=== PATIENT | female | born 1940 | race Caucasian/White ===

== ENCOUNTER 2016-06-30 19:25 | Inpatient (IN) | payer OTHER ==
[~2016-06-30] VITALS: Ht 160 cm; Wt 45.6 kg
[~2016-06-30 19:25] MED LIST: ALBU1AER9 INH; AMLO5TAB2 PO; HYDR-5688 PO; HYDR12.56 PO; IBUP-103 PO; IPRASOL34 NEB; SYMIN160 INH; TYLOTC500 PO
[2016-06-30] MEDS ORDERED: SODIUM CHLORIDE 0.9% 500ML 500 ML IV STA (19:40)
[2016-06-30] MEDS ORDERED: METHYLPREDNISOLONE 125 MG VIAL IV STA (19:40)
[2016-06-30] MEDS ORDERED: ALBUT/IPRATROP 3MG/0.5MG NEB 3 ML VIAL INH ONE (19:45)
[2016-06-30 19:49] LABS: BASO % 0.1 %; BASO ABS # 0.01 K/uL (0-0.2); COMPLETE YES; HEMATOCRIT 48.5 % (37-47); IG% 0.1 %; LYMPH % 13.3 %; LYMPH ABS # 0.98 K/uL (1.2-3.4); MEAN CELL VOLUME 95.8 fL (80-100); MEAN CORPUSCULAR HEMOGLOBIN 31.8 pg (25-34); MEAN CORPUSCULAR HGB CONC 33.2 g/dl (32-36); NEUT % 76.5 %; PLATELET COUNT 114 K/uL (130-400); RED BLOOD COUNT 5.06 M/uL (4.2-5.4); WHITE BLOOD COUNT 7.39 K/uL (4.8-10.8)
--- NOTE | 2016-06-30 19:50 | EMERGENCY ROOM VISIT NOTE ---
History Report prepared by Yudy: Romina Dickinson Under the Supervision of: Dr. Wei Dover M.D. First contact with patient: 19:35 Chief Complaint: SHORTNESS OF BREATH Stated Complaint: SOB History of Present Illness The patient is a 76 year old female who presents to the Emergency Room with complaints of persistent shortness of breath that began prior to arrival. The patient denies being on supplemental nasal cannula oxygen at home. She states that she recently developed laryngitis and a cold. The patient's daughter notes that she took the patient to her PCP's office and was found to have an oxygen saturation in the 70s. She notes that the patient was then transported to the emergency department for further treatment and evaluation. The patient additionally associates a cough with her symptoms today. Source of History: patient Onset: prior to arrival Position: other (global) Quality: other (shortness of breath) Timing: other (persistent) Associated Symptoms: + cough Note: Associated Symptoms: oxygen saturation in the 70s. Review of Systems See HPI for pertinent positives & negatives. A total of 10 systems reviewed and were otherwise negative. Past Medical & Surgical Medical Problems: (1) Chronic obstructive lung disease (2) Eczema (3) History of - hypertension Surgical Problems: (1) H/O tubal ligation Family History Cancer Heart disease Hypertension Social History Smoking Status: Current Every Day Smoker Alcohol Use: occasionally Marital Status: Occupation Status: retired Current/Historical Medications Scheduled Ibuprofen Tab (Advil), 400 MG PO PRN Scheduled PRN Acetaminophen (Tylenol), 1,000 MG PO Q6 PRN Chlorpheniramine-Dm (Coricidin Hbp Cough & Col), 1 TAB PO Q4 PRN for PRN Ipratropium-Albuterol (Duoneb), 1 TREATMENT INH Q4H PRN for Shortness of Breath Allergies Coded Allergies: Bacitracin (Verified Allergy, Mild, UNSURE, 06/30/16) Neomycin (Verified Allergy, Mild, UNSURE, 06/30/16) Polymyxin B (Verified Allergy, Mild, UNSURE, 06/30/16) Copper (Verified Allergy, Unknown, METAL?, 06/30/16) Nickel (Verified Allergy, Unknown, METAL?, 06/30/16) Silver (Verified Allergy, Unknown, METAL?, 06/30/16) [place] (Verified Allergy, Unknown, ., 06/30/16) Physical Exam Vital Signs Date Time Temp Pulse Resp B/P Pulse Ox O2 Delivery O2 Flow Rate FiO2 06/30/16 21:17 116 22 116/92 92 Nasal Cannula 3.0 06/30/16 20:12 88 26 95 Nasal Cannula 6.0 06/30/16 20:11 87 06/30/16 19:45 98 Nasal Cannula 6.0 06/30/16 19:39 102 28 138/82 76 Room Air 06/30/16 19:39 76 Room Air Physical Exam GENERAL: Patient is a healthy-appearing well-nourished HEAD: Normocephalic atraumatic EYES: Ocular movements intact pupils equal and react to light OROPHARYNX mucous membranes are moist no exudates present no erythema or edema present NECK: Supple no nuchal rigidity CHEST: Good equal expansion LUNGS: Distant lung sounds, wheezing noted on the left. CARDIAC: Normal S1 and S2 ABDOMEN: Soft nontender no guarding BACK: No CVA tenderness EXTREMITIES: No pain upon palpation normal muscle strength in all groups no clubbing cyanosis or edema NEURO: Patient is following commands is answering questions appropriately. Alert and oriented x3 Cranial Nerves 2-12 grossly intact Medical Decision & Procedures ER Provider Diagnostic Interpretation: X-ray results as stated below per interpretation by me and the radiologist: SINGLE VIEW CHEST CLINICAL HISTORY: Hypoxia. FINDINGS: An AP, portable, upright chest radiograph is compared to study dated 11/17/2012 and correlated with chest CT dated 11/18/2012. The examination is degraded by portable technique and patient rotation. The heart is enlarged and there is atherosclerotic calcification of the thoracic aorta. The pulmonary vasculature is noncongested. Emphysema and chronic interstitial thickening are similar to previous. No airspace consolidation, large pleural effusion, or Pneumothorax is seen. The skeletal structures are osteopenic. The bony thorax is grossly intact. Degenerative change and scoliosis are noted in the thoracic spine. IMPRESSION: Cardiomegaly and emphysema with no acute cardiopulmonary abnormality. Electronically signed by: Mor Parnell M.D. 06/30/2016 8:11 PM Dictated Date/Time: 06/30/2016 8:09 PM Laboratory Results Test 06/30/16 19:15 06/30/16 19:50 Total Bilirubin 0.9 mg/dl (0.2-1) Aspartate Amino Transf (AST/SGOT) 18 U/L (15-37) Alanine Aminotransferase (ALT/SGPT) 15 U/L (12-78) Alkaline Phosphatase 71 U/L (45-117) Total Creatine Kinase 58 U/L (26-192) Creatine Kinase MB 2.3 ng/ml (0.5-3.6) Creatine Kinase MB Ratio 4.0 (0-3.0) Troponin I < 0.015 ng/ml (0-0.045) Total Protein 7.7 gm/dl (6.4-8.2) Albumin 4.0 gm/dl (3.4-5.0) Globulin 3.7 gm/dl (2.5-4.0) Albumin/Globulin Ratio 1.1 (0.9-2) Influenza Type A (RT-PCR) Neg for Influ A (NEG) Influenza Type A Antigen Neg for Influ A (NEG) Influenza Type B Antigen Neg for Influ B (NEG) Influenza Type B (RT-PCR) Neg for Influ B (NEG) Labs reviewed by ED physician. Medications Administered Medications (Trade) Dose Ordered Sig/Briana Route Start Time Stop Time Status Last Admin Dose Admin Methylprednisolone Sodium Succinate (Solu-Medrol IV) 60 mg NOW STAT IV 06/30/16 19:40 06/30/16 19:43 DC 06/30/16 19:57 60 MG Albuterol/ Ipratropium 12 ml 12 ml ONE ONCE INH 06/30/16 19:45 06/30/16 19:46 DC 06/30/16 19:53 12 ML Sodium Chloride (Nss 500ml) 500 ml @ 999 mls/hr Q31M STAT IV 06/30/16 19:40 06/30/16 20:10 DC 06/30/16 19:57 999 MLS/HR ECG Indication: SOB/dyspnea Rate (beats per minute): 91 Rhythm: normal sinus Findings: no acute ischemic change, no ectopy ED Course 1936: Past medical records reviewed. The patient was evaluated in room B11B. A complete history and physical examination was performed. 1939: Ordered Sodium Chloride 500 ml @ 999 mls/hr IV, Solu-Medrol IV 60 mg IV. 1944: Ordered Duoneb 12 ml INH. 2009: I reevaluated the patient and she is resting comfortably. I discussed the exam findings with her and I discussed the treatment plan. She verbalized complete understanding and agreement. She is going to be evaluated for further treatment. 2045: I discussed the patients case with MAKENZIE Vidal. He is going to evaluate the patient for further treatment. Medical Decision Differential diagnosis: Etiologies such as infections, reactive airway disease, pneumonia, pneumothorax , COPD, CHF, cardiac ischemia, pulmonary embolism, musculoskeletal, gastrointestinal, as well as others were entertained. This is a 76-year-old female who presents emergency department complaining of hypoxia. The patient normally does not see a family doctor and is hypoxic upon arrival to the emergency department. She was given an hour-long breathing treatment and she has diffuse wheezing. She was also given Solu-Medrol. Because the patient remains on oxygen I did discuss the case with the hospitalist service who agreed to admit the patient. Patient was in agreement with the treatment plan. Consults Time Called: 2009 Consulting Physician: MAKENZIE Vidal Returned Call: 2045 I discussed the patients case with MAKENZIE Vidal. He is going to evaluate the patient for further treatment. Impression Primary Impression: Hypoxia Additional Impression: COPD exacerbation Scribe Attestation The scribe's documentation has been prepared under my direction and personally reviewed by me in its entirety. I confirm that the note above accurately reflects all work, treatment, procedures, and medical decision making performed by me. Departure Information Dispostion Being Evaluated By Hospitalist Referrals Radha Gates N.P. (PCP) Problem Qualifiers
[2016-06-30 20:01] LABS: ALT/SGPT 15 U/L (12-78); AST/SGOT 18 U/L (15-37); BLOOD UREA NITROGEN 36 mg/dl (7-18); BUN/CREATININE RATIO 25.7 (10-20); CALCIUM 9.1 mg/dl (8.5-10.1); CARBON DIOXIDE 28 mmol/L (21-32); CHLORIDE 97 mmol/L (98-107); GLUCOSE 103 mg/dl (70-99); POTASSIUM 4.3 mmol/L (3.5-5.1); SODIUM 135 mmol/L (136-145)
[2016-06-30 20:06] LABS: ALB/GLOB RATIO 1.1 (0.9-2); ALKALINE PHOSPHATASE 71 U/L (45-117)
[2016-06-30 20:12] VITALS: PULSE 88; O2SAT 95
--- NOTE | 2016-06-30 20:12 | DIAGNOSTIC IMAGING REPORT ---
SINGLE VIEW CHEST CLINICAL HISTORY: Hypoxia. FINDINGS: An AP, portable, upright chest radiograph is compared to study dated 11/17/2012 and correlated with chest CT dated 11/18/2012. The examination is degraded by portable technique and patient rotation. The heart is enlarged and there is atherosclerotic calcification of the thoracic aorta. The pulmonary vasculature is noncongested. Emphysema and chronic interstitial thickening are similar to previous. No airspace consolidation, large pleural effusion, or Pneumothorax is seen. The skeletal structures are osteopenic. The bony thorax is grossly intact. Degenerative change and scoliosis are noted in the thoracic spine. IMPRESSION: Cardiomegaly and emphysema with no acute cardiopulmonary abnormality. Electronically signed by: Mor Parnell M.D. 06/30/2016 8:11 PM Dictated Date/Time: 06/30/2016 8:09 PM
[2016-06-30] MEDS ORDERED: CHLOTAB10 PO (20:29)
[2016-06-30] MEDS ORDERED: IPRASOL4 INH (20:29)
[2016-06-30] MEDS ORDERED: ACETAMINOPHEN 325 MG TAB PO PRN (21:45)
[2016-06-30] MEDS ORDERED: METHYLPREDNISOLONE IV 40 MG in SYRINGE 0 ML IV SCH (21:45)
[2016-06-30] MEDS ORDERED: ONDANSETRON INJ 2 MG/ML 2 ML VIAL IV PRN (21:45)
[2016-06-30] MEDS ORDERED: LEVALBUTEROL 1.25MG/0.5ML NEB INH PRN (22:00)
[2016-06-30] MEDS ORDERED: IPRATROPIUM BROMIDE NEB SOLN 0.02% 2.5 ML VIAL INH PRN (22:00)
--- NOTE | 2016-06-30 22:19 | History and Physical ---
History & Physical Date & Time of Service: June 30, 2016 at 21:49 Chief Complaint: SOB Primary Care Physician: No Doctor, Assigned History of Present Illness Source: patient, family The patient is a 76-year-old female with a known past medical history of COPD, who presents emergency department with family with progressively worsening shortness of breath over the past week. She's also had an intermittently productive cough with dyspnea on exertion and shortness of breath at rest. She previously was being seen by physicians and assistance at [facility], but has not been seen recently there. She denies fevers or chills, chest pain, nausea or vomiting. She had a decreased appetite over the past week her family. She has not had any recent travels or sick exposures. Past Medical/Surgical History Medical Problems: (1) Chronic obstructive lung disease Status: Chronic (2) Eczema Status: Chronic (3) History of - hypertension Status: Chronic Surgical Problems: (1) H/O tubal ligation Status: Resolved Family History Cancer Heart disease Hypertension Social History Smoking Status: Current Every Day Smoker Smokeless Tobacco Use: No Alcohol Use: none Drug Use: none Marital Status: Occupational Status: retired Immunizations History of Influenza Vaccine: Yes History of Tetanus Vaccine?: utd Tetanus Immunization Date: Nov 24, 2010 History of Pneumococcal: Yes History of Hepatitis B Vaccine: No Multi-Drug Resistant Organisms History of MDRO: No Allergies Coded Allergies: Bacitracin (Verified Allergy, Mild, UNSURE, 06/30/16) Neomycin (Verified Allergy, Mild, UNSURE, 06/30/16) Polymyxin B (Verified Allergy, Mild, UNSURE, 06/30/16) Copper (Verified Allergy, Unknown, METAL?, 06/30/16) Nickel (Verified Allergy, Unknown, METAL?, 06/30/16) Silver (Verified Allergy, Unknown, METAL?, 06/30/16) [place] (Verified Allergy, Unknown, ., 06/30/16) Home Medications Scheduled Ibuprofen Tab (Advil), 400 MG PO PRN Scheduled PRN Acetaminophen (Tylenol), 1,000 MG PO Q6 PRN Chlorpheniramine-Dm (Coricidin Hbp Cough & Col), 1 TAB PO Q4 PRN for PRN Ipratropium-Albuterol (Duoneb), 1 TREATMENT INH Q4H PRN for Shortness of Breath Review of Systems The patient denies chest pain, palpitations, vision change, hearing change, sore throat, fevers, chills, sweats, weight change, nausea, vomiting, abdominal pain, pelvic pain, blood in urine or stool, dysuria, urinary frequency or urgency, lightheadedness, dizziness, headache, memory loss, rash, abnormal bruising or bleeding, imbalance, focal weakness, numbness or tingling in arms or legs, arthralgias or myalgias, back or neck pain, night sweats, or allergy symptoms. The review of systems is otherwise negative other than for that already noted above, and at least 10 systems have been reviewed. Physical Exam Vital Signs Date Time Temp Pulse Resp B/P Pulse Ox O2 Delivery O2 Flow Rate FiO2 06/30/16 21:17 116 22 116/92 92 Nasal Cannula 3.0 06/30/16 20:12 88 26 95 Nasal Cannula 6.0 06/30/16 20:11 87 06/30/16 19:45 98 Nasal Cannula 6.0 06/30/16 19:39 102 28 138/82 76 Room Air 06/30/16 19:39 76 Room Air The patient is awake, appears cachectic, alert and oriented 3, normocephalic and atraumatic, sitting upright in bed and in mild acute distress secondary to shortness of breath. HEENT--PERRL, EOMI, mucous membranes and oropharynx dry. Neck--supple, no JVD or bruits, thyroid normal, trachea midline, no adenopathy. Heart--tachycardic, regular rhythm, no extra beats, no murmurs, rubs or gallops. Lungs--coarse breath sounds bilaterally, mild respiratory distress, no accessory muscle use. Abdomen--normal bowel sounds and soft, nontender and nondistended, no hernias or masses, no organomegaly. Extremities--no cyanosis, clubbing. There is bilaterally pretibially 1+ pitting Edema. There are good distal pulses b/l. Dermatologic-- Toenails are very long and curled. Feet with chronic eczema/ tinea pedis/onychomycosis infection. Neurologic--cranial nerves II through XII grossly intact, motor and sensory examination normal. Rheumatologic--normal range of motion, nontender, muscles and joints, for age Psychiatric--normal affect. Diagnostics Laboratory Results Results Past 24 Hours Test 06/30/16 19:15 06/30/16 19:50 Range/Units White Blood Count 7.39 4.8-10.8 K/uL Red Blood Count 5.06 4.2-5.4 M/uL Hemoglobin 16.1 12.0-16.0 g/dL Hematocrit 48.5 37-47 % Mean Corpuscular Volume 95.8 80-100 fL Mean Corpuscular Hemoglobin 31.8 25-34 pg Mean Corpuscular Hemoglobin Concent 33.2 32-36 g/dl Platelet Count 114 130-400 K/uL Mean Platelet Volume 10.0 7.4-10.4 fL Neutrophils (%) (Auto) 76.5 % Lymphocytes (%) (Auto) 13.3 % Monocytes (%) (Auto) 10.0 % Eosinophils (%) (Auto) 0.0 % Basophils (%) (Auto) 0.1 % Neutrophils # (Auto) 5.65 1.4-6.5 K/uL Lymphocytes # (Auto) 0.98 1.2-3.4 K/uL Monocytes # (Auto) 0.74 0.11-0.59 K/uL Eosinophils # (Auto) 0.00 0-0.5 K/uL Basophils # (Auto) 0.01 0-0.2 K/uL RDW Standard Deviation 45.0 36.4-46.3 fL RDW Coefficient of Variation 12.9 11.5-14.5 % Immature Granulocyte % (Auto) 0.1 % Immature Granulocyte # (Auto) 0.01 0.00-0.02 K/uL Sodium Level 135 136-145 mmol/L Potassium Level 4.3 3.5-5.1 mmol/L Chloride Level 97 98-107 mmol/L Carbon Dioxide Level 28 21-32 mmol/L Anion Gap 10.0 3-11 mmol/L Blood Urea Nitrogen 36 7-18 mg/dl Creatinine 1.40 0.60-1.20 mg/dl Est Creatinine Clear Calc Drug Dose 24.6 ml/min Estimated GFR () 42.2 Estimated GFR (Non- 36.4 BUN/Creatinine Ratio 25.7 10-20 Random Glucose 103 70-99 mg/dl Calcium Level 9.1 8.5-10.1 mg/dl Total Bilirubin 0.9 0.2-1 mg/dl Aspartate Amino Transf (AST/SGOT) 18 15-37 U/L Alanine Aminotransferase (ALT/SGPT) 15 12-78 U/L Alkaline Phosphatase 71 45-117 U/L Total Creatine Kinase 58 26-192 U/L Creatine Kinase MB 2.3 0.5-3.6 ng/ml Creatine Kinase MB Ratio 4.0 0-3.0 Troponin I < 0.015 0-0.045 ng/ml Total Protein 7.7 6.4-8.2 gm/dl Albumin 4.0 3.4-5.0 gm/dl Globulin 3.7 2.5-4.0 gm/dl Albumin/Globulin Ratio 1.1 0.9-2 Influenza Type A Antigen Neg for Influ A NEG Influenza Type B Antigen Neg for Influ B NEG Diagnostic Radiology Patient Name: CARLITO JULIAN Unit Number: [id number] Dictated: 06/30/162008 Transcribed: 06/30/162008 EV Printed Date/Time: [~ rep prt dt]/[~ rep prt tm] [~ rep ct labl] - [~ rep ct ivnm] [facility] Radiology Department [place] [id number] Dictated: 06/30/162008 Transcribed: 06/30/162008 EV Printed Date/Time: [~ rep prt dt]/[~ rep prt tm] [~ rep ct labl] - [~ rep ct ivnm] SINGLE VIEW CHEST CLINICAL HISTORY: Hypoxia. FINDINGS: An AP, portable, upright chest radiograph is compared to study dated 11/17/2012 and correlated with chest CT dated 11/18/2012. The examination is degraded by portable technique and patient rotation. The heart is enlarged and there is atherosclerotic calcification of the thoracic aorta. The pulmonary vasculature is noncongested. Emphysema and chronic interstitial thickening are similar to previous. No airspace consolidation, large pleural effusion, or Pneumothorax is seen. The skeletal structures are osteopenic. The bony thorax is grossly intact. Degenerative change and scoliosis are noted in the thoracic spine. IMPRESSION: Cardiomegaly and emphysema with no acute cardiopulmonary abnormality. Electronically signed by: Mor Parnell M.D. 06/30/2016 8:11 PM Dictated Date/Time: 06/30/2016 8:09 PM The status of this report is Signed. Draft = Not yet reviewed or approved by Radiologist. Signed = Reviewed and approved by Radiologist. <AttendingPhy></AttendingPhy> <FamilyPhy>No Doctor, Assigned</FamilyPhy> < PrimaryPhy>No Doctor, Assigned</PrimaryPhy> <UnitNumber>[id number]</UnitNumber> <VisitNumber>[id number]</VisitNumber> <PatientName>CARLITO JULIAN</ PatientName> <DateOfBirth>1940</DateOfBirth> <Location>[facility]</Location> < ServiceDate>06/30/16</ServiceDate> <MNE>ESINDI</MNE> <OrderingPhy>Wei Dover MD</OrderingPhy> <OrderingPhyMNE>f rep ord dr avitia</OrderingPhyMNE> < DictatingPhyMNE>f rep dict dr avitia</DictatingPhyMNE> <CCListMNE>f rep ct mne</ CCListMNE> <AdmittingPhyMNE>f pt admit dr avitia</AdmittingPhyMNE> <AttendingPhyMNE >f pt attend dr avitia</AttendingPhyMNE> <ConsultingPhyMNE>f pt consult dr avitia</ConsultingPhyMNE> <FamilyPhyMNE>f pt fam dr avitia</FamilyPhyMNE> <OtherPhyMNE>f pt other dr avitia</OtherPhyMNE> < PrimaryPhyMNE>f pt prim care dr avitia</PrimaryPhyMNE> <ReferringPhyMNE>f pt referring dr avitia</ReferringPhyMNE> EKG EKG shows normal sinus rhythm at 91 bpm, no acute ST-T changes, and no change compared to 01/18/2014. Impression Assessment and Plan Severe COPD exacerbation/acute respiratory failure with hypoxia--the patient will be admitted to the telemetry unit for close oxygen monitoring. Will place on ceftriaxone 1 g IV daily, levofloxacin 500 mg IV every 24 hours, guaifenesin extended release 600 mg by mouth twice a day, Solu-Medrol 40 mg IV every 8 hours , Xopenex/Atrovent high flow nebs every 6 hours while awake and every 2 hours when necessary. Acute renal insufficiency--creatinine is 1.4 on admission. Gently hydrate with IV fluids and repeat labs in the a.m. His Podiatry issues--patient's toenails are very long and curled with onychomycosis and tinea pedis. We'll consult her furs salesperson that she seen for Dr. Luo. We'll place her on Nizoral cream for tinea pedis issues and oral fluconazole. Level of Care Telemetry Advanced Directives Existing Advance Directive: No Existing Living Will: No Existing Power of Tree Planter: No Resuscitation Status FULL RESUSCITATION VTE Prophylaxis VTE Risk Assessment Done? Y/N: Yes Risk Level: Moderate Given or contraindicated: SCD's
[2016-06-30 22:30] VITALS: BP 142/93; PULSE 108; TEMP 36.3; O2SAT 100; Ht 160 cm; Wt 45.6 kg
[2016-06-30 22:34] LABS: INFLUENZA A PCR Neg for Influ A (NEG); INFLUENZA B PCR Neg for Influ B (NEG)
[2016-06-30] MEDS ORDERED: CEFTRIAXONE SOD INJ 1 GM in DEXTROSE 5% ADD-VANTAGE 50ML 50 ML IV SCH (23:00)
[2016-06-30] MEDS ORDERED: LEVOFLOXACIN CONSULT ACTIVE PRN (23:00)
[2016-06-30] MEDS ORDERED: LEVOFLOXACIN / D5W 500 MG in PREMIXED IN D5W 100 ML IV SCH (23:30)
[2016-06-30 23:59] VITALS: O2SAT 93
[2016-07-01] VITALS (11 sets, daily range): BP systolic 101–158; BP diastolic 63–88; PULSE 66–86; TEMP 36.2–36.6; O2SAT 90–100
[2016-07-01] MEDS: IPRATROPIUM BROMIDE NEB SOLN 0.02% 2.5 ML VIAL INH SCH ×4 (02:51→19:20)
[2016-07-01] MEDS: LEVALBUTEROL 1.25MG/0.5ML NEB INH SCH ×4 (02:51→19:20)
[2016-07-01] MEDS ORDERED: LEVALBUTEROL/IPRATROPIUM NEB INH SCH (03:00)
[2016-07-01] MEDS ORDERED: METHYLPREDNISOLONE IV 40 MG in SYRINGE 0 ML IV SCH (05:45)
[2016-07-01 05:50] LABS: HEMATOCRIT 43.8 % (37-47); MEAN CELL VOLUME 95.2 fL (80-100); MEAN CORPUSCULAR HEMOGLOBIN 31.3 pg (25-34); MEAN CORPUSCULAR HGB CONC 32.9 g/dl (32-36); WHITE BLOOD COUNT 4.53 K/uL (4.8-10.8)
[2016-07-01 06:24] LABS: BUN/CREATININE RATIO 27.5 (10-20); CALCIUM 8.2 mg/dl (8.5-10.1); CREATININE 1.2 mg/dl (0.60-1.20); MAGNESIUM 2.1 mg/dl (1.8-2.4); POTASSIUM 4.1 mmol/L (3.5-5.1)
[2016-07-01 06:41] LABS: COMPLETE YES; LYMPH % 8.2 %; LYMPH ABS # 0.37 K/uL (1.2-3.4); MEAN PLATELET VOLUME 9.9 fL (7.4-10.4); MONO % 2.9 %; NEUT % 88.9 %; PLATELET COUNT 95 K/uL (130-400); PLT ESTIMATE DECREASED
[2016-07-01] MEDS: KETOCONAZOLE 2% CR 15 GM TUBE EXT SCH ×2 (09:26→19:33)
[2016-07-01] MEDS: GUAIFENESIN 600 MG TABCR PO SCH ×2 (09:27→19:32)
[2016-07-01] MEDS: FLUCONAZOLE 100 MG TAB PO SCH (09:27)
--- NOTE | 2016-07-01 09:30 | Hospitalist Progress Note ---
Hospitalist Progress Note Date of Service July 01, 2016. Subjective Pt evaluation today including: conversation w/ patient, physical exam, chart review, lab review, review of studies, review of inpatient medication list Patient reports breathing has improved today. Still has a nonproductive cough. Had fever and chills yesterday. This has dissipated. Denies any chest pain or pressure. No dizziness or lightheadedness. Additional Comments: 6 system review negative. Please see pertinent positives in the history of present illness section. Objective Vital Signs Date Time Temp Pulse Resp B/P Pulse Ox O2 Delivery O2 Flow Rate FiO2 07/01/16 08:00 93 Nasal Cannula 3.0 07/01/16 07:32 36.6 71 16 147/78 97 3.0 07/01/16 07:01 66 16 96 Nasal Cannula 3.0 07/01/16 04:00 Nasal Cannula 3.0 07/01/16 04:00 36.5 84 20 148/87 93 Nasal Cannula 3.0 07/01/16 02:51 70 16 96 Nasal Cannula 3.0 06/30/16 23:59 93 Nasal Cannula 3.0 06/30/16 22:33 92 22 93 06/30/16 22:30 36.3 108 18 142/93 100 Nasal Cannula 3.0 06/30/16 21:17 116 22 116/92 92 Nasal Cannula 3.0 06/30/16 20:12 88 26 95 Nasal Cannula 6.0 06/30/16 20:11 87 06/30/16 19:45 98 Nasal Cannula 6.0 06/30/16 19:39 102 28 138/82 76 Room Air 06/30/16 19:39 76 Room Air Physical Exam General Appearance: no apparent distress Eyes: EOMI ENT: + pertinent finding (no exudate noted on the tongue or oral cavity) Neck: no JVD Respiratory/Chest: + pertinent finding (diffuse wheezing bilaterally. No crackles at the bases.) Cardiovascular: regular rate, rhythm Abdomen: normal bowel sounds, non tender, soft Extremities: + pertinent finding (significantly dry skin noted on the lower extremities bilaterally right greater than left. No significant edema, erythema or warmth appreciated bilaterally.) Neurologic/Psychiatric: no motor/sensory deficits, oriented x 3 Skin: warm/dry Laboratory Results 07/01/16 05:16 Red Blood Count 4.60, Mean Corpuscular Volume 95.2, Mean Corpuscular Hemoglobin 31.3, Mean Corpuscular Hemoglobin Concent 32.9, Mean Platelet Volume 9.9, Neutrophils (%) (Auto) 88.9, Lymphocytes (%) (Auto) 8.2, Monocytes (%) (Auto) 2.9, Eosinophils (%) (Auto) 0.0, Basophils (%) (Auto) 0.0, Neutrophils # (Auto) 4.03, Lymphocytes # (Auto) 0.37, Monocytes # (Auto) 0.13, Eosinophils # (Auto) 0.00, Basophils # (Auto) 0.00 07/01/16 05:16 Test 06/30/16 19:15 06/30/16 19:50 07/01/16 05:16 Total Bilirubin 0.9 mg/dl (0.2-1) Aspartate Amino Transf (AST/SGOT) 18 U/L (15-37) Alanine Aminotransferase (ALT/SGPT) 15 U/L (12-78) Alkaline Phosphatase 71 U/L (45-117) Total Creatine Kinase 58 U/L (26-192) Creatine Kinase MB 2.3 ng/ml (0.5-3.6) Creatine Kinase MB Ratio 4.0 (0-3.0) Troponin I < 0.015 ng/ml (0-0.045) Total Protein 7.7 gm/dl (6.4-8.2) Albumin 4.0 gm/dl (3.4-5.0) Globulin 3.7 gm/dl (2.5-4.0) Albumin/Globulin Ratio 1.1 (0.9-2) Influenza Type A (RT-PCR) Neg for Influ A (NEG) Influenza Type A Antigen Neg for Influ A (NEG) Influenza Type B Antigen Neg for Influ B (NEG) Influenza Type B (RT-PCR) Neg for Influ B (NEG) White Blood Count 4.53 K/uL (4.8-10.8) Red Blood Count 4.60 M/uL (4.2-5.4) Hemoglobin 14.4 g/dL (12.0-16.0) Hematocrit 43.8 % (37-47) Mean Corpuscular Volume 95.2 fL (80-100) Mean Corpuscular Hemoglobin 31.3 pg (25-34) Mean Corpuscular Hemoglobin Concent 32.9 g/dl (32-36) Platelet Count 95 K/uL (130-400) Mean Platelet Volume 9.9 fL (7.4-10.4) Neutrophils (%) (Auto) 88.9 % Lymphocytes (%) (Auto) 8.2 % Monocytes (%) (Auto) 2.9 % Eosinophils (%) (Auto) 0.0 % Basophils (%) (Auto) 0.0 % Neutrophils # (Auto) 4.03 K/uL (1.4-6.5) Lymphocytes # (Auto) 0.37 K/uL (1.2-3.4) Monocytes # (Auto) 0.13 K/uL (0.11-0.59) Eosinophils # (Auto) 0.00 K/uL (0-0.5) Basophils # (Auto) 0.00 K/uL (0-0.2) RDW Standard Deviation 44.8 fL (36.4-46.3) RDW Coefficient of Variation 12.9 % (11.5-14.5) Immature Granulocyte % (Auto) 0.0 % Immature Granulocyte # (Auto) 0.00 K/uL (0.00-0.02) Platelet Estimate DECREASED Anion Gap 8.0 mmol/L (3-11) Est Creatinine Clear Calc Drug Dose 28.7 ml/min Estimated GFR () 50.8 Estimated GFR (Non- 43.9 BUN/Creatinine Ratio 27.5 (10-20) Calcium Level 8.2 mg/dl (8.5-10.1) Magnesium Level 2.1 mg/dl (1.8-2.4) Last 24 Hours Test 06/30/16 19:15 06/30/16 19:50 07/01/16 05:16 White Blood Count 7.39 K/uL 4.53 K/uL Red Blood Count 5.06 M/uL 4.60 M/uL Hemoglobin 16.1 g/dL 14.4 g/dL Hematocrit 48.5 % 43.8 % Mean Corpuscular Volume 95.8 fL 95.2 fL Mean Corpuscular Hemoglobin 31.8 pg 31.3 pg Mean Corpuscular Hemoglobin Concent 33.2 g/dl 32.9 g/dl Platelet Count 114 K/uL 95 K/uL Mean Platelet Volume 10.0 fL 9.9 fL Neutrophils (%) (Auto) 76.5 % 88.9 % Lymphocytes (%) (Auto) 13.3 % 8.2 % Monocytes (%) (Auto) 10.0 % 2.9 % Eosinophils (%) (Auto) 0.0 % 0.0 % Basophils (%) (Auto) 0.1 % 0.0 % Neutrophils # (Auto) 5.65 K/uL 4.03 K/uL Lymphocytes # (Auto) 0.98 K/uL 0.37 K/uL Monocytes # (Auto) 0.74 K/uL 0.13 K/uL Eosinophils # (Auto) 0.00 K/uL 0.00 K/uL Basophils # (Auto) 0.01 K/uL 0.00 K/uL RDW Standard Deviation 45.0 fL 44.8 fL RDW Coefficient of Variation 12.9 % 12.9 % Immature Granulocyte % (Auto) 0.1 % 0.0 % Immature Granulocyte # (Auto) 0.01 K/uL 0.00 K/uL Sodium Level 135 mmol/L 138 mmol/L Potassium Level 4.3 mmol/L 4.1 mmol/L Chloride Level 97 mmol/L 101 mmol/L Carbon Dioxide Level 28 mmol/L 29 mmol/L Anion Gap 10.0 mmol/L 8.0 mmol/L Blood Urea Nitrogen 36 mg/dl 33 mg/dl Creatinine 1.40 mg/dl 1.20 mg/dl Est Creatinine Clear Calc Drug Dose 24.6 ml/min 28.7 ml/min Estimated GFR () 42.2 50.8 Estimated GFR (Non- 36.4 43.9 BUN/Creatinine Ratio 25.7 27.5 Random Glucose 103 mg/dl 212 mg/dl Calcium Level 9.1 mg/dl 8.2 mg/dl Total Bilirubin 0.9 mg/dl Aspartate Amino Transf (AST/SGOT) 18 U/L Alanine Aminotransferase (ALT/SGPT) 15 U/L Alkaline Phosphatase 71 U/L Total Creatine Kinase 58 U/L Creatine Kinase MB 2.3 ng/ml Creatine Kinase MB Ratio 4.0 Troponin I < 0.015 ng/ml Total Protein 7.7 gm/dl Albumin 4.0 gm/dl Globulin 3.7 gm/dl Albumin/Globulin Ratio 1.1 Influenza Type A (RT-PCR) Neg for Influ A Influenza Type A Antigen Neg for Influ A Influenza Type B Antigen Neg for Influ B Influenza Type B (RT-PCR) Neg for Influ B Platelet Estimate DECREASED Magnesium Level 2.1 mg/dl Assessment and Plan 76-year-old female presented to the emergency department with shortness of breath and a nonproductive cough, fever and chills. COPD exacerbation/acute respiratory failure with hypoxia -Continue Levaquin -Continue Xopenex/Atrovent every 6 hours scheduled -Continue steroids at current dose: Solu-Medrol 40 mg IV BID -Continuous pulse ox -Stable for transfer to medical floor Tinea pedis -Continue ketoconazole cream and fluconazole 100 mg daily -Podiatry consult pending DVT prophylaxis -Heparin 5000 u subQ BID -TEDS, SCDs CODE STATUS -LEVEL I FULL CODE DISPO -lives at home alone -PT/OT eval
[2016-07-01 10:27] LABS: PARTIAL THROMBOPLASTIN RATIO 1.1; PROTHROMBIN TIME (PATIENT) 10.6 SECONDS (9.0-12.0)
[2016-07-01] MEDS: HEPARIN SOD 5000 UNIT/0.5 ML CARP SQ SCH ×2 (11:25→19:41)
[2016-07-01] MEDS: METHYLPREDNISOLONE IV 40 MG in SYRINGE 0 ML IV SCH (17:37)
[2016-07-02] MEDS ORDERED: LEVOFLOXACIN 250MG / D5W IV SCH
[2016-07-02] MEDS: LEVALBUTEROL 1.25MG/0.5ML NEB INH SCH ×3 (01:54→14:20)
[2016-07-02] MEDS: IPRATROPIUM BROMIDE NEB SOLN 0.02% 2.5 ML VIAL INH SCH ×3 (01:54→14:20)
[2016-07-02 01:55] VITALS: PULSE 72; O2SAT 91
[2016-07-02] MEDS: METHYLPREDNISOLONE IV 40 MG in SYRINGE 0 ML IV SCH (05:30)
[2016-07-02 06:02] LABS: COMPLETE YES; HEMATOCRIT 44.2 % (37-47); IG% 0.3 %; LYMPH % 5.9 %; LYMPH ABS # 0.68 K/uL (1.2-3.4); MEAN CELL VOLUME 93.6 fL (80-100); MEAN CORPUSCULAR HEMOGLOBIN 30.7 pg (25-34); MEAN CORPUSCULAR HGB CONC 32.8 g/dl (32-36); MEAN PLATELET VOLUME 9.5 fL (7.4-10.4); MONO % 6.4 %; NEUT % 87.4 %; PLATELET COUNT 120 K/uL (130-400); RED BLOOD COUNT 4.72 M/uL (4.2-5.4); WHITE BLOOD COUNT 11.59 K/uL (4.8-10.8)
[2016-07-02 06:34] LABS: BUN/CREATININE RATIO 27.4 (10-20); CALCIUM 8.7 mg/dl (8.5-10.1); CREATININE 1.4 mg/dl (0.60-1.20); MAGNESIUM 2.1 mg/dl (1.8-2.4); POTASSIUM 4.4 mmol/L (3.5-5.1)
[2016-07-02 07:13] VITALS: PULSE 72; O2SAT 95
[2016-07-02 07:30] VITALS: BP 132/74; PULSE 64; TEMP 36.5; O2SAT 95
[2016-07-02] MEDS: FLUCONAZOLE 100 MG TAB PO SCH (07:40)
[2016-07-02] MEDS: GUAIFENESIN 600 MG TABCR PO SCH (07:40)
[2016-07-02] MEDS: KETOCONAZOLE 2% CR 15 GM TUBE EXT SCH (07:41)
[2016-07-02 08:01] LABS: URINE APPEARANCE CLEAR (CLEAR); URINE BILIRUBIN NEG (NEG); URINE COLOR YELLOW; URINE NITRITE NEG (NEG); URINE PH 5.5 (4.5-7.5); URINE SPECIFIC GRAVITY 1.013 (1.000-1.030); UROBILINOGEN NEG (NEG)
[2016-07-02 08:13] LABS: MANUAL MICROSCOPIC REQUIRED? NO; REVIEW REQ? NO
[2016-07-02] MEDS: HEPARIN SOD 5000 UNIT/0.5 ML CARP SQ SCH (09:01)
[2016-07-02] MEDS ORDERED: LEVO-366 PO (09:39)
[2016-07-02] MEDS ORDERED: SPRIN/30 INH (09:39)
[2016-07-02] MEDS ORDERED: NZRCR EXT (09:39)
[2016-07-02] MEDS ORDERED: PRED10TA PO (09:39)
[2016-07-02] MEDS ORDERED: DFL100 PO (09:39)
--- NOTE | 2016-07-02 09:47 | Discharge Instructions ---
Discharge Instructions Date of Service July 02, 2016. Admission Reason for Admission: Copd Exacerbation, Hypoxia Discharge Discharge Diagnosis / Problem: COPD exacerbation Discharge Goals Goal(s): Improve function, Therapeutic intervention Activity Recommendations Activity Limitations: resume your previous activity You have been treated in the hospital for a COPD exacerbation. It also appears that you have a fungal infection on your feet. It is very important to keep your feet dry (thoroughly dry after bathing) It is very important to stop smoking The following changes/additions have been made to your medication list: -Levaquin 500 mg daily. Finish the course -Prednisone 30 mg daily. Finish the course -Ketoconazole cream. Apply to feet as directed -Fluconazole 100 mg tab by mouth. Finish course Your kidney function is also slightly abnormal. Stay well hydrated. Drink at least 5 cups of water daily. It is recommended that you have a repeat BMP ( blood work) in 5 days PLEASE FOLLOW UP WITH YOUR PRIMARY CARE PROVIDER WITHIN 1 WEEK FOR A RECHECK Call your doctor or return to the emergency department if you have any of the following symptoms: -Fever of 101F or greater -Persistent vomiting - Persistent diarrhea -Lethargy -Chest pain -Severe Shortness of breath -severe dizziness -weakness on one side of your body . Current Hospital Diet Patient's current hospital diet: Regular Diet Discharge Diet Recommended Diet: AHA Diet (Heart Healthy) Pending Studies Studies pending at discharge: no Laboratory Results 07/02/16 05:54 Red Blood Count 4.72, Mean Corpuscular Volume 93.6, Mean Corpuscular Hemoglobin 30.7, Mean Corpuscular Hemoglobin Concent 32.8, Mean Platelet Volume 9.5, Neutrophils (%) (Auto) 87.4, Lymphocytes (%) (Auto) 5.9, Monocytes (%) (Auto) 6.4, Eosinophils (%) (Auto) 0.0, Basophils (%) (Auto) 0.0, Neutrophils # (Auto) 10.14, Lymphocytes # (Auto) 0.68, Monocytes # (Auto) 0.74, Eosinophils # (Auto) 0.00, Basophils # (Auto) 0.00 07/02/16 05:54 Test 07/01/16 10:03 07/02/16 00:00 07/02/16 05:54 Prothrombin Time 10.6 SECONDS (9.0-12.0) Prothromb Time International Ratio 1.0 (0.9-1.1) Activated Partial Thromboplast Time 29.4 SECONDS (21.0-31.0) Partial Thromboplastin Ratio 1.1 Urine Color YELLOW Urine Appearance CLEAR (CLEAR) Urine pH 5.5 (4.5-7.5) Urine Specific [place] 1.013 (1.000-1.030) Urine Protein NEG (NEG) Urine Glucose (UA) NEG (NEG) Urine Ketones NEG (NEG) Urine Occult Blood NEG (NEG) Urine Nitrite NEG (NEG) Urine Bilirubin NEG (NEG) Urine Urobilinogen NEG (NEG) Urine Leukocyte Esterase NEG (NEG) White Blood Count 11.59 K/uL (4.8-10.8) Red Blood Count 4.72 M/uL (4.2-5.4) Hemoglobin 14.5 g/dL (12.0-16.0) Hematocrit 44.2 % (37-47) Mean Corpuscular Volume 93.6 fL (80-100) Mean Corpuscular Hemoglobin 30.7 pg (25-34) Mean Corpuscular Hemoglobin Concent 32.8 g/dl (32-36) Platelet Count 120 K/uL (130-400) Mean Platelet Volume 9.5 fL (7.4-10.4) Neutrophils (%) (Auto) 87.4 % Lymphocytes (%) (Auto) 5.9 % Monocytes (%) (Auto) 6.4 % Eosinophils (%) (Auto) 0.0 % Basophils (%) (Auto) 0.0 % Neutrophils # (Auto) 10.14 K/uL (1.4-6.5) Lymphocytes # (Auto) 0.68 K/uL (1.2-3.4) Monocytes # (Auto) 0.74 K/uL (0.11-0.59) Eosinophils # (Auto) 0.00 K/uL (0-0.5) Basophils # (Auto) 0.00 K/uL (0-0.2) RDW Standard Deviation 43.4 fL (36.4-46.3) RDW Coefficient of Variation 12.5 % (11.5-14.5) Immature Granulocyte % (Auto) 0.3 % Immature Granulocyte # (Auto) 0.03 K/uL (0.00-0.02) Anion Gap 4.0 mmol/L (3-11) Est Creatinine Clear Calc Drug Dose 24.6 ml/min Estimated GFR () 42.2 Estimated GFR (Non- 36.4 BUN/Creatinine Ratio 27.4 (10-20) Calcium Level 8.7 mg/dl (8.5-10.1) Magnesium Level 2.1 mg/dl (1.8-2.4) Medical Emergencies . Who to Call and When: Medical Emergencies: If at any time you feel your situation is an emergency, please call 911 immediately. . Non-Emergent Contact Non-Emergency issues call your: Primary Care Provider . . "Provider Documentation" section prepared by Sobeida Giron. . VTE Core Measure Inpt VTE Proph given/why not?: SCD's
--- NOTE | 2016-07-02 09:59 | Discharge Summary ---
Discharge Summary Date of Service July 02, 2016. Discharge Summary Admission Date: June 30, 2016 at 21:44 Discharge Date: July 02, 2016 Discharge Disposition: Home Principal Diagnosis: COPD exacerbation Problems/Secondary Diagnoses: Tinea pedis Tobacco use Immunizations: Have You Had Influenza Vaccine: Yes History of Tetanus Vaccine?: utd Tetanus Immunization Date: Nov 24, 2010 History of Pneumococcal: Yes History of Hepatitis B Vaccine: No Medication Reconciliation New Medications: Levofloxacin (Levaquin) 500 Mg Tab 500 MG PO DAILY for 3 Days, #3 TAB Prednisone Tab (Prednisone) 10 Mg Tab 30 MG PO DAILY for 3 Days, #9 TAB Tiotropium Cerulean (Spiriva Handihaler) 30 Puff/540 Mcg Aerp 1 CAP INH DAILY for 30 Days, #30 CAP 3 Refills Fluconazole (Fluconazole) 100 Mg Tab 100 MG PO QAM for 5 Days, #5 TAB Ketoconazole (Ketoconazole) 45 Appln/15 Gm Cr 1 APPLN EXT BID for 30 Days, #1 TUBE apply to feet twice daily for 14 days Continued Medications: Acetaminophen (Tylenol) 500 Mg Tab 1000 MG PO Q6 PRN, TAB Ipratropium-Albuterol (Duoneb) 3 Ml Nebu 1 TREATMENT INH Q4H PRN for Shortness of Breath, INHA Discontinued Medications: Chlorpheniramine-Dm (Coricidin Hbp Cough & Col) 1 Tab Tab 1 TAB PO Q4 PRN for PRN Ibuprofen Tab (Advil) 200 Mg Tab 400 MG PO PRN, TAB Referrals At Discharge Follow up Referrals: Physician Referral - Within 1 Week with Marisela Ch PA-C Discharge Exam Patient reports that her breathing is much improved today. She still has a mild nonproductive cough. No fever or chills. Denies any chest pressure. Review of Systems: Constitutional: No chills, No fever Respiratory: + cough, No shortness of breath Cardiovascular: No chest pain Abdomen: No nausea Physical Exam: General Appearance: no apparent distress Eyes: EOMI ENT: + pertinent finding (no exudate in the oral cavity) Neck: no JVD Respiratory/Chest: + pertinent finding (mild diffuse wheezing. No crackles at the bases.) Cardiovascular: regular rate, rhythm Abdomen / GI: normal bowel sounds, non tender, soft Extremities: no calf tenderness, no pedal edema Neurologic/Psychiatric: no motor/sensory deficits, oriented x 3 Hospital Course 76-year-old female presented to the emergency department with shortness of breath and a nonproductive cough, fever and chills. COPD exacerbation/acute respiratory failure with hypoxia -Admitted to tele-->then sent to medical floor -Treated with Levaquin, duonebs, solumedrol which was quickly tapered -O2 stable on the day of DC -Given rx for prednisone, levaquin and spiriva (cost may be an issue) -smoking cessation encouraged Renal insufficiency-pt said that she has been told in the past that her kidney function is abnormal -encourage po fluids -repeat BMP in 5 days Tinea pedis -Fluconazole 100 mg for a total of 7 days -Ketoconazole cream BID x 2 weeks -f/u with PCP DVT prophylaxis -Heparin 5000 u subQ BID -TEDS, SCDs CODE STATUS -LEVEL I FULL CODE DISPO -lives at home alone Total Time Spent: Greater than 30 minutes This includes examination of the patient, discharge planning, medication reconciliation, and communication with other providers. Discharge Instructions Please refer to the electronic Patient Visit Report (Discharge Instructions) for additional information. Follow-Up PCP in 1 week Additional Copies To Marisela Ch PA-C
[2016-07-02] MEDS ORDERED: SYMIN160 INH (10:01)
[2016-10-02] MEDS ORDERED: CEPH500C2 PO (13:55)
[2016-11-25] MEDS ORDERED: ATOR10TA82 PO (14:27)
== END 2016-07-02 16:22 | disposition home or self-care (01) | DRG 190 ==
LOC: ENRESERVTM → ENRESERVDT → EDBD 19:25 → C.EDB 19:26 → C.2T 21:44 → C.4E 07-01 10:32
PROVIDERS: ADMIT Hospitalist; ATTEND Internal Medicine
DX: J44.1 Chronic obstructive pulmonary disease with (acute) exacerbation (principal); J96.01 Acute respiratory failure with hypoxia; N28.9 Disorder of kidney and ureter, unspecified; B35.1 Tinea unguium; B35.3 Tinea pedis; F17.210 Nicotine dependence, cigarettes, uncomplicated; Z51.81 Encounter for therapeutic drug level monitoring; Z82.49 Family history of ischemic heart disease and other diseases of the circulatory system

== ENCOUNTER 2016-09-07 19:54 | Emergency (ER) | payer OTHER ==
[~2016-09-07] VITALS: Ht 160 cm; Wt 52.9 kg
[~2016-09-07 19:54] MED LIST changes: -ALBU1AER9 INH; -AMLO5TAB2 PO; +DFL100 PO; -HYDR-5688 PO; -HYDR12.56 PO; -IBUP-103 PO; -IPRASOL34 NEB; +IPRASOL4 INH; +NZRCR EXT; +SPRIN/30 INH; -SYMIN160 INH
[2016-09-07 19:56] VITALS: TEMP 36.4; Ht 160 cm; Wt 52.9 kg
[2016-09-07] MEDS ORDERED: SPRIN/30 INH (20:23)
[2016-09-07] MEDS ORDERED: NZRCR TOP (20:23)
[2016-09-07] MEDS ORDERED: AMLO-114 PO (20:24)
--- NOTE | 2016-09-07 21:38 | DIAGNOSTIC IMAGING REPORT ---
RIGHT ELBOW MIN 3 VIEWS ROUTINE CLINICAL HISTORY: Right elbow pain status post trauma COMPARISON: None. DISCUSSION: The fat pads are not displaced. No fractures or dislocations are visualized. The bones are mildly osteopenic. There is a small triceps insertional calcification. There is no evidence for soft tissue swelling. IMPRESSION: No acute fractures or dislocations. Electronically signed by: Yusuf Adamson M.D. 09/07/2016 9:37 PM Dictated Date/Time: 09/07/2016 9:36 PM
--- NOTE | 2016-09-07 21:39 | DIAGNOSTIC IMAGING REPORT ---
RIGHT FOREARM 2 VIEWS ROUTINE CLINICAL HISTORY: Right forearm pain status post trauma COMPARISON: None. DISCUSSION: The bones are osteopenic. No acute fractures or dislocations are visualized. IMPRESSION: No acute fractures or dislocations identified. Electronically signed by: Yusuf Adamson M.D. 09/07/2016 9:38 PM Dictated Date/Time: 09/07/2016 9:37 PM
[2016-09-07] MEDS ORDERED: ACETAMINOPHEN 325 MG TAB PO STA (21:47)
--- NOTE | 2016-09-07 21:50 | EMERGENCY ROOM VISIT NOTE ---
ED Visit Note First contact with patient: 20:04 Patient was seen by our PA/HAND CLIPPER. I was involved in the patient's care and did evaluate the patient myself. I was involved in the care throughout the ER stay. The patient's right arm lacerations/skin tears have been closed/repaired. They have been dressed. She was felt stable for discharge. Films of the injured area do not show fracture.
[2016-09-07] MEDS ORDERED: TRAMADOL HCL 50 MG HOME PACK PO ONE (22:00)
[2016-09-07 22:06] VITALS: BP 140/84; PULSE 78; O2SAT 98
--- NOTE | 2016-09-08 00:29 | EMERGENCY ROOM VISIT NOTE ---
ED Visit Note First contact with patient: 20:04 Chief Complaint: I hurt my right arm. History of Present Illness: Ms. Fink is a 76-year-old white female who is brought into the ED via wheelchair accompanied by multiple family members complaining of right arm pain. Patient reports less than an hour ago she was holding onto a railing and walking down steps. The railing broke and she slipped and fell down 3 steps. She reports her injuries occurred when her right arm struck the broken railing multiple times. She additionally reports she did not strike her head during the fall, she had no lightheaded or dizziness before or after the fall, there was no loss of consciousness at the time of the fall and since the fall she reports she is not having any signs of head injury. Currently she is complaining of right elbow and forearm pain. She has difficulty describing her pain but reports that is severe. She rates her discomfort 9/10. Her pain is nonradiating. Her pain worsens with palpation of her lacerations. She has not identified any alleviating factors related to the pain. She has not had a medications for pain prior to arrival at the hospital. She denies any associated headache, dizziness, lightheadedness, abnormal neurological symptoms, neck pain, thoracic back pain, right shoulder pain, right arm weakness/numbness/tingling, left upper extremity weakness/numbness/ tingling, chest pain, shortness of breath, abdominal pain, nausea/vomiting. Review of Systems: As noted above in history of present illness. 8 body systems were reviewed and found to be negative as noted above. Past Medical History: (1) Chronic obstructive lung disease (2) Eczema (3) History of - hypertension Surgical Problems: (1) H/O tubal ligation Current Medications: Medications Dose Route/Sig Max Daily Dose Days Date Category Dose Instructions Norvasc (Amlodipine Besylate) 10 Mg Tab 10 Mg PO DAILY 09/07/16 Reported Spiriva Handihaler (Tiotropium [place]) 30 Puff/540 Mcg Aerp 1 Cap INH DAILY 30 09/07/16 Reported Ketoconazole 45 Appln/15 Gm Cr 1 Appln TOP BID 09/07/16 Reported APPLY TO FEET Duoneb (Ipratropium-Albuterol) 3 Ml Nebu 1 Treatment INH Q4H PRN 06/30/16 Reported Tylenol (Acetaminophen) 500 Mg Tab 1,000 Mg PO Q6 PRN 11/17/12 Reported Allergies to Medications: Bactrim, neomycin, polymyxin B. Social History: Patient is not currently employed; she feels safe in her home environment; she admits to tobacco use. Physical Examination: Vital Signs: Date Time Temp Pulse Resp B/P (MAP) Pulse Ox O2 Delivery O2 Flow Rate FiO2 09/07/16 22:06 78 18 140/84 98 09/07/16 19:56 36.4 70 20 153/84 92 Room Air GENERAL: 76-year-old female in mild to moderate distress due to pain, nontoxic- appearing, afebrile and hemodynamically stable. NEUROLOGICAL: Awake, alert and oriented to person, place and time. Answering questions appropriately and following commands. Good hand eye coordination. No focal motor or sensory deficits. Cranial nerves II through XII grossly intact. Good short-term and long-term recall. SKIN: Warm, dry and pink. Right Upper Extremity: Patient has multiple skin tears over this extremity measuring approximately 20 cm. There is minimal active bleeding. Left Upper Extremity: Patient has a superficial abrasion and contusion over the olecranon process with no active bleeding. HEENT: Atraumatic and normocephalic. Skull: No bony deformity or tenderness. No raccoon's eyes or kirk signs. No drainage from ears and air; no hemotympanum. Face: No bony tenderness, swelling or ecchymosis. PERRLA. EOMI. Sclera white and conjunctiva pink. No malocclusion. No intraoral trauma. Airway patent. Speech normal. Trachea midline. No jugular venous distention. BACK: No tenderness over the bony cervical, thoracic and lumbar spine. No tenderness throughout the paraspinous musculature. Full range of motion of the cervical spine. No CVA tenderness. THORAX: Lungs sounds are clear to auscultation and equal bilaterally with symmetrical chest wall. No crepitus, tenderness, subcutaneous air or deformities noted. ABDOMEN: Flat, soft and nontender. Positive bowel sounds in all quadrants. UPPER EXTREMITIES: No gross bony deformities. No tenderness in the shoulders, wrists and hands. Mild tenderness over the posterior olecranon process area of the right elbow and over the anterior forearm of the right forearm. I do not appreciate any bony deformity or crepitus in this area. Patient has full range of motion in pronation and supination of the right forearm and flexion and extension of the elbow without difficulty. Patient has no tenderness over the left shoulder or forearm. Distal pulses and sensations are intact bilaterally. Capillary refill is brisk. LOWER EXTREMITIES: No gross bony deformities. No shortening or malrotation. No tenderness in the hips, thighs, knees, ankles or feet. Distal neurovascular statuses are intact and equal bilaterally. ED Course: Patient is assessed as noted above. Patient's medication list was reviewed. All of the patient's wounds were cleansed with Betadine and irrigated with normal saline. Her wounds were approximated with multiple Steri-Strips and then bandaged with a dry sterile dressing. Patient was given 650 mg of acetaminophen by mouth for pain. Left Elbow X-Rays: Were read by myself and the radiologist showing no acute fractures or dislocations. Left Forearm X-Rays: Were read by myself and shows no acute fractures or dislocations. Patient's left arm was placed in a sling. Patient's case was reviewed with Dr. Fuentes; he apparently assessed the patient we agreed on diagnostic approach, treatment, disposition and plan. Patient's family members were educated about today's findings and instructed on her treatment plan; they verbalized understanding and agreement with this plan. Clinical Impression: Right elbow and forearm pain. Multiple right arm skin tears. Left elbow contusion. Disposition: Patient discharged home in stable condition accompanied by her daughter; prior to departure she was reassessed and subjectively reported she was feeling much better and rated her discomfort 4/10. Plan: Comfort measures, wound care, signs of infection were discussed with the patient. Patient was given a home pack of Ultram and encouraged to use 50 mg every 6 hours as needed for severe pain or 650 mg of acetaminophen for mild pain. Patient was encouraged to follow-up with family physician or return to the emergency department for uncontrolled pain, signs of infection or any new/ concerning symptoms.
[2016-10-02] MEDS ORDERED: CEPH500C2 PO (13:55)
== END 2016-09-07 22:07 | disposition home or self-care (01) ==
LOC: C.EDB 19:55 → C.EDD 22:07
DX: M79.631 Pain in right forearm (principal); T14.8 Other injury of unspecified body region; S50.02XA Contusion of left elbow, initial encounter; W10.9XXA Fall (on) (from) unspecified stairs and steps, initial encounter; J44.9 Chronic obstructive pulmonary disease, unspecified; L30.9 Dermatitis, unspecified; I10 Essential (primary) hypertension

== ENCOUNTER 2016-11-25 13:12 | Inpatient (IN) | payer OTHER ==
[~2016-11-25] VITALS: Ht 160 cm; Wt 53.0 kg
[~2016-11-25 13:12] MED LIST changes: +AMLO-114 PO; -DFL100 PO; -NZRCR EXT; -TYLOTC500 PO
--- NOTE | 2016-11-25 14:14 | EMERGENCY ROOM VISIT NOTE ---
History First contact with patient: 13:26 Chief Complaint: RECTAL BLEEDING Stated Complaint: RECTAL BLEEDING Nursing Triage Summary: pt presents to ed via bls from home. pt states having abd pain around 10am. pt states going to the bathroom and having bright red blood in the toilet. pt states when wiping had blood on toilet paper. no blood since. History of Present Illness The patient is a 76 year old female who presents to the Emergency Room with complaints of 1 episode of bright red blood per rectum -Pt says that this morning she had a diffused abdominal pain, followed by diarrhea. Blood was seen in the diarrhea. -Pt remarks that blood was mixed in with loose stools and had blood on toilet paper. -Pt currently denies abdominal pain and has not had another bowel movement. -Pt denies a PMH of GI bleed, IBD, hemorrhoids, or diverticulosis. -Pt denies N/V or fever. -Pt lives alone and was urged by her daughter to call an ambulance. -Pt otherwise is feeling well. Denies weakness, CP or SOB. -Pt takes one baby aspirin per day. -Pt denies receiving a colonoscopy in the past. Review of Systems see below Constitutional: No fever, No chills, No sweats, No weakness, No fatigue Respiratory: No cough, No sputum, No shortness of breath, No dyspnea on exertion Cardiovascular: No chest pain Abdomen: + diarrhea, + GI bleeding, No nausea, No vomiting Past Medical/Surgical History Medical Problems: (1) Chronic obstructive lung disease (2) Eczema (3) History of - hypertension Surgical Problems: (1) H/O tubal ligation Family History Cancer Heart disease Hypertension Social History Smoking Status: Former Smoker Alcohol Use: occasionally Drug Use: none Marital Status: Occupation Status: retired Current/Historical Medications Scheduled Amlodipine (Norvasc), 10 MG PO DAILY Aspirin (Aspirin Ec), 81 MG PO DAILY Atorvastatin (Lipitor), 10 MG PO DAILY Tiotropium [place] (Spiriva Handihaler), 1 CAP INH DAILY Scheduled PRN Ipratropium-Albuterol (Duoneb), 1 TREATMENT INH Q4H PRN for Shortness of Breath Physical Exam Vital Signs Date Time Temp Pulse Resp B/P (MAP) Pulse Ox O2 Delivery O2 Flow Rate FiO2 11/25/16 15:36 78 27 118/65 91 Room Air 11/25/16 15:08 74 20 129/75 94 Room Air 11/25/16 14:38 79 18 112/70 93 Room Air 11/25/16 14:18 96 Room Air 11/25/16 13:31 36.5 88 18 139/98 94 Room Air 11/25/16 13:22 90 Physical Exam see below General Appearance: WD/WN, no apparent distress Head: normocephalic, atraumatic Respiratory/Chest: chest non-tender, lungs clear, normal breath sounds, no respiratory distress, no accessory muscle use Cardiovascular: regular rate, rhythm, no edema, no gallop, no JVD Abdomen / GI: normal bowel sounds, non tender, soft, no organomegaly, no pulsatile mass, + fecal occult blood, + pertinent finding (Bright red blood seen in rectal. No palpable hemorrhoids/no fissures seen. ) Medical Decision & Procedures Laboratory Results 11/25/16 14:09 Red Blood Count 4.66, Mean Corpuscular Volume 94.2, Mean Corpuscular Hemoglobin 32.0, Mean Corpuscular Hemoglobin Concent 33.9, Mean Platelet Volume 9.7, Neutrophils (%) (Auto) 69.0, Lymphocytes (%) (Auto) 18.3, Monocytes (%) (Auto) 9.7, Eosinophils (%) (Auto) 2.1, Basophils (%) (Auto) 0.7, Neutrophils # (Auto) 4.00, Lymphocytes # (Auto) 1.06, Monocytes # (Auto) 0.56, Eosinophils # (Auto) 0.12, Basophils # (Auto) 0.04 11/25/16 14:09 Test 11/25/16 14:09 11/25/16 15:05 White Blood Count 5.79 K/uL (4.8-10.8) Red Blood Count 4.66 M/uL (4.2-5.4) Hemoglobin 14.9 g/dL (12.0-16.0) Hematocrit 43.9 % (37-47) Mean Corpuscular Volume 94.2 fL (80-100) Mean Corpuscular Hemoglobin 32.0 pg (25-34) Mean Corpuscular Hemoglobin Concent 33.9 g/dl (32-36) Platelet Count 148 K/uL (130-400) Mean Platelet Volume 9.7 fL (7.4-10.4) Neutrophils (%) (Auto) 69.0 % Lymphocytes (%) (Auto) 18.3 % Monocytes (%) (Auto) 9.7 % Eosinophils (%) (Auto) 2.1 % Basophils (%) (Auto) 0.7 % Neutrophils # (Auto) 4.00 K/uL (1.4-6.5) Lymphocytes # (Auto) 1.06 K/uL (1.2-3.4) Monocytes # (Auto) 0.56 K/uL (0.11-0.59) Eosinophils # (Auto) 0.12 K/uL (0-0.5) Basophils # (Auto) 0.04 K/uL (0-0.2) RDW Standard Deviation 45.6 fL (36.4-46.3) RDW Coefficient of Variation 13.3 % (11.5-14.5) Immature Granulocyte % (Auto) 0.2 % Immature Granulocyte # (Auto) 0.01 K/uL (0.00-0.02) Anion Gap 3.0 mmol/L (3-11) Est Creatinine Clear Calc Drug Dose 36.0 ml/min Estimated GFR () 56.5 Estimated GFR (Non- 48.7 BUN/Creatinine Ratio 21.1 (10-20) Calcium Level 9.1 mg/dl (8.5-10.1) Total Bilirubin 0.5 mg/dl (0.2-1) Direct Bilirubin 0.1 mg/dl (0-0.2) Aspartate Amino Transf (AST/SGOT) 14 U/L (15-37) Alanine Aminotransferase (ALT/SGPT) 14 U/L (12-78) Alkaline Phosphatase 73 U/L (45-117) Total Protein 7.5 gm/dl (6.4-8.2) Albumin 4.0 gm/dl (3.4-5.0) Prothrombin Time 10.4 SECONDS (9.0-12.0) Prothromb Time International Ratio 1.0 (0.9-1.1) Activated Partial Thromboplast Time 26.4 SECONDS (21.0-31.0) Partial Thromboplastin Ratio 1.0 Medications Administered Medications (Trade) Dose Ordered Sig/Briana Route Start Time Stop Time Status Last Admin Dose Admin Sodium Chloride 500 ml @ 125 mls/hr Q4H STAT IV 11/25/16 14:57 11/25/16 17:46 DC 11/25/16 15:11 125 MLS/HR ED Course 1:45 History and physical performed 2:00 ordered labs 2:30 Reviewed labs 3:00 reaccessed patient 3:30 discussed patient status with admitting hospitalist team Medical Decision Evaluating the following differential; diverticulosis, diverticulitis, internal hemorrhoids, IBD, gastroenteritis. 76 yo female presents after 1 episode of BRBPR. Pt was found on rectal exam to have rectal bleeding. Pt was found to be afebrile, hemodynamically stable and with normal labs. Consult with the hospitalist team was initiated. Impression Primary Impression: Rectal bleed Departure Information Dispostion Admitted as an inpatient Referrals Marisela Ch PA-C (PCP) Patient Instructions [facility]
[2016-11-25] MEDS ORDERED: ASPI81TA28 PO (14:23)
[2016-11-25] MEDS ORDERED: ATOR10TA88 PO (14:27)
[2016-11-25 14:30] LABS: BASO % 0.7 %; BASO ABS # 0.04 K/uL (0-0.2); COMPLETE YES; EOS % 2.1 %; HEMATOCRIT 43.9 % (37-47); IG% 0.2 %; LYMPH % 18.3 %; LYMPH ABS # 1.06 K/uL (1.2-3.4); MEAN CELL VOLUME 94.2 fL (80-100); MEAN CORPUSCULAR HGB CONC 33.9 g/dl (32-36); MEAN PLATELET VOLUME 9.7 fL (7.4-10.4); MONO % 9.7 %; PLATELET COUNT 148 K/uL (130-400); RED BLOOD COUNT 4.66 M/uL (4.2-5.4); WHITE BLOOD COUNT 5.79 K/uL (4.8-10.8)
[2016-11-25 14:46] LABS: BUN/CREATININE RATIO 21.1 (10-20); CALCIUM 9.1 mg/dl (8.5-10.1); CREATININE 1.1 mg/dl (0.60-1.20)
[2016-11-25] MEDS ORDERED: SODIUM CHLORIDE 0.9% 500ML 500 ML IV STA (14:57)
[2016-11-25 15:22] LABS: PROTHROMBIN TIME (PATIENT) 10.4 SECONDS (9.0-12.0)
--- NOTE | 2016-11-25 15:22 | EMERGENCY ROOM VISIT NOTE ---
History Report prepared by Yudy: Edinson Godwin Under the Supervision of: Dr. Mikal Presley M.D. First contact with patient: 13:26 Chief Complaint: RECTAL BLEEDING Stated Complaint: RECTAL BLEEDING Nursing Triage Summary: pt presents to ed via bls from home. pt states having abd pain around 10am. pt states going to the bathroom and having bright red blood in the toilet. pt states when wiping had blood on toilet paper. no blood since. History of Present Illness The patient is a 76 year old female who presents to the Emergency Room with complaints of intermittent episodes of rectal bleeding beginning a few hours ago. She states that she had bright red blood in her stool this morning. She states that she had a few episodes along with defecation, and noticed blood while wiping after urinating. The patient is not on any blood thinners. She also complains of some abdominal pain. She denies lightheadedness, SOB, chest pain, nausea, vomiting, chills, cough, or fevers. The patient notes that she had a routine check up with her PCP five days ago. Source of History: patient Onset: A few hours ago Position: other (rectum) Quality: other (bleeding) Timing: intermittent (episodes) Associated Symptoms: + abdominal pain, No fevers, No chills, No cough, No chest pain, No SOB, No nausea, No vomiting Note: The patient denies lightheadedness. Review of Systems See HPI for pertinent positives and negatives. A total of ten systems were reviewed and were otherwise negative. Past Medical & Surgical Medical Problems: (1) Chronic obstructive lung disease (2) Eczema (3) History of - hypertension Surgical Problems: (1) H/O tubal ligation Family History Cancer Heart disease Hypertension Social History Smoking Status: Former Smoker Alcohol Use: occasionally Drug Use: none Marital Status: Occupation Status: retired Current/Historical Medications Scheduled Amlodipine (Norvasc), 10 MG PO DAILY Aspirin (Aspirin Ec), 81 MG PO DAILY Atorvastatin (Lipitor), 10 MG PO DAILY Tiotropium [place] (Spiriva Handihaler), 1 CAP INH DAILY Scheduled PRN Ipratropium-Albuterol (Duoneb), 1 TREATMENT INH Q4H PRN for Shortness of Breath Allergies Coded Allergies: Bacitracin (Verified Allergy, Mild, UNSURE, 11/25/16) Neomycin (Verified Allergy, Mild, UNSURE, 11/25/16) Polymyxin B (Verified Allergy, Mild, UNSURE, 11/25/16) Copper (Verified Allergy, Unknown, METAL?, 11/25/16) Nickel (Verified Allergy, Unknown, METAL?, 11/25/16) Silver (Verified Allergy, Unknown, METAL?, 11/25/16) [place] (Verified Allergy, Unknown, ., 11/25/16) Physical Exam Vital Signs Date Time Temp Pulse Resp B/P (MAP) Pulse Ox O2 Delivery O2 Flow Rate FiO2 11/25/16 15:36 78 27 118/65 91 Room Air 11/25/16 15:08 74 20 129/75 94 Room Air 11/25/16 14:38 79 18 112/70 93 Room Air 11/25/16 14:18 96 Room Air 11/25/16 13:31 36.5 88 18 139/98 94 Room Air 11/25/16 13:22 90 Physical Exam GENERAL: Awake, alert, well-appearing, in no distress HENT: Normocephalic, atraumatic. Oropharynx unremarkable. Dry mucous membranes. EYES: Normal conjunctiva. Sclera non-icteric. NECK: Supple. No nuchal rigidity. FROM. No JVD. RESPIRATORY: Clear to auscultation. CARDIAC: Regular rate, normal rhythm. Extremities warm and well perfused. Pulses equal. ABDOMEN: Soft, non-distended. No tenderness to palpation. No rebound or guarding. No masses. RECTAL: Per resident note. MUSCULOSKELETAL: Chest examination reveals no tenderness. The back is symmetrical on inspection without obvious abnormality. There is no CVA tenderness to palpation. No joint edema. LOWER EXTREMITIES: Calves are equal size bilaterally and non-tender. No edema. No discoloration. NEURO: Normal sensorium. No sensory or motor deficits noted. SKIN: No rash or jaundice noted. Medical Decision & Procedures Laboratory Results 11/25/16 14:09 Red Blood Count 4.66, Mean Corpuscular Volume 94.2, Mean Corpuscular Hemoglobin 32.0, Mean Corpuscular Hemoglobin Concent 33.9, Mean Platelet Volume 9.7, Neutrophils (%) (Auto) 69.0, Lymphocytes (%) (Auto) 18.3, Monocytes (%) (Auto) 9.7, Eosinophils (%) (Auto) 2.1, Basophils (%) (Auto) 0.7, Neutrophils # (Auto) 4.00, Lymphocytes # (Auto) 1.06, Monocytes # (Auto) 0.56, Eosinophils # (Auto) 0.12, Basophils # (Auto) 0.04 11/25/16 14:09 Test 11/25/16 14:09 11/25/16 15:05 White Blood Count 5.79 K/uL (4.8-10.8) Red Blood Count 4.66 M/uL (4.2-5.4) Hemoglobin 14.9 g/dL (12.0-16.0) Hematocrit 43.9 % (37-47) Mean Corpuscular Volume 94.2 fL (80-100) Mean Corpuscular Hemoglobin 32.0 pg (25-34) Mean Corpuscular Hemoglobin Concent 33.9 g/dl (32-36) Platelet Count 148 K/uL (130-400) Mean Platelet Volume 9.7 fL (7.4-10.4) Neutrophils (%) (Auto) 69.0 % Lymphocytes (%) (Auto) 18.3 % Monocytes (%) (Auto) 9.7 % Eosinophils (%) (Auto) 2.1 % Basophils (%) (Auto) 0.7 % Neutrophils # (Auto) 4.00 K/uL (1.4-6.5) Lymphocytes # (Auto) 1.06 K/uL (1.2-3.4) Monocytes # (Auto) 0.56 K/uL (0.11-0.59) Eosinophils # (Auto) 0.12 K/uL (0-0.5) Basophils # (Auto) 0.04 K/uL (0-0.2) RDW Standard Deviation 45.6 fL (36.4-46.3) RDW Coefficient of Variation 13.3 % (11.5-14.5) Immature Granulocyte % (Auto) 0.2 % Immature Granulocyte # (Auto) 0.01 K/uL (0.00-0.02) Anion Gap 3.0 mmol/L (3-11) Est Creatinine Clear Calc Drug Dose 36.0 ml/min Estimated GFR () 56.5 Estimated GFR (Non- 48.7 BUN/Creatinine Ratio 21.1 (10-20) Calcium Level 9.1 mg/dl (8.5-10.1) Total Bilirubin 0.5 mg/dl (0.2-1) Direct Bilirubin 0.1 mg/dl (0-0.2) Aspartate Amino Transf (AST/SGOT) 14 U/L (15-37) Alanine Aminotransferase (ALT/SGPT) 14 U/L (12-78) Alkaline Phosphatase 73 U/L (45-117) Total Protein 7.5 gm/dl (6.4-8.2) Albumin 4.0 gm/dl (3.4-5.0) Prothrombin Time 10.4 SECONDS (9.0-12.0) Prothromb Time International Ratio 1.0 (0.9-1.1) Activated Partial Thromboplast Time 26.4 SECONDS (21.0-31.0) Partial Thromboplastin Ratio 1.0 Laboratory results reviewed by me Medications Administered Medications (Trade) Dose Ordered Sig/Briana Route Start Time Stop Time Status Last Admin Dose Admin Sodium Chloride 500 ml @ 125 mls/hr Q4H STAT IV 11/25/16 14:57 11/25/16 17:46 DC 11/25/16 15:11 125 MLS/HR ECG Indication: other (GI bleed) Rate (beats per minute): 72 Rhythm: normal sinus Findings: no acute ischemic change, other (Normal axis) ED Course 1334: The patient was evaluated in room C5. A complete history and physical exam was performed. 1457: Ordered Sodium Chloride 500 ml @ 125 mls/hr IV. 1515: Upon reexamination, the patient was resting comfortably. I discussed the test results and treatment plan with her. The patient will be evaluated for further management. Medical Decision I reviewed the patient's past medical history, medications, and the nursing notes as described above. The patient's presentation and history were concerning for diverticular bleed, diverticulitis, internal hemorrhoid, colitis, obstruction, and gastroenteritis. The patient is a 76-year-old woman who presents emergency Department with red blood per rectum this morning. History of present illness. Arrival the patient is a relatively well-appearing, no acute distress, afebrile with stable vital signs. Abdomen is soft nontender. Per resident rectal exam patient has red blood per rectum without any gross active bleeding. H&H unremarkable. BUN elevated. Given the patient's age and findings of red blood on exam will need admission. Given symptoms of lower GI bleed no indication for Protonix at this time. Resident discussed with MAKENZIE Berry hosptialist, who will admit the patient for further management. I discussed the case with the resident physician, examined the patient, and agree with the findings and plan as documented in the residents note unless otherwise clarified here by me. Medication Reconcilliation Current Medication List: was personally reviewed by me Blood Pressure Screening Patient's blood pressure: Elevated blood pressure Blood pressure disposition: Elevated BP felt to be situational Consults Time Called: 151 Consulting Physician: Dr. Dhara SHETH Returned Call: [phone] Discussed the patient's case. The patient will be evaluated for further treatment and disposition. Impression Primary Impression: Rectal bleed Scribe Attestation The scribe's documentation has been prepared under my direction and personally reviewed by me in its entirety. I confirm that the note above accurately reflects all work, treatment, procedures, and medical decision making performed by me. Departure Information Dispostion Being Evaluated By Hospitalist Referrals Marisela Ch PA-C (PCP) Patient Instructions [facility]
[2016-11-25] MEDS ORDERED: ALBUT/IPRATROP 3MG/0.5MG NEB 3 ML VIAL INH PRN (15:45)
[2016-11-25] MEDS ORDERED: ONDANSETRON INJ 2 MG/ML 2 ML VIAL IV PRN (15:45)
[2016-11-25] MEDS ORDERED: ACETAMINOPHEN 325 MG TAB PO PRN (15:45)
[2016-11-25] MEDS ORDERED: MAGNESIUM HYDROXIDE SUSP 30 ML UDC PO PRN (15:45)
[2016-11-25] MEDS ORDERED: ALUMINUM/MAGNESIUM/SIMETH (MAALOX MAX) 30 ML UDC PO PRN (15:45)
[2016-11-25] MEDS ORDERED: POLYETHYLENE (MIRALAX) 17 GM PACK PO PRN (15:45)
[2016-11-25] MEDS ORDERED: OPTIRAY 320 IV PRN (16:00)
--- NOTE | 2016-11-25 16:02 | History and Physical ---
History & Physical Date & Time of Service: Nov 25, 2016 at 15:49 Chief Complaint: Rectal Bleeding Primary Care Physician: Marisela Ch PA-C History of Present Illness Source: patient, clinic records, hospital records Patient is a pleasant 76 y/o female, with PMHx of HTN, HLD, tobacco abuse, and COPD, who presented to the ED because of rectal bleeding x1 day. Patient states she noticed this AM BRBPR while having a bowel movement. Denies melena. Associated generalized abdominal pain and loose stools. She then had another episode of BRBPR, so she proceed to the ED. She denies anything like this in the past. She denies ever having a colonoscopy. Currently, patient states she is feeling well with no complaints. Noted lower extremity edema- per patient, has an appointment w/ Dr. Malloy at the end of November. Patient denies any fever, chills, sweats, lightheadedness, dizziness, vision changes, CP, palpitations, SOB, wheezing, cough, abdominal pain, nausea, vomiting, diarrhea, urinary symptoms, melena, numbness/tingling, weakness, muscle/joint pain, anxiety/depression, or new skin discoloration/changes. Past Medical/Surgical History Medical Problems: COPD HTN HLD tobacco abuse Surgical Problems: tubal ligation L thyroidectomy Family History Cancer Heart disease Hypertension Social History Smoking Status: Current Every Day Smoker Smokeless Tobacco Use: No Alcohol Use: none Drug Use: none Marital Status: Occupational Status: retired Immunizations History of Influenza Vaccine: Yes History of Tetanus Vaccine?: utd Tetanus Immunization Date: Nov 24, 2010 History of Pneumococcal: Yes History of Hepatitis B Vaccine: No Multi-Drug Resistant Organisms History of MDRO: No Allergies Coded Allergies: Bacitracin (Verified Allergy, Mild, UNSURE, 11/25/16) Neomycin (Verified Allergy, Mild, UNSURE, 11/25/16) Polymyxin B (Verified Allergy, Mild, UNSURE, 11/25/16) Copper (Verified Allergy, Unknown, METAL?, 11/25/16) Nickel (Verified Allergy, Unknown, METAL?, 11/25/16) Silver (Verified Allergy, Unknown, METAL?, 11/25/16) [place] (Verified Allergy, Unknown, ., 11/25/16) Home Medications Scheduled Amlodipine (Norvasc), 10 MG PO DAILY Aspirin (Aspirin Ec), 81 MG PO DAILY Atorvastatin (Lipitor), 10 MG PO DAILY Tiotropium [place] (Spiriva Handihaler), 1 CAP INH DAILY Scheduled PRN Ipratropium-Albuterol (Duoneb), 1 TREATMENT INH Q4H PRN for Shortness of Breath Physical Exam Vital Signs Date Time Temp Pulse Resp B/P (MAP) Pulse Ox O2 Delivery O2 Flow Rate FiO2 11/25/16 15:36 78 27 118/65 91 Room Air 11/25/16 15:08 74 20 129/75 94 Room Air 11/25/16 14:38 79 18 112/70 93 Room Air 11/25/16 14:18 96 Room Air 11/25/16 13:31 36.5 88 18 139/98 94 Room Air 11/25/16 13:22 90 General Appearance: no apparent distress, + thin Head: normocephalic, atraumatic Eyes: PERRL ENT: hearing grossly normal Neck: supple Respiratory/Chest: no respiratory distress, no accessory muscle use, + decreased breath sounds, + crackles (bilateral lung bases ) Cardiovascular: regular rate, rhythm Abdomen/GI: normal bowel sounds, non tender, soft, + pertinent finding ( deferred- per ED report +BRBPR, no hemrrhoids noted ) Back: normal inspection Extremities/Musculoskelatal: no calf tenderness, + swelling (+1-2 pitting edema of bilateral lower extremities/feet ) Neurologic/Psych: alert, normal mood/affect, oriented x 3 Skin: normal color, warm/dry, no rash Diagnostics Laboratory Results Results Past 24 Hours Test 11/25/16 14:09 11/25/16 15:05 Range/Units White Blood Count 5.79 4.8-10.8 K/uL Red Blood Count 4.66 4.2-5.4 M/uL Hemoglobin 14.9 12.0-16.0 g/dL Hematocrit 43.9 37-47 % Mean Corpuscular Volume 94.2 80-100 fL Mean Corpuscular Hemoglobin 32.0 25-34 pg Mean Corpuscular Hemoglobin Concent 33.9 32-36 g/dl Platelet Count 148 130-400 K/uL Mean Platelet Volume 9.7 7.4-10.4 fL Neutrophils (%) (Auto) 69.0 % Lymphocytes (%) (Auto) 18.3 % Monocytes (%) (Auto) 9.7 % Eosinophils (%) (Auto) 2.1 % Basophils (%) (Auto) 0.7 % Neutrophils # (Auto) 4.00 1.4-6.5 K/uL Lymphocytes # (Auto) 1.06 1.2-3.4 K/uL Monocytes # (Auto) 0.56 0.11-0.59 K/uL Eosinophils # (Auto) 0.12 0-0.5 K/uL Basophils # (Auto) 0.04 0-0.2 K/uL RDW Standard Deviation 45.6 36.4-46.3 fL RDW Coefficient of Variation 13.3 11.5-14.5 % Immature Granulocyte % (Auto) 0.2 % Immature Granulocyte # (Auto) 0.01 0.00-0.02 K/uL Sodium Level 139 136-145 mmol/L Potassium Level 4.0 3.5-5.1 mmol/L Chloride Level 106 98-107 mmol/L Carbon Dioxide Level 30 21-32 mmol/L Anion Gap 3.0 3-11 mmol/L Blood Urea Nitrogen 23 7-18 mg/dl Creatinine 1.10 0.60-1.20 mg/dl Est Creatinine Clear Calc Drug Dose 36.0 ml/min Estimated GFR () 56.5 Estimated GFR (Non- 48.7 BUN/Creatinine Ratio 21.1 10-20 Random Glucose 95 70-99 mg/dl Calcium Level 9.1 8.5-10.1 mg/dl Total Bilirubin 0.5 0.2-1 mg/dl Direct Bilirubin 0.1 0-0.2 mg/dl Aspartate Amino Transf (AST/SGOT) 14 15-37 U/L Alanine Aminotransferase (ALT/SGPT) 14 12-78 U/L Alkaline Phosphatase 73 45-117 U/L Total Protein 7.5 6.4-8.2 gm/dl Albumin 4.0 3.4-5.0 gm/dl Prothrombin Time 10.4 9.0-12.0 SECONDS Prothromb Time International Ratio 1.0 0.9-1.1 Activated Partial Thromboplast Time 26.4 21.0-31.0 SECONDS Partial Thromboplastin Ratio 1.0 EKG CARLITO JULIAN ID:[id number] 25-NOV-2016 14:25:41 [facility] Normal sinus rhythm Normal ECG When compared with ECG of 01-JUL-2016 06:27, No significant change was found 25mm/s 10mm/mV 150Hz 8.0 SP2 12SL 241 LISA: 10 Referred by: Referred Self Unconfirmed Vent. rate 72 BPM WI interval 172 ms QRS duration 84 ms QT/QTc 414/453 ms P-R-T axes 82 6 61 1940 (76 yr) Female 52in Room:B11B Loc:15 Envelope Sealing Machine Operator:MARLYS Curtis ind: Impression Assessment and Plan Patient is a pleasant 76 y/o female, with PMHx of HTN, HLD, tobacco abuse, and COPD, who presented to the ED because of rectal bleeding x1 day. BPBPR: - Admit to med/surg observation - Follow H&H - IVF @ 80 ml/hr - Check stool cultures and c.diff study - Check CT abdominal scan - Hold daily ASA 81 mg HTN: Continue Norvasc 10 mg daily HLD: Continue Lipitor 10 mg daily COPD w/out exacerbation, tobacco abuse: - Continue Spiriva - DuoNeb QID PRN SOB/wheezing - Smoking cessation counselling GI Prophylaxis: Protonix daily DVT Prophylaxis: TEDs/SCDs; chemical means contraindicated due to rectal bleeding Code Status: LEVEL I, FULL Dispo: From home, lives alone- PT/OT and social media assistant consulted Attending Addendum: I have physically seen and examined this patient, have supervised the physician oceanographer assistant activities, and agree with the H&P as noted above with the following exceptions as noted. HEENT--PERRL, EOMI, mucous membranes and oropharynx dry. Neck--supple, no JVD or bruits, thyroid normal, trachea midline, no adenopathy. Heart--normal S1 and S2, no extra beats, no murmurs, rubs or gallops. Lungs--crackles at the bases bilaterally, no respiratory distress, no accessory muscle use. Abdomen--normal bowel sounds and soft, nontender and nondistended, no hernias or masses, no organomegaly. Extremities--no cyanosis, clubbing. There is 2+ pretibial bilateral pitting edema. There are good distal pulses b/l. Dermatologic--normal skin turgor, normal color, warm and dry, no abnormal lymph nodes, no rash. Neurologic--cranial nerves II through XII grossly intact, motor and sensory examination normal. Rheumatologic--normal range of motion, nontender, muscles and joints. Psychiatric--normal affect. Assessment and Plan: 1. Hematochezia-- H&H every 6 hours. NSS at 80 ML's per hour Follow stool culture and C. difficile studies CT abdomen and pelvis Hold aspirin. Hypertension-- Continue amlodipine 10 mg by mouth daily with hold parameters Hyperlipidemia-- Continue Lipitor 10 mg daily. COPD/tobacco abuse-- Continue Spiriva Duonebs every 4 hours while awake and every 2 hours when necessary. Level of Care Med/Surg Advanced Directives Existing Advance Directive: No Existing Living Will: No Existing Power of Sdc Teacher: No Resuscitation Status FULL RESUSCITATION VTE Prophylaxis VTE Risk Assessment Done? Y/N: Yes Risk Level: Moderate Given or contraindicated: T.E.D. Stockings, SCD's, Contraindicated Social Service Consult None Apply
[2016-11-25 16:15] VITALS: O2SAT 92; Ht 160 cm; Wt 53.0 kg
[2016-11-25] MEDS ORDERED: IV FLUIDS COMPLETED PRN (16:15)
[2016-11-25 17:45] VITALS: BP 137/77; PULSE 77; TEMP 36.8; O2SAT 95
[2016-11-25] MEDS ORDERED: SODIUM CHLORIDE 0.9% 1000ML 1,000 ML IV ONE (17:48)
--- NOTE | 2016-11-25 18:36 | DIAGNOSTIC IMAGING REPORT ---
CT ABD/PELVIS IV AND ORAL CONT CLINICAL HISTORY: rectal bleeding COMPARISON STUDY: None. TECHNIQUE: Following the IV administration of 116 mL of Optiray-320, CT scan of the abdomen and pelvis was performed from the lung bases to the proximal femurs. Images are reviewed in the axial, sagittal, and coronal planes. IV contrast was administered without complication. A dose lowering technique was utilized adhering to the principles of ALARA. CT DOSE: 368.04 mGy.cm FINDINGS: Lower chest: There are minor basilar atelectatic changes. Liver: The contrast-enhanced liver is normal in size, contour, and attenuation. There is no intrahepatic biliary ductal dilatation. The hepatic veins and portal veins are patent. Gallbladder: Unremarkable. Spleen: Normal in size and attenuation. Pancreas: Unremarkable. Adrenal glands: There is minor adrenal gland thickening. Kidneys: There is symmetric renal cortical enhancement. The kidneys are normal in size without hydronephrosis. Bowel: There are no transition zones indicate bowel obstruction. There is colonic diverticulosis with mild wall thickening likely secondary to muscular hypertrophy. The appendix appears normal. Peritoneum: There is no intraperitoneal free air or abdominal ascites. Vasculature: There is aneurysmal dilatation of the aorta which measures 34 mm at the thoracoabdominal junction. There is an infrarenal abdominal aortic aneurysm measuring 32 mm. 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 This is most pronounced within the lower thoracic aorta. Adenopathy: None. Pelvic viscera: There are multiple calcified uterine fibroids. Skeletal structures: No destructive osseous lesions are seen. IMPRESSION: 1. No evidence of bowel obstruction. No evidence of free air 2. Extensive sigmoid diverticulosis. No evidence of acute diverticulitis 3. Normal appendix 4. Mild aneurysmal dilatation of the aorta with multifocal areas of mural thrombus Electronically signed by: Yusuf Adamson M.D. 11/25/2016 6:35 PM Dictated Date/Time: 11/25/2016 6:28 PM
[2016-11-25 21:03] LABS: HEMATOCRIT 37.4 % (37-47)
[2016-11-26] VITALS: O2SAT 95
[2016-11-26 00:12] VITALS: BP 120/74; PULSE 72; TEMP 36.7; O2SAT 92
[2016-11-26 02:46] LABS: HEMATOCRIT 36.9 % (37-47)
[2016-11-26 07:33] VITALS: BP 127/81; PULSE 67; TEMP 36.6; O2SAT 91
[2016-11-26 07:43] LABS: HEMATOCRIT 38.7 % (37-47)
[2016-11-26 08:21] LABS: BUN/CREATININE RATIO 21.3 (10-20); CALCIUM 8.7 mg/dl (8.5-10.1); CREATININE 0.92 mg/dl (0.60-1.20); POTASSIUM 4.1 mmol/L (3.5-5.1)
[2016-11-26] MEDS: ATORVASTATIN 10 MG TAB PO SCH (08:28)
[2016-11-26] MEDS: PANTOprazole SOD 40 MG TAB PO SCH (08:28)
[2016-11-26] MEDS: AMLODIPINE BESYLATE 5 MG TAB PO SCH (08:28)
[2016-11-26] MEDS: TIOTROPIUM BROMIDE 5 PUFF/90 MCG INH INH SCH (08:29)
--- NOTE | 2016-11-26 14:42 | Progress Note ---
Subjective Date of Service: Nov 26, 2016. Subjective Patient reports still have bright red blood in stool today. Patient at this time , reports only mild abdominal pain. Patient denies any dizziness, fatgue, nausea, vomiting. Patient denies ever having history of colonoscopy. called GI for possible colonoscopy. Family is concerned about having patient scheduled for outpatient procedure given that she lives 40 minutes from a hospital. Problem List Medical Problems: (1) COPD exacerbation Status: Acute (2) Hypoxia Status: Acute (3) Rectal bleed Status: Acute (4) Right elbow pain Status: Acute Review of Systems Constitutional: No fever, No chills ENT: No hearing loss, No unusual epistaxis Respiratory: No cough, No sputum Cardiac: No chest pain, No orthopnea Abdomen: No pain, No nausea Neurologic: No memory loss, No paralysis Psychiatric: No depression symptoms, No anhedonism Skin: No rash, No itch All Other Systems: Reviewed and Negative Medications Current Inpatient Medications Medications (Trade) Dose Ordered Sig/Briana Route Start Time Stop Time Status Last Admin Dose Admin Acetaminophen (Tylenol Tab) 650 mg Q4H PRN PO 11/25/16 15:45 12/25/16 15:44 Al Hydrox/Mg Hydrox/Simethicone (Maalox Max Susp) 15 ml Q4H PRN PO 11/25/16 15:45 12/25/16 15:44 Magnesium Hydroxide (Milk Of Magnesia Susp) 30 ml Q6H PRN PO 11/25/16 15:45 12/25/16 15:44 Polyethylene (Miralax Powder Packet) 17 gm DAILY PRN PO 11/25/16 15:45 12/25/16 15:44 Ondansetron HCl (Zofran Inj) 4 mg Q6H PRN IV 11/25/16 15:45 12/25/16 15:44 Amlodipine Besylate (Norvasc Tab) 10 mg DAILY PO 11/26/16 08:00 12/26/16 08:59 11/26/16 08:28 10 MG Atorvastatin Calcium (Lipitor Tab) 10 mg DAILY PO 11/26/16 08:00 12/26/16 08:59 11/26/16 08:28 10 MG Tiotropium [place] (Spiriva Handihaler Inhaler) 1 puff DAILY INH 11/26/16 08:00 12/26/16 08:59 11/26/16 08:29 1 PUFF Albuterol/ Ipratropium (Duoneb) 3 ml Q4R PRN INH 11/25/16 15:45 12/25/16 15:44 Ioversol (Optiray 320) 111 ml UD PRN IV 11/25/16 16:00 11/29/16 15:59 Pantoprazole Sodium (Protonix Tab) 40 mg QAM PO 11/26/16 08:00 12/26/16 08:59 11/26/16 08:28 40 MG Miscellaneous (Iv Fluids Completed) 1 ea PRN PRN N/A 11/25/16 16:15 11/25/17 16:14 11/26/16 07:11 1 EA Objective Vital Signs Date Time Temp Pulse Resp B/P (MAP) Pulse Ox O2 Delivery O2 Flow Rate FiO2 11/26/16 08:40 Room Air 11/26/16 07:33 36.6 67 18 127/81 (96) 91 Room Air 11/26/16 00:12 36.7 72 20 120/74 (89) 92 Room Air 11/26/16 00:00 95 Room Air 11/25/16 17:45 36.8 77 16 137/77 (97) 95 Room Air 11/25/16 17:30 81 19 108/78 95 11/25/16 17:00 81 19 108/78 95 Room Air 11/25/16 16:30 81 21 141/71 96 Room Air 11/25/16 16:15 92 Room Air 11/25/16 16:00 84 25 127/96 92 Room Air 11/25/16 15:36 78 27 118/65 91 Room Air 11/25/16 15:08 74 20 129/75 94 Room Air Physical Exam General Appearance: WD/WN, no apparent distress Neck: supple, no adenopathy Respiratory/Chest: chest non-tender, lungs clear, normal breath sounds Cardiovascular: regular rate, rhythm, no edema, no gallop Abdomen: normal bowel sounds, non tender, soft Extremities: normal range of motion, non-tender, normal inspection Skin: normal color Laboratory Results Last 24 Hours Test 11/25/16 15:05 11/25/16 20:09 11/26/16 02:11 11/26/16 07:26 Prothrombin Time 10.4 SECONDS Prothromb Time International Ratio 1.0 Activated Partial Thromboplast Time 26.4 SECONDS Partial Thromboplastin Ratio 1.0 Hemoglobin 12.6 g/dL 11.9 g/dL 12.8 g/dL Hematocrit 37.4 % 36.9 % 38.7 % Sodium Level 141 mmol/L Potassium Level 4.1 mmol/L Chloride Level 109 mmol/L Carbon Dioxide Level 28 mmol/L Anion Gap 4.0 mmol/L Blood Urea Nitrogen 20 mg/dl Creatinine 0.92 mg/dl Est Creatinine Clear Calc Drug Dose 43.0 ml/min Estimated GFR () 70.1 Estimated GFR (Non- 60.5 BUN/Creatinine Ratio 21.3 Random Glucose 85 mg/dl Calcium Level 8.7 mg/dl Assessment and Plan Patient is a pleasant 76 y/o female, with PMHx of HTN, HLD, tobacco abuse, and COPD, who presented to the ED because of rectal bleeding x1 day and has never had a colonoscopy/ BRBPR: - Still having bloody stools CT scan showed diverticulosis which may be cause of GI bleed from AVM malformation. - Trend H&H - IVF @ 80 ml/hr - will consult GI for possible colonoscopy for AM. Awaiting recommendations. - Hold daily ASA 81 mg HTN: Continue Norvasc 10 mg daily HLD: Continue Lipitor 10 mg daily COPD w/out exacerbation, tobacco abuse: - Continue Spiriva - DuoNeb QID PRN SOB/wheezing - Smoking cessation counselling GI Prophylaxis: Protonix daily DVT Prophylaxis: TEDs/SCDs; chemical means contraindicated due to rectal bleeding Code Status: LEVEL I, FULL Dispo: From home, lives alone- PT/OT and social science manager consulted Continued [facility] stay due to: other (pending workup, still waiting for h and h to be stabilized.) Discharge planning: home
--- NOTE | 2016-11-26 15:09 | Gastrointestinal Consultation ---
Gastrointestinal Consultation Date of Consultation: Nov 26, 2016 Attending Physician: Drew Consulting Physician: Sina Reason for Consultation: GIB History of Present Illness Patient is a 76 year old female w/ history of HTN, hyperlipemia and COPD who presented to the ED on 11/25 for evaluation of abdominal pain and rectal bleeding. Pt was seen and evaluated, chart reviewed. Daughter is at bedside. Pt was in her typical state of health until yesterday. She developed generalized abdominal cramping and urge to have a BM. When she went to the bathroom and notes there was semi-formed brown stool mixed with BRB and clots. Her abdominal pain subsided after the BM. She has had 4 more BMs since initial episode. Most recently was about an hour ago. This BM was semi-formed, brown with scant BRB. There has not been any melena. No nausea, vomiting. Does not have any UGI symptoms. No fever, chills, weight loss, CP, SOB. She is one of 13 siblings. Most of her family lives in [facility]. Her daughter lives locally with her. She was recently referred to cardiology for aortic calcifications from a CT in 2012. Family history of GI malignancy: esophageal CA in brother, liver CA in brother, liver CA in brother Family history of IBD: none H&H 11/25: 14.9/43.9 H&H 11/26: 12.8/38.7 EGD: none Colonoscopy: none CT ABD/Pelvis: No evidence of bowel obstruction. No evidence of free air Extensive sigmoid diverticulosis. No evidence of acute diverticulitis Normal appendix Mild aneurysmal dilatation of the aorta with multifocal areas of mural thrombus Stool c.diff: negative Stool culture: pending Past Medical/Surgical History Medical Problems: (1) COPD exacerbation Status: Acute (2) Hypoxia Status: Acute (3) Rectal bleed Status: Acute (4) Right elbow pain Status: Acute Past Medical History: HTN, COPD, hyperlipidemia Past Surgical History: hx tubal ligation Family History Cancer Heart disease Hypertension Social History Smoking Status: Current Every Day Smoker Alcohol Use: occasionally Drug Use: none Marital Status: Occupation Status: retired Allergies Coded Allergies: Bacitracin (Verified Allergy, Mild, UNSURE, 11/25/16) Neomycin (Verified Allergy, Mild, UNSURE, 11/25/16) Polymyxin B (Verified Allergy, Mild, UNSURE, 11/25/16) Copper (Verified Allergy, Unknown, METAL?, 11/25/16) Nickel (Verified Allergy, Unknown, METAL?, 11/25/16) Silver (Verified Allergy, Unknown, METAL?, 11/25/16) [place] (Verified Allergy, Unknown, ., 11/25/16) Current Medications Home Meds and Scripts Medications Dose Route/Sig Max Daily Dose Days Date Category Lipitor (Atorvastatin Calcium) 10 Mg Tab 10 Mg PO DAILY 11/25/16 Reported Aspirin Ec (Aspirin) 81 Mg Tab 81 Mg PO DAILY 11/25/16 Reported Norvasc (Amlodipine Besylate) 10 Mg Tab 10 Mg PO DAILY 09/07/16 Reported Spiriva Handihaler (Tiotropium [place]) 30 Puff/540 Mcg Aerp 1 Cap INH DAILY 30 09/07/16 Reported Duoneb (Ipratropium-Albuterol) 3 Ml Nebu 1 Treatment INH Q4H PRN 06/30/16 Reported Review of Systems Constitutional: No fever, No chills Respiratory: No cough, No shortness of breath Cardiac: No chest pain, No edema Abdomen: + GI bleeding, No pain, No nausea, No vomiting, No diarrhea, No constipation Physical Exam Date Time Temp Pulse Resp B/P (MAP) Pulse Ox O2 Delivery O2 Flow Rate FiO2 11/26/16 08:40 Room Air 11/26/16 07:33 36.6 67 18 127/81 (96) 91 Room Air 11/26/16 00:12 36.7 72 20 120/74 (89) 92 Room Air 11/26/16 00:00 95 Room Air 11/25/16 17:45 36.8 77 16 137/77 (97) 95 Room Air 11/25/16 17:30 81 19 108/78 95 11/25/16 17:00 81 19 108/78 95 Room Air 11/25/16 16:30 81 21 141/71 96 Room Air 11/25/16 16:15 92 Room Air 11/25/16 16:00 84 25 127/96 92 Room Air 11/25/16 15:36 78 27 118/65 91 Room Air 11/25/16 15:08 74 20 129/75 94 Room Air General Appearance: no apparent distress (OOB in chair with daughter) ENT: hearing grossly normal Neck: supple Respiratory/Chest: + decreased breath sounds, + crackles (at bases) Cardiovascular: regular rate, rhythm, no murmur Abdomen: normal bowel sounds, non tender, soft, no organomegaly, no pulsatile mass, + pertinent finding (rectal exam without any external hemorrhoids, internal exam without mass, normal rectal tone, no blood on exam) Extremities: normal range of motion, non-tender, + pedal edema (right lower extremity edema, unchanged x 3 years) Neurologic/Psych: alert, normal mood/affect, oriented x 3 Skin: normal color Laboratory Results Last 24 Hours Test 11/25/16 15:05 11/25/16 20:09 11/26/16 02:11 11/26/16 07:26 Prothrombin Time 10.4 SECONDS Prothromb Time International Ratio 1.0 Activated Partial Thromboplast Time 26.4 SECONDS Partial Thromboplastin Ratio 1.0 Hemoglobin 12.6 g/dL 11.9 g/dL 12.8 g/dL Hematocrit 37.4 % 36.9 % 38.7 % Sodium Level 141 mmol/L Potassium Level 4.1 mmol/L Chloride Level 109 mmol/L Carbon Dioxide Level 28 mmol/L Anion Gap 4.0 mmol/L Blood Urea Nitrogen 20 mg/dl Creatinine 0.92 mg/dl Est Creatinine Clear Calc Drug Dose 43.0 ml/min Estimated GFR () 70.1 Estimated GFR (Non- 60.5 BUN/Creatinine Ratio 21.3 Random Glucose 85 mg/dl Calcium Level 8.7 mg/dl Impression Patient is a 76 year old female with resolved abdominal cramping and rectal bleeding x 1 day. VSS, H&H stable. Most recent BM was about an hour ago, was more formed with less blood. Given the onset of pt symptoms, ischemic colitis is likely cause. Unfortunately she had a regular breakfast and lunch today, and cannot be prepped for a colonoscopy for tomorrow. Ischemic vs diverticular vs malignancy vs infectious vs other Plan - Follow up stool culture - Trend H&H - Transfuse as needed - Monitor stools - Avoid NSAIDs, anticoagulation - Mesenteric duplex - If bleeding returns or becomes more brisk, can consider a bleeding scan - Colonoscopy inpatient vs outpatient - Clear liquids on 11/27/16 - Will re-evaluate tomorrow AM - May plan for inpatient colonoscopy 11/28/16 GI will follow, please call with questions or concerns I performed a history and physical examination of the patient. I have discussed the patient's case, impression and plan with BRYNN Rubi. Her note reflects my findings and plan. Most c/w diverticular bleed though ischemia in diff diag as well. Supportive care. Will consider colonoscopy Thursday depending on course. Discussed with patient and family at bedside. Ernesto Andino MD
[2016-11-26 16:11] VITALS: BP 131/74; PULSE 66; TEMP 36.5; O2SAT 95
[2016-11-27] VITALS: O2SAT 95
[2016-11-27 00:48] VITALS: BP 116/64; PULSE 70; TEMP 36.7; O2SAT 93
--- NOTE | 2016-11-27 06:55 | DIAGNOSTIC IMAGING REPORT ---
DUPLEX MESENTERIC ULTRASOUND CLINICAL HISTORY: Possible ischemic colitis. Bright red blood per rectum. COMPARISON STUDY: No previous studies for comparison. FINDINGS: The peak systolic velocity in the celiac artery was 215 cm/s. The peak systolic velocity within the superior mesenteric artery was 136 cm/s. Peak systolic velocity within the inferior mesenteric artery was 64 cm/s. There is no ultrasonographic evidence of mesenteric arterial stenosis. Atheromatous changes are present within the aorta. IMPRESSION: 1. No ultrasonographic evidence of mesenteric arterial stenosis 2. Mild aneurysmal dilatation of the abdominal aorta. Moderate atheromatous changes throughout the abdominal aorta. Electronically signed by: Yusuf Adamson M.D. 11/27/2016 6:54 AM Dictated Date/Time: 11/27/2016 6:51 AM
[2016-11-27 07:52] VITALS: BP 103/62; PULSE 69; TEMP 36.6; O2SAT 90
[2016-11-27 07:58] VITALS: O2SAT 95
[2016-11-27] MEDS ORDERED: SODIUM CHLORIDE 0.9% 1000ML 1,000 ML IV ONE (08:45)
[2016-11-27 08:52] LABS: BUN/CREATININE RATIO 22.9 (10-20); CALCIUM 8.6 mg/dl (8.5-10.1)
--- NOTE | 2016-11-27 09:13 | Gastroenterology Progress Note ---
Progress Note Date of Service: Nov 27, 2016 Subjective Pt evaluation today including: conversation w/ patient, physical exam, chart review, lab review, review of studies, review of inpatient medication list Ms. Fink is a 76 year old female admitted on11/25 for rectal bleeding. She tells me that with the initial bloody BM she had diffuse cramping relieved by defecation but has not had any further pain. She has had a total of 3 bloody BMs , the most recent in the middle of last night. Hb on arrival 14, this morning 12.8. She has not received a blood transfusion. She remains hemodynamically stable and is sitting up on the side of the bed, awake, alert, oriented and pleasantly conversant. CT with diverticulosis, doppler US w/o evidence of mesenteric ischemia. Review of Systems Constitutional: No fever Respiratory: No cough Cardiac: No chest pain Abdomen: + pain (not since prior to admission), + diarrhea, + GI bleeding, No nausea, No vomiting Neuro: No memory loss Psych: No depression symptoms Heme: No abnormal bleeding/bruising Endo: No fatigue Skin: No rash Medications Current Inpatient Medications Medications (Trade) Dose Ordered Sig/Briana Route Start Time Stop Time Status Last Admin Dose Admin Acetaminophen (Tylenol Tab) 650 mg Q4H PRN PO 11/25/16 15:45 12/25/16 15:44 Al Hydrox/Mg Hydrox/Simethicone (Maalox Max Susp) 15 ml Q4H PRN PO 11/25/16 15:45 12/25/16 15:44 Magnesium Hydroxide (Milk Of Magnesia Susp) 30 ml Q6H PRN PO 11/25/16 15:45 12/25/16 15:44 Polyethylene (Miralax Powder Packet) 17 gm DAILY PRN PO 11/25/16 15:45 12/25/16 15:44 Ondansetron HCl (Zofran Inj) 4 mg Q6H PRN IV 11/25/16 15:45 12/25/16 15:44 Amlodipine Besylate (Norvasc Tab) 10 mg DAILY PO 11/26/16 08:00 12/26/16 08:59 11/26/16 08:28 10 MG Atorvastatin Calcium (Lipitor Tab) 10 mg DAILY PO 11/26/16 08:00 12/26/16 08:59 11/26/16 08:28 10 MG Tiotropium [place] (Spiriva Handihaler Inhaler) 1 puff DAILY INH 11/26/16 08:00 12/26/16 08:59 11/26/16 08:29 1 PUFF Albuterol/ Ipratropium (Duoneb) 3 ml Q4R PRN INH 11/25/16 15:45 12/25/16 15:44 Ioversol (Optiray 320) 111 ml UD PRN IV 11/25/16 16:00 11/29/16 15:59 Pantoprazole Sodium (Protonix Tab) 40 mg QAM PO 11/26/16 08:00 12/26/16 08:59 11/26/16 08:28 40 MG Miscellaneous (Iv Fluids Completed) 1 ea PRN PRN N/A 11/25/16 16:15 11/25/17 16:14 11/26/16 07:11 1 EA Sodium Chloride 1,000 ml @ 999 mls/hr Q1H1M ONCE IV 11/27/16 08:45 11/27/16 09:45 Objective Vital Signs Date Time Temp Pulse Resp B/P (MAP) Pulse Ox O2 Delivery O2 Flow Rate FiO2 11/27/16 07:58 95 Room Air 11/27/16 07:52 36.6 69 16 103/62 (76) 90 11/27/16 00:48 36.7 70 20 116/64 (81) 93 Room Air 11/27/16 00:00 95 Room Air 11/26/16 16:11 36.5 66 131/74 (93) 95 Room Air 11/26/16 16:00 Room Air Physical Exam General Appearance: no apparent distress Neck: no JVD Respiratory/Chest: lungs clear Cardiovascular: no edema, no JVD, no murmur Abdomen: non tender, soft Extremities: non-tender, no pedal edema Neurologic/Psych: alert, normal mood/affect, oriented x 3 Skin: normal color, no jaundice, warm/dry, no rash Laboratory Results Last 24 Hours Test 11/27/16 08:04 Sodium Level 141 mmol/L Potassium Level 4.0 mmol/L Chloride Level 107 mmol/L Carbon Dioxide Level 30 mmol/L Anion Gap 4.0 mmol/L Blood Urea Nitrogen 23 mg/dl Creatinine 1.00 mg/dl Est Creatinine Clear Calc Drug Dose 39.6 ml/min Estimated GFR () 63.4 Estimated GFR (Non- 54.7 BUN/Creatinine Ratio 22.9 Random Glucose 90 mg/dl Calcium Level 8.6 mg/dl Assessment and Plan Ms. Fink is a 76 yr old with (nearly) painless rectal bleeding, and diverticulosis on CT. This most likely represents a diverticular bleed. Plan: Because she had further bleeding overnight, she hasn't had a prior colonoscopy, and pt has difficulty with transportation, will plan for colonoscopy tomorrow. I performed a history and physical examination of the patient. I have discussed the patient's case, impression and plan with BRYNN Bello. Her note reflects my findings and plan. Agree with colonoscopy tomorrow. Ernesto Andino MD
[2016-11-27] MEDS: AMLODIPINE BESYLATE 5 MG TAB PO SCH (09:49)
[2016-11-27] MEDS: ATORVASTATIN 10 MG TAB PO SCH (09:49)
[2016-11-27] MEDS: PANTOprazole SOD 40 MG TAB PO SCH (09:49)
[2016-11-27] MEDS: TIOTROPIUM BROMIDE 5 PUFF/90 MCG INH INH SCH (09:49)
[2016-11-27] MEDS ORDERED: BISACODYL 5 MG TABEC PO SCH (12:00)
[2016-11-27] MEDS: POLYETHYLENE (MIRALAX) 17 GM PACK PO SCH ×2 (13:47→18:11)
[2016-11-27 16:20] VITALS: BP 104/69; PULSE 67; TEMP 36.6; O2SAT 95
--- NOTE | 2016-11-27 22:38 | Progress Note ---
Subjective Date of Service: Nov 27, 2016. Subjective 76 yo female is here for an episode of bright red blood per rectum. She continues to have blood in her stools. Patient denies any nausea, vomiting, diarrhea, abd. pain. Problem List Medical Problems: (1) COPD exacerbation Status: Acute (2) Hypoxia Status: Acute (3) Rectal bleed Status: Acute (4) Right elbow pain Status: Acute Review of Systems Constitutional: No fever, No chills ENT: No hearing loss, No unusual epistaxis Respiratory: No cough, No sputum Cardiac: No chest pain, No orthopnea Abdomen: No pain Musculoskeletal: No joint pain Female : No dysuria, No urinary frequency Neurologic: No memory loss, No paralysis Psychiatric: No depression symptoms Heme: No abnormal bleeding/bruising Endo: No fatigue All Other Systems: Reviewed and Negative Medications Current Inpatient Medications Medications (Trade) Dose Ordered Sig/Briana Route Start Time Stop Time Status Last Admin Dose Admin Acetaminophen (Tylenol Tab) 650 mg Q4H PRN PO 11/25/16 15:45 12/25/16 15:44 Al Hydrox/Mg Hydrox/Simethicone (Maalox Max Susp) 15 ml Q4H PRN PO 11/25/16 15:45 12/25/16 15:44 Magnesium Hydroxide (Milk Of Magnesia Susp) 30 ml Q6H PRN PO 11/25/16 15:45 12/25/16 15:44 Polyethylene (Miralax Powder Packet) 17 gm DAILY PRN PO 11/25/16 15:45 12/25/16 15:44 Ondansetron HCl (Zofran Inj) 4 mg Q6H PRN IV 11/25/16 15:45 12/25/16 15:44 Amlodipine Besylate (Norvasc Tab) 10 mg DAILY PO 11/26/16 08:00 12/26/16 08:59 11/29/16 07:24 10 MG Atorvastatin Calcium (Lipitor Tab) 10 mg DAILY PO 11/26/16 08:00 12/26/16 08:59 11/29/16 07:24 10 MG Tiotropium [place] (Spiriva Handihaler Inhaler) 1 puff DAILY INH 11/26/16 08:00 12/26/16 08:59 11/29/16 07:26 1 PUFF Albuterol/ Ipratropium (Duoneb) 3 ml Q4R PRN INH 11/25/16 15:45 12/25/16 15:44 Ioversol (Optiray 320) 111 ml UD PRN IV 11/25/16 16:00 11/29/16 15:59 Pantoprazole Sodium (Protonix Tab) 40 mg QAM PO 11/26/16 08:00 12/26/16 08:59 11/29/16 07:24 40 MG Miscellaneous (Iv Fluids Completed) 1 ea PRN PRN N/A 11/25/16 16:15 11/25/17 16:14 11/26/16 07:11 1 EA Objective Vital Signs Date Time Temp Pulse Resp B/P (MAP) Pulse Ox O2 Delivery O2 Flow Rate FiO2 11/27/16 16:20 36.6 67 20 104/69 (81) 95 Room Air 11/27/16 16:00 Room Air 11/27/16 07:58 95 Room Air 11/27/16 07:52 36.6 69 16 103/62 (76) 90 11/27/16 00:48 36.7 70 20 116/64 (81) 93 Room Air 11/27/16 00:00 95 Room Air Physical Exam Comments: General Appearance: WD/WN, no apparent distress Neck: supple, no adenopathy Respiratory/Chest: chest non-tender, lungs clear, normal breath sounds Cardiovascular: regular rate, rhythm, no edema, no gallop Abdomen: normal bowel sounds, non tender, soft Extremities: normal range of motion, non-tender, normal inspection Skin: normal color Laboratory Results Last 24 Hours Test 11/27/16 08:04 Sodium Level 141 mmol/L Potassium Level 4.0 mmol/L Chloride Level 107 mmol/L Carbon Dioxide Level 30 mmol/L Anion Gap 4.0 mmol/L Blood Urea Nitrogen 23 mg/dl Creatinine 1.00 mg/dl Est Creatinine Clear Calc Drug Dose 39.6 ml/min Estimated GFR () 63.4 Estimated GFR (Non- 54.7 BUN/Creatinine Ratio 22.9 Random Glucose 90 mg/dl Calcium Level 8.6 mg/dl Assessment and Plan Patient is a pleasant 76 y/o female, with PMHx of HTN, HLD, tobacco abuse, and COPD, who presented to the ED because of rectal bleeding x1 day and has never had a colonoscopy/ BRBPR: - Still having bloody stools CT scan showed diverticulosis which may be cause of GI bleed from AVM malformation. - Trend H&H - IVF @ 80 ml/hr - Awaiting colonoscopy in AM - Hold daily ASA 81 mg HTN: Continue Norvasc 10 mg daily HLD: Continue Lipitor 10 mg daily COPD w/out exacerbation, tobacco abuse: - Continue Spiriva - DuoNeb QID PRN SOB/wheezing - Smoking cessation counselling GI Prophylaxis: Protonix daily DVT Prophylaxis: TEDs/SCDs; chemical means contraindicated due to rectal bleeding Code Status: LEVEL I, FULL Dispo: From home, lives alone- PT/OT and manager social responsibility consulted Continued [facility] stay due to: other (pending workup, still waiting for h and h to be stabilized.) Discharge planning: home
[2016-11-27 23:23] VITALS: BP 124/76; PULSE 63; TEMP 36.6; O2SAT 94
[2016-11-28 07:00] LABS: BUN/CREATININE RATIO 14.4 (10-20); CALCIUM 8.2 mg/dl (8.5-10.1); CREATININE 0.83 mg/dl (0.60-1.20); POTASSIUM 4.3 mmol/L (3.5-5.1)
[2016-11-28 07:17] VITALS: BP 114/67; PULSE 64; TEMP 36.3; O2SAT 91
[2016-11-28] MEDS: PANTOprazole SOD 40 MG TAB PO SCH (08:00)
[2016-11-28] MEDS: ATORVASTATIN 10 MG TAB PO SCH (08:00)
[2016-11-28] MEDS: TIOTROPIUM BROMIDE 5 PUFF/90 MCG INH INH SCH (08:15)
[2016-11-28] MEDS: AMLODIPINE BESYLATE 5 MG TAB PO SCH (08:15)
[2016-11-28] MEDS ORDERED: PROPOFOL IV EMULSION 10 MG/ML 20 ML VIAL IV ONE ×2 (09:15→10:08)
[2016-11-28] MEDS ORDERED: LIDOCAINE HCL 2% 2 ML VIAL (20MG/ML) ONE (09:15)
--- NOTE | 2016-11-28 10:24 | GI REPORT ---
Procedure Date: 11/28/2016 9:47 AM Procedure: Colonoscopy Indications: Hematochezia, Rectal bleeding Medicines: See the Anesthesia note for documentation of the administered medications Complications: No immediate complications. Estimated Blood Loss: Estimated blood loss was minimal. Procedure: Pre-Anesthesia Assessment: - Prior to the procedure, a History and Physical was performed, and patient medications, allergies and sensitivities were reviewed. The patient's tolerance of previous anesthesia was reviewed. - The risks and benefits of the procedure and the sedation options and risks were discussed with the patient. All questions were answered and informed consent was obtained. - Patient identification and proposed procedure were verified prior to the procedure by the physician and the nurse. The procedure was verified in the pre-procedure area. - Pre-procedure physical examination revealed no contraindications to sedation. - After reviewing the risks and benefits, the patient was deemed in satisfactory condition to undergo the procedure. After I obtained informed consent, the scope was passed under direct vision. Throughout the procedure, the patient's blood pressure, pulse, and oxygen saturations were monitored continuously. The scope was introduced through the anus and advanced to the cecum, identified by appendiceal orifice and ileocecal valve. The colonoscopy was performed without difficulty. The patient tolerated the procedure well. The quality of the bowel preparation was fair. Findings: The perianal and digital rectal examinations were normal. A 6 mm polyp was found in the ascending colon. The polyp was sessile. The polyp was removed with a hot snare. Resection and retrieval were complete. Verification of patient identification for the specimen was done by the physician and nurse using the patient's name and medical record number. Estimated blood loss was minimal. A 8 mm polyp was found in the transverse colon. The polyp was semi-sessile. The polyp was removed with a hot snare. Resection and retrieval were complete. Verification of patient identification for the specimen was done by the physician and nurse using the patient's name and medical record number. Estimated blood loss was minimal. A 10 mm polyp was found at 60 cm proximal to the anus. The polyp was pedunculated. The polyp was removed with a hot snare. Resection and retrieval were complete. Verification of patient identification for the specimen was done by the physician and nurse using the patient's name and medical record number. Estimated blood loss: none. Multiple small and large-mouthed diverticula were found in the sigmoid colon and in the descending colon. Internal hemorrhoids were found during retroflexion. The hemorrhoids were moderate. Impression: - One 6 mm polyp in the ascending colon, removed with a hot snare. Resected and retrieved. - One 8 mm polyp in the transverse colon, removed with a hot snare. Resected and retrieved. - One 10 mm polyp at 60 cm proximal to the anus, removed with a hot snare. Resected and retrieved. - Diverticulosis in the sigmoid colon and in the descending colon. - Internal hemorrhoids. Recommendation: - Await pathology results. - Return patient to [facility] for ongoing care. Ernesto Andino M.D. Ernesto Andino MD 11/28/2016 10:23:46 AM This report has been signed electronically. Note Initiated On: 11/28/2016 9:47 AM I attest to the content of the Intraoperative Record and orders documented therein, exceptions below
--- NOTE | 2016-11-28 10:40 | Anesthesiology Progress Note ---
Anesthesia Post Op Note Date & Time Nov 28, 2016 at 10:40 Vital Signs Pain Intensity: 0 Vital Signs Past 12 Hours Date Time Temp Pulse Resp B/P (MAP) Pulse Ox O2 Delivery O2 Flow Rate FiO2 11/28/16 10:38 76 18 113/58 (76) 94 Room Air 11/28/16 10:23 84 18 94/50 (65) 95 Room Air 11/28/16 09:33 36.7 66 18 137/67 (90) 94 Room Air 11/28/16 07:45 Room Air 11/28/16 07:17 36.3 64 18 114/67 (83) 91 Room Air 11/28/16 04:15 Room Air 11/28/16 00:00 Room Air 11/27/16 23:23 36.6 63 18 124/76 (92) 94 Room Air Notes Mental Status: alert / awake / arousable, participated in evaluation Pt Amnestic to Procedure: Yes Nausea / Vomiting: adequately controlled Pain: adequately controlled Airway Patency, RR, SpO2: stable & adequate BP & HR: stable & adequate Hydration State: stable & adequate Anesthetic Complications: no major complications apparent
[2016-11-28 10:56] VITALS: BP 124/70; PULSE 71; TEMP 36.4; O2SAT 94
[2016-11-28 11:31] VITALS: BP 112/68; PULSE 67; TEMP 36.4; O2SAT 93
[2016-11-28 16:10] VITALS: BP 107/69; PULSE 63; TEMP 36.6; O2SAT 96
[2016-11-29 00:42] VITALS: BP 114/72; PULSE 62; TEMP 36.6; O2SAT 94
[2016-11-29 07:21] LABS: HEMATOCRIT 34.5 % (37-47); MEAN CORPUSCULAR HEMOGLOBIN 31.9 pg (25-34); MEAN CORPUSCULAR HGB CONC 33.9 g/dl (32-36); MEAN PLATELET VOLUME 9.4 fL (7.4-10.4); PLATELET COUNT 127 K/uL (130-400); RED BLOOD COUNT 3.67 M/uL (4.2-5.4)
[2016-11-29] MEDS: ATORVASTATIN 10 MG TAB PO SCH (07:24)
[2016-11-29] MEDS: AMLODIPINE BESYLATE 5 MG TAB PO SCH (07:24)
[2016-11-29] MEDS: PANTOprazole SOD 40 MG TAB PO SCH (07:24)
[2016-11-29] MEDS: TIOTROPIUM BROMIDE 5 PUFF/90 MCG INH INH SCH (07:26)
[2016-11-29 08:00] VITALS: BP 119/70; PULSE 60; TEMP 36.4; O2SAT 95
--- NOTE | 2016-11-29 08:16 | Progress Note ---
Subjective Date of Service: Nov 28, 2016. seen at 18:15 Subjective Patient reports feeling well. Patient denies any chest pain, nausea, vomiting, diarrhea. Patient had colonoscopy today. Problem List Medical Problems: (1) COPD exacerbation Status: Acute (2) Hypoxia Status: Acute (3) Rectal bleed Status: Acute (4) Right elbow pain Status: Acute Review of Systems Constitutional: No fever, No chills ENT: No hearing loss, No unusual epistaxis Respiratory: No cough, No sputum Cardiac: No chest pain, No orthopnea Abdomen: No pain, No nausea Neurologic: No memory loss, No paralysis Psychiatric: No depression symptoms Endo: No fatigue Skin: No rash, No itch All Other Systems: Reviewed and Negative Medications Current Inpatient Medications Medications (Trade) Dose Ordered Sig/Briana Route Start Time Stop Time Status Last Admin Dose Admin Acetaminophen (Tylenol Tab) 650 mg Q4H PRN PO 11/25/16 15:45 12/25/16 15:44 Al Hydrox/Mg Hydrox/Simethicone (Maalox Max Susp) 15 ml Q4H PRN PO 11/25/16 15:45 12/25/16 15:44 Magnesium Hydroxide (Milk Of Magnesia Susp) 30 ml Q6H PRN PO 11/25/16 15:45 12/25/16 15:44 Polyethylene (Miralax Powder Packet) 17 gm DAILY PRN PO 11/25/16 15:45 12/25/16 15:44 Ondansetron HCl (Zofran Inj) 4 mg Q6H PRN IV 11/25/16 15:45 12/25/16 15:44 Amlodipine Besylate (Norvasc Tab) 10 mg DAILY PO 11/26/16 08:00 12/26/16 08:59 11/29/16 07:24 10 MG Atorvastatin Calcium (Lipitor Tab) 10 mg DAILY PO 11/26/16 08:00 12/26/16 08:59 11/29/16 07:24 10 MG Tiotropium Doss (Spiriva Handihaler Inhaler) 1 puff DAILY INH 11/26/16 08:00 12/26/16 08:59 11/29/16 07:26 1 PUFF Albuterol/ Ipratropium (Duoneb) 3 ml Q4R PRN INH 11/25/16 15:45 12/25/16 15:44 Ioversol (Optiray 320) 111 ml UD PRN IV 11/25/16 16:00 11/29/16 15:59 Pantoprazole Sodium (Protonix Tab) 40 mg QAM PO 11/26/16 08:00 12/26/16 08:59 11/29/16 07:24 40 MG Miscellaneous (Iv Fluids Completed) 1 ea PRN PRN N/A 11/25/16 16:15 11/25/17 16:14 11/26/16 07:11 1 EA Objective Vital Signs Date Time Temp Pulse Resp B/P (MAP) Pulse Ox O2 Delivery O2 Flow Rate FiO2 11/29/16 00:42 36.6 62 20 114/72 (86) 94 Room Air 11/29/16 00:00 Room Air 11/28/16 16:10 36.6 63 16 107/69 (82) 96 Room Air 11/28/16 16:00 Room Air 11/28/16 11:31 36.4 67 18 112/68 (83) 93 11/28/16 10:56 36.4 71 18 124/70 (88) 94 Room Air 11/28/16 10:38 76 18 113/58 (76) 94 Room Air 11/28/16 10:23 84 18 94/50 (65) 95 Room Air 11/28/16 09:33 36.7 66 18 137/67 (90) 94 Room Air Physical Exam General Appearance: WD/WN, no apparent distress Neck: supple, no adenopathy Respiratory/Chest: chest non-tender, lungs clear, normal breath sounds Cardiovascular: regular rate, rhythm, no edema, no gallop Abdomen: normal bowel sounds, non tender Extremities: normal range of motion Neurologic/Psychiatric: no motor/sensory deficits Lymphatic: no adenopathy Laboratory Results Last 24 Hours Test 11/29/16 06:38 White Blood Count 4.70 K/uL Red Blood Count 3.67 M/uL Hemoglobin 11.7 g/dL Hematocrit 34.5 % Mean Corpuscular Volume 94.0 fL Mean Corpuscular Hemoglobin 31.9 pg Mean Corpuscular Hemoglobin Concent 33.9 g/dl RDW Standard Deviation 45.0 fL RDW Coefficient of Variation 13.1 % Platelet Count 127 K/uL Mean Platelet Volume 9.4 fL Assessment and Plan Patient is a pleasant 76 y/o female, with PMHx of HTN, HLD, tobacco abuse, and COPD, who presented to the ED because of rectal bleeding x1 day and has never had a colonoscopy/ BRBPR: - Still having bloody stools CT scan showed diverticulosis which may be cause of GI bleed from AVM malformation. - will trend H and H. Diverticulosis likely cause of bleed vs hemorrhoids. - Hold daily ASA 81 mg - One 6 mm polyp in the ascending colon, removed with a hot snare. Resected and retrieved. - One 8 mm polyp in the transverse colon, removed with a hot snare. Resected and retrieved. - One 10 mm polyp at 60 cm proximal to the anus, removed with a hot snare. Resected and retrieved. - Diverticulosis in the sigmoid colon and in the descending colon. - Internal hemorrhoids. Recommendation: - Await pathology results. - Return patient to [facility] for ongoing care. HTN: Continue Norvasc 10 mg daily HLD: Continue Lipitor 10 mg daily COPD w/out exacerbation, tobacco abuse: - Continue Spiriva - DuoNeb QID PRN SOB/wheezing - Smoking cessation counselling GI Prophylaxis: Protonix daily DVT Prophylaxis: TEDs/SCDs; chemical means contraindicated due to rectal bleeding Code Status: LEVEL I, FULL Dispo: From home, lives alone- PT/OT and child protective services social worker consulted Will advance diet and discharge once patient tolerates regular food Continued [facility] stay due to: other (pending workup, still waiting for h and h to be stabilized.) Discharge planning: home
--- NOTE | 2016-11-29 15:19 | Discharge Instructions ---
Discharge Instructions Date of Service Nov 29, 2016. Admission Reason for Admission: Rectal Bleed Discharge Discharge Diagnosis / Problem: Lower GI bleed Discharge Goals Goal(s): Decrease discomfort, Improve function Activity Recommendations Activity Limitations: resume your previous activity . Instructions / Follow-Up Instructions / Follow-Up F/U with primary care provider in 1-2 weeks Ask PCP if patient needs to resume Aspirin. Current Hospital Diet Patient's current hospital diet: Regular Diet Discharge Diet Recommended Diet: Regular Diet Procedures Procedures Performed: COLONOSCOPY Pending Studies Studies pending at discharge: no Medical Emergencies . Who to Call and When: Medical Emergencies: If at any time you feel your situation is an emergency, please call 911 immediately. . Non-Emergent Contact Non-Emergency issues call your: Primary Care Provider Small or same amount of blood in stool. . "Provider Documentation" section prepared by Bryan Russell. . VTE Core Measure Inpt VTE Proph given/why not?: T.E.D. Stockings, SCD's, Contraindicated
[2016-11-29 15:30] VITALS: BP 119/70; PULSE 60; TEMP 36.4; O2SAT 95
== END 2016-11-29 16:20 | disposition home or self-care (01) | DRG 378 ==
LOC: EDBD 13:12 → C.EDB 13:13 → C.MS4W 15:47 → ENRESERV 16:22 → OBSVTOIN 11-28 08:09
PROVIDERS: ADMIT Hospitalist; ATTEND Internal Medicine Sports Medicine
PROC: 0DJD8ZZ Inspection of Lower Intestinal Tract, Via Natural or Artificial Opening Endoscopic (ICD-10-PCS; principal; 2016-11-28 09:21)
DX: K92.1 Melena (principal); K57.92 Diverticulitis of intestine, part unspecified, without perforation or abscess without bleeding; J44.9 Chronic obstructive pulmonary disease, unspecified; Z98.51 Tubal ligation status; Z87.891 Personal history of nicotine dependence; Z79.82 Long term (current) use of aspirin; E78.5 Hyperlipidemia, unspecified; K64.8 Other hemorrhoids; Z80.9 Family history of malignant neoplasm, unspecified; Z82.49 Family history of ischemic heart disease and other diseases of the circulatory system

== ENCOUNTER 2018-05-19 09:47 | Inpatient (IN) ==
[2018-05-19] MEDS ORDERED: ALBUT/IPRATROP 3MG/0.5MG NEB 3 ML VIAL NEB STA ×2 (09:57→09:58)
[2018-05-19] MEDS ORDERED: methylPREDNISolone 125 MG/2 ML VIAL IV STA (09:58)
[2018-05-19] MEDS ORDERED: ALBUT/IPRATROP 3MG/0.5MG NEB 3 ML VIAL ONE (09:59)
[2018-05-19] MEDS ORDERED: SODIUM CHLORIDE 0.9% 500 ML IV SCH (10:00)
[2018-05-19 10:10] LABS: Basophils # (auto) 0.03 K/uL (0-0.2); Basophils % (auto) 0.5 %; Eosinophils # (auto) 0.35 K/uL (0-0.5); Eosinophils % (auto) 6.2 %; Hematocrit (blood only) 40.9 % (37-47); Hemoglobin 13.2 g/dL (12.0-16.0); Immature Granulocytes # (auto) 0.02 K/uL (0.00-0.02); Immature Granulocytes % (auto) 0.4 %; Lymphocytes # (auto) 1.29 K/uL (1.2-3.4); Lymphocytes % (auto) 22.8 %; Mean Corpuscular Hgb Conc 32.3 g/dL (32-36); Mean Corpuscular Volume 92.3 fL (80-100); Mean Platelet Volume 9.2 fL (7.4-10.4); Monocytes # (auto) 0.45 K/uL (0.11-0.59); Neutrophils # (auto) 3.52 K/uL (1.4-6.5); Neutrophils % (auto) 62.1 %; Platelet Count 161 K/uL (130-400); RDW Coefficient of Variation 14.6 % (11.5-14.5); RDW Standard Deviation 49.6 fL (36.4-46.3); Red Blood Count 4.43 M/uL (4.2-5.4); White Blood Count 5.66 K/uL (4.8-10.8)
[2018-05-19 10:19] LABS: Alanine Aminotransferase 10 U/L (12-78); Albumin Level 3.5 gm/dl (3.4-5.0); Aspartate Aminotransferase 9 U/L (15-37); Blood Urea Nitrogen 15 mg/dl (7-18); Calcium 8.3 mg/dl (8.5-10.1); Carbon Dioxide 32 mmol/L (21-32); Chloride 101 mmol/L (98-107); Creatinine Clr Calc Pharmacy 33.6 ml/min; Est GFR (African American) 56.3; Est GFR (Non-African American) 48.6; Glucose 120 mg/dl (70-99); Potassium 4.4 mmol/L (3.5-5.1); Sodium 137 mmol/L (136-145)
[2018-05-19 10:20] LABS: Prothrombin Time 10.3 Seconds (9.0-12.0)
[2018-05-19 10:20] LABS: Base Excess VBG 3.4 mEq/L; Oxygen Saturation VBG 88.5 %; pH VBG 7.27 (7.36-7.41)
[2018-05-19 10:30] LABS: Alkaline Phosphatase 89 U/L (45-117); Bilirubin,Total 0.5 mg/dl (0.2-1); Globulin 3.6 gm/dl (2.5-4.0); NT Pro B Type Natriuretic Pept 1176 pg/ml (0-1800); Phosphorus 4.5 mg/dl (2.5-4.9); Total Protein 7.1 gm/dl (6.4-8.2); Troponin I < 0.015 ng/ml (0-0.045)
--- NOTE | 2018-05-19 10:39 | XRay Report ---
XR chest 1V portable HISTORY: 78 years-old Female Chest Pain acute atypical chest pain COMPARISON: Chest radiograph 12/22/2017 TECHNIQUE: Portable AP view of the chest FINDINGS: Cardiomediastinal and hilar silhouettes appear unchanged. No pneumothorax or overt pulmonary edema. M inimal left basilar opacities. Mild blunting of the costophrenic angles without large pleural effusio n. Chronic interstitial coarsening with hyperinflation. Healed remote left-sided rib fractures redemo nstrated. Degenerative changes of the shoulders and spine. IMPRESSION: Minimal left basilar opacities are suggestive of probable atelectasis. The above report was generated using voice recognition software. It may contain grammatical, syntax o r spelling errors. Electronically signed by: Reji Whitaker M.D. 05/19/2018 10:37 AM
[2018-05-19] MEDS ORDERED: AMPICILLIN/SULBACTAM SOD 3,000 MG in 0.9 % SODIUM CHLORIDE 100 ML IV STA (11:44)
[2018-05-19] MEDS ORDERED: DOXYCYCLINE HYCLATE 100 MG in DEXTROSE 5% 100 ML IV STA (11:44)
--- NOTE | 2018-05-19 12:49 | History & Physical Report ---
Date of Service May 19, 2018 Assessment & Plan (1) COPD with respiratory failure, acute: Acute onset shortness of breath this morning. Denies cough, sputum production, or change in existing sputum. Technically doesn't meet COPD exacerbation criteria. Nonetheless, will treat as such given the lack of other probably causes of her acute shortness of breath. Other ddx includes PE which patient was diagnosed with in 11/2017 during her GI bleed. - Steroids, antibiotics, DuoNebs standing and PRN - BiPap and supplemental O2 PRN - Procalcitonin to determine if RLL opacity is atelectasis vs. pneumonia - D-dimer for concern for VTE (2) Left lower lobe pneumonia: CXR on 05/19 showed minimal LLL opacity which was read as probably atelectasis. Given her respiratory distress, currently are treating for pneumonia. ED had concern for aspiration, but the patient denies any issues with choking or coughing during eating or drinking. Family confirms this. - Procalcitonin to determine if RLL opacity is atelectasis vs. pneumonia - Treat with abx for now - Sputum culture and MRSA swab to help tailor antibiotic regimen (3) Respiratory failure with hypoxia and hypercapnia: O2 sat was 82% on room air on arrival to the ED. VBG in the ED showed hypercapnea. - BiPap PRN as above (4) Perforated ulcer: Perforated duodenal ulcer in 11/2017 s/p ex lap and oversew by Dr. Rai. No further signs of bleeding. No abdominal pain, nausea, or vomiting. Has IVC filter from this time due to not being eligible for anticoagulation due to her GI bleeding when the PE was found. - On PPI BID (5) DVT prophylaxis: Given known prior DVT/PE during admission in 11/2017, will treat with Lovenox 40mg. No signs of bleeding, and I believe benefits outweigh risks in this instance. - Lovenox 40mg daily History of Present Illness Primary Care Provider: Kevin Capone MD 78-year-old female with a history of COPD and prior duodenal ulcer who presents with acute onset shortness of breath patient reports that she went to bed in her normal state of health. She denies shortness of breath, cough, fever, chills, nausea, vomiting, or any other abnormal symptoms prior to going to bed. When she woke this morning she felt acutely short of breath. She went to get a nebulizer, and was acutely dyspneic on exertion. Despite the nebulizer treatment she remained short of breath, and her family called EMS to take her to the hospital. On arrival she was 82% O2 sat on room air. She does not normally use any oxygen during the day or night. She still denies any fevers, chills, sweats, cough, sputum production, nausea, vomiting, headache, or any other symptoms apart from the shortness of breath. Allergies Allergy/AdvReac Type Severity Reaction Status Date / Time bacitracin Allergy Mild UNSURE Verified 05/19/18 10:26 neomycin Allergy Mild UNSURE Verified 05/19/18 10:26 polymyxin B Allergy Mild UNSURE Verified 05/19/18 10:26 copper Allergy Unknown METAL? Verified 05/19/18 10:26 nickel Allergy Unknown METAL? Verified 05/19/18 10:26 silver Allergy Unknown METAL? Verified 05/19/18 10:26 strawberry Allergy Unknown . Verified 05/19/18 10:26 Home Medications Home Medications Medication Instructions Recorded Confirmed Type ipratropium-albuterol 3 ml INHALATION Q4R #3 ml 12/13/17 05/19/18 Rx tiotropium bromide [Spiriva with 20 mcg INHALATION DAILY #1 inha 12/13/17 05/19/18 Rx HandiHaler] Past Med/Surg History Medical History Required emergent intubation Perforated ulcer COPD (chronic obstructive pulmonary disease) GI bleed No pertinent family history (Inactive) Surgical History H/O tubal ligation S/P cataract surgery Bilateral Social History Preferred Language: Romanian Communication Ability: Effective Visual Impairment: Limited Hearing Ability: Normal Beliefs That Will Affect Care: None Current Living Situation: Alone Feels Safe at Home: Yes Smoking Status: Heavy tobacco smoker Hx Alcohol Use: Yes ("beer/whisky once a week") Hx Substance Use: No Review of Systems Constitutional: no fever, no chills and no sweats Eyes: no diplopia Ear, Nose, Mouth, Throat: no ear trauma, no nasal discharge and no dental pain Respiratory: + dyspnea and + dyspnea on exertion; no cough and no chest congestion Cardiovascular: no chest pain, no dyspnea on exertion, no palpitations and no syncope Gastrointestinal: no abdominal pain, no belching, no constipation, no diarrhea/loose stools, no blood in stools and no melena Musculoskeletal: no back pain, no joint pain and no muscle weakness Integumentary: no rash, no skin ulcer and no erythema Neurologic: no generalized weakness, no loss of sensation, no numbness and no paresthesia Psychiatric: no depression and no anxiety Endocrine: no fatigue, no polydipsia and no polyphagia Physical Exam Vital Signs (Past 24 Hours): Last Vital Signs Temp 36.6 C 05/19/18 09:47 Pulse 109 H 05/19/18 10:23 Resp 22 05/19/18 10:23 BP 154/84 H 05/19/18 10:23 Pulse Ox 95 05/19/18 10:23 Constitutional: WD/WN, vitals as above Eyes: EOM intact bilaterally; no conjunctival abnormality ENMT: external ear and nose normal, oropharynx normal Neck: trachea midline, no thyromegaly normal visual inspection Respiratory: + respiratory distress, + labored breathing and + tachypneic; no cough and no stridor Auscultation: + wheezes (Mild diffuse) Cardiovascular: Rate/Rhythm: regular rhythm and + tachycardic Heart Sounds: normal S1 and normal S2 Gastrointestinal (Abdomen): Inspection/Auscultation: abdomen normal to inspection; abdomen not distended Musculoskeletal: no cyanosis or clubbing, extremities motor strength 5/5 Skin: no rashes, warm and dry Neurologic: moves all extremities and awake Psychiatric: Orientation: alert, oriented to person and cooperative (1) Left lower lobe pneumonia Pneumonia type: due to unspecified organism Qualified Code(s): J18.1 - Lobar pneumonia, unspecified organism (2) Respiratory failure with hypoxia and hypercapnia Chronicity: acute on chronic Qualified Code(s): J96.21 - Acute and chronic respiratory failure with hypoxia; J96.22 - Acute and chronic respiratory failure with hypercapnia
[2018-05-19] MEDS ORDERED: ACETAMINOPHEN 325 MG TAB PO PRN (15:27)
[2018-05-19] MEDS ORDERED: ALBUT/IPRATROP 3MG/0.5MG NEB 3 ML VIAL NEB PRN (15:27)
[2018-05-19] MEDS ORDERED: LEVOFLOXACIN/D5W 750 MG/150 ML BAG IV SCH (16:00)
[2018-05-19] MEDS ORDERED: ADENOSINE IV SOLN 3 MG/ML 2 ML VIAL IV ONE ×2 (16:20→16:21)
[2018-05-19 16:35] LABS: D Dimer 1370 ug/L FEU (0-500)
--- NOTE | 2018-05-19 17:19 | Emergency Department Note ---
Entered by Marisela Fonseca acting as a scribe for History of Present Illness General Chief complaint: Shortness of Breath/Dyspnea Time Seen by Provider: 05/19/18 09:50 Source: patient Mode of arrival: EMS Limitations: no limitations History of Present Illness Onset (ago): hour(s) (this morning) Location: chest Pain Consistency: + constant Associated symptoms: + cough (without production) and + shortness of breath Treatments prior to arrival: other (2 Albuterol and 1 duoneb) The patient is a 78 year old female with a history of COPD who presents to the ED with complaints of constant shortness of breath that onset this morning. The patient arrived via EMS and presents with her daughter. The patient states that this problem has never happened before. The patient complains of cough without production. Per daughter, the patient received 2 Albuterol and 1 Duoneb at home. She notes that the patient was in the hospital in November of 2017 for a perforated ulcer that resulted in her being intubated. Home Medications Home Medications Medication Instructions Recorded Confirmed Type ipratropium-albuterol 3 ml INHALATION Q4R #3 ml 12/13/17 05/19/18 Rx tiotropium bromide [Spiriva with 20 mcg INHALATION DAILY #1 inha 12/13/17 05/19/18 Rx HandiHaler] Allergies Allergy/AdvReac Type Severity Reaction Status Date / Time bacitracin Allergy Mild UNSURE Verified 05/19/18 10:26 neomycin Allergy Mild UNSURE Verified 05/19/18 10:26 polymyxin B Allergy Mild UNSURE Verified 05/19/18 10:26 copper Allergy Unknown METAL? Verified 05/19/18 10:26 nickel Allergy Unknown METAL? Verified 05/19/18 10:26 silver Allergy Unknown METAL? Verified 05/19/18 10:26 strawberry Allergy Unknown . Verified 05/19/18 10:26 Past Med/Surg History Medical History Required emergent intubation Perforated ulcer COPD (chronic obstructive pulmonary disease) GI bleed No pertinent family history (Inactive) Bilateral cataracts Surgical History H/O tubal ligation S/P cataract surgery Bilateral Social History Preferred Language: Peruvian Communication Ability: Effective Construction Checker Required: No Beliefs That Will Affect Care: None Current Living Situation: Family Other Information That Helps Us Care for You: No Feels Safe at Home: Yes Safety Concerns: Feels Safe At This Time Smoking Status: Former smoker Hx Alcohol Use: Yes ("beer/whisky once a week") Hx Substance Use: No Review of Systems See HPI for pertinent positives & negatives. and A total of 10 systems reviewed and were otherwise negative Physical Exam Vital Signs Vital Signs - 24 hr 05/19/18 09:47 05/19/18 10:05 05/19/18 10:23 Temperature 36.6 C Temperature Source Oral Sepsis Recent Fever Within 48 Hours No Sepsis New/Unexplained Change in Mental Status No Sepsis Action Taken by Nursing No Action Required Pulse Rate 117 H 109 H 110 H Pulse Rate [Apical] 117 H 109 H Pulse Rate [Right Finger] 109 H 109 H Pulse Rhythm Regular Respiratory Rate 27 H 28 H 22 Respiratory Effort / Characteristics Accessory Muscle Use Labored Short of Breath Spontaneous Short of Breath Spontaneous Short of Breath Respiratory Depth Normal Normal Respiratory Pattern Regular Regular Blood Pressure 166/95 H Blood Pressure [Left Arm] Blood Pressure [Right Arm] 166/95 H 154/84 H Blood Pressure Mean 118 Blood Pressure Mean [Left Arm] Blood Pressure Mean [Right Arm] 118 107 Blood Pressure Position Sitting Blood Pressure Position [Left Arm] Blood Pressure Position [Right Arm] Sitting Sitting Pulse Oximetry 82 L 99 95 Oxygen Delivery Method Room Air BiPAP BiPAP Oxygen Flow Rate Fraction of Inspired Oxygen 40 40 SaO2/FiO2 Ratio 237 05/19/18 11:30 05/19/18 12:00 05/19/18 12:30 Temperature Temperature Source Sepsis Recent Fever Within 48 Hours Sepsis New/Unexplained Change in Mental Status Sepsis Action Taken by Nursing Pulse Rate Pulse Rate [Apical] 103 H 96 H 97 H Pulse Rate [Right Finger] Pulse Rhythm Respiratory Rate 25 H 21 22 Respiratory Effort / Characteristics Spontaneous Short of Breath Spontaneous Short of Breath Spontaneous Short of Breath Respiratory Depth Normal Normal Normal Respiratory Pattern Regular Regular Regular Blood Pressure Blood Pressure [Left Arm] Blood Pressure [Right Arm] 140/90 123/71 132/77 Blood Pressure Mean Blood Pressure Mean [Left Arm] Blood Pressure Mean [Right Arm] 106 88 95 Blood Pressure Position Blood Pressure Position [Left Arm] Blood Pressure Position [Right Arm] Sitting Sitting Sitting Pulse Oximetry 97 95 95 Oxygen Delivery Method BiPAP BiPAP BiPAP Oxygen Flow Rate Fraction of Inspired Oxygen 40 40 40 SaO2/FiO2 Ratio 242 237 237 05/19/18 13:02 05/19/18 13:30 05/19/18 14:00 Temperature Temperature Source Sepsis Recent Fever Within 48 Hours Sepsis New/Unexplained Change in Mental Status Sepsis Action Taken by Nursing Pulse Rate Pulse Rate [Apical] 102 H 103 H 107 H Pulse Rate [Right Finger] Pulse Rhythm Respiratory Rate 22 21 21 Respiratory Effort / Characteristics Spontaneous Short of Breath Spontaneous Short of Breath Spontaneous Short of Breath Respiratory Depth Normal Normal Normal Respiratory Pattern Regular Regular Regular Blood Pressure Blood Pressure [Left Arm] Blood Pressure [Right Arm] 134/84 131/89 107/62 Blood Pressure Mean Blood Pressure Mean [Left Arm] Blood Pressure Mean [Right Arm] 100 103 77 Blood Pressure Position Blood Pressure Position [Left Arm] Blood Pressure Position [Right Arm] Sitting Sitting Sitting Pulse Oximetry 93 92 95 Oxygen Delivery Method Nasal Cannula Nasal Cannula Nasal Cannula Oxygen Flow Rate Fraction of Inspired Oxygen 40 SaO2/FiO2 Ratio 230 05/19/18 14:56 05/19/18 15:01 05/19/18 15:27 Temperature 36.6 C 36.6 C Temperature Source Oral Oral Sepsis Recent Fever Within 48 Hours Sepsis New/Unexplained Change in Mental Status Sepsis Action Taken by Nursing Pulse Rate 99 H Pulse Rate [Apical] 99 H 98 H Pulse Rate [Right Finger] Pulse Rhythm Respiratory Rate 21 21 24 Respiratory Effort / Characteristics Spontaneous Short of Breath Respiratory Depth Normal Respiratory Pattern Regular Blood Pressure 135/74 Blood Pressure [Left Arm] 143/75 H Blood Pressure [Right Arm] 135/74 Blood Pressure Mean Blood Pressure Mean [Left Arm] 97 Blood Pressure Mean [Right Arm] 94 Blood Pressure Position Blood Pressure Position [Left Arm] Semi-fowlers Blood Pressure Position [Right Arm] Sitting Pulse Oximetry 92 92 91 Oxygen Delivery Method Nasal Cannula Nasal Cannula Nasal Cannula Oxygen Flow Rate 2 Fraction of Inspired Oxygen SaO2/FiO2 Ratio 05/19/18 17:38 05/19/18 20:25 Temperature 36.4 C L Temperature Source Oral Sepsis Recent Fever Within 48 Hours Sepsis New/Unexplained Change in Mental Status Sepsis Action Taken by Nursing Pulse Rate 98 H Pulse Rate [Apical] 86 Pulse Rate [Right Finger] Pulse Rhythm Respiratory Rate 20 Respiratory Effort / Characteristics Non-Labored Spontaneous SOB on Exertion Respiratory Depth Normal Respiratory Pattern Regular Blood Pressure Blood Pressure [Left Arm] 135/77 Blood Pressure [Right Arm] Blood Pressure Mean Blood Pressure Mean [Left Arm] 96 Blood Pressure Mean [Right Arm] Blood Pressure Position Blood Pressure Position [Left Arm] Semi-fowlers Blood Pressure Position [Right Arm] Pulse Oximetry 95 Oxygen Delivery Method Nasal Cannula Nasal Cannula Oxygen Flow Rate 2 3 Fraction of Inspired Oxygen SaO2/FiO2 Ratio GENERAL: Awake, alert, ill-appearing, in severe respiratory distress. HENT: Normocephalic, atraumatic. Oropharynx with dry mucous membranes and otherwise unremarkable. EYES: Normal conjunctiva. Sclera non-icteric. NECK: Supple. No nuchal rigidity. FROM. No JVD. RESPIRATORY: Severe respiratory distress. Labored breathing with accessory muscle use. Diminished breath sounds throughout. CARDIAC: Tachycardic rate, regular rhythm. Extremities warm and well perfused. Pulses equal. ABDOMEN: Soft, non-distended. No tenderness to palpation. No rebound or guarding. No masses. RECTAL: Deferred. MUSCULOSKELETAL: Chest examination reveals no tenderness. The back is symmetrical on inspection without obvious abnormality. There is no CVA tenderness to palpation. No joint edema. LOWER EXTREMITIES: Calves are equal size bilaterally and non-tender. No edema. No discoloration. NEURO: Normal sensorium. No sensory or motor deficits noted. SKIN: No rash or jaundice noted. Course 0952: Past medical records reviewed. The patient was evaluated in room C06, and a complete history and physical examination were performed. 1150: I reviewed the patient's case with [facility]. He will evaluate the patient for further management. Consultations Consultation #1: 1150: I reviewed the patient's case with [facility]. He will evaluate the patient for further management. Time: 11:50 Administered Medications Ioversol (Optiray 320 125ml) 92 ml IV ONCE PRN PRN Reason: Interaction Checking Stop: 05/23/18 19:50 Last Admin: 05/19/18 19:52 Dose: 92 ml Documented by: [id number] Discontinued Medications Adenosine (Adenosine) Confirm Administered Dose 6 mg IV .STK-MED ONE Stop: 05/19/18 16:21 Last Admin: 05/19/18 16:25 Dose: 6 mg Documented by: [id number] Adenosine (Adenosine) Confirm Administered Dose 18 mg IV .STK-MED ONE Stop: 05/19/18 16:22 Last Admin: 05/19/18 16:29 Dose: Not Given Documented by: [id number] Albuterol (Duoneb) 3 ml NEB NOW STA Stop: 05/19/18 09:58 Last Admin: 05/19/18 10:04 Dose: 3 ml Documented by: [id number] Albuterol (Duoneb) 3 ml NEB NOW STA Stop: 05/19/18 09:59 Last Admin: 05/19/18 10:05 Dose: 3 ml Documented by: [id number] Albuterol (Duoneb) Confirm Administered Dose 6 ml .ROUTE .STK-MED ONE Stop: 05/19/18 10:00 Last Admin: 05/19/18 10:18 Dose: Not Given Documented by: [id number] Sodium Chloride (Nss) 500 mls @ 999 mls/hr IV .Q31M [facility] Stop: 05/19/18 10:30 Last Infusion: 05/19/18 11:37 Dose: 0 mls/hr Documented by: [id number] Admin: 05/19/18 10:31 Dose: 999 mls/hr Documented by: [id number] Doxycycline Hyclate 100 mg/ (Dextrose) 110 mls @ 50 mls/hr IV NOW STA Stop: 05/19/18 13:55 Last Infusion: 05/19/18 15:42 Dose: 0 mls/hr Documented by: [id number] Admin: 05/19/18 13:29 Dose: 50 mls/hr Documented by: [id number] Ampicillin Sodium/Sulbactam Sodium 3,000 mg/ Sodium Chloride 108 mls @ 200 mls/hr IV NOW STA Stop: 05/19/18 12:16 Last Infusion: 05/19/18 13:23 Dose: 0 mls/hr Documented by: [id number] Admin: 05/19/18 12:50 Dose: 200 mls/hr Documented by: [id number] Levofloxacin/Dextrose (Levaquin/D5w) 750 mg in 150 mls @ 100 mls/hr IV Q48H [facility]; Protocol Stop: 05/26/18 15:59 Last Infusion: 05/19/18 18:13 Dose: 0 mls/hr Documented by: [id number] Admin: 05/19/18 16:43 Dose: 100 mls/hr Documented by: [id number] Sodium Chloride (Nss 1000ml) 250 mls @ 999 mls/hr IV .Q16M ONE Stop: 05/19/18 18:30 Last Infusion: 05/19/18 20:12 Dose: 0 mls/hr Documented by: [id number] Admin: 05/19/18 19:56 Dose: 999 mls/hr Documented by: [id number] Methylprednisolone (Solumedrol) 125 mg IV NOW STA Stop: 05/19/18 09:59 Last Admin: 05/19/18 10:31 Dose: 125 mg Documented by: [id number] Medical Decision Making Differential Diagnosis Differential diagnosis: Etiologies such as infections, reactive airway disease, COPD, pneumonia, pleural effusion, pulmonary edema, ARDS, pneumothorax, CHF, cardiac ischemia, cardiac tamponade, dysrhythmia, anemia, pulmonary embolism, musculoskeletal, gastrointestinal process, as well as others were entertained. Medical Records Attestation: I reviewed the patient's medical records. Home Medications Current Medication List: was personally reviewed by me Laboratory Data Attestation: I reviewed the patient's lab results. Result diagrams: 05/19/18 09:31 05/19/18 09:31 Lab Results 05/19/18 05/19/18 05/19/18 Range/Units 09:31 09:31 09:31 WBC 5.66 (4.8-10.8) K/uL RBC 4.43 (4.2-5.4) M/uL Hgb 13.2 (12.0-16.0) g/dL Hct 40.9 (37-47) % MCV 92.3 (80-100) fL MCH 29.8 (25-34) pg MCHC 32.3 (32-36) g/dL RDW Std Deviation 49.6 H (36.4-46.3) fL RDW Coeff of Tio 14.6 H (11.5-14.5) % Plt Count 161 (130-400) K/uL MPV 9.2 (7.4-10.4) fL Immature Gran % (Auto) 0.4 % Neut % (Auto) 62.1 % Lymph % (Auto) 22.8 % [place] % (Auto) 8.0 % Eos % (Auto) 6.2 % Baso % (Auto) 0.5 % Immature Gran # (Auto) 0.02 (0.00-0.02) K/uL Neut # (Auto) 3.52 (1.4-6.5) K/uL Lymph # (Auto) 1.29 (1.2-3.4) K/uL [place] # (Auto) 0.45 (0.11-0.59) K/uL Eos # (Auto) 0.35 (0-0.5) K/uL Baso # (Auto) 0.03 (0-0.2) K/uL PT 10.3 (9.0-12.0) Seconds INR 1.0 (0.9-1.1) D-Dimer (0-500) ug/L FEU VBG pH (7.36-7.41) VBG pCO2 (38-50) mmHg VBG pO2 mmHg VBG HCO3 mmol/L VBG O2 Saturation % VBG Base Excess mEq/L Barometric Pressure mm/Hg Sodium 137 (136-145) mmol/L Potassium 4.4 (3.5-5.1) mmol/L Chloride 101 (98-107) mmol/L Carbon Dioxide 32 (21-32) mmol/L Anion Gap 4.0 (3-11) BUN 15 (7-18) mg/dl Creatinine 1.09 (0.6-1.2) mg/dl Est Cr Clr Drug Dosing 33.6 ml/min Est GFR ( Amer) 56.3 Est GFR (Non-Af Amer) 48.6 BUN/Creatinine Ratio 14.0 (10-20) Glucose 120 H (70-99) mg/dl Calcium 8.3 L (8.5-10.1) mg/dl Phosphorus 4.5 (2.5-4.9) mg/dl Magnesium 2.0 (1.8-2.4) mg/dl Total Bilirubin 0.5 (0.2-1) mg/dl AST 9 L (15-37) U/L ALT 10 L (12-78) U/L Alkaline Phosphatase 89 (45-117) U/L Troponin I < 0.015 (0-0.045) ng/ml NT-Pro-B Natriuret Pep 1176 (0-1800) pg/ml Total Protein 7.1 (6.4-8.2) gm/dl Albumin 3.5 (3.4-5.0) gm/dl Globulin 3.6 (2.5-4.0) gm/dl Albumin/Globulin Ratio 1.0 (0.9-2) Lipase 96 (73-393) U/L Procalcitonin (0-0.5) ng/ml TSH 1.850 (0.300-4.500) uIu/ml Nasal Screen MRSA (PCR) (Negative) 05/19/18 05/19/18 05/19/18 Range/Units 10:11 15:32 15:32 WBC (4.8-10.8) K/uL RBC (4.2-5.4) M/uL Hgb (12.0-16.0) g/dL Hct (37-47) % MCV (80-100) fL MCH (25-34) pg MCHC (32-36) g/dL RDW Std Deviation (36.4-46.3) fL RDW Coeff of Tio (11.5-14.5) % Plt Count (130-400) K/uL MPV (7.4-10.4) fL Immature Gran % (Auto) % Neut % (Auto) % Lymph % (Auto) % [place] % (Auto) % Eos % (Auto) % Baso % (Auto) % Immature Gran # (Auto) (0.00-0.02) K/uL Neut # (Auto) (1.4-6.5) K/uL Lymph # (Auto) (1.2-3.4) K/uL [place] # (Auto) (0.11-0.59) K/uL Eos # (Auto) (0-0.5) K/uL Baso # (Auto) (0-0.2) K/uL PT (9.0-12.0) Seconds INR (0.9-1.1) D-Dimer 1370 H* (0-500) ug/L FEU VBG pH 7.27 L (7.36-7.41) VBG pCO2 74 H (38-50) mmHg VBG pO2 61 mmHg VBG HCO3 33 mmol/L VBG O2 Saturation 88.5 % VBG Base Excess 3.4 mEq/L Barometric Pressure 732.6 mm/Hg Sodium (136-145) mmol/L Potassium (3.5-5.1) mmol/L Chloride (98-107) mmol/L Carbon Dioxide (21-32) mmol/L Anion Gap (3-11) BUN (7-18) mg/dl Creatinine (0.6-1.2) mg/dl Est Cr Clr Drug Dosing ml/min Est GFR ( Amer) Est GFR (Non-Af Amer) BUN/Creatinine Ratio (10-20) Glucose (70-99) mg/dl Calcium (8.5-10.1) mg/dl Phosphorus (2.5-4.9) mg/dl Magnesium (1.8-2.4) mg/dl Total Bilirubin (0.2-1) mg/dl AST (15-37) U/L ALT (12-78) U/L Alkaline Phosphatase (45-117) U/L Troponin I (0-0.045) ng/ml NT-Pro-B Natriuret Pep (0-1800) pg/ml Total Protein (6.4-8.2) gm/dl Albumin (3.4-5.0) gm/dl Globulin (2.5-4.0) gm/dl Albumin/Globulin Ratio (0.9-2) Lipase (73-393) U/L Procalcitonin < 0.05 (0-0.5) ng/ml TSH (0.300-4.500) uIu/ml Nasal Screen MRSA (PCR) (Negative) 05/19/18 Range/Units 20:15 WBC (4.8-10.8) K/uL RBC (4.2-5.4) M/uL Hgb (12.0-16.0) g/dL Hct (37-47) % MCV (80-100) fL MCH (25-34) pg MCHC (32-36) g/dL RDW Std Deviation (36.4-46.3) fL RDW Coeff of Tio (11.5-14.5) % Plt Count (130-400) K/uL MPV (7.4-10.4) fL Immature Gran % (Auto) % Neut % (Auto) % Lymph % (Auto) % [place] % (Auto) % Eos % (Auto) % Baso % (Auto) % Immature Gran # (Auto) (0.00-0.02) K/uL Neut # (Auto) (1.4-6.5) K/uL Lymph # (Auto) (1.2-3.4) K/uL [place] # (Auto) (0.11-0.59) K/uL Eos # (Auto) (0-0.5) K/uL Baso # (Auto) (0-0.2) K/uL PT (9.0-12.0) Seconds INR (0.9-1.1) D-Dimer (0-500) ug/L FEU VBG pH (7.36-7.41) VBG pCO2 (38-50) mmHg VBG pO2 mmHg VBG HCO3 mmol/L VBG O2 Saturation % VBG Base Excess mEq/L Barometric Pressure mm/Hg Sodium (136-145) mmol/L Potassium (3.5-5.1) mmol/L Chloride (98-107) mmol/L Carbon Dioxide (21-32) mmol/L Anion Gap (3-11) BUN (7-18) mg/dl Creatinine (0.6-1.2) mg/dl Est Cr Clr Drug Dosing ml/min Est GFR ( Amer) Est GFR (Non-Af Amer) BUN/Creatinine Ratio (10-20) Glucose (70-99) mg/dl Calcium (8.5-10.1) mg/dl Phosphorus (2.5-4.9) mg/dl Magnesium (1.8-2.4) mg/dl Total Bilirubin (0.2-1) mg/dl AST (15-37) U/L ALT (12-78) U/L Alkaline Phosphatase (45-117) U/L Troponin I (0-0.045) ng/ml NT-Pro-B Natriuret Pep (0-1800) pg/ml Total Protein (6.4-8.2) gm/dl Albumin (3.4-5.0) gm/dl Globulin (2.5-4.0) gm/dl Albumin/Globulin Ratio (0.9-2) Lipase (73-393) U/L Procalcitonin (0-0.5) ng/ml TSH (0.300-4.500) uIu/ml Nasal Screen MRSA (PCR) Negative (Negative) Imaging Data Radiologist's Impression: Radiology results as stated below per my review and the radiologist's interpretation: XR chest 1V portable HISTORY: 78 years-old Female Chest Pain acute atypical chest pain COMPARISON: Chest radiograph 12/22/2017 TECHNIQUE: Portable AP view of the chest FINDINGS: Cardiomediastinal and hilar silhouettes appear unchanged. No pneumothorax or overt pulmonary edema. Minimal left basilar opacities. Mild blunting of the costophrenic angles without large pleural effusion. Chronic interstitial coarsening with hyperinflation. Healed remote left-sided rib fractures redemonstrated. Degenerative changes of the shoulders and spine. IMPRESSION: Minimal left basilar opacities are suggestive of probable atelectasis. The above report was generated using voice recognition software. It may contain grammatical, syntax or spelling errors. Electronically signed by: Reji Whitaker M.D. 05/19/2018 10:37 AM Dictated: 05/19/18 1035 Transcribed: 05/19/18 1035 ECG Data Attestation: I personally reviewed and interpreted this ECG as follows: Indication: SOB/dyspnea Rate (beats per minute): 117 Rhythm: sinus tachycardia Findings: + other (no overt ischemia ) and + nonspecific-ST abn Blood Pressure Blood Pressure Findings: Elevated blood pressure Blood Pressure Disposition: further management by hospitalist ALICE Narrative The patient is a pleasant 78 y/o woman with a pmhx of COPD (on Nocturnal O2 as needed), HTN, GIB, DVT/PE who presents to the emergency department with severe respiratory distress per HPI. On arrival the patient is ill-appearing, AF, HR 110s, tachypneic in upper 20s, with BP stable. Patient appears clinically dry. She is dimished throughout with poor air movement. She was placed on Bipap and given steroids and duoneb x 2 on arrival. EKG without overt acute ischemia. CXR with left basilar opacity, read as likely atelectasis however given patient's respiratory failure suspicious for pna. WBC, H/H, platelets wnl. VBG with acidemia with pH 7.27 and hypercapnea of 74. Chemistry without acidosis and normal Agap. LFTs and electrolytes unremarkable. Troponin negative. BNP wnl. Patient with improved WOB with only mild dyspnea on re-evaluation. Given basiliar opacity will treat with Augmentin for possible aspiration and doxycycline for atypical coverage. Case d/w Dr. Lopez, [facility] hospitalist, who will evaluate the patient for admission. Impression & Plan Respiratory failure with hypoxia and hypercapnia, Left lower lobe pneumonia Critical Care Time I have personally spent greater than 65 minutes of critical care time in the direct management of this patient. This includes bedside care, interpretation of diagnostic studies, and testing, discussion with consultants, patient, and family members, and other required patient management activities. This 65 minutes is in excess of all separately billable procedures. Critical Care Time: Yes Total Critical Care Time: 65 Discharge Plan Visit Data *Final* Discharge Date/Time: 05/19/18 15:01 Chief Complaint: Shortness of Breath/Dyspnea ED Provider: Mikal Presley Discharge Problem: Respiratory failure with hypoxia and hypercapnia, Left lower lobe pneumonia Patient Disposition: Admitted As Inpatient Discharge Instructions Interventions: ED Discharge Assessment Last Done: 05/19/18 15:01 Discharge Problem: Respiratory failure with hypoxia and hypercapnia Qualifiers: Chronicity: acute on chronic Qualified Code(s): J96.21 - Acute and chronic respiratory failure with hypoxia Left lower lobe pneumonia Qualifiers: Pneumonia type: due to unspecified organism Qualified Code(s): J18.1 - Lobar pneumonia, unspecified organism The scribe's documentation has been prepared under my direction and personally reviewed by me in its entirety. I confirm that the note above accurately reflects all work, treatment, procedures, and medical decision making performed by me.
[2018-05-19] MEDS ORDERED: SODIUM CHLORIDE 0.9% 1000ML 250 ML IV ONE (18:15)
[2018-05-19] MEDS ORDERED: OPTIRAY 320 125ml IV PRN (19:51)
--- NOTE | 2018-05-19 20:13 | CT Scan Report ---
CT ANGIOGRAPHY OF THE CHEST, PULMONARY EMBOLUS PROTOCOL CLINICAL HISTORY: Shortness of breath. COMPARISON STUDY: Chest CT December 12, 2017. Chest radiograph performed earlier today. TECHNIQUE: Following IV administration of 92 mL of Optiray-320, helical axial images of the chest wer e obtained utilizing the pulmonary embolus protocol. Maximal intensity projections and sagittal and coronal reformats were viewed on an independent 3D workstation. IV contrast was administered without complication. Automated exposure control was utilized for the study. A dose lowering technique was utilized adhering to the principles of ALARA. CT DOSE: 261.86 mGy.cm FINDINGS: No pulmonary emboli are identified. There is extensive plaque within the thoracic aorta wi thout evidence for dissection. There heart is mildly enlarged. There is no pericardial effusion. No e nlarged thoracic lymph nodes are present. Lungs are suboptimally assessed given respiratory motion. T he central airways are patent. Secretions within the right lower lobe bronchus are noted There is mil d bronchial wall thickening. There are subpleural opacities. There is moderate emphysema. No pneumoth orax or pleural effusion is noted. There are old left-sided rib fractures. IMPRESSION: 1. No pulmonary emboli identified. 2. Mild cardiomegaly. Moderate coronary artery calcification. 3. Moderate emphysema. Scattered secretions within the airways with bronchial wall thickening. 4. Several subpleural opacities which favor atelectasis. Electronically signed by: Nathan Simpson M.D. 05/19/2018 8:12 PM
[2018-05-20 06:51] LABS: Hematocrit (blood only) 34.7 % (37-47); Hemoglobin 11.2 g/dL (12.0-16.0); Mean Corpuscular Hgb Conc 32.3 g/dL (32-36); Mean Corpuscular Volume 92.3 fL (80-100); Mean Platelet Volume 8.6 fL (7.4-10.4); Platelet Count 142 K/uL (130-400); RDW Coefficient of Variation 14.4 % (11.5-14.5); RDW Standard Deviation 48.4 fL (36.4-46.3); Red Blood Count 3.76 M/uL (4.2-5.4); White Blood Count 5.37 K/uL (4.8-10.8)
[2018-05-20 07:21] LABS: BUN Creatinine Ratio 19.3 (10-20); Calcium 8.3 mg/dl (8.5-10.1); Creatinine Clr Calc Pharmacy 34.3 ml/min; Est GFR (African American) 57.6; Est GFR (Non-African American) 49.7; Magnesium 1.8 mg/dl (1.8-2.4); Potassium 4.9 mmol/L (3.5-5.1)
[2018-05-20] MEDS: ENOXAPARIN INJ 30 MG/0.3 ML SYR SQ SCH (09:06)
[2018-05-20] MEDS: predniSONE 50 MG TAB PO SCH (09:07)
[2018-05-20] MEDS: TIOTROPIUM BROMIDE 5 PUFF/90 MCG INH INH SCH (09:08)
[2018-05-20] MEDS: DOXYCYCLINE HYCLATE 100 MG CAP PO SCH ×2 (10:25→20:02)
[2018-05-20] MEDS: FAMOTIDINE 20 MG TAB PO SCH ×2 (10:26→20:02)
--- NOTE | 2018-05-20 21:07 | Family Medicine Progress Note ---
Date of Service May 20, 2018 Assessment & Plan (1) COPD (chronic obstructive pulmonary disease): Ping Fink is a 78 year old woman with history of bleeding ulcer repaired during last admission with complicated course including DVT, PE and filter placement as well as many transfusions and a need for intubation, here with hypoxemic respiratory failure 2/2 COPD exacerbation COPD exacerbation * Duonebs q4h, albuterol prn, doxycycline, prednisone 50 mg daily * Home inhalers, combivent and spiriva * Appears to be improving still on 3 L nasal cannula * Will continue to monitor, expect patient to continue to improve SVT * 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 Hobson gave patient adenosine and she recovered and returned to hemodynamic stability. * Similar episode during last admission, will consider starting beta jenifer to try to prevent recurrence. * Continuing to monitor on Tele F/E/N : Regular Diet no IV fluids DVT PPx: Lovenox Dispo: Telemetry (2) COPD with respiratory failure, acute: Supervising Physician Co-Signing Physician Notes I personally examined the patient and verified all brewer points of history and exam, discussed case, and agree with decision making with Dr Leach. Feeling better, did not feel racing heart at all, but breathing is feeling better. Family notes that she was fairly blue before giving her nebulizer in the field, but once EMS had come she was actually starting to do better after the nebulizer. Vitals noted, in general she is awake and alert pleasant no distress. HEENT normocephalic atraumatic mucous membranes are moist. Lungs are markedly diminished throughout but no rales rhonchi or wheezes. She is regular rhythm COPD exacerbationsteroids/doxycycline, supportive care. SVThas since resolved, will review for potentially initiating beta-jenifer versus setting up an event monitor as an outpatient. Otherwise as above Subjective Ms Fink is a woman I know well from her last admission. She is sitting comfortably reading and watching television. She tells me her breathing is much better and that she is not currently having any shortness of breath. Explained treatment plan with her and she has no concerns or questions at this time. Constitutional: no fever, no chills, no sweats, no malaise and no weakness Respiratory: + dyspnea on exertion; no dyspnea and no wheezing Cardiovascular: no chest pain, no dyspnea and no syncope Gastrointestinal: no nausea and no vomiting Physical Exam Vital Signs (Past 24 Hours): Last Vital Signs Temp 36.7 C 05/20/18 19:05 Pulse 64 05/20/18 19:05 Resp 20 05/20/18 19:05 BP 134/74 05/20/18 19:05 Pulse Ox 96 05/20/18 19:05 Constitutional: + thin, cooperative and comfortable; no acute distress Respiratory: normal respiratory effort, lungs clear to auscultation normal respiratory effort; no respiratory distress, no labored breathing and does not use accessory muscles Auscultation: + crackles Good air movement throughout Cardiovascular: Rate/Rhythm: regular rate and regular rhythm Heart Sounds: no click, no gallop, no murmur and no cardiac rub Extremities: no edema Gastrointestinal (Abdomen): Percussion/Palpation: abdomen soft; abdomen nontender, no guarding and no abdominal mass Resident Activity Tracking Resident Involvement: Resident Care Provided Care Provided: Adult Hospital Medicine
[2018-05-21] MEDS: predniSONE 50 MG TAB PO SCH (08:37)
[2018-05-21] MEDS: TIOTROPIUM BROMIDE 5 PUFF/90 MCG INH INH SCH (08:37)
[2018-05-21] MEDS: DOXYCYCLINE HYCLATE 100 MG CAP PO SCH ×2 (08:37→20:39)
[2018-05-21] MEDS: FAMOTIDINE 20 MG TAB PO SCH ×2 (08:38→20:39)
[2018-05-21] MEDS: ENOXAPARIN INJ 30 MG/0.3 ML SYR SQ SCH (08:38)
[2018-05-21] MEDS ORDERED: ALBUT/IPRATROP 3MG/0.5MG NEB 3 ML VIAL NEB ONE (10:17)
--- NOTE | 2018-05-21 13:37 | Family Medicine Progress Note ---
Date of Service May 21, 2018 Assessment & Plan (1) COPD (chronic obstructive pulmonary disease): Ping Fink is a 78 year old woman with history of bleeding ulcer repaired during last admission with complicated course including DVT, PE and filter placement as well as many transfusions and a need for intubation, here with hypoxemic respiratory failure 2/2 COPD exacerbation COPD exacerbation * Duonebs for wheezing, albuterol prn, doxycycline, prednisone 50 mg daily * Home inhalers, combivent and spiriva * Appears to be improving clinically though still on 3 L nasal cannula * Will consider d/c home with O2 tomorrow if she fails 2 step. 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 Hobson gave patient adenosine and she recovered and returned to hemodynamic stability. * Similar episode during last admission patient remains asymptomatic and is not aware of these episodes, no syncope at home. * Continuing to monitor on Tele * Will send home with script for event monitor for 30 days on discharge and follow up as an outpatient. F/E/N : Regular Diet no IV fluids DVT PPx: Lovenox Dispo: Telemetry (2) COPD with respiratory failure, acute: Supervising Physician Co-Signing Physician Notes I personally examined the patient and verified all brewer points of history and exam, discussed case, and agree with decision making with Dr Leach. Feeling better, does not want O2 if possible, but doesn't feel sob at all despite 85% on NC O2 at the time we talk. Vitals noted, in general she is awake and alert pleasant no distress. HEENT normocephalic atraumatic mucous membranes are moist. Lungs very very mildly labored despite low pulse ox. COPD exacerbationsteroids/doxycycline, supportive care. she doesn't want to go home w O2 so will try to wean into tomorow - but d/w her that given her lack of sx despite significant hypoxia it's highly likely that she will need O2 SVThas since resolved, since no sx and no events as cardinal presentation, will have monitoring rather than beta jenifer (as risks appear bigger causing side effects with beta jenifer to treat a process that's been asymptomatic) Otherwise as above Subjective Ms Fink resting comfortably eating breakfast this morning. She dose not have any complaints this morning. We discussed possibility of discharge on oxygen and she is concerned, but willing to try it if she doesn't improve by tomorrow. She denies any fevers, chills, Nausea, vomiting, abdominal pain, chest pain, palpitations, SOB, coughing, wheezing, or pain of any kind. Physical Exam Vital Signs (Past 24 Hours): Last Vital Signs Temp 36.5 C 05/21/18 11:08 Pulse 88 05/21/18 11:08 Resp 19 05/21/18 11:08 BP 123/72 05/21/18 11:08 Pulse Ox 89 L 05/21/18 11:08 Constitutional: + thin, cooperative and comfortable; no acute distress Respiratory: normal respiratory effort, lungs clear to auscultation normal respiratory effort; no respiratory distress, no labored breathing and does not use accessory muscles Auscultation: lungs clear to auscultation bilaterally and + wheezes; no diminished lung sounds, no crackles, no rales and no rhonchi Cardiovascular: Rate/Rhythm: regular rate and regular rhythm Heart Sounds: no click, no gallop, no murmur and no cardiac rub Extremities: no edema Gastrointestinal (Abdomen): Percussion/Palpation: abdomen soft; abdomen nontender, no guarding and no abdominal mass Resident Activity Tracking Resident Involvement: Resident Care Provided Care Provided: Adult Hospital Medicine
[2018-05-22] MEDS: ENOXAPARIN INJ 30 MG/0.3 ML SYR SQ SCH (09:20)
[2018-05-22] MEDS: DOXYCYCLINE HYCLATE 100 MG CAP PO SCH (09:20)
[2018-05-22] MEDS: predniSONE 50 MG TAB PO SCH (09:21)
[2018-05-22] MEDS: FAMOTIDINE 20 MG TAB PO SCH (09:21)
[2018-05-22] MEDS: TIOTROPIUM BROMIDE 5 PUFF/90 MCG INH INH SCH (09:22)
--- NOTE | 2018-05-22 11:06 | Discharge Summary ---
Date of Service May 22, 2018 Admission HPI Per Admitting Provider 78-year-old female with a history of COPD and prior duodenal ulcer who presents with acute onset shortness of breath patient reports that she went to bed in her normal state of health. She denies shortness of breath, cough, fever, chills, nausea, vomiting, or any other abnormal symptoms prior to going to bed. When she woke this morning she felt acutely short of breath. She went to get a nebulizer, and was acutely dyspneic on exertion. Despite the nebulizer treatment she remained short of breath, and her family called EMS to take her to the hospital. On arrival she was 82% O2 sat on room air. She does not normally use any oxygen during the day or night. She still denies any fevers, chills, sweats, cough, sputum production, nausea, vomiting, headache, or any other symptoms apart from the shortness of breath. Admission Exam Per Admitting Provider Constitutional: WD/WN, vitals as above Eyes: EOM intact bilaterally; no conjunctival abnormality ENMT: external ear and nose normal, oropharynx normal Neck: trachea midline, no thyromegaly normal visual inspection Respiratory: + respiratory distress, + labored breathing and + tachypneic; no cough and no stridor Auscultation: + wheezes (Mild diffuse) Cardiovascular: Rate/Rhythm: regular rhythm and + tachycardic Heart Sounds: normal S1 and normal S2 Gastrointestinal (Abdomen): Inspection/Auscultation: abdomen normal to inspection; abdomen not distended Musculoskeletal: no cyanosis or clubbing, extremities motor strength 5/5 Skin: no rashes, warm and dry Neurologic: moves all extremities and awake Psychiatric: Orientation: alert, oriented to person and cooperative Principal Diagnosis Acute exacerbation of COPD Discharge Exam Constitutional WD/WN, vitals as above cooperative and comfortable Eyes + anicteric sclerae and EOM intact bilaterally Neck normal visual inspection and trachea midline Respiratory normal respiratory effort Auscultation: + diminished lung sounds Cardiovascular Rate/Rhythm: regular rate and regular rhythm Extremities: no pedal edema Musculoskeletal Head/Neck/Chest: normocephalic and head atraumatic Skin no rashes, warm and dry Psychiatric A+Ox3, euthymic affect Eye Contact: good eye contact Discharge Data Allergies Allergy/AdvReac Type Severity Reaction Status Date / Time bacitracin Allergy Mild UNSURE Verified 05/19/18 10:26 neomycin Allergy Mild UNSURE Verified 05/19/18 10:26 polymyxin B Allergy Mild UNSURE Verified 05/19/18 10:26 copper Allergy Unknown METAL? Verified 05/19/18 10:26 nickel Allergy Unknown METAL? Verified 05/19/18 10:26 silver Allergy Unknown METAL? Verified 05/19/18 10:26 strawberry Allergy Unknown . Verified 05/19/18 10:26 Consultations 05/19/18 11:44 ED Decision to Admit Stat 05/21/18 16:44 Consult Case Management - Discharge Planning Routine Ordered Studies 05/19/18 18:00 CT angio chest PE protocol Urgent IMPRESSION: 1. No pulmonary emboli identified. 2. Mild cardiomegaly. Moderate coronary artery calcification. 3. Moderate emphysema. Scattered secretions within the airways with bronchial wall thickening. 4. Several subpleural opacities which favor atelectasis. Hospital Course (1) COPD (chronic obstructive pulmonary disease): Ping Fink is a 78 year old woman with history of bleeding ulcer repaired during last admission with complicated course including DVT, PE and filter placement as well as many transfusions and a need for intubation, here with hypoxemic respiratory failure 2/2 COPD exacerbation COPD exacerbation * Duonebs for wheezing, albuterol prn, doxycycline, prednisone 50 mg daily, will have her continue Prednisone at home with taper * Home inhalers, combivent and spiriva * Appears to be improving clinically though still on 3 L nasal cannula * d/c home with O2 requiring 2L NC at rest and 3L NC with ambulation. Script provided for home O2 set up and will ensure in place for safe discharge * will continue with course of Doxycycline for anti-inflammatory effect SVT * Single episode of AVNRT during stay, pressure dropped to 90/50, Dr. Hobson gave patient adenosine and she recovered and returned to hemodynamic stability. * Similar episode during last admission patient remains asymptomatic and is not aware of these episodes, no syncope at home. * Continuing to monitor on Tele * Will send home with script for event monitor for 30 days on discharge and follow up as an outpatient. F/E/N : Regular Diet no IV fluids DVT PPx: Lovenox Dispo: Telemetry (2) COPD with respiratory failure, acute: Total Time Total Time Spent Total Time Spent (In Minutes): <30 Total Time Includes: Examination of the Patient, Discharge Planning and Medication Reconciliation Discharge Plan Discharge Items Patient Disposition: Home - Self-Care Reason For Visit: RESPIRATORY DISTRESS Discharge Diagnosis: Acute exacerbation of COPD Discharge Goals: Therapeutic intervention Activity: Per 'Additional Instructions' section Non-emergency contact: Primary Care Provider Call non-emergency contact if: you have any medication questions, your symptoms worsen and you have a fever Follow-up/Referrals: Shraddha Kwon PA-C [Physician Maxillofacial Pathology] - 05/28/18 11:00 am Diet: Regular Other Ambulatory Orders: ECG holter monitor scan (Routine) Timeframe: 30 Days Location: Determined by Patient Ordered By: Mariano Rosales Provider Instructions: You were admitted and treated for an acute exacerbation of your Chronic O bstructive Pulmonary Disease. You will require to use supplemental oxygen at home to maintain adequate levels of oxygen in your blood. In order to maintain safe levels of oxygen in your blood please follow supplemental oxygen directions as below: - When you are resting, you will require 2L of oxygen. - When you walk or perform activity you require 3L of oxygen. Please continue your home inhalers as previously directed. Also, please ensure you make your follow up appointment with your Primary Care Provider. We will add two medications to help provide anti-inflammatory effect in your lungs, treating your acute exacerbation of your COPD, and to give you the best chance to prevent needing to return to hospital for worsening breathing. Prescriptions were sent electronically to [facility] in [place], which was your preferred pharmacy on file. - Prednisone taper (With Prednisone 10mg tablets) - Start with 40mg (four tablets) once a day for two days, then - Take 30mg (three tablets) once a day for two days, then - Take 20mg (two tablets) once a day for two days, then - Take 10mg (one tablet) once a day for two days. Doxycycline 100mg Tablets - Take one pill, twice a day (once in AM and once in PM, or every 12 hours) - Continue for 7 days, you will be given 14 total pills - Ensure you complete course of medication - This is an antibiotic that helps protect the lungs from inflammation caused by acute exacerbation of your COPD. Also, you had a single episode of a fast heart rhythm here in the hospital called Supraventricular Tachycardia. This was treated with medication here in the hospital called Adenosine. * It is recommended that you have get a cardiac event monitor. A script is provided to you for this. You will need this for 30 days. This will help to monitor your heart to try to capture further episodes that you might not be aware or feel symptoms to help ensure there is not an electrical abnormality with your heart. Please call 911 or return to Emergency Department/seek medical attention if your breathing worsens or is concerning for you. Prescriptions: New doxycycline hyclate 100 mg Capsule 100 mg PO BID 7 Days Qty: 14 RF: 0 prednisone 10 mg tablet 10 mg PO DAILY Qty: 20 RF: 0 Continued ipratropium-albuterol 0.5 mg-3 mg(2.5 mg base)/3 mL Solution For Nebulization 3 ml Inhalation Q4R Qty: 3 RF: 0 Spiriva with HandiHaler 18 mcg Capsule, W/Inhalation Device 20 mcg Inhalation DAILY Qty: 1 RF: 0 Stand-Alone Forms: [facility] Discharge Orders: Discharge Order (Routine); Ordered 05/22/18 Ordered By: Blaise Baca Admission Data Admit Date/Time: 05/19/18 12:33 Attending Provider: Blaise Baca Admit Provider: Evert Lopez Primary Care Provider: Kevin Capone III Other Providers: Evert Lopez Service: Medical Supervising Physician Co-Signing Physician Notes I personally examined the patient and verified all brewer points of history and exam, discussed case, and agree with decision making with Dr Wall feeling ok ready to go home understands need for O2. vitals noted nad breathing unlabored no pallor or icterus. otherwise as above COPD exacerbation - stable for home. appearing most likely to chronically need O2, finish abx/steroids. outpt f/u SVT - asymptomatic but has happened this time and last hospitalization - event monitor. given lack of symptoms/instability - will hold off on beta jenifer due to fatigue/fall risk given age -- monitor and then if having significant burden, can treat as outpt fatigue - nonspecific, but d/w pt that possibly could relate to nonspecific sx from hypoxia given that she does not feel short of breath the way she should. otherwise as above
== END 2018-05-22 16:26 | disposition home or self-care (01) | DRG 190 ==
LOC: ED 09:47 → 2S 12:33 → SUATTDRO 12:33 → 2S 15:01 → 2N 05-21 15:39

== ENCOUNTER 2018-06-22 00:56 | Inpatient (IN) ==
--- OUTSIDE RECORDS SUMMARY | 2018-06-22 00:59 | External Medical Summary | Continuity of Care Document ---
:1940 Author Name Prateek Rdz, Provider Address Unavailable Unavailable , Care Team Providers Name Role Phone Estelita VALDIVIA M.D., Kevin Benavides Unavailable [email or web address] Unavailable [email or web address] Cable DO Unavailable [email or web address] SHEA CAPONE M.D., Kacey Unavailable Unavailable Unavailable Unavailable Unavailable Problems Hypertension (401.9) (I10) Nontoxic multinodular goiter (241.1) (E04.2) Atherosclerosis of aorta (440.0) (I70.0) Abnormal chest CT (793.2) (R93.89) Multiple open wounds (879.8) (T07.XXXA) Multiple skin tears (879.8) (T14.8XXA) Menopausal symptom (627.2) (N95.1) Osteopenia (733.90) (M85.80) Dermatophytic onychia (110.1) (B35.1) Tinea pedis (110.4) (B35.3) CKD (chronic kidney disease), stage III (585.3) (N18.3) Perforated ulcer (533.50) (K27.5) Ulcer duodenal hemorrhage (532.40) (K26.4) Need for pneumococcal vaccination (V03.82) (Z23) Need for influenza vaccination (V04.81) (Z23) Gastric reflux (530.81) (K21.9) COPD exacerbation (491.21) (J44.1) Fatigue (780.79) (R53.83) COPD (chronic obstructive pulmonary disease) (496) (J44.9) Epistaxis (784.7) (R04.0) Paroxysmal SVT (supraventricular tachycardia) (427.0) (I47.1 ) Lower leg edema (782.3) (R60.0) Hyperlipidemia (272.4) (E78.5) Hypoxemia requiring supplemental oxygen (799.02) (R09.02) Respiratory failure (518.81) (J96.90) Allergies and Adverse Reactions Bacitracin Zinc OINT (Allergy) neomycin (Allergy) Neosporin OINT (Allergy) Nickel (Allergy) Strawberries (Allergy) Medications Ipratropium-Albuterol 0.5-2.5 (3) MG/3ML Inhalation Solution; USE 1 UNIT DOSE IN NEBULIZER EVERY 4 HOURS NEEDED. Kajal Capone III 30 x 3 ML Plas Cont Quantity: 3 A. Refills: 2 Oxygen; 2L at rest and 3L with exertion Start: 24-May-2018 Refills: 0 Pantoprazole Sodium 40 MG Oral Tablet De layed Release; TAKE ONE TABLET BY MOUTH TWICE DAILY Kajal Capone III Start: 18-Feb-2018 Quantity: 60 A. Refills: 5 Furosemide 20 MG Oral Tablet; Take 1-2 t ablets daily as needed for lower extremity edema. BRYNN Shetty Start: 02-Jun-2018 Quantity: 20 Refills: 0 Trelegy Ellipta 100-62.5-25 MCG/INH Inha lation Aerosol Powder Breath Activated; 1 puff daily DO Cyrus Sellers Start: 07-Jun-2018 Quantity: 1 60 Inhaler Pack Refills: 5 Procedures Spirometry- Pre&Post, Lung Vol/CO (60mins) Date: 07-Jun-2018 6-Minute Walk Test Date: 07-Jun-2018 History of Tubal Ligation Status: Comple misbah History of Oral Surgery Tooth Extraction Status: Completed History of Cataract Surgery Status: Comp leted Immunizations Pneumococcal polysaccharide vaccine, 23 valent On: 2015 Prevnar 13 Intramuscular Suspension On: 01-Feb-2018 10:22 Lot #: [id number], PFIZER [place]. Fluzone High-Dose 0.5 ML Intramuscular Suspension Pref illed Syringe On: 01-Feb-2018 10:24 Lot #: [id number], SANOFI PASTEUR Family History Mother FHx: cancer (V16.9) (Z80.9) Status: Active Family history of diabetes mellitus (V18.0) (Z83.3) Status: Active Brother FHx: cancer (V16.9) (Z80.9) Status: Active Family history of diabetes mellitus (V18.0) (Z83.3) Status: Active natural daughter Family history of diabetes mellitus (V18.0) (Z83.3) Status: Active Social History - Smoking Status Smoker. current status unknown Plan of Treatment Planned Encounters Appointment; Jose Carlos Hobson M.D. Start: 26-Jul-2018 15:00 R equest Planned Observations Planned Goals not documented Results CBC With DIFF Laboratory: [facility] [address] [facility] [address] tel: 04-Jun-2018 10:28 WBC 8.48 K/uL Range: 4.8-10.8 K/u L RBC 4.59 {M/uL} Range: 4.2-5.4 M/uL HEMOGLOBIN 13.6 g/dL Range: 12.0-16.0 g /dL HEMATOCRIT 44.0 % Range: 37-47 % MCV 95.9 fL Range: 80-100 fL MCH 29.6 pg Range: 25-34 pg MEAN CORPUSCULAR HGB CONC 30.9 Range: 3 2-36 g/dL g/dL (below low threshold) RED CELL DISTRIBUTION WIDTH SD Range: 3 6.4-46.3 fL 51.6 fL (above high threshold) RED CELL DISTRIBUTION WIDTH CV Range: 1 1.5-14.5 % 14.6 % (above high threshold) PLATELET COUNT 114 K/uL (below Range: 1 30-400 K/uL low threshold) MEAN PLATELET VOLUME 10.2 fL Range: 7.4 -10.4 fL NEUT % 72.6 % Range: % LYMPH % 12.6 % Range: % MONO % 11.3 % Range: % EOS % 3.1 % Range: % BASO % 0.2 % Range: % IG% 0.2 % Range: % Comments: IG paramet er reflects the combination of Metas, Myelos andPromyelocytes. Neutrophils (Auto) 6.15 K/uL Range: 1. 4-6.5 K/uL LYMPH ABS # 1.07 K/uL (below low Range: 1.2-3.4 K/uL threshold) MONO ABS # 0.96 K/uL (above high Range: 0.11-0.59 K/uL threshold) EOS ABS # 0.26 K/uL Range: 0-0.5 K/uL BASO ABS # 0.02 K/uL Range: 0-0.2 K/uL IG# 0.02 K/uL Range: 0.00-0.02 K/ uL Comp Metabolic Panel Laboratory: [facility] Laboratory [address] [facility] [address] tel: 04-Jun-2018 10:28 SODIUM 138 mmol/L Range: 136-145 mmol /L POTASSIUM 3.7 mmol/L Range: 3.5-5.1 mmo l/L CHLORIDE 100 mmol/L Range: 98-107 mmol/ L CARBON DIOXIDE 35 mmol/L (above Range: 21-32 mmol/L high threshold) ANION GAP 3.0 Range: 3-11 BLOOD UREA NITROGEN 22 mg/dl Range: 7-1 8 mg/dl (above high threshold) CREATININE 1.12 mg/dl Range: 0.6-1.2 mg /dl Estimated GFR () Comment s: Units: ml/min per 54.5 1.73 meters squaredT he estimated GFR (CKD-E PI equation) has not be en validatedfor inpatie nt settings and may not be an accurate reflectiono f renal function in critical ly ill patients or those wi thrapidly changing renal funct ion (e.g. ANETA). Estimated GFR (Non- Comments: Uni ts: ml/min per [place]) 47.0 1.73 meters squaredT he estimated GFR (CKD-E PI equation) has not be en validatedfor inpatie nt settings and may not be an accurate reflectiono f renal function in critical ly ill patients or those wi thrapidly changing renal funct ion (e.g. ANETA). BUN/CREATININE RATIO 19.9 Range: 10-20 GLUCOSE 126 mg/dl (above high Range: 70 -99 mg/dl threshold) CALCIUM 8.5 mg/dl Range: 8.5-10.1 mg/ dl Bilirubin, Total 0.8 mg/dl Range: 0.2-1 mg/dl AST/SGOT 9 U/L (below low Range: 15-37 U/L threshold) ALT/SGPT 14 U/L Range: 12-78 U/L TOTAL PROTEIN 6.9 {gm/dl} Range: 6.4-8. 2 gm/dl ALBUMIN 3.3 {gm/dl} (below low Range: 3 .4-5.0 gm/dl threshold) GLOBULIN 3.6 {gm/dl} Range: 2.5-4.0 gm/ dl ALB/GLOB RATIO 0.9 Range: 0.9-2 ALKALINE PHOSPHATASE 71 U/L Range: 45-1 17 U/L Lipid Profile - NON Laboratory: [facility] Laboratory [address] [place] [address] tel: 04-Jun-2018 10:28 TRIGLYCERIDES 130 mg/dl Range: 0-150 mg /dl Comments: TRIGLYCERI ANOTNIA Normal triglyceride: <150 mg/dl Borderline High: 150-199 mg/dl High: 200-499 mg/dl Very High: > or = 500 mg/dl CHOLESTEROL 195 mg/dl Range: 0-200 mg/d l Comments: TOTAL CHOL ESTEROL Desirable: <200 mg/dl Borderline High: 200-239 mg/dl High Cholesterol: > or = 240 mg/dl LDL CHOLESTEROL CALCULATED 90 Range: mg /dl mg/dl VERY LOW DENSITY LIPOPROT CALC 26 Range: mg/dl mg/dl HDL CHOLESTEROL 79 mg/dl Range: mg/dl Comments: Unable to flag abnormal result. Please refer tointerpretive data below:HDL CHOLESTEROL Low HDL: <40 mg/dl Normal: 40-60 mg/dl Desirable: >60 mg/dl CHOLESTEROL/HDL RATIO 3 Ultra TSH Laboratory: [facility] Laboratory [address] [place] [address] tel: 04-Jun-2018 10:28 TSH 0.896 {uIu/ml} Range: 0.300-4.500 uIu/ml Comments: The refere rie range for TSH is 0.3-4.5 uIU/ml.Some have suggested that TSH levels >2.5 uIU/ml should beconsidered abnormal, particularly in potentially symptomaticyounger individuals.TSH levels in he althy elderly (>75 y ears of age) are oftenat or even above the reference range.Normal first trimester TSH <2.0 uIU/ml.Normal second and third trimester TSH <3.0 uIU/ml.TSH 0.5-2.0 uIU/ml is oft en considered the op timaltherapeutic target for replacement treatment ofhypothyroidism. Vital Signs 22-Apr-2019 9:10 Systolic 120 mm[Hg] Comments: Location: RUE; Position: Sitting Diastolic 68 mm[Hg] Comments: Location: RUE; Position: Sitting Heart Rate 104 /min Respiration 18 /min Temperature 97.8 f Height 58.5 in Weight 118 lb BMI Calculated 24.24 kg/m2 BSA Calculated 1.46 m2 O2 Saturation 93 % Comments: Source: Na jimenez Cannula FiO2 2 L/min 02-Jun-2018 14:01 Systolic 144 mm[Hg] Comments: Location: LUE; Position: Sitting Diastolic 80 mm[Hg] Comments: Location: LUE; Position: Sitting Heart Rate 80 /min Respiration 16 /min Temperature 99.1 f Comments: Method: Te mporal Height 61 in Weight 127 lb BMI Calculated 24 kg/m2 BSA Calculated 1.56 m2 O2 Saturation 97 % Comments: Source: RA FiO2 2 L/min Encounters Appointment; Cyrus Sellers DO 07-Jun-2018 9:00 Encounter Diagnosis: Problem not documented Appointment; Felipa Shetty CRNP 02-Jun-2018 14:00 Encounter Diagnosis: Problem not documented Appointment; Kevin Capone III, M.D. 01-Feb-2018 9:30 Encounter Diagnosis: Problem not documented Appointment; [place] [address] 01-Feb-2018 9:15 Encounter Diagnosis: Problem not documented Appointment; Jairon Rai M.D. 14-Jan-2018 11:20 Encounter Diagnosis: Problem not documented Appointment; Jose Carlos Hobson M.D. 26-Jul-2018 15:00 Encounter Diagnosis: Problem not documented
[2018-06-22] MEDS ORDERED: NITROGLYCERIN SL 0.4 MG/TAB TAB ONE (01:22)
[2018-06-22] MEDS ORDERED: NITROGLYCERIN SL 0.4 MG/TAB TAB SL STA (01:26)
[2018-06-22 01:43] LABS: Basophils # (auto) 0.02 K/uL (0-0.2); Basophils % (auto) 0.2 %; Eosinophils # (auto) 0.14 K/uL (0-0.5); Eosinophils % (auto) 1.4 %; Hematocrit (blood only) 37.3 % (37-47); Hemoglobin 12.1 g/dL (12.0-16.0); Immature Granulocytes # (auto) 0.04 K/uL (0.00-0.02); Immature Granulocytes % (auto) 0.4 %; Lymphocytes # (auto) 1.04 K/uL (1.2-3.4); Lymphocytes % (auto) 10.1 %; Mean Corpuscular Hgb Conc 32.4 g/dL (32-36); Mean Corpuscular Volume 91.2 fL (80-100); Mean Platelet Volume 8.9 fL (7.4-10.4); Monocytes # (auto) 0.79 K/uL (0.11-0.59); Monocytes % (auto) 7.7 %; Neutrophils # (auto) 8.28 K/uL (1.4-6.5); Neutrophils % (auto) 80.2 %; Platelet Count 166 K/uL (130-400); RDW Coefficient of Variation 13.6 % (11.5-14.5); RDW Standard Deviation 44.5 fL (36.4-46.3); Red Blood Count 4.09 M/uL (4.2-5.4); White Blood Count 10.31 K/uL (4.8-10.8)
[2018-06-22 02:02] LABS: Alanine Aminotransferase 11 U/L (12-78); Albumin Level 3.5 gm/dl (3.4-5.0); Aspartate Aminotransferase 9 U/L (15-37); BUN Creatinine Ratio 13.3 (10-20); Blood Urea Nitrogen 14 mg/dl (7-18); Calcium 8.6 mg/dl (8.5-10.1); Carbon Dioxide 32 mmol/L (21-32); Chloride 101 mmol/L (98-107); Est GFR (Non-African American) 52.6; Glucose 117 mg/dl (70-99); Potassium 3.7 mmol/L (3.5-5.1); Sodium 138 mmol/L (136-145)
[2018-06-22 02:06] LABS: Alkaline Phosphatase 88 U/L (45-117); Bilirubin,Total 0.4 mg/dl (0.2-1); Globulin 3.5 gm/dl (2.5-4.0); NT Pro B Type Natriuretic Pept 857 pg/ml (0-1800); Troponin I < 0.015 ng/ml (0-0.045)
--- NOTE | 2018-06-22 04:57 | History & Physical Report ---
Date of Service June 22, 2018 Assessment & Plan (1) Shortness of breath: Suspect acute exacerbation of COPD. Patient feels better after receiving nebs and O2 -Admit to PCU -DuoNeb q 4 hours -Albuterol q 2 hours PRN -Flovent BID -Solumedrol 20mg IV TID -Supplemental O2 as needed with continuous pulse oximetry Present on Admission?: Yes (2) COPD exacerbation: As above. -Nebs, steroids supplemental O2 Present on Admission?: Yes (3) Substernal chest pain: Transient episode of substernal chest discomfort, relieved with Nitro -Repeat troponin to assess trend -Nitro PRN -EKG with chest pain F/E/N - Heplock. Monitor electrolytes and replete as needed. Heart healthy diet as tolerated Ppx - IVF filter in place Code - Full Dispo - Admit to PCU History of Present Illness Chief Complaint: shortness of breath Primary Care Provider: Kevin Capone MD Ping Fink is a pleasant 78yo female with history of O2 dependent COPD presenting with shortness of breath. She began feeling short of breath yesterday after walking to the bathroom. She noted that she was having a difficult time catching her breath. She put her pulse-ox machine on and her sat was 97% and her HR was 131 at that time. Her symptoms progressed through today - worsening SOB and GONZALEZ as well as chest tightness, dry cough, wheezing. She has also been sneezing a lot. Denies fevers/chills/worsening edema or weight gain. She called EMS this evening for her worsening shortness of breath. She was found to be in severe respiratory distress with RR >50, in tripod position. She was administered nebs en route and placed on CPAP. She was experiencing some chest discomfort, heaviness in the epigastric area, "felt like somebody bunched the breast bone" which was relieved with Nitro. No additional complaints at this time. Patient was admitted in May 2018 with similar symptoms thought to be secondary to COPD exacerbation. ER Course: Nitroglycerine Allergies Allergy/AdvReac Type Severity Reaction Status Date / Time bacitracin Allergy Mild UNSURE Verified 06/22/18 03:07 neomycin Allergy Mild UNSURE Verified 06/22/18 03:07 polymyxin B Allergy Mild UNSURE Verified 06/22/18 03:07 copper Allergy Unknown METAL? Verified 06/22/18 03:07 nickel Allergy Unknown METAL? Verified 06/22/18 03:07 silver Allergy Unknown METAL? Verified 06/22/18 03:07 strawberry Allergy Unknown . Verified 06/22/18 03:07 Home Medications Home Medications Medication Instructions Recorded Confirmed Type ioplekbcmft-goflfmyvb-cjomyump 1 inh INHALATION DAILY 06/22/18 06/22/18 History [Trelegy Ellipta] ipratropium-albuterol 3 ml INHALATION Q4 PRN 06/22/18 06/22/18 History Past Med/Surg History Medical History Required emergent intubation Perforated ulcer COPD (chronic obstructive pulmonary disease) GI bleed No pertinent family history (Inactive) Surgical History H/O tubal ligation S/P cataract surgery Bilateral S/P IVC filter Family History Other Family history non-contributory Social History Preferred Language: Korean Communication Ability: Effective Visual Impairment: Limited Hearing Ability: Normal Beliefs That Will Affect Care: None Current Living Situation: Family Feels Safe at Home: Yes Smoking Status: Former smoker Tobacco Type: cigarettes Second Hand Exposure: No Hx Alcohol Use: Yes ("beer/whisky once a week") Alcohol type: beer Hx Substance Use: No Review of Systems Review of Systems: All systems reviewed & are unremarkable except as noted in HPI & below Physical Exam Physical Exam: General: patient resting comfortably, NAD, non-toxic in appearance, AA&O x 4 Skin: warm, dry, intact, no rashes or lesions HEENT: NC/AT, PERRL, EOMI, anicteric sclera, conjunctiva without injection, external ear normal to inspection and nontender, nares patent, moist mucus membranes, dentition intact, no oropharyngeal lesions, neck supple, trachea midline, no LAD, no thyromegaly, no JVD Heart: +S1/S2, regular, tachycardic, no m/r/g Lungs: diminished breath sounds bilaterally, bibasilar crackles L > R, diffuse end-expiratory wheezing throughout with prolonged expiratory phase Abd: +BS, soft, NT/ND, no masses/organomegaly/ascites Ext: warm, 2+ pulses in UE/LE bilaterally, +edema of bilateral LE R > L Neuro: nonfocal, patient AA&O x 4, speech intact, no facial droop, moving all extremities on command with equal strength 5/5 Results & Data Vital Signs (Past 12 Hours) Vital Signs Temp Pulse Pulse Resp BP BP Pulse Ox 06/22/18 04:00 102 H 18 170/77 H 93 06/22/18 02:36 110 H 24 136/87 93 06/22/18 01:26 110 H 98 06/22/18 01:13 36.7 C 118 H 30 H 154/131 H 98 06/22/18 01:10 115 H 24 98 Laboratory Results Lab Results 06/22/18 06/22/18 Range/Units 01:07 01:07 WBC 10.31 (4.8-10.8) K/uL RBC 4.09 L (4.2-5.4) M/uL Hgb 12.1 (12.0-16.0) g/dL Hct 37.3 (37-47) % MCV 91.2 (80-100) fL MCH 29.6 (25-34) pg MCHC 32.4 (32-36) g/dL RDW Std Deviation 44.5 (36.4-46.3) fL RDW Coeff of Tio 13.6 (11.5-14.5) % Plt Count 166 (130-400) K/uL MPV 8.9 (7.4-10.4) fL Immature Gran % (Auto) 0.4 % Neut % (Auto) 80.2 % Lymph % (Auto) 10.1 % [place] % (Auto) 7.7 % Eos % (Auto) 1.4 % Baso % (Auto) 0.2 % Immature Gran # (Auto) 0.04 H (0.00-0.02) K/uL Neut # (Auto) 8.28 H (1.4-6.5) K/uL Lymph # (Auto) 1.04 L (1.2-3.4) K/uL [place] # (Auto) 0.79 H (0.11-0.59) K/uL Eos # (Auto) 0.14 (0-0.5) K/uL Baso # (Auto) 0.02 (0-0.2) K/uL Sodium 138 (136-145) mmol/L Potassium 3.7 (3.5-5.1) mmol/L Chloride 101 (98-107) mmol/L Carbon Dioxide 32 (21-32) mmol/L Anion Gap 5.0 (3-11) BUN 14 (7-18) mg/dl Creatinine 1.02 (0.6-1.2) mg/dl Est Cr Clr Drug Dosing 36.0 ml/min Est GFR ( Amer) 61.0 Est GFR (Non-Af Amer) 52.6 BUN/Creatinine Ratio 13.3 (10-20) Glucose 117 H (70-99) mg/dl Calcium 8.6 (8.5-10.1) mg/dl Total Bilirubin 0.4 (0.2-1) mg/dl AST 9 L (15-37) U/L ALT 11 L (12-78) U/L Alkaline Phosphatase 88 (45-117) U/L Troponin I < 0.015 (0-0.045) ng/ml NT-Pro-B Natriuret Pep 857 (0-1800) pg/ml Total Protein 7.0 (6.4-8.2) gm/dl Albumin 3.5 (3.4-5.0) gm/dl Globulin 3.5 (2.5-4.0) gm/dl Albumin/Globulin Ratio 1.0 (0.9-2) Diagnostic Findings CXR appears hyperinflated, no PNA, PTX Code Status & VTE Plan Code Status FULL VTE Prophylaxis Plan VTE Prophylaxis will be ordered: Yes Critical Care Time Critical Care Time: No
[2018-06-22] MEDS ORDERED: ALBUTEROL 0.5% NEB SOLN 2.5 MG/0.5 ML VIAL NEB PRN (05:25)
[2018-06-22] MEDS ORDERED: NITROGLYCERIN SL 0.4 MG/TAB TAB SL PRN (05:25)
[2018-06-22] MEDS ORDERED: ACETAMINOPHEN 325 MG TAB PO PRN (05:25)
[2018-06-22] MEDS: methylPREDNISolone 20 MG in SYRINGE 0 ML IV SCH ×3 (06:01→20:21)
--- NOTE | 2018-06-22 06:20 | Emergency Department Note ---
Entered by Chris Harris acting as a scribe for History of Present Illness General Chief complaint: Shortness of Breath/Dyspnea Stated complaint: Breathing difficulty Time Seen by Provider: 06/22/18 01:01 Source: patient and EMS History of Present Illness Onset (ago): hour(s) (few) Location: chest (lungs) Pain Consistency: + constant Quality: + other (SOB) Relieved By: + medication (duoneb, solu-medrol) Associated symptoms: + denies other symptoms (abdominal pain) and + other (swelling of the legs) The patient is a 78 y/o female who presents to the ED w/ CC of constant shortness of breath beginning a few hours ago. The patient states she has "felt off" all day. She reports she woke up to go to the bathroom and was short of breath. The patient notes a history of COPD and has never felt this way before. She states she wears 2L of oxygen at home all the time, and it feels like she "cannot take oxygen in". The patient reports she has been coughing a lot today, and it has been dry. EMS notes she was given 2 Duoneb and 125mg Solu-Medrol in route. She states it currently is easier to breath, but she is still having trouble. The patient reports she did develop chest pain in the middle of her chest that she has never experienced before. She notes it feels like someone punched her, and it just started. The patient states she is wearing a halter monitor for possible a-fib because she did not feel the irregularity. She reports it needs to go back on June 25. The patient notes she in on a diuretic from her client success specialist, but it seems as if her legs are getting larger. She states she has a history of blood clots in her legs and lungs during surgery, but she has not been placed on blood thinners. The patient reports she had a stent placed to prevent the blood clots from happening, and her last clot was in November. She denies abdominal pain and a history of heart attacks. Home Medications Home Medications Medication Instructions Recorded Confirmed Type godcapfahlc-thxlcyhsl-gtfueake 1 inh INHALATION DAILY 06/22/18 06/22/18 History [Trelegy Ellipta] ipratropium-albuterol 3 ml INHALATION Q4 PRN 06/22/18 06/22/18 History Allergies Allergy/AdvReac Type Severity Reaction Status Date / Time bacitracin Allergy Mild UNSURE Verified 06/22/18 03:07 neomycin Allergy Mild UNSURE Verified 06/22/18 03:07 polymyxin B Allergy Mild UNSURE Verified 06/22/18 03:07 copper Allergy Unknown METAL? Verified 06/22/18 03:07 nickel Allergy Unknown METAL? Verified 06/22/18 03:07 silver Allergy Unknown METAL? Verified 06/22/18 03:07 strawberry Allergy Unknown . Verified 06/22/18 03:07 Past Med/Surg History Medical History Required emergent intubation Perforated ulcer COPD (chronic obstructive pulmonary disease) GI bleed No pertinent family history (Inactive) Surgical History H/O tubal ligation S/P cataract surgery Bilateral S/P IVC filter Family History Other Family history non-contributory Social History Preferred Language: Albanian Communication Ability: Effective Visual Impairment: Limited Hearing Ability: Normal Public Accountant Required: No Beliefs That Will Affect Care: None Current Living Situation: Family Other Information That Helps Us Care for You: No Feels Safe at Home: Yes Safety Concerns: Feels Safe At This Time Smoking Status: Never smoker Tobacco Type: cigarettes Second Hand Exposure: No Hx Alcohol Use: Yes Alcohol type: beer Hx Substance Use: No Review of Systems See HPI for pertinent positives & negatives. and A total of 10 systems reviewed and were otherwise negative Physical Exam Vital Signs Vital Signs - 24 hr 06/22/18 01:10 06/22/18 01:13 06/22/18 01:20 Temperature 36.7 C Temperature Source Oral Sepsis Recent Fever Within 48 Hours No Sepsis New/Unexplained Change in Mental Status No Sepsis Action Taken by Nursing No Action Required Pulse Rate 115 H 118 H Pulse Rate [Apical] Pulse Rate [Left Finger] Pulse Rhythm Regular Pulse Rhythm [Apical] Pulse Rhythm [Left Finger] Pulse Strength Normal Pulse Strength [Apical] Pulse Strength [Left Finger] Respiratory Rate 24 30 H Respiratory Effort / Characteristics Short of Breath Spontaneous Labored Respiratory Depth Shallow Respiratory Pattern Blood Pressure 154/131 H Blood Pressure [Right Arm] Blood Pressure Mean 138 Blood Pressure Mean [Right Arm] Blood Pressure Position Sitting Blood Pressure Position [Right Arm] Pulse Oximetry 98 98 Oxygen Delivery Method BiPAP BiPAP Oxygen Flow Rate Fraction of Inspired Oxygen 35 06/22/18 01:26 06/22/18 02:36 06/22/18 04:00 Temperature Temperature Source Sepsis Recent Fever Within 48 Hours Sepsis New/Unexplained Change in Mental Status Sepsis Action Taken by Nursing Pulse Rate 110 H Pulse Rate [Apical] 110 H 102 H Pulse Rate [Left Finger] Pulse Rhythm Pulse Rhythm [Apical] Regular Pulse Rhythm [Left Finger] Pulse Strength Pulse Strength [Apical] Normal Pulse Strength [Left Finger] Respiratory Rate 24 18 Respiratory Effort / Characteristics Non-Labored Spontaneous Respiratory Depth Normal Respiratory Pattern Blood Pressure Blood Pressure [Right Arm] 136/87 170/77 H Blood Pressure Mean Blood Pressure Mean [Right Arm] 103 108 Blood Pressure Position Blood Pressure Position [Right Arm] Sitting Pulse Oximetry 98 93 93 Oxygen Delivery Method BiPAP Nasal Cannula Room Air Oxygen Flow Rate 2 Fraction of Inspired Oxygen 06/22/18 04:45 06/22/18 05:10 Temperature 36.9 C Temperature Source Oral Sepsis Recent Fever Within 48 Hours Sepsis New/Unexplained Change in Mental Status Sepsis Action Taken by Nursing Pulse Rate Pulse Rate [Apical] 88 Pulse Rate [Left Finger] 112 H Pulse Rhythm Pulse Rhythm [Apical] Regular Pulse Rhythm [Left Finger] Regular Pulse Strength Pulse Strength [Apical] Normal Pulse Strength [Left Finger] Normal Respiratory Rate 18 20 Respiratory Effort / Characteristics Non-Labored Spontaneous Non-Labored Spontaneous Respiratory Depth Normal Normal Respiratory Pattern Regular Blood Pressure Blood Pressure [Right Arm] 148/78 H 167/91 H Blood Pressure Mean Blood Pressure Mean [Right Arm] 101 116 Blood Pressure Position Blood Pressure Position [Right Arm] Sitting Pulse Oximetry 92 91 Oxygen Delivery Method Nasal Cannula Nasal Cannula Oxygen Flow Rate 4 4 Fraction of Inspired Oxygen General: Mild respiratory distress. On BIPAP HEENT: Head - normocephalic and atraumatic Pupils are equal, round, and reactive to light. Extraocular eye muscles are intact, and sclera are anicteric. Nose - moist nasal mucosa without discharge. Mouth - moist buccal mucosa. Oropharynx is nonerythematous and there is no tonsillar exudate or edema noted. Neck: Supple; no JVD, nuchal rigidity, cervical lymphadenopathy. Heart: Tachycardic rate and regular rhythm. There is a normal S1 and S2 with no murmurs, clicks, or gallops appreciated. Lungs: Diffuse inspiratory and expiratory wheezes, rales in both bases, No rhonchi. Abdomen: Soft, completely nontender, distended, with good bowel sounds. There are no palpable pulsatile masses or hepatosplenomegaly. There is no guarding, rigidity, or rebound noted. Extremities: No evidence of cyanosis or clubbing, 1+ pitting edema to the left leg and 2+ pitting edema to the right leg. There are easily palpable peripheral pulses. Skin: warm and dry with good turgor and no rashes. Course 0112: The patient was evaluated in room B07. A complete history and physical examination were performed. Nursing notes and previous electronic medical records were reviewed. IV lock was established and labs were drawn as above. A twelve-lead EKG was obtained. A portable chest x-ray was performed. 0126: The patient began complaining of some midsternal chest discomfort stating that she felt like she got punched. I ordered Nitroglycerin 0.4mg SL 0224: Upon reevaluation, I discussed findings and results with the patient and family. She is doing much better and the third nitroglycerin helped with her chest pain. Her HR has lowered. They verbalized agreement of the treatment plan. 0227: We are going to try and take the patient off BIPAP and put her on nasal prongs. 0350: I spoke with Dr. Brandt of the [facility] Hospitalist Service. The patient will be evaluated for further management and care. Administered Medications Methylprednisolone 20 mg/ (Syringe) 0.32 mls @ 1.5 mls/min IV Q8H [facility] Stop: 07/22/18 05:59 Last Admin: 06/22/18 06:01 Dose: 1.5 mls/min Documented by: [id number] Discontinued Medications Nitroglycerin (Nitrostat) Confirm Administered Dose 0.4 mg .ROUTE .STK-MED ONE Stop: 06/22/18 01:23 Last Admin: 06/22/18 01:28 Dose: Not Given Documented by: [id number] Nitroglycerin (Nitrostat) 0.4 mg SL NOW STA Stop: 06/22/18 01:27 Last Admin: 06/22/18 01:28 Dose: 0.4 mg Documented by: [id number] Medical Decision Making Differential Diagnosis Differential diagnosis includes: COPD exacerbation, pneumonia, CHF, PE, ACS. Medical Records Attestation: I reviewed the patient's medical records. Home Medications Current Medication List: was personally reviewed by me Laboratory Data Attestation: I reviewed the patient's lab results. Result diagrams: 06/22/18 01:07 06/22/18 01:07 Lab Results 06/22/18 06/22/18 Range/Units 01:07 01:07 WBC 10.31 (4.8-10.8) K/uL RBC 4.09 L (4.2-5.4) M/uL Hgb 12.1 (12.0-16.0) g/dL Hct 37.3 (37-47) % MCV 91.2 (80-100) fL MCH 29.6 (25-34) pg MCHC 32.4 (32-36) g/dL RDW Std Deviation 44.5 (36.4-46.3) fL RDW Coeff of Tio 13.6 (11.5-14.5) % Plt Count 166 (130-400) K/uL MPV 8.9 (7.4-10.4) fL Immature Gran % (Auto) 0.4 % Neut % (Auto) 80.2 % Lymph % (Auto) 10.1 % Luna % (Auto) 7.7 % Eos % (Auto) 1.4 % Baso % (Auto) 0.2 % Immature Gran # (Auto) 0.04 H (0.00-0.02) K/uL Neut # (Auto) 8.28 H (1.4-6.5) K/uL Lymph # (Auto) 1.04 L (1.2-3.4) K/uL Luna # (Auto) 0.79 H (0.11-0.59) K/uL Eos # (Auto) 0.14 (0-0.5) K/uL Baso # (Auto) 0.02 (0-0.2) K/uL Sodium 138 (136-145) mmol/L Potassium 3.7 (3.5-5.1) mmol/L Chloride 101 (98-107) mmol/L Carbon Dioxide 32 (21-32) mmol/L Anion Gap 5.0 (3-11) BUN 14 (7-18) mg/dl Creatinine 1.02 (0.6-1.2) mg/dl Est Cr Clr Drug Dosing 36.0 ml/min Est GFR ( Amer) 61.0 Est GFR (Non-Af Amer) 52.6 BUN/Creatinine Ratio 13.3 (10-20) Glucose 117 H (70-99) mg/dl Calcium 8.6 (8.5-10.1) mg/dl Total Bilirubin 0.4 (0.2-1) mg/dl AST 9 L (15-37) U/L ALT 11 L (12-78) U/L Alkaline Phosphatase 88 (45-117) U/L Troponin I < 0.015 (0-0.045) ng/ml NT-Pro-B Natriuret Pep 857 (0-1800) pg/ml Total Protein 7.0 (6.4-8.2) gm/dl Albumin 3.5 (3.4-5.0) gm/dl Globulin 3.5 (2.5-4.0) gm/dl Albumin/Globulin Ratio 1.0 (0.9-2) Imaging Data Attestation: I personally reviewed and interpreted this imaging study as follows: My Impression: Chest x-ray: mild pulmonary vascular congestion. No cardiomegaly. Left-sided pleural effusion. ECG Data Attestation: I personally reviewed and interpreted this ECG as follows: Indication: SOB/dyspnea Rate (beats per minute): 116 Rhythm: sinus tachycardia Findings: no PAC, no PVC, no ST depression, no ST elevation, no acute ischemic change and no ectopy Blood Pressure Blood Pressure Findings: Elevated blood pressure Blood Pressure Disposition: further management by hospitalist ALICE Lewis The patient is a 78 y/o female who presents to the ED w/ CC of constant shortness of breath beginning a few hours ago. The patient has a history of COPD but states that her breathing became much worse last night. She did have an increased cough throughout the day. Upon EMS arrival, her sats were stable but she was tripoding with significant tachypnea. Patient was placed on CPAP by EMS which seemed to improve her symptoms. She was switched to BiPAP upon arrival here in the emergency department and then received a DuoNeb treatment through the BiPAP circuitry. On physical exam, the patient had some lower extremity edema and had rales in both lung bases. She was given nitroglycerin to treat her substernal chest discomfort, hypotension and potential CHF. This did relieve her chest discomfort and reduced her blood pressure nicely. The patient was able to discontinue the BiPAP to be placed on a nasal cannula which maintained her oxygen saturations and comfort of breathing. I discussed the case with the [facility] Hospitalist and they will evaluate for further management. Impression & Plan COPD exacerbation, Substernal chest pain Discharge Plan Visit Data *Final* Discharge Date/Time: 06/22/18 04:52 Chief Complaint: Shortness of Breath/Dyspnea Stated Complaint: Breathing difficulty ED Provider: Micheline Ruff Discharge Problem: COPD exacerbation, Substernal chest pain Patient Disposition: Admitted As Inpatient Discharge Instructions Interventions: ED Discharge Assessment Last Done: 06/22/18 04:52 The scribe's documentation has been prepared under my direction and personally reviewed by me in its entirety. I confirm that the note above accurately reflects all work, treatment, procedures, and medical decision making performed by me.
--- NOTE | 2018-06-22 06:22 | XRay Report ---
XR chest 1V portable CLINICAL HISTORY: Chest Pain dyspnea COMPARISON STUDY: 05/19/2018 FINDINGS: Diffuse emphysematous change. Baseline chronic parenchymal fibrotic change. Potential minim al superimposed left basilar infiltrate. Several old left-sided rib fractures. IMPRESSION: Emphysematous change. Chronic change. Potential minimal parenchymal infiltrate versus at electasis left base The above report was generated using voice recognition software. It may contain grammatical, syntax or spelling errors. Electronically signed by: Jose Luis Meyer M.D. 06/22/2018 6:21 AM
[2018-06-22 06:46] LABS: Magnesium 1.9 mg/dl (1.8-2.4); Phosphorus 3.8 mg/dl (2.5-4.9)
[2018-06-22] MEDS: ALBUT/IPRATROP 3MG/0.5MG NEB 3 ML VIAL NEB SCH ×5 (06:56→22:53)
[2018-06-22] MEDS: FLUTICASONE HFA 220 MCG INHALER INH SCH ×2 (08:34→20:21)
[2018-06-22] MEDS: PANTOprazole 40 MG TAB PO SCH ×2 (11:07→20:21)
[2018-06-22] MEDS: TRIAMCINOLONE ACET 0.025% CR 15 GM TUBE EXT SCH (21:47)
--- NOTE | 2018-06-22 23:51 | History & Physical Bridge Note ---
Date of Service June 22, 2018 History & Physical Bridge Note I have examined the patient, reviewed the History & Physical and in the interval since the performance of the History & Physical I have noted the following changes of clinical significance: Patient feeling much improved later on the day of admission. She is weaned to nasal cannula and appears comfortable. She says she is coughing but nothing is coming up. She reports she has had leg swelling since her last admission and was given Lasix for 3 days after discharge but then stopped it. Telemetry with normal sinus rhythm with rates in the 80s to low 100s Vitals reviewed Gen: AAOx3, NAD, thin HEENT: Anicteric sclerae, EOMI CV: RRR no mgr nl S1S2 Pulm: Decreased air movement throughout all lung tabor, diffuse bilateral expiratory wheezes Abd: +BS soft NT ND no masses or hernias Ext: 1+ pitting edema of the legs bilaterally to the knees and symmetric Skin: Bilateral anterior legs with chronic venous stasis changes and venous stasis dermatitis with excoriations Neuro: Full strength throughout COPD exacerbation-continue with nebulizers, BiPAP and nasal cannula as needed, IV steroids and taper down -Give Lasix 20 mg once daily in the morning for mild lower extremity edema Echocardiogram performed at the time of her pulmonary embolism did show mildly reduced RV function and mildly elevated right-sided pressures-she was not able to be anticoagulated for her PEs at that time due to GI bleed Concerned that she has worsening right-sided heart failure/cor pulmonale due to severe lung disease and history of untreated PE, this could contribute to her lower extremity edema -Check echocardiogram resting in the morning 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
[2018-06-23] MEDS: ALBUT/IPRATROP 3MG/0.5MG NEB 3 ML VIAL NEB SCH ×6 (03:27→23:21)
[2018-06-23] MEDS: methylPREDNISolone 20 MG in SYRINGE 0 ML IV SCH ×3 (05:07→20:50)
[2018-06-23 07:36] LABS: Hematocrit (blood only) 35.3 % (37-47); Hemoglobin 11.5 g/dL (12.0-16.0); Immature Granulocytes # (auto) 0.05 K/uL (0.00-0.02); Immature Granulocytes % (auto) 0.4 %; Lymphocytes # (auto) 0.43 K/uL (1.2-3.4); Lymphocytes % (auto) 3.4 %; Mean Corpuscular Hgb Conc 32.6 g/dL (32-36); Mean Corpuscular Volume 90.1 fL (80-100); Monocytes # (auto) 0.91 K/uL (0.11-0.59); Monocytes % (auto) 7.1 %; Neutrophils % (auto) 89.1 %; Platelet Count 162 K/uL (130-400); RDW Coefficient of Variation 13.9 % (11.5-14.5); RDW Standard Deviation 45.5 fL (36.4-46.3); Red Blood Count 3.92 M/uL (4.2-5.4); White Blood Count 12.79 K/uL (4.8-10.8)
[2018-06-23] MEDS: FLUTICASONE HFA 220 MCG INHALER INH SCH ×2 (08:01→20:49)
[2018-06-23] MEDS: TRIAMCINOLONE ACET 0.025% CR 15 GM TUBE EXT SCH ×2 (08:02→20:49)
[2018-06-23] MEDS: PANTOprazole 40 MG TAB PO SCH ×2 (08:02→20:50)
[2018-06-23] MEDS: FUROSEMIDE 20 MG TAB PO SCH (08:02)
[2018-06-23 08:21] LABS: BUN Creatinine Ratio 26.3 (10-20); Calcium 8.8 mg/dl (8.5-10.1); Creatinine Clr Calc Pharmacy 41.7 ml/min; Est GFR (African American) 72.9; Est GFR (Non-African American) 62.9; Potassium 4.6 mmol/L (3.5-5.1)
--- NOTE | 2018-06-23 09:41 | Consultation Report ---
DATE OF CONSULTATION: 06/23/2018 PULMONARY CONSULTATION TIME: 9:05 a.m. REPORT OF CONSULTATION: The patient was seen in room 243, bed 1. She is a 78-year-old female with a known history of severe COPD. She has been having recurring problems dating back to the fall of 2017. At that time, she was hospitalized from 12/07/2017 until 12/31/2017 with an acute perforated ulcer requiring surgery. During that hospital stay, she had respiratory failure, pneumonia, deep vein thrombosis, and acute pulmonary embolism. She also had acute kidney injury. She could not be treated with anticoagulation due to the perforated ulcer and she had an IVC filter placed. She was hospitalized from 05/19/2018 until 05/22/2018 with an exacerbation of COPD. Approximately 8:00 p.m. on 06/21/2018, she started to develop worsening shortness of breath. It occurred very suddenly. She had not been having any chills, fevers or sweats. Her breathing got worse in the next few hours. She became tighter and tighter in the chest. She subsequently did have some sternal chest pain. Ultimately, her daughter called 911 and she was transported to the hospital. She did receive 2 sublingual nitro. Her pain resolved, but she is not convinced that the nitro actually did it. She is feeling better. She has been getting IV steroids as well as every 4-hour neb treatments. She continues to cough some, but it is nonproductive. She essentially had no sputum. She has had some belching, but no true nausea. She has not had vomiting. There has been no problem with diarrhea. She has not had any urinary complaints. She is not having any sinus problems. She denies any pains. This past evening, she slept much better than the night before. This morning, she is feeling fairly good. She did get up to go to the bathroom to wash. She tolerated this without too much difficulty. I had seen the patient a few weeks ago in the office for the first time. We started her on Trilogy inhaler 1 puff daily. She was to continue with her nebulizer treatments at least twice per day and more if need be. PAST SURGICAL HISTORY: 1. Tubal ligation. 2. Cataract surgeries. 3. Partial thyroidectomy. 4. Perforated ulcer as noted. 5. IVC filter as noted. PAST MEDICAL HISTORY: 1. Hypertension. 2. Hyperlipidemia. 3. Paroxysmal SVT. 4. Perforated ulcer. 5. COPD. 6. DVT. 7. PE. 8. Acute kidney injury - resolved. SOCIAL HISTORY: Tobacco none since 6 months ago. Previously 1 pack per day for 56 years. 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 FAMILY HISTORY: Positive for cancer and diabetes. ALLERGIES: 1. BACITRACIN. 2. NEOMYCIN. 3. NICKEL. 4. STRAWBERRIES. MEDICATIONS AT HOME: 1. Trelegy Ellipta 1 puff daily. 2. DuoNeb q. 4 p.r.n. 3. Pantoprazole 40 mg b.i.d. REVIEW OF SYSTEMS: Negative except as noted above. Ten systems reviewed. PHYSICAL EXAMINATION: GENERAL: The patient is a pleasant 78-year-old female who was cooperative, alert and oriented. She was in no distress at rest. Weight is 56 kilograms. BMI 22.6. HEENT: Pupils were reactive. Nares were clear. Nasal cannula was in place. Mouth exam shows no erythema or exudate. NECK: Palpation of the neck reveals no lymph nodes or masses. Scar was noted from prior thyroid surgery. VITAL SIGNS: Cardiac rate at the time of my exam was 108. This is higher than expected, but she has just recently been in the bathroom washing according to the patient. Blood pressure 130/75. The rhythm was regular. CHEST: Shows a dorsal kyphosis. Respiratory rate 18 breaths per minute. LUNGS: The breath sounds are diffusely diminished with just a few scattered rales at the lung bases. Saturation was 97% on nasal cannula. ABDOMEN: Soft. Bowel sounds were present and were normal. There was no tenderness to palpation or masses. EXTREMITIES: Showed +1 edema of both lower extremities. There was no cyanosis, clubbing or edema. IMAGING DATA: Chest x-ray shows evidence of emphysematous changes with increased interstitial markings. I do not see any definite infiltrates. LABORATORY DATA: White count this morning is 12.79. Hemoglobin 11.5. Platelets 162,000. Yesterday's white count was 10.31. Differential count today shows 89.1 neutrophils, 3.4 lymphs, 7.1 monos. There is a left shift. Electrolytes show sodium 136, potassium 4.6, chloride 100, bicarbonate 32, which is top normal. BUN 23 with a creatinine 0.88. Calcium was 8.8 and magnesium was 2.0. Troponin was negative x2. EKG showed a sinus tachycardia with a rate of 116. No other significant abnormalities noted. IMPRESSION: 1. Acute respiratory failure with hypoxia. 2. Chronic obstructive pulmonary disease exacerbation. COMMENTS AND RECOMMENDATIONS: I believe this was a primary pulmonary problem. She had some chest pain, but it does not appear she had any significant cardiac injury. She has now had 2 exacerbations in 1 month. Unfortunately, we have not been able to obtain pulmonary functions on her yet. We plan on doing that in the office soon. She is improved. I would continue the steroids as present. She is better, but not great. Ideally, I would like to get her into pulmonary rehabilitation, but she has not been stable enough from a pulmonary perspective to do this. Upon discharge, I would restart her Trelegy which she has at home. She has been started on Flovent while in the hospital, but that would not be indicated upon discharge assuming she is still taking Trelegy. Her CBC shows a left shift. She has not had fevers or other indications of a true infection, but this may need following. She is not currently on antibiotic therapy. We may need to consider options available for trying to prevent the recurring exacerbations. We will discuss this near the time of her discharge. We would try to increase ambulation. Thank you for asking me to assist in her care. PARVIN
--- NOTE | 2018-06-23 22:43 | Hospitalist Progress Note ---
Date of Service June 23, 2018 Assessment & Plan (1) Acute and chronic respiratory failure: Acute and chronic hypoxic respiratory failure secondary to COPD exacerbation. Does have a history of DVT and PE, has IVC filter in place. She denies any pleuritic type chest pain. The chest pain she had on admission was musculoskeletal from tachypnea and is now completely resolved. Echocardiogram with elevated right-sided pressures consistent with pulmonary hypertension Appreciate pulmonology consultation -Much improved with IV steroids, nebulizers, and initially on BiPAP -Now back on home oxygen at 2 L nasal cannula -Continue to treat COPD exacerbation as below (2) COPD exacerbation: As above. Improved, feels she is almost back to her baseline Remains tachypneic and with diffuse wheezing -Continue nebs, steroids IV for now and eventually convert to p.o. prednisone -Continue supplemental O2 -Pulmonology recently started her on Trelegy which she can continue upon discharge (3) Substernal chest pain: Transient episode of substernal chest discomfort, was musculoskeletal and secondary to severe respiratory distress on arrival (4) Hypertension: Blood pressures are well controlled -Not on medication for this at home (5) Pulmonary hypertension: Echocardiogram here with elevated right-sided pressures consistent with pulmonary hypertension Likely secondary to her severe COPD and history of PE -Started Lasix 20 mg daily given lower extremity edema -Continue supplemental oxygen (6) History of peptic ulcer disease: With history of perforated peptic ulcers with hemorrhage requiring emergent surgical repair in 11/2017 Was thought to be secondary to heavy ibuprofen use at that time -Followed up with Roderick TANNER as an outpatient Remains on Protonix 40 mg p.o. twice daily -Avoid NSAIDs, aspirin use -Caution with prednisone and IV steroids in the setting of COPD exacerbation (7) History of pulmonary embolism: Had DVT and PE in 11/2017 in the setting of critical illness with perforated gastric ulcers and ICU stay Had IVC filter placed at that time due to ongoing GI bleeding No current issues -No evidence of GI bleeding here, hemoglobin is stable -Safe to anticoagulate with heparin SQ for DVT prophylaxis (8) Venous stasis dermatitis: Treat with triamcinolone cream (9) AVNRT (AV emma re-entry tachycardia): Has a history of wide-complex tachycardia thought to be AV emma reentry tachycardia on last admission in the 140s that caused her to become hypotensive and required adenosine -Monitor on telemetry (10) DVT prophylaxis: We will add heparin SQ Disposition-remain on telemetry overnight, patient anxious for discharge to home tomorrow-we will see how she is doing with respiratory status Subjective Patient feeling better, still quite short of breath in appearance to me, however she feels she is almost back to her baseline. She gets short of breath just sitting in the chair and moving. Denies any further chest pain, no diarrhea or abdominal pain, she is eating well. Review of Systems Review of Systems: All systems reviewed & are unremarkable except as noted in HPI & below Physical Exam Constitutional: + acute distress (Mild respiratory distress) and + thin; not diaphoretic Eyes: PERRL, conjunctivae normal, anicteric sclerae ENMT: external ear and nose normal, oropharynx normal Neck: trachea midline, no thyromegaly Respiratory: + uses accessory muscles and + tachypneic Auscultation: + rhonchi (Scattered bilaterally) and + wheezes (Diffusely) Cardiovascular: Rate/Rhythm: regular rate and regular rhythm Extremities: + edema (1+ pitting edema of the legs bilaterally to the knees) Gastrointestinal (Abdomen): normal bowel sounds, soft, nontender, no hepatosplenomegaly Musculoskeletal: Extremities: extremities normal to inspection; no cyanosis and no clubbing Skin: + rash (Bilateral anterior tibia with venous stasis changes and excoriations) Neurologic: moves all extremities and awake; no focal motor deficits Psychiatric: A+Ox3, euthymic affect Results & Data Vital Signs (Past 12 Hours) Vital Signs Temp Pulse Pulse Resp BP BP Pulse Ox 06/23/18 20:04 77 18 92 06/23/18 19:39 36.9 C 87 18 135/69 94 06/23/18 15:42 36.6 C 106 H 19 122/66 90 06/23/18 14:39 86 18 93 06/23/18 11:41 37.0 C 85 20 154/78 H 93 06/23/18 11:03 83 16 93 Laboratory Results 06/23/18 06/23/18 Range/Units 07:23 07:23 WBC 12.79 H (4.8-10.8) K/uL RBC 3.92 L (4.2-5.4) M/uL Hgb 11.5 L (12.0-16.0) g/dL Hct 35.3 L (37-47) % MCV 90.1 (80-100) fL MCH 29.3 (25-34) pg MCHC 32.6 (32-36) g/dL RDW Std Deviation 45.5 (36.4-46.3) fL RDW Coeff of Tio 13.9 (11.5-14.5) % Plt Count 162 (130-400) K/uL MPV 9.0 (7.4-10.4) fL Immature Gran % (Auto) 0.4 % Neut % (Auto) 89.1 % Lymph % (Auto) 3.4 % Cameron % (Auto) 7.1 % Eos % (Auto) 0.0 % Baso % (Auto) 0.0 % Immature Gran # (Auto) 0.05 H (0.00-0.02) K/uL Neut # (Auto) 11.40 H (1.4-6.5) K/uL Lymph # (Auto) 0.43 L (1.2-3.4) K/uL Cameron # (Auto) 0.91 H (0.11-0.59) K/uL Eos # (Auto) 0.00 (0-0.5) K/uL Baso # (Auto) 0.00 (0-0.2) K/uL Sodium 136 (136-145) mmol/L Potassium 4.6 D (3.5-5.1) mmol/L Chloride 100 (98-107) mmol/L Carbon Dioxide 32 (21-32) mmol/L Anion Gap 4.0 (3-11) BUN 23 H D (7-18) mg/dl Creatinine 0.88 (0.6-1.2) mg/dl Est Cr Clr Drug Dosing 41.7 ml/min Est GFR ( Amer) 72.9 Est GFR (Non-Af Amer) 62.9 BUN/Creatinine Ratio 26.3 H (10-20) Glucose 121 H (70-99) mg/dl Calcium 8.8 (8.5-10.1) mg/dl Magnesium 2.0 (1.8-2.4) mg/dl
[2018-06-24] MEDS: ALBUT/IPRATROP 3MG/0.5MG NEB 3 ML VIAL NEB SCH ×6 (03:33→23:17)
[2018-06-24 06:00] LABS: Prothrombin Time 10.1 Seconds (9.0-12.0)
[2018-06-24] MEDS: methylPREDNISolone 20 MG in SYRINGE 0 ML IV SCH (06:13)
[2018-06-24] MEDS: HEPARIN SOD 5,000 UNIT/0.5 ML VIAL SQ SCH ×3 (06:27→20:57)
[2018-06-24] MEDS ORDERED: HALOPERIDOL LACTATE 5 MG/ML 1 ML VIAL ONE (08:25)
[2018-06-24] MEDS: FLUTICASONE HFA 220 MCG INHALER INH SCH ×2 (09:05→19:08)
[2018-06-24] MEDS: FUROSEMIDE 20 MG TAB PO SCH (09:05)
[2018-06-24] MEDS: TRIAMCINOLONE ACET 0.025% CR 15 GM TUBE EXT SCH ×2 (09:05→19:08)
[2018-06-24] MEDS: PANTOprazole 40 MG TAB PO SCH ×2 (09:05→19:09)
--- NOTE | 2018-06-24 11:56 | XRay Report ---
XR chest 1V portable HISTORY: 78 years-old Female increased SOB acute fever with shortness of breath COMPARISON: Chest radiograph 06/22/2017, CTA chest 05/19/2017 TECHNIQUE: Portable AP view of the chest FINDINGS: Cardiac mediastinal and hilar silhouettes are unchanged. Calcification of the thoracic aortic arch. M oderate emphysema with chronic interstitial coarsening. Mild subsegmental left basilar atelectasis wi thout pneumothorax, large pleural effusion or overt pulmonary edema. Changes of the shoulders and spi ne. Remote left-sided rib fractures. IMPRESSION: 1. No acute process. 2. Emphysema with chronic interstitial coarsening. The above report was generated using voice recognition software. It may contain grammatical, syntax o r spelling errors. Electronically signed by: Reji Whitaker M.D. 06/24/2018 11:55 AM
--- NOTE | 2018-06-24 12:19 | Hospitalist Progress Note ---
Date of Service June 24, 2018 Assessment & Plan (1) Acute and chronic respiratory failure: Acute and chronic hypoxic respiratory failure secondary to COPD exacerbation. Does have a history of DVT and PE, has IVC filter in place. She denies any pleuritic type chest pain. The chest pain she had on admission was musculoskeletal from tachypnea and is now completely resolved. Echocardiogram with elevated right-sided pressures consistent with pulmonary hypertension Appreciate pulmonology consultation - improved with IV steroids, nebulizers, and initially on BiPAP, now on NC but still with respiratory distress with minimal activity -continue supplemental oxygen at 2-3 L nasal cannula -Continue to treat COPD exacerbation as below (2) COPD exacerbation: As above. Improved, but not back to her baseline Remains tachypneic and with diffuse wheezing -Continue nebs, steroids IV for now and eventually convert to p.o. prednisone -Continue supplemental O2 -Pulmonology recently started her on Trelegy which she can continue upon discharge (3) Substernal chest pain: Transient episode of substernal chest discomfort, was musculoskeletal and secondary to severe respiratory distress on arrival (4) Hypertension: Blood pressures are well controlled -Not on medication for this at home (5) Pulmonary hypertension: Echocardiogram here with elevated right-sided pressures consistent with pulmonary hypertension Likely secondary to her severe COPD and history of PE LE edema improved today with starting lasix -continue Lasix 20 mg daily given lower extremity edema -Continue supplemental oxygen (6) History of peptic ulcer disease: With history of perforated peptic ulcers with hemorrhage requiring emergent surgical repair in 11/2017 Was thought to be secondary to heavy ibuprofen use at that time -Followed up with Roderick TANNER as an outpatient Remains on Protonix 40 mg p.o. twice daily -Avoid NSAIDs, aspirin use -Caution with prednisone and IV steroids in the setting of COPD exacerbation (7) History of pulmonary embolism: Had DVT and PE in 11/2017 in the setting of critical illness with perforated gastric ulcers and ICU stay Had IVC filter placed at that time due to ongoing GI bleeding No current issues -No evidence of GI bleeding here, hemoglobin is stable -Safe to anticoagulate with heparin SQ for DVT prophylaxis (8) Venous stasis dermatitis: Treat with triamcinolone cream (9) AVNRT (AV emma re-entry tachycardia): Has a history of wide-complex tachycardia thought to be AV emma reentry tachycardia on last admission in the 140s that caused her to become hypotensive and required adenosine -Monitor on telemetry-so far just sinus tach in the 130s with minimal exertion (10) DVT prophylaxis: Heparin SQ Disposition-remain on telemetry, continued treatment for severe COPD exacerbation Subjective [place] very SOB with walking to the bathroom today and hypoxic, came up with O2 turned up to 3L. Still cough nonproductive. Not lightheaded, no chest pain. No nausea Tele with NSR, rates 70s-100, and sinus tach to the 130s with going to the bathroom Review of Systems Review of Systems: All systems reviewed & are unremarkable except as noted in HPI & below Physical Exam Constitutional: + acute distress (Mild respiratory distress) and + thin; not diaphoretic Eyes: PERRL, conjunctivae normal, anicteric sclerae ENMT: external ear and nose normal, oropharynx normal Neck: trachea midline, no thyromegaly Respiratory: + uses accessory muscles and + tachypneic Auscultation: + rhonchi (Scattered bilaterally) and + wheezes (Diffusely) Cardiovascular: Rate/Rhythm: regular rate and regular rhythm Extremities: + edema (trace pitting edema of the legs bilaterally to the knees improved) Gastrointestinal (Abdomen): normal bowel sounds, soft, nontender, no hepatosplenomegaly Musculoskeletal: Extremities: extremities normal to inspection; no cyanosis and no clubbing Skin: + rash (Bilateral anterior tibia with venous stasis changes and excoriations) Neurologic: moves all extremities and awake; no focal motor deficits Psychiatric: A+Ox3, euthymic affect Results & Data Vital Signs (Past 12 Hours) Vital Signs Temp Pulse Pulse Resp BP BP Pulse Ox 06/24/18 11:18 91 H 18 95 06/24/18 10:29 36.6 C 85 22 153/81 H 94 06/24/18 07:04 88 16 93 06/24/18 07:03 36.4 C L 19 L 18 138/77 93 06/24/18 06:18 77 06/24/18 03:34 71 17 92 06/24/18 03:01 36.4 C L 74 18 128/74 98 Laboratory Results 06/24/18 Range/Units 05:14 PT 10.1 (9.0-12.0) Seconds INR 1.0 (0.9-1.1) Diagnostic Findings CXR image reviewed personally by me and agree with the following report: XR chest 1V portable HISTORY: 78 years-old Female increased SOB acute fever with shortness of breath COMPARISON: Chest radiograph 06/22/2017, CTA chest 05/19/2017 TECHNIQUE: Portable AP view of the chest FINDINGS: Cardiac mediastinal and hilar silhouettes are unchanged. Calcification of the thoracic aortic arch. Moderate emphysema with chronic interstitial coarsening. Mild subsegmental left basilar atelectasis without pneumothorax, large pleural effusion or overt pulmonary edema. Changes of the shoulders and spine. Remote left-sided rib fractures. IMPRESSION: 1. No acute process. 2. Emphysema with chronic interstitial coarsening.
--- NOTE | 2018-06-24 12:24 | Progress Note ---
DATE: 06/24/2018 PULMONARY PROGRESS NOTE TIME: 11:40 a.m. SUBJECTIVE: The patient complains of more shortness of breath today. She had a significant time going to the bathroom this morning. She is convinced that her oxygen tubing may have kinked, but I do not think we cannot be sure of that. She feels tighter. She is coughing, but not expectorating phlegm. OBJECTIVE: GENERAL: The patient looked mildly short of breath at rest. VITAL SIGNS: Temperature 36.6. She has had no fevers. Heart rate 91. Rhythm regular. Blood pressure 153/81. LUNGS: Lung tabor revealed severely diminished breath sounds with a few scattered rales and rhonchi posteriorly. Current saturation on 3 liters 93%. Respiratory rate 20. She was not using accessory muscles at present, but she did not sound as good as yesterday. EXTREMITIES: Showed trace edema of the lower extremities. LABORATORY DATA: No lab studies were done on this date. IMPRESSION: 1. Acute on chronic respiratory failure with hypoxia. 2. Chronic obstructive pulmonary disease exacerbation. COMMENTS: I am going to increase the methylprednisolone to 40 mg IV q. 8 hours. We will order a flutter valve to see if this helps with secretion clearance. We will also order Mucinex.
[2018-06-24] MEDS: methylPREDNISolone 40 MG in SYRINGE 0 ML IV SCH ×2 (12:58→19:07)
[2018-06-24] MEDS: guaiFENesin 600 MG TABCR PO SCH (19:09)
[2018-06-25] MEDS: ALBUT/IPRATROP 3MG/0.5MG NEB 3 ML VIAL NEB SCH ×6 (03:06→23:00)
[2018-06-25] MEDS: HEPARIN SOD 5,000 UNIT/0.5 ML VIAL SQ SCH ×3 (04:40→21:26)
[2018-06-25] MEDS: methylPREDNISolone 40 MG in SYRINGE 0 ML IV SCH ×3 (04:40→19:43)
[2018-06-25] MEDS: PANTOprazole 40 MG TAB PO SCH ×2 (08:16→19:44)
[2018-06-25] MEDS: guaiFENesin 600 MG TABCR PO SCH ×2 (08:16→19:44)
[2018-06-25] MEDS: FLUTICASONE HFA 220 MCG INHALER INH SCH ×2 (08:17→19:43)
[2018-06-25] MEDS: FUROSEMIDE 20 MG TAB PO SCH (08:17)
[2018-06-25] MEDS: TRIAMCINOLONE ACET 0.025% CR 15 GM TUBE EXT SCH ×2 (08:17→19:44)
[2018-06-25 09:05] LABS: BUN Creatinine Ratio 24.9 (10-20); Calcium 9.1 mg/dl (8.5-10.1); Creatinine Clr Calc Pharmacy 30.8 ml/min; Est GFR (African American) 50.6; Est GFR (Non-African American) 43.7; Potassium 4.2 mmol/L (3.5-5.1)
--- NOTE | 2018-06-25 15:04 | Progress Note ---
DATE: 06/25/2018 PULMONARY PROGRESS NOTE TIME: 2:45 p.m. SUBJECTIVE: The patient feels about the same. She is still short of breath with any exertion at all. She still had difficulties going to the restroom. Nursing reports that her oxygen saturations have been on the low side today. She states that she feels that her cough is loosening, but she has not expectorated anything out. She is trying to use the flutter valve. OBJECTIVE: GENERAL: The patient is comfortable at rest. She was sitting in a chair. VITAL SIGNS: Temperature is 37 degrees. She has had no significant fevers. Heart rate 98 per minute. Rhythm regular. Blood pressure 168/90. Her blood pressures have been definitely higher than normal for the past 24 hours. LUNGS: Lung tabor revealed very severely diminished breath sounds. There is severe prolongation to the expiratory phase of respiration. Respiratory rate was 18. Saturation at the time of my exam was 86% on 3 liters. EXTREMITIES: Showed trace edema of the lower extremities. LABORATORY DATA: The electrolytes show sodium 133, potassium 4.2, chloride 96, bicarbonate 30. BUN is 30 with a creatinine of 1.19. These are increased from 2 days ago when it was 23 and 0.88 respectively. Dry chest x-ray done yesterday showed no acute process. Emphysema with interstitial disease was noted. IMPRESSION: 1. Acute on chronic respiratory failure with hypoxia. 2. Chronic obstructive pulmonary disease exacerbation. COMMENTS AND RECOMMENDATIONS: Yesterday, we increased the methylprednisolone to 40 mg IV q. 8. It does not seem to help. She is still getting the treatments q. 4 hours. At this point, would consider antibiotic therapy. She has not been on this. We will perhaps give a trial of doxycycline. We will also recheck a CBC. We will give a trial of lay vibration vest to see if this helps the patient bring up secretions that might be exacerbating her problem.
[2018-06-25] MEDS ORDERED: LISINOPRIL 5 MG TAB PO ONE (15:29)
--- NOTE | 2018-06-25 15:37 | Hospitalist Progress Note ---
Date of Service June 25, 2018 Assessment & Plan (1) Acute and chronic respiratory failure: Acute and chronic hypoxic respiratory failure secondary to COPD exacerbation: minimal improving history of DVT and PE, has IVC filter in place. Echocardiogram with elevated right-sided pressures consistent with pulmonary hypertension Appreciated pulmonology consultation, started doxy po cont IV steroids, nebulizers, and initially on BiPAP Subjective upon discharge Review of system upon discharge Physical exam upon discharge Lab data or imaging study upon discharge admission per pt pt has bipap at home, , now on NC but still with respiratory distress with minimal activity continue supplemental oxygen at 2-3 L nasal cannula Continue to treat COPD exacerbation as below (2) COPD exacerbation: As above. Improved, but not back to her baseline -Continue nebs, steroids IV for now and eventually convert to p.o. prednisone -Continue supplemental O2 -Pulmonology recently started her on Trelegy which she can continue upon discharge (3) Substernal chest pain: Transient episode of substernal chest discomfort, was musculoskeletal and secondary to severe respiratory distress on arrival (4) Hypertension: Blood pressures are well controlled -Not on medication for this at home (5) Pulmonary hypertension: Echocardiogram here with elevated right-sided pressures consistent with pulmonary hypertension Likely secondary to her severe COPD and history of PE LE edema improved today with starting lasix continue Lasix 20 mg daily given lower extremity edema Continue supplemental oxygen (6) History of peptic ulcer disease: With history of perforated peptic ulcers with hemorrhage requiring emergent surgical repair in 11/2017 Was thought to be secondary to heavy ibuprofen use at that time Followed up with Roderick TANNER as an outpatient Remains on Protonix 40 mg p.o. twice daily Avoid NSAIDs, aspirin use Caution with prednisone and IV steroids in the setting of COPD exacerbation (7) History of pulmonary embolism: Had DVT and PE in 11/2017 in the setting of critical illness with perforated gastric ulcers and ICU stay Had IVC filter placed at that time due to ongoing GI bleeding No current issues (8) Venous stasis dermatitis: Treat with triamcinolone cream (9) AVNRT (AV emma re-entry tachycardia): Has a history of wide-complex tachycardia thought to be AV emma reentry tachycardia on last admission in the 140s that caused her to become hypotensive and required adenosine telemetry-so far just sinus tach in the 130s with minimal exertion (10) DVT prophylaxis: Heparin SQ Disposition-remain on telemetry, continued treatment for severe COPD exacerbation Subjective Reported significantly better however when she is talking can see obviously labored breathing, shortness of breath is better, mild wheezing, Review of Systems Review of Systems: Review of Systems Constitutional: positive weakness, and fatigue Respiratory: positive dry cough, occasional yellow sputum, occasional wheezing, or + dyspnea on exertion Cardiac: No chest pain, No orthopnea, No PND, No claudication, No palpitations, Abdomen: No pain, No nausea, No vomiting, No diarrhea, No constipation, No GI bleeding Musculoskeletal: No joint pain, No muscle pain, +swelling, : No dysuria, No urinary frequency, No incontinence, No hematuria Neurologic: No paralysis, No weakness, No numbness/tingling, No vertigo, No balance problems Psychiatric: No depression symptoms, No anhedonism, Heme: No abnormal bleeding/bruising, No clotting problems, Skin: No rash, No itch, No new/changing skin lesions, No color change, No bleeding Physical Exam Physical Exam: Constitutional: neg acute distress but RR up to 28 per min, (Mild respiratory distress) and + thin; Eyes: PERRL, conjunctivae normal, anicteric sclerae ENMT: external ear and nose normal, oropharynx normal Neck: trachea midline, no thyromegaly Respiratory -uses accessory muscles and + tachypneic Auscultation: + rhonchi (Scattered bilaterally) and + wheezes (occasional ) Cardiovascular Rate/Rhythm: regular rate and regular rhythm Extremities: trace edema Gastrointestinal (Abdomen) normal bowel sounds, soft, nontender, no hepatosplenomegaly Musculoskeletal Extremities: extremities normal to inspection; no cyanosis and no clubbing Skin + rash (Bilateral anterior tibia with venous stasis changes and excoriations) Neurologic moves all extremities and awake; no focal motor deficits Psychiatric A+Ox3, euthymic affect Results & Data Vital Signs (Past 12 Hours) Vital Signs Temp Pulse Pulse Resp BP Pulse Ox 06/25/18 15:13 83 16 92 06/25/18 14:20 68 06/25/18 10:57 37 C 88 18 168/90 H 94 06/25/18 10:54 84 18 90 06/25/18 07:52 85 18 83 L 06/25/18 07:35 37.1 C 114 H 22 161/86 H 90 06/25/18 06:20 79 Laboratory Results - last 24 hr 06/25/18 08:33 Sodium 133 L Potassium 4.2 Chloride 96 L Carbon Dioxide 30 Anion Gap 7.0 BUN 30 H Creatinine 1.19 Est Cr Clr Drug Dosing 30.8 Est GFR ( Amer) 50.6 Est GFR (Non-Af Amer) 43.7 BUN/Creatinine Ratio 24.9 H Glucose 169 H Calcium 9.1 Magnesium 2.0
[2018-06-25] MEDS: DOXYCYCLINE HYCLATE 100 MG CAP PO SCH (19:44)
[2018-06-26] MEDS: ALBUT/IPRATROP 3MG/0.5MG NEB 3 ML VIAL NEB SCH ×6 (03:24→23:12)
[2018-06-26] MEDS: methylPREDNISolone 40 MG in SYRINGE 0 ML IV SCH ×3 (03:33→20:05)
[2018-06-26] MEDS: HEPARIN SOD 5,000 UNIT/0.5 ML VIAL SQ SCH ×3 (05:27→21:23)
[2018-06-26 06:50] LABS: Basophils # (auto) 0.01 K/uL (0-0.2); Basophils % (auto) 0.1 %; Hematocrit (blood only) 34.9 % (37-47); Hemoglobin 11.4 g/dL (12.0-16.0); Immature Granulocytes # (auto) 0.03 K/uL (0.00-0.02); Immature Granulocytes % (auto) 0.3 %; Lymphocytes # (auto) 0.48 K/uL (1.2-3.4); Lymphocytes % (auto) 4.1 %; Mean Corpuscular Hgb Conc 32.7 g/dL (32-36); Mean Corpuscular Volume 89.7 fL (80-100); Mean Platelet Volume 9.5 fL (7.4-10.4); Monocytes # (auto) 0.41 K/uL (0.11-0.59); Monocytes % (auto) 3.5 %; Neutrophils # (auto) 10.86 K/uL (1.4-6.5); Platelet Count 147 K/uL (130-400); Red Blood Count 3.89 M/uL (4.2-5.4); White Blood Count 11.79 K/uL (4.8-10.8)
[2018-06-26] MEDS: guaiFENesin 600 MG TABCR PO SCH ×2 (07:56→20:06)
[2018-06-26] MEDS: FLUTICASONE HFA 220 MCG INHALER INH SCH ×2 (07:56→20:07)
[2018-06-26] MEDS: TRIAMCINOLONE ACET 0.025% CR 15 GM TUBE EXT SCH ×2 (07:57→20:07)
[2018-06-26] MEDS: DOXYCYCLINE HYCLATE 100 MG CAP PO SCH ×2 (07:57→20:06)
[2018-06-26] MEDS: PANTOprazole 40 MG TAB PO SCH ×2 (07:57→20:06)
[2018-06-26] MEDS: FUROSEMIDE 20 MG TAB PO SCH (07:57)
[2018-06-26 10:04] LABS: BUN Creatinine Ratio 34.2 (10-20); Calcium 8.5 mg/dl (8.5-10.1); Creatinine Clr Calc Pharmacy 31.3 ml/min; Est GFR (African American) 51.7; Est GFR (Non-African American) 44.6; Magnesium 2.1 mg/dl (1.8-2.4); Phosphorus 3.7 mg/dl (2.5-4.9)
--- NOTE | 2018-06-26 11:31 | Progress Note ---
DATE: 06/26/2018 PULMONARY PROGRESS NOTE TIME: 10:15 a.m. SUBJECTIVE: The patient is feeling somewhat better today. She is not as short of breath. She still has not expectorated any phlegm. Yesterday, we had ordered a vibration vest. She has not received that yet. She is complaining of restless legs today. She states she gets it every once in a while. OBJECTIVE: GENERAL: The patient clearly looked to be breathing somewhat easier today. She was in no distress at rest. VITAL SIGNS: Temperature 36.6. She did have a slight fever yesterday of 37.8, which was in the late afternoon. Cardiac rate 98 per minute. Rhythm regular. Blood pressure 107/64. Her blood pressure is down today compared with yesterday. Respiratory rate 22 per minute. LUNGS: The breath sounds were diminished. Mild rhonchi heard today. Saturation 90% on 3 liters. EXTREMITIES: Showed no cyanosis or clubbing. No edema noted. IMPRESSION: 1. Acute on chronic respiratory failure with hypoxia. 2. Chronic obstructive pulmonary disease exacerbation. COMMENTS AND RECOMMENDATIONS: Would continue as present. The patient is a bit better today. I have spoken with nursing and have encouraged that they get her walking a bit in the hallway with assistance. This would be for overall strengthening purposes.
--- NOTE | 2018-06-26 12:12 | Cardiology Consultation ---
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 I was unable to review any recordings of the arrhythmia which occurred during her last admission. She has not had any arrhythmia during this admission with the exception of some sinus tachycardia. I do not think we can no with the mechanism of her arrhythmia happens to be without formal testing, but the response to adenosine would suggest a reentrant phenomenon. There are some forms ventricular tachycardia which are responsive to adenosine as well. She did not appear to be symptomatic. She has preserved LV systolic function. Do not believe there is any role for prophylactic therapy at this time. I do not believe she requires any additional investigation in the absence of recurrent episodes or new symptoms. (2) Substernal chest pain: I do not believe this was cardiac in nature. The symptoms were atypical. Biomarkers are normal. I would not pursue any additional evaluation in the absence of recurrent symptoms or more objective evidence of cardiac ischemia. (3) Shortness of breath: This seems to be related to her primary pulmonary disease. She does not have evidence of decompensated heart failure either diastolic or systolic. Her x-ray did not suggest pulmonary edema. Her N terminal proBNP was in the normal range at the time of admission. She has been placed on a daily diuretic perhaps for lower extremity edema. History of Present Illness Reason for Consultation: History of tachycardia Requesting Physician: Betsy Attending Physician: Will Meyer MD, PhD, [facility] History of Present Illness Patient is a 70-year-old woman without a known history of coronary disease who was admitted not any medical center with a COPD exacerbation. Patient states that she became progressively more short of breath at home to the point where she had difficulty breathing at all. 911 was contacted and the patient was transported about any Medical Center with an acute and severe COPD exacerbation. Patient stated that at the time of her exacerbation she did have a fairly focal discomfort around the xiphoid process. This did not radiate and was not pleuritic in nature. She was given 2 nitroglycerin in the emergency department without significant relief of this discomfort. Eventually resolved on its own and has not recurred. Since her hospitalization her breathing difficulty has waxed and waned in severity. Today she feels slightly better but not back to baseline. She has a cough that is nonproductive. She denied fevers or chills at home. She has not been aware of any palpitations but did notice that her heart rate was high at the time of her initial presentation. Patient has oxygen-dependent COPD. During a prior hospitalization she did have a wide complex arrhythmia that by report was treated with adenosine. This was presumed to be AVNRT. The patient was unaware of any palpitations or other symptoms at that time. She cannot recall being given an injection or have any symptoms associated with the injection. She is currently living with her daughter. She is a sedentary individual who walks on a single story home. She can generally walk a fair distance when she is feeling well but often times is limited by dyspnea and fatigue. She has no symptoms of chest pain at home. She has not had dizziness or lightheadedness. She cannot recall suffering an episode of syncope. Allergies Allergy/AdvReac Type Severity Reaction Status Date / Time bacitracin Allergy Mild UNSURE Verified 06/22/18 03:07 neomycin Allergy Mild UNSURE Verified 06/22/18 03:07 polymyxin B Allergy Mild UNSURE Verified 06/22/18 03:07 copper Allergy Unknown METAL? Verified 06/22/18 03:07 nickel Allergy Unknown METAL? Verified 06/22/18 03:07 silver Allergy Unknown METAL? Verified 06/22/18 03:07 strawberry Allergy Unknown . Verified 06/22/18 03:07 Home Medications Home Medications Medication Instructions Recorded Confirmed Type polwnwudyip-ecttlalao-xfszubax 1 inh INHALATION DAILY 06/22/18 06/22/18 History [Trelegy Ellipta] ipratropium-albuterol 3 ml INHALATION Q4 PRN 06/22/18 06/22/18 History pantoprazole [Protonix] 40 mg PO BID 06/22/18 06/22/18 History Patient History Medical History Required emergent intubation Perforated ulcer COPD (chronic obstructive pulmonary disease) GI bleed No pertinent family history (Inactive) Surgical History H/O tubal ligation S/P cataract surgery Bilateral S/P IVC filter Family History Other Family history non-contributory Social History Preferred Language: Telugu Communication Ability: Effective Visual Impairment: Limited Hearing Ability: Normal Order Entry Representative Required: No Beliefs That Will Affect Care: None Current Living Situation: Family Other Information That Helps Us Care for You: No Feels Safe at Home: Yes Safety Concerns: Feels Safe At This Time Smoking Status: Never smoker Tobacco Type: cigarettes Second Hand Exposure: No Hx Alcohol Use: Yes Alcohol type: beer Hx Substance Use: No Review of Systems Review of Systems: All systems reviewed & are unremarkable except as noted in HPI & below She does have an element of lower extremity edema which waxes and wanes in severity. She states that her legs are much better currently than they have been in the past. She reports of normal oral intake. No gastrointestinal complaints. Physical Exam Physical Exam: She is alert and oriented x3. Mood affect appear normal. She answered all questions appropriately. HEENT: Sclerae are anicteric. Pupils are equal and reactive to light and accommodation. Extraocular movements were intact. Neuro: Cranial nerves intact Neck: Examination of the submandibular region did not reveal any significant lymphadenopathy. Carotids are palpable bilaterally and free of bruits on auscultation. There was no evidence of jugular venous distention. The thyroid was not enlarged. Lungs: Coarse upper airway sounds and reduced pulmonary excursion overall. She has normal respiratory effort without use of accessory muscles. There is normal pulmonary excursion. Cardiac: The rhythm was regular. S1 and S2 were normal. There are no murmurs on examination. The PMI was not markedly displaced on palpation. Abdomen: The abdomen was soft and nontender. Extremities: Patient has bilateral radial pulses that are equal in intensity. There is no evidence cyanosis or clubbing. Mild lower extremity edema. Skin: There are no rashes noted on examination today. Results & Data Vital Signs (Past 12 Hours) Vital Signs Temp Pulse Pulse Pulse Resp BP BP 06/26/18 11:47 36.6 C 91 H 22 107/67 06/26/18 11:05 83 18 06/26/18 08:10 75 06/26/18 07:34 36.6 C 97 H 22 107/64 06/26/18 07:01 82 20 06/26/18 03:31 36.3 C L 82 20 114/72 06/26/18 03:24 71 16 Pulse Ox Pulse Ox 06/26/18 11:47 92 06/26/18 11:05 92 06/26/18 08:10 90 06/26/18 07:34 90 06/26/18 07:01 93 06/26/18 03:31 100 06/26/18 03:24 97 Laboratory Results Abnormal Lab Results 06/26/18 06/26/18 06:29 06:29 WBC 11.79 H RBC 3.89 L Hgb 11.4 L Hct 34.9 L MCV 89.7 MCH 29.3 MCHC 32.7 RDW Std Deviation 46.0 RDW Coeff of Tio 14.0 Plt Count 147 MPV 9.5 Immature Gran % (Auto) 0.3 Neut % (Auto) 92.0 Lymph % (Auto) 4.1 [place] % (Auto) 3.5 Eos % (Auto) 0.0 Baso % (Auto) 0.1 Immature Gran # (Auto) 0.03 H Neut # (Auto) 10.86 H Lymph # (Auto) 0.48 L [place] # (Auto) 0.41 Eos # (Auto) 0.00 Baso # (Auto) 0.01 Sodium 132 L Potassium 4.0 Chloride 94 L Carbon Dioxide 35 H Anion Gap 3.0 BUN 40 H Creatinine 1.17 Est Cr Clr Drug Dosing 31.3 Est GFR ( Amer) 51.7 Est GFR (Non-Af Amer) 44.6 BUN/Creatinine Ratio 34.2 H Glucose 130 H Calcium 8.5 Phosphorus 3.7 Magnesium 2.1 Diagnostic Findings Chest x-ray obtained at the time admission did not reveal any acute cardiopulmonary process. Chronic emphysematous changes Echocardiogram performed during this admission revealed preserved LV systolic function with stage I diastolic dysfunction. Elevated pulmonary pressures. ECG Additional Comments: Sinus rhythm with occasional sinus tachycardia on telemetry
--- NOTE | 2018-06-26 16:08 | Hospitalist Progress Note ---
Date of Service June 26, 2018 Assessment & Plan (1) Acute and chronic respiratory failure: Acute and chronic hypoxic respiratory failure secondary to COPD exacerbation: Slowly improving history of DVT and PE, has IVC filter in place. Echocardiogram with elevated right-sided pressures consistent with pulmonary hypertension Appreciated pulmonology consultation, started doxy po, day 2 out of 7 cont IV steroids, need to taper down slowly because patient is chest that was watertight, nebulizers, and initially on BiPAP Subjective upon discharge continue supplemental oxygen at 2-3 L nasal cannula Continue to treat COPD exacerbation as below (2) COPD exacerbation: As above. Possible only minimal improving but not back to her baseline -Continue nebs, steroids IV for now and can convert to p.o. prednisone tomorrow -Continue supplemental O2 -Pulmonology recently started her on Trelegy which she can continue upon discharge -Continue Mucinex, (3) Substernal chest pain: Transient episode of substernal chest discomfort, was musculoskeletal and secondary to severe respiratory distress on arrival (4) Hypertension: Blood pressures are well controlled -Not on medication for this at home (5) Pulmonary hypertension: Echocardiogram here with elevated right-sided pressures consistent with pulmonary hypertension Likely secondary to her severe COPD and history of PE LE edema improved with starting lasix continue Lasix 20 mg daily given lower extremity edema Continue supplemental oxygen Patient daughter working his hospital specifically rest cardiology to input of pulmonary hypertension, discussed with invisible braces orthodontist e will discuss with patient's daughter (6) History of peptic ulcer disease: With history of perforated peptic ulcers with hemorrhage requiring emergent surgical repair in 11/2017 Was thought to be secondary to heavy ibuprofen use at that time Followed up with Roder[facility] TANNER as an outpatient Remains on Protonix 40 mg p.o. twice daily Avoid NSAIDs, aspirin use Caution with prednisone and IV steroids in the setting of COPD exacerbation (7) History of pulmonary embolism: Had DVT and PE in 11/2017 in the setting of critical illness with perforated gastric ulcers and ICU stay Had IVC filter placed at that time due to ongoing GI bleeding No current issues (8) Venous stasis dermatitis: Treat with triamcinolone cream (9) AVNRT (AV emma re-entry tachycardia): Has a history of wide-complex tachycardia thought to be AV emma reentry tachycardia on last admission in the 140s that caused her to become hypotensive and required adenosine telemetry, heart rate is much better is in normal range, (10) DVT prophylaxis: Heparin SQ cont on telemetry, continued treatment for severe COPD exacerbation Possible need to be in the hospital 2 to 3 days more Subjective Out of bed to chair, difficulty breathing is better, currently nasal cannula oxygen is on 3 L, denies chest pain palpitation, has moist dry cough, however difficult to cough up, has been on Mucinex does not help, Review of Systems Review of Systems: All systems reviewed & are unremarkable except as noted in HPI & below Physical Exam Physical Exam: Constitutional: neg acute distress RR is better, no more respiratory distress, + thin and frail Eyes: PERRL, conjunctivae normal, anicteric sclerae ENMT: external ear and nose normal, oropharynx normal Neck: trachea midline, no thyromegaly Respiratory: Decreased breathing sound, occasional wheezing and fine crackles in the lung base Cardiovascular: Rate/Rhythm: regular rate and regular rhythm Extremities: trace edema Gastrointestinal:normal bowel sounds, soft, nontender, no hepatosplenomegaly Musculoskeletal Extremities: extremities normal to inspection; no cyanosis and no clubbing Neurologic: moves all extremities and awake; no focal motor deficits Psychiatric: A+Ox3, euthymic affect Results & Data Vital Signs (Past 12 Hours) Vital Signs Temp Pulse Pulse Pulse Resp BP BP 06/26/18 15:23 72 16 06/26/18 15:03 36.6 C 76 20 116/63 06/26/18 11:47 36.6 C 91 H 22 107/67 06/26/18 11:05 83 18 06/26/18 08:10 75 06/26/18 07:34 36.6 C 97 H 22 107/64 06/26/18 07:01 82 20 Pulse Ox Pulse Ox 06/26/18 15:23 92 06/26/18 15:03 92 06/26/18 11:47 92 06/26/18 11:05 92 06/26/18 08:10 90 06/26/18 07:34 90 06/26/18 07:01 93 Laboratory Results - last 24 hr 06/26/18 06/26/18 06:29 06:29 WBC 11.79 H RBC 3.89 L Hgb 11.4 L Hct 34.9 L MCV 89.7 MCH 29.3 MCHC 32.7 RDW Std Deviation 46.0 RDW Coeff of Tio 14.0 Plt Count 147 MPV 9.5 Immature Gran % (Auto) 0.3 Neut % (Auto) 92.0 Lymph % (Auto) 4.1 [place] % (Auto) 3.5 Eos % (Auto) 0.0 Baso % (Auto) 0.1 Immature Gran # (Auto) 0.03 H Neut # (Auto) 10.86 H Lymph # (Auto) 0.48 L [place] # (Auto) 0.41 Eos # (Auto) 0.00 Baso # (Auto) 0.01 Sodium 132 L Potassium 4.0 Chloride 94 L Carbon Dioxide 35 H Anion Gap 3.0 BUN 40 H Creatinine 1.17 Est Cr Clr Drug Dosing 31.3 Est GFR ( Amer) 51.7 Est GFR (Non-Af Amer) 44.6 BUN/Creatinine Ratio 34.2 H Glucose 130 H Calcium 8.5 Phosphorus 3.7 Magnesium 2.1
[2018-06-27] MEDS: ALBUT/IPRATROP 3MG/0.5MG NEB 3 ML VIAL NEB SCH ×6 (03:10→23:09)
[2018-06-27] MEDS: methylPREDNISolone 40 MG in SYRINGE 0 ML IV SCH (03:48)
[2018-06-27] MEDS: HEPARIN SOD 5,000 UNIT/0.5 ML VIAL SQ SCH ×3 (06:03→21:52)
[2018-06-27] MEDS: FLUTICASONE HFA 220 MCG INHALER INH SCH ×2 (08:07→21:51)
[2018-06-27] MEDS: DOXYCYCLINE HYCLATE 100 MG CAP PO SCH ×2 (08:08→21:52)
[2018-06-27] MEDS: guaiFENesin 600 MG TABCR PO SCH ×2 (08:08→21:52)
[2018-06-27] MEDS: FUROSEMIDE 20 MG TAB PO SCH (08:08)
[2018-06-27] MEDS: PANTOprazole 40 MG TAB PO SCH ×2 (08:08→21:52)
[2018-06-27] MEDS: TRIAMCINOLONE ACET 0.025% CR 15 GM TUBE EXT SCH ×2 (08:08→21:51)
--- NOTE | 2018-06-27 09:02 | Progress Note ---
DATE: 06/27/2018 PULMONARY PROGRESS NOTE TIME: 7:30 a.m. SUBJECTIVE: The patient feels a little better today. She is slightly less short of breath. The staff did walk her yesterday in the hallway, but it was a very short distance, she states. She became quite winded. She is willing to try and do this again. She has had the vibration vest on twice now. She tolerated it well. She has not coughed up any phlegm, but she feels it is more loose. OBJECTIVE: VITAL SIGNS: Temperature is 36.5. GENERAL: The patient did not appear in any distress. She was sitting in a chair. CARDIAC: Heart rate was 96 per minute. There were occasional extrasystoles heard. Blood pressure 109/67. Her blood pressure is much better than it was 2 days ago. LUNGS: Lung tabor reveal rales at the left lung base. Breath sounds are decreased diffusely elsewhere. There was no accessory muscle use. Respiratory rate 20. Saturation 93% on 2 liters. EXTREMITIES: Showed no cyanosis, clubbing or edema. LABORATORIES: She has not had any lab work today. IMPRESSION: 1. Bwazg-or-[id number] respiratory failure with hypoxia. 2. Chronic obstructive pulmonary disease exacerbation. COMMENTS: The patient is slightly improved compared with 2 days ago. We will taper back her methylprednisolone. It appears she will need probably 2 more days of hospital stay unless she improves dramatically. I think she is improved since the doxycycline was started. After the patient is discharged, she should be put in for a followup with me in 1-2 weeks. I do see her in the office. I will be off pulmonary service after today. We will sign off for now, but feel free to call the pulmonary team for a followup evaluation if need be.
[2018-06-27] MEDS: methylPREDNISolone 20 MG in SYRINGE 0 ML IV SCH ×2 (12:07→21:52)
--- NOTE | 2018-06-27 16:08 | Hospitalist Progress Note ---
Date of Service June 27, 2018 Assessment & Plan (1) COPD exacerbation: COPD exacerbation without known inciting event. - Continue nebs, steroids. - Continue doxy po - Appreciate pulmonology consultation - On vibration vest as well - Supplemental O2 as needed (2) Acute and chronic respiratory failure: Acute and chronic hypoxic respiratory failure secondary to COPD exacerbation. - As of 06/27, slowly improving. - Management as above (3) Hypertension: Blood pressures are well controlled in the last 24 hours. - Not on medication for this at home (4) Pulmonary hypertension: Echocardiogram here with elevated right-sided pressures consistent with pulmonary hypertension. Likely secondary to her severe COPD and history of PE. - Continue Lasix 20 mg daily given lower extremity edema - Continue supplemental oxygen (5) History of peptic ulcer disease: With history of perforated peptic ulcers with hemorrhage requiring emergent surgical repair in 11/2017. Was thought to be secondary to heavy ibuprofen use at that time. - Remains on Protonix 40 mg p.o. twice daily - Avoid NSAIDs, aspirin use (6) History of pulmonary embolism: Had DVT and PE in 11/2017 in the setting of critical illness with perforated gastric ulcers and ICU stay. Had IVC filter placed at that time due to ongoing GI bleeding. - No current issues (7) Venous stasis dermatitis: Treat with triamcinolone cream. (8) AVNRT (AV emma re-entry tachycardia): Has a history of wide-complex tachycardia thought to be AV emma reentry tachycardia on last admission in the 140s that caused her to become hypotensive and required adenosine. - On telemetry, heart rate is much better is in normal range. - Monitor (9) DVT prophylaxis: Heparin 5000 units SQ Q12h Subjective Feeling well today. No major concerns. Overall, breathing better. Reports no fevers/chills, chest pain, shortness of breath, abdominal pain, nausea, or vomiting. Review of Systems Review of Systems: All systems reviewed & are unremarkable except as noted in HPI & below Physical Exam Constitutional: + thin; not diaphoretic Eyes: PERRL, conjunctivae normal, anicteric sclerae ENMT: external ear and nose normal, oropharynx normal Neck: trachea midline, no thyromegaly Respiratory: Auscultation: + rhonchi (Scattered bilaterally) Cardiovascular: Rate/Rhythm: regular rate and regular rhythm Gastrointestinal (Abdomen): normal bowel sounds, soft, nontender, no hepatosplenomegaly Musculoskeletal: Extremities: extremities normal to inspection; no cyanosis and no clubbing Neurologic: moves all extremities and awake; no focal motor deficits Psychiatric: A+Ox3, euthymic affect Results & Data Vital Signs (Past 12 Hours) Vital Signs Temp Pulse Pulse Resp BP Pulse Ox 06/27/18 15:00 36.5 C 93 H 20 120/66 93 06/27/18 14:39 79 18 94 06/27/18 11:46 36.6 C 78 22 123/60 92 06/27/18 11:06 77 18 95 06/27/18 08:10 62 06/27/18 07:36 36.5 C 78 20 109/67 93 06/27/18 07:10 82 18 91
[2018-06-28] MEDS: ALBUT/IPRATROP 3MG/0.5MG NEB 3 ML VIAL NEB SCH ×3 (03:09→10:57)
[2018-06-28 07:29] LABS: Hematocrit (blood only) 33.9 % (37-47); Hemoglobin 11.3 g/dL (12.0-16.0); Mean Corpuscular Hgb Conc 33.3 g/dL (32-36); Mean Corpuscular Volume 88.3 fL (80-100); Mean Platelet Volume 8.9 fL (7.4-10.4); Platelet Count 170 K/uL (130-400); RDW Coefficient of Variation 13.6 % (11.5-14.5); RDW Standard Deviation 44.3 fL (36.4-46.3); Red Blood Count 3.84 M/uL (4.2-5.4); White Blood Count 6.23 K/uL (4.8-10.8)
[2018-06-28] MEDS: DOXYCYCLINE HYCLATE 100 MG CAP PO SCH (07:46)
[2018-06-28] MEDS: PANTOprazole 40 MG TAB PO SCH (07:47)
[2018-06-28] MEDS: TRIAMCINOLONE ACET 0.025% CR 15 GM TUBE EXT SCH (07:47)
[2018-06-28] MEDS: guaiFENesin 600 MG TABCR PO SCH (07:47)
[2018-06-28] MEDS: FLUTICASONE HFA 220 MCG INHALER INH SCH (07:48)
[2018-06-28 08:11] LABS: BUN Creatinine Ratio 40.2 (10-20); Calcium 8.7 mg/dl (8.5-10.1); Creatinine Clr Calc Pharmacy 24.8 ml/min; Est GFR (African American) 38.9; Est GFR (Non-African American) 33.6
[2018-06-28] MEDS ORDERED: predniSONE 20 MG TAB PO SCH (09:00)
[2018-06-28 09:05] LABS: Potassium 4.4 mmol/L (3.5-5.1)
[2018-06-28 09:08] LABS: Magnesium 2.2 mg/dl (1.8-2.4)
[2018-06-28] MEDS: HEPARIN SOD 5,000 UNIT/0.5 ML VIAL SQ SCH (11:21)
--- NOTE | 2018-06-28 13:32 | Discharge Summary ---
Date of Service June 28, 2018 Admission HPI Per Admitting Provider Ping Fink is a pleasant 78yo female with history of O2 dependent COPD presenting with shortness of breath. She began feeling short of breath yesterday after walking to the bathroom. She noted that she was having a d ifficult time catching her breath. She put her pulse-ox machine on and her sat was 97% and her HR was 131 at that time. Her symptoms progressed through today - worsening SOB and GONZALEZ as well as chest tightness, dry cough, wheezing. She has also been sneezing a lot. Denies fevers/chills/worsening edema or weight gain. She called EMS this evening for her worsening shortness of breath. She was fo und to be in severe respiratory distress with RR >50, in tripod position. She was administered nebs en route and placed on CPAP. She was experiencing some chest discomfort, heaviness in the epigastric area, "felt like somebody bunched the breast bone" which was relieved with Nitro. No additional complaints at this time. Patient was admitted in May 2018 with similar symptoms thought to be secondary to COPD exacerbation. ER Course: Nitroglycerine Principal Diagnosis COPD exacerbation Discharge Exam Constitutional + thin; not diaphoretic Eyes PERRL, conjunctivae normal, anicteric sclerae ENMT external ear and nose normal, oropharynx normal Neck trachea midline, no thyromegaly Respiratory Auscultation: + rhonchi (Scattered bilaterally) Cardiovascular Rate/Rhythm: regular rate and regular rhythm Gastrointestinal (Abdomen) normal bowel sounds, soft, nontender, no hepatosplenomegaly Musculoskeletal Extremities: extremities normal to inspection; no cyanosis and no clubbing Neurologic moves all extremities and awake; no focal motor deficits Psychiatric A+Ox3, euthymic affect Discharge Data Allergies Allergy/AdvReac Type Severity Reaction Status Date / Time bacitracin Allergy Mild UNSURE Verified 06/22/18 03:07 neomycin Allergy Mild UNSURE Verified 06/22/18 03:07 polymyxin B Allergy Mild UNSURE Verified 06/22/18 03:07 copper Allergy Unknown METAL? Verified 06/22/18 03:07 nickel Allergy Unknown METAL? Verified 06/22/18 03:07 silver Allergy Unknown METAL? Verified 06/22/18 03:07 strawberry Allergy Unknown . Verified 06/22/18 03:07 Consultations 06/22/18 02:48 ED Decision to Admit Stat 06/22/18 20:41 Consult Pulmonology Routine 06/25/18 18:09 Consult Cardiology Routine Hospital Course (1) COPD exacerbation: COPD exacerbation without known inciting event. - Was on IV abx & steroids while inpatient. - Was on vibration vest while here. - Discharged on doxycycline for 3 more days and a a steroid taper x [address] Sellers in 1-2 weeks. (2) Acute and chronic respiratory failure: Acute and chronic hypoxic respiratory failure secondary to COPD exacerbation. - Management as above (3) Hypertension: Blood pressures were well controlled during admission. - Not on medication for this at home (4) Pulmonary hypertension: Echocardiogram here with elevated right-sided pressures consistent with pulmonary hypertension. Likely secondary to her severe COPD and history of PE. - Was on Lasix 20 mg PO daily for a few days while inpatient; however, cardiology did not feel she had any heart failure, so this was stopped. - Continue supplemental oxygen (5) History of peptic ulcer disease: With history of perforated peptic ulcers with hemorrhage requiring emergent surgical repair in 11/2017. Was thought to be secondary to heavy ibuprofen use at that time. - Remains on Protonix 40 mg p.o. twice daily - Avoid NSAIDs, aspirin use (6) History of pulmonary embolism: Had DVT and PE in 11/2017 in the setting of critical illness with perforated gastric ulcers and ICU stay. Had IVC filter placed at that time due to ongoing GI bleeding. - No current issues (7) Venous stasis dermatitis: Treated with triamcinolone cream. (8) AVNRT (AV emma re-entry tachycardia): Has a history of wide-complex tachycardia thought to be AV emma reentry tachycardia on last admission in the 140s that caused her to become hypotensive and required adenosine. - On telemetry, heart rate is much better is in normal range. - No inpatient needs. (9) DVT prophylaxis: Heparin 5000 units SQ Q12h Total Time Total Time Spent Total Time Spent (In Minutes): 35 Total Time Includes: Examination of the Patient, Discharge Planning and Medicati on Reconciliation Discharge Plan Discharge Items Patient Disposition: Home - Self-Care Reason For Visit: SOB Discharge Diagnosis: COPD exacerbation Condition: Good Discharge Goals: Decrease discomfort, Improve disease control and Improve function Activity: Resume your previous activity Non-emergency contact: Primary Care Provider and Senior Research Analyst Call non-emergency contact if: your symptoms worsen, your pain is not controlled and your temperature is above 100.5 Follow-up/Referrals: Kevin Capone III, MD [Primary Care Provider] - 07/05/18 1:30 pm (Please, follow up at Dr. Capone's office with his associate, Mahnaz Lagunas PA-C, on ThursdayJuly 05 at 1:30 pm. *If you need to change this appointment, call the office at [phone].) Cyrus Sellers, [Physician] - 06/30/18 2:15 pm (Please see Dr. Sellers in the office in 1-2 weeks.) Diet: Regular Addtl Provider Instructions: Ms. Fink, You were admitted to the hospital with shortness of breath. This was caused by an exacerbation of your COPD. We treated you with antibiotics, steroids, and breathing treatments, and by the time you were discharged, your breathing was back to normal. Please continue taking the doxycycline for 3 more days, then you are done with your antibiotic. The first doxycycline pill should be taken tonight before bed. Please take your steroids taper as prescribed. Take 40 mg (4 pills) x 3 days starting tomorrow, then 30 mg (3 pills) x 3 days, then 20 mg x 3 days, then 10 mg x 3 days. You will see Dr. Sellers in 1-2 weeks in his office. Prescriptions: New doxycycline hyclate 100 mg tablet 100 mg PO BID 3 Days Qty: 6 RF: 0 prednisone 10 mg tablet 40 mg PO DAILY Qty: 30 RF: 0 Continued Trelegy Ellipta 100-62.5-25 mcg Blister With Device 1 inh INHALATION DAILY RF: 0 ipratropium-albuterol 0.5 mg-3 mg(2.5 mg base)/3 mL solution for nebulization 3 ml Inhalation Q4 PRN (Reason: Shortness Of Breath Or Wheezing) RF: 0 pantoprazole [Protonix] 40 mg Tablet,Delayed Release (Dr/Ec) 40 mg PO BID RF: 0 Stand-Alone Forms: [facility] Discharge Orders: Discharge Order (Routine); Ordered 06/28/18 Ordered By: Evert Lopez Admission Data Admit Date/Time: 06/22/18 04:32 Attending Provider: Evert Lopez Admit Provider: Romina Brandt Primary Care Provider: Kevin Capone III Other Providers: Romina Brandt ; Cyrus Sellers ; Dionisio Mcneil ; Evert Lopez Service: Telemetry
== END 2018-06-28 15:07 | disposition home or self-care (01) | DRG 189 ==
LOC: ED 00:56 → SUATTDRO 04:32 → 2S 04:32
DX: Z98.42 Cataract extraction status, left eye; J96.21 Acute and chronic respiratory failure with hypoxia; Z98.51 Tubal ligation status; J44.1 Chronic obstructive pulmonary disease with (acute) exacerbation; I10 Essential (primary) hypertension; Z98.41 Cataract extraction status, right eye; Z86.711 Personal history of pulmonary embolism; Z86.718 Personal history of other venous thrombosis and embolism

== ENCOUNTER 2018-11-24 08:57 | Inpatient (IN) ==
[2018-11-24] MEDS ORDERED: dilTIAZem HCl 5 MG/ML 5 ML VIAL IV STA (09:17)
--- NOTE | 2018-11-24 09:21 | Emergency Department Note ---
Entered by Lex Barbour acting as a scribe for Jose Carlos Andersen DO History of Present Illness General Chief complaint: Arrhythmia/Palpitations Stated complaint: AFIB Time Seen by Provider: 11/24/18 09:12 Source: family History of Present Illness Onset (ago): month(s) 1 Location: chest Pain Consistency: + other (episodes ) Quality: + other (palpitations ) Associated symptoms: + shortness of breath and + other (+high heart rate ) The patient is a 78 year old female, with past medical history of PE, hypertension, ANETA, and COPD, who presents to the Emergency Room with complaints of episodes of palpitations over the past month, per the patient's family member. The patient's family member states the patient has experienced shortness of breath over the same duration. The family member states that an ECG at a routine appointment with Dr. Sellers showed A Fib prior to arrival, and the patient was referred to the ED. The family member also notes the patient's resting heart rate is typically high, and she states the patient's PCP is Dr. Capone. Home Medications Home Medications Medication Instructions Recorded Confirmed Type Trelegy Ellipta 1 inh INHALATION QAM 06/22/18 11/24/18 History ipratropium-albuterol 3 ml INHALATION Q4 PRN 06/22/18 11/24/18 History pantoprazole 40 mg tablet,delayed 40 mg PO BID #60 tab 10/12/18 11/24/18 Rx release Oxygen Home #1 ea 11/12/18 11/24/18 History furosemide 20 mg tablet 20 mg PO BID PRN #20 tab 11/12/18 11/24/18 History Allergies Allergy/AdvReac Type Severity Reaction Status Date / Time bacitracin Allergy Mild UNSURE Verified 11/24/18 08:02 neomycin Allergy Mild UNSURE Verified 11/24/18 08:02 polymyxin B Allergy Mild UNSURE Verified 11/24/18 08:02 copper Allergy Unknown METAL? Verified 11/24/18 08:02 nickel Allergy Unknown METAL? Verified 11/24/18 08:02 silver Allergy Unknown METAL? Verified 11/24/18 08:02 strawberry Allergy Unknown . Verified 11/24/18 08:02 Past Med/Surg History Medical History Required emergent intubation Tachyarrhythmia No pertinent family history (Inactive) Surgical History H/O tubal ligation S/P cataract surgery Bilateral S/P IVC filter Family History Other Family history non-contributory Social History Preferred Language: German Communication Ability: Effective Visual Impairment: Limited Hearing Ability: Normal Cardio Clinician Required: No Beliefs That Will Affect Care: None Current Living Situation: Family Current Living Situation Comment: lives with daughter Lia Fink Feels Safe at Home: Yes Smoking Status: Former smoker Tobacco Type: cigarettes ; Second Hand Exposure: No ; Hx Alcohol Use: Yes Alcohol type: beer Hx Substance Use: No Review of Systems See HPI for pertinent positives & negatives. and A total of 10 systems reviewed and were otherwise negative Physical Exam Vital Signs Vital Signs - 24 hr 11/24/18 09:09 11/24/18 09:19 11/24/18 09:30 Temperature 36.7 C Temperature Source Oral Sepsis Recent Fever Within 48 Hours No Sepsis Action Taken by Nursing No Action Required Pulse Rate 142 H 144 H 144 H Pulse Rate [Apical] Pulse Rate from SpO2 Sensor Pulse Rhythm [Apical] Respiratory Rate 26 H 22 24 Respiratory Effort / Characteristics Nasal Flaring Pursed Lip Respiratory Depth Shallow Respiratory Pattern Blood Pressure Blood Pressure [Right Arm] Blood Pressure Mean Blood Pressure Mean [Right Arm] Pulse Oximetry 91 Oxygen Delivery Method Nasal Cannula Nasal Cannula Oxygen Flow Rate 3 3 11/24/18 09:44 11/24/18 10:00 11/24/18 10:01 Temperature Temperature Source Sepsis Recent Fever Within 48 Hours Sepsis Action Taken by Nursing Pulse Rate 144 H 142 H 141 H Pulse Rate [Apical] 142 H Pulse Rate from SpO2 Sensor 141 H 141 H 142 H Pulse Rhythm [Apical] Irregular Respiratory Rate 23 19 16 Respiratory Effort / Characteristics Non-Labored Spontaneous Respiratory Depth Normal Respiratory Pattern Regular Blood Pressure 147/103 H 146/98 H Blood Pressure [Right Arm] 146/98 H Blood Pressure Mean 117 114 Blood Pressure Mean [Right Arm] 114 Pulse Oximetry 100 97 99 Oxygen Delivery Method Room Air Oxygen Flow Rate 11/24/18 10:30 11/24/18 10:31 11/24/18 11:00 Temperature Temperature Source Sepsis Recent Fever Within 48 Hours Sepsis Action Taken by Nursing Pulse Rate 142 H 142 H 142 H Pulse Rate [Apical] Pulse Rate from SpO2 Sensor 142 H 142 H 142 H Pulse Rhythm [Apical] Respiratory Rate 18 19 23 Respiratory Effort / Characteristics Respiratory Depth Respiratory Pattern Blood Pressure 146/103 H 136/102 H Blood Pressure [Right Arm] Blood Pressure Mean 117 113 Blood Pressure Mean [Right Arm] Pulse Oximetry 100 99 98 Oxygen Delivery Method Nasal Cannula Oxygen Flow Rate 3 11/24/18 11:01 11/24/18 11:30 11/24/18 11:31 Temperature Temperature Source Sepsis Recent Fever Within 48 Hours Sepsis Action Taken by Nursing Pulse Rate 131 H 132 H 142 H Pulse Rate [Apical] Pulse Rate from SpO2 Sensor 141 H 141 H 142 H Pulse Rhythm [Apical] Respiratory Rate 25 H 20 21 Respiratory Effort / Characteristics Respiratory Depth Respiratory Pattern Blood Pressure 135/97 Blood Pressure [Right Arm] Blood Pressure Mean 109 Blood Pressure Mean [Right Arm] Pulse Oximetry 98 100 100 Oxygen Delivery Method Nasal Cannula Nasal Cannula Nasal Cannula Oxygen Flow Rate 3 3 3 11/24/18 11:42 11/24/18 12:00 11/24/18 12:01 Temperature 36.7 C Temperature Source Oral Sepsis Recent Fever Within 48 Hours Sepsis Action Taken by Nursing Pulse Rate 144 H 121 H Pulse Rate [Apical] 142 H Pulse Rate from SpO2 Sensor 138 H 141 H Pulse Rhythm [Apical] Respiratory Rate 20 22 21 Respiratory Effort / Characteristics Non-Labored Spontaneous Respiratory Depth Normal Respiratory Pattern Regular Blood Pressure 143/99 H Blood Pressure [Right Arm] 146/98 H Blood Pressure Mean 113 Blood Pressure Mean [Right Arm] 114 Pulse Oximetry 97 93 79 L Oxygen Delivery Method Nasal Cannula Oxygen Flow Rate 3 GENERAL: Patient is listless appearing. She is somewhat anxious appearing. EYES: The conjunctivae are clear. The pupils are round and reactive. EARS, NOSE, MOUTH AND THROAT: The nose is without any evidence of any deformity. Mucous membranes are moist tongue is midline NECK: The neck is nontender and supple. RESPIRATORY: Diminished breath sounds are noted throughout. There is expiratory wheezing in all lung tabor. CARDIOVASCULAR: Tachycardic and irregular rhythm was noted. There was no definite murmur noted to auscultation although due to the rate it is difficult to rule out murmur at this time. GASTROINTESTINAL: The abdomen is soft. Bowel sounds are present in all quadrants. Abdomen is nontender MUSCULOSKELETAL/EXTREMITIES: There is no evidence of gross deformity full range of motion is noted in the hips and shoulders SKIN: There is no obvious evidence of any rash. Skin was pale cool and dry. Pedal edema was noted bilaterally. NEUROLOGIC: Patient is oriented to person place and situation. Course 09: Past medical records reviewed. The patient was evaluated in room A9B. A complete history and physical exam was performed. 1150: I reviewed the patient's case with Dr. Amy Brandt[facility]. Dr. Brandt will evaluate the patient for further management. Consultations Consultation #1: I reviewed the patient's case with Dr. Amy Brandt[facility]. Dr. Brandt will evaluate the patient for further management. Time: 11:50 Administered Medications Diltiazem HCl 125 mg/ Dextrose 125 mls @ 15 mls/hr IV .Q8H20M [facility]; Protocol Stop: 12/24/18 11:14 Last Titration: 11/24/18 13:45 Dose: 15 mg/hr, 15 mls/hr Documented by: [id number] Titration: 11/24/18 12:34 Dose: 10 mg/hr, 10 mls/hr Documented by: [id number] Admin: 11/24/18 11:42 Dose: 5 mg/hr, 5 mls/hr Documented by: [id number] Cosigned by: [id number] Furosemide 20 mg/ Syringe 2 mls @ 4 mls/min IV [id number] [facility] Stop: 12/24/18 14:14 Last Admin: 11/24/18 14:36 Dose: 4 mls/min Documented by: [id number] Discontinued Medications Adenosine (Adenosine) 6 mg IV NOW STA Stop: 11/24/18 12:35 Last Admin: 11/24/18 13:04 Dose: Not Given Documented by: [id number] Adenosine (Adenosine) Confirm Administered Dose 6 mg IV .STK-MED ONE Stop: 11/24/18 12:40 Last Admin: 11/24/18 12:49 Dose: 6 mg Documented by: [id number] Adenosine (Adenosine) Confirm Administered Dose 6 mg IV .STK-MED ONE Stop: 11/24/18 12:45 Last Admin: 11/24/18 12:49 Dose: 6 mg Documented by: [id number] Adenosine (Adenosine) 12 mg IV NOW STA Stop: 11/24/18 12:51 Last Admin: 11/24/18 13:04 Dose: Not Given Documented by: [id number] Diltiazem HCl (Cardizem) 10 mg IV NOW STA Stop: 11/24/18 09:18 Last Admin: 11/24/18 09:41 Dose: 10 mg Documented by: [id number] Cosigned by: [id number] Heparin Sodium/Dextrose () 1 ea IV NOW STA; Protocol Stop: 11/24/18 13:43 Last Admin: 11/24/18 14:10 Dose: Not Given Documented by: [id number] Sodium Chloride (Nss) 500 mls @ 999 mls/hr IV .Q31M [facility] Stop: 11/24/18 10:00 Last Infusion: 11/24/18 10:58 Dose: 0 mls/hr Documented by: [id number] Admin: 11/24/18 09:41 Dose: 999 mls/hr Documented by: [id number] Heparin Sodium/Dextrose (Heparin Sodium/Dextrose) 25,000 units in 500 mls @ 0.02 mls/hr IV .Q24H [facility]; Protocol Stop: 12/24/18 13:41 Last Admin: 11/24/18 14:10 Dose: Not Given Documented by: [id number] Medical Decision Making Differential Diagnosis Differential diagnosis: Etiologies such as premature contractions, electrolyte abnormality, cardiac dysrhythmia, thyroid dysfunction, pulmonary embolism, infection, gastrointestinal, as well as others were entertained. Medical Records Attestation: I reviewed the patient's medical records. Home Medications Current Medication List: was personally reviewed by me Laboratory Data Attestation: I reviewed the patient's lab results. Result diagrams: 11/24/18 09:28 11/24/18 09:28 Lab Results 11/24/18 11/24/18 11/24/18 Range/Units 09:28 09:28 09:28 WBC 5.60 (4.8-10.8) K/uL RBC 3.65 L (4.2-5.4) M/uL Hgb 10.6 L (12.0-16.0) g/dL Hct 35.1 L (37-47) % MCV 96.2 (80-100) fL MCH 29.0 (25-34) pg MCHC 30.2 L (32-36) g/dL RDW Std Deviation 47.0 H (36.4-46.3) fL RDW Coeff of Tio 13.4 (11.5-14.5) % Plt Count 169 (130-400) K/uL MPV 9.3 (7.4-10.4) fL Immature Gran % (Auto) 0.2 % Neut % (Auto) 76.0 % Lymph % (Auto) 12.1 % Grimes % (Auto) 9.3 % Eos % (Auto) 2.0 % Baso % (Auto) 0.4 % Immature Gran # (Auto) 0.01 (0.00-0.02) K/uL Neut # (Auto) 4.26 (1.4-6.5) K/uL Lymph # (Auto) 0.68 L (1.2-3.4) K/uL Grimes # (Auto) 0.52 (0.11-0.59) K/uL Eos # (Auto) 0.11 (0-0.5) K/uL Baso # (Auto) 0.02 (0-0.2) K/uL PT 10.6 (9.0-12.0) Seconds INR 1.0 (0.9-1.1) APTT 27.2 (21.0-31.0) Seconds PTT Ratio 1.0 VBG pH (7.36-7.41) VBG pCO2 (38-50) mmHg VBG pO2 mmHg VBG HCO3 mmol/L VBG O2 Saturation % VBG Base Excess mEq/L Barometric Pressure mm/Hg Sodium 135 L (136-145) mmol/L Potassium 4.2 (3.5-5.1) mmol/L Chloride 93 L (98-107) mmol/L Carbon Dioxide 38 H (21-32) mmol/L Anion Gap 3.0 (3-11) BUN 19 H (7-18) mg/dl Creatinine 1.10 (0.6-1.2) mg/dl Est Cr Clr Drug Dosing Not Reportable Est GFR ( Amer) 55.7 Est GFR (Non-Af Amer) 48.1 BUN/Creatinine Ratio 17.2 (10-20) Glucose 102 H (70-99) mg/dl Calcium 9.1 (8.5-10.1) mg/dl Phosphorus (2.5-4.9) mg/dl Magnesium 2.1 (1.8-2.4) mg/dl Total Bilirubin 0.5 (0.2-1) mg/dl AST 12 L (15-37) U/L ALT 12 (12-78) U/L Alkaline Phosphatase 80 (45-117) U/L Troponin I < 0.015 (0-0.045) ng/ml NT-Pro-B Natriuret Pep (0-1800) pg/ml Total Protein 7.1 (6.4-8.2) gm/dl Albumin 3.8 (3.4-5.0) gm/dl Globulin 3.3 (2.5-4.0) gm/dl Albumin/Globulin Ratio 1.2 (0.9-2) TSH 1.480 (0.300-4.500) uIu/ml 11/24/18 11/24/18 Range/Units 09:28 09:28 WBC (4.8-10.8) K/uL RBC (4.2-5.4) M/uL Hgb (12.0-16.0) g/dL Hct (37-47) % MCV (80-100) fL MCH (25-34) pg MCHC (32-36) g/dL RDW Std Deviation (36.4-46.3) fL RDW Coeff of Tio (11.5-14.5) % Plt Count (130-400) K/uL MPV (7.4-10.4) fL Immature Gran % (Auto) % Neut % (Auto) % Lymph % (Auto) % Grimes % (Auto) % Eos % (Auto) % Baso % (Auto) % Immature Gran # (Auto) (0.00-0.02) K/uL Neut # (Auto) (1.4-6.5) K/uL Lymph # (Auto) (1.2-3.4) K/uL Grimes # (Auto) (0.11-0.59) K/uL Eos # (Auto) (0-0.5) K/uL Baso # (Auto) (0-0.2) K/uL PT (9.0-12.0) Seconds INR (0.9-1.1) APTT (21.0-31.0) Seconds PTT Ratio VBG pH 7.33 L (7.36-7.41) VBG pCO2 54 H (38-50) mmHg VBG pO2 29 mmHg VBG HCO3 28 mmol/L VBG O2 Saturation < 60.0 % VBG Base Excess 0.9 mEq/L Barometric Pressure 739.4 mm/Hg Sodium (136-145) mmol/L Potassium (3.5-5.1) mmol/L Chloride (98-107) mmol/L Carbon Dioxide (21-32) mmol/L Anion Gap (3-11) BUN (7-18) mg/dl Creatinine (0.6-1.2) mg/dl Est Cr Clr Drug Dosing Est GFR ( Amer) Est GFR (Non-Af Amer) BUN/Creatinine Ratio (10-20) Glucose (70-99) mg/dl Calcium (8.5-10.1) mg/dl Phosphorus 3.2 (2.5-4.9) mg/dl Magnesium (1.8-2.4) mg/dl Total Bilirubin (0.2-1) mg/dl AST (15-37) U/L ALT (12-78) U/L Alkaline Phosphatase (45-117) U/L Troponin I (0-0.045) ng/ml NT-Pro-B Natriuret Pep 7293 H (0-1800) pg/ml Total Protein (6.4-8.2) gm/dl Albumin (3.4-5.0) gm/dl Globulin (2.5-4.0) gm/dl Albumin/Globulin Ratio (0.9-2) TSH (0.300-4.500) uIu/ml Imaging Data Radiologist's Impression: Radiology results as stated below per my review and the radiologist's interpretation: XR chest 1V portable CLINICAL HISTORY: Palpitations COMPARISON STUDY: 11/05/2018 FINDINGS: The heart is enlarged. There is elevation of interstitium consistent with congestive failure/fluid overload. There are small bilateral pleural effusions. There is no lobar consolidation. Old left-sided rib deformities are evident.[ IMPRESSION: Cardiomegaly and radiographic evidence of congestive failure with small bilateral pleural effusions Electronically signed by: Yusuf Adamson M.D. 11/24/2018 10:06 AM ECG Data Attestation: I personally reviewed and interpreted this ECG as follows: Indication: palpitations Rate (beats per minute): 114 Rhythm: atrial fibrillation Findings: + other (low voltage noted throughout ), + ST depression and + T-wave inversion (lateral); no PVC Comparison ECG Date: from (06/22/18) Change: the following changes noted (changes are new) Blood Pressure Blood Pressure Findings: Elevated blood pressure Blood Pressure Disposition: further management by hospitalist ALICE Lewis The patient is a 78-year-old female who was sent to the emergency department directly from her director digital analytics office for an evaluation of palpitations. The patient is a history of COPD. She was following up for routine evaluation with her director digital analytics and was found to have significant tachycardia. It is unclear when the patient's atrial fibrillation started although it does appear that she has very significant symptomatic atrial fibrillation. Patient was treated with a small fluid bolus as well as IV Cardizem. She was reevaluated multiple times. I discussed the patient's laboratory and radiographic studies with her. I also discussed her case with the on-call [facility] hospitalist group. They have agreed to evaluate the patient in the emergency department for further management disposition. Impression & Plan Atrial fibrillation with RVR, COPD (chronic obstructive pulmonary disease), Heart palpitations Discharge Plan Visit Data *Final* Discharge Date/Time: 11/24/18 13:08 Chief Complaint: Arrhythmia/Palpitations Stated Complaint: AFIB ED Provider: Jose Carlos Andersen Discharge Problem: Atrial fibrillation with RVR, COPD (chronic obstructive pulmonary disease), Heart palpitations Patient Disposition: Admitted As Inpatient Discharge Instructions Interventions: ED Discharge Assessment Last Done: 11/24/18 13:08 Discharge Problem: COPD (chronic obstructive pulmonary disease) Qualifiers: COPD type: unspecified COPD Qualified Code(s): J44.9 - Chronic obstructive pulmonary disease, unspecified The scribe's documentation has been prepared under my direction and personally reviewed by me in its entirety. I confirm that the note above accurately reflects all work, treatment, procedures, and medical decision making performed by me.
[2018-11-24] MEDS ORDERED: SODIUM CHLORIDE 0.9% 500 ML IV SCH (09:30)
[2018-11-24 09:58] LABS: Basophils # (auto) 0.02 K/uL (0-0.2); Basophils % (auto) 0.4 %; Eosinophils # (auto) 0.11 K/uL (0-0.5); Hematocrit (blood only) 35.1 % (37-47); Hemoglobin 10.6 g/dL (12.0-16.0); Immature Granulocytes # (auto) 0.01 K/uL (0.00-0.02); Immature Granulocytes % (auto) 0.2 %; Lymphocytes # (auto) 0.68 K/uL (1.2-3.4); Lymphocytes % (auto) 12.1 %; Mean Corpuscular Hgb Conc 30.2 g/dL (32-36); Mean Corpuscular Volume 96.2 fL (80-100); Mean Platelet Volume 9.3 fL (7.4-10.4); Monocytes # (auto) 0.52 K/uL (0.11-0.59); Monocytes % (auto) 9.3 %; Neutrophils # (auto) 4.26 K/uL (1.4-6.5); Platelet Count 169 K/uL (130-400); RDW Coefficient of Variation 13.4 % (11.5-14.5); Red Blood Count 3.65 M/uL (4.2-5.4)
--- NOTE | 2018-11-24 10:07 | XRay Report ---
XR chest 1V portable CLINICAL HISTORY: Palpitations COMPARISON STUDY: 11/05/2018 FINDINGS: The heart is enlarged. There is elevation of interstitium consistent with congestive failur e/fluid overload. There are small bilateral pleural effusions. There is no lobar consolidation. Old l eft-sided rib deformities are evident.[ IMPRESSION: Cardiomegaly and radiographic evidence of congestive failure with small bilateral pleural effusions Electronically signed by: Yusuf Adamson M.D. 11/24/2018 10:06 AM
[2018-11-24 10:10] LABS: Base Excess VBG 0.9 mEq/L; HCO3 VBG 28 mmol/L; PCO2 VBG 54 mmHg (38-50); PO2 VBG 29 mmHg; pH VBG 7.33 (7.36-7.41)
[2018-11-24 10:14] LABS: Oxygen Saturation VBG < 60.0 %
[2018-11-24 10:16] LABS: Alanine Aminotransferase 12 U/L (12-78); Albumin Level 3.8 gm/dl (3.4-5.0); Aspartate Aminotransferase 12 U/L (15-37); BUN Creatinine Ratio 17.2 (10-20); Blood Urea Nitrogen 19 mg/dl (7-18); Calcium 9.1 mg/dl (8.5-10.1); Carbon Dioxide 38 mmol/L (21-32); Chloride 93 mmol/L (98-107); Est GFR (African American) 55.7; Est GFR (Non-African American) 48.1; Glucose 102 mg/dl (70-99); Magnesium 2.1 mg/dl (1.8-2.4); Potassium 4.2 mmol/L (3.5-5.1); Sodium 135 mmol/L (136-145)
[2018-11-24 10:19] LABS: Partial Thromboplastin Time 27.2 Seconds (21.0-31.0); Prothrombin Time 10.6 Seconds (9.0-12.0)
[2018-11-24 10:27] LABS: Albumin Globulin Ratio 1.2 (0.9-2); Alkaline Phosphatase 80 U/L (45-117); Bilirubin,Total 0.5 mg/dl (0.2-1); Globulin 3.3 gm/dl (2.5-4.0); Total Protein 7.1 gm/dl (6.4-8.2); Troponin I < 0.015 ng/ml (0-0.045)
[2018-11-24] MEDS: dilTIAZem HCL 125 MG in DEXTROSE 5% 100 ML IV SCH ×2 (11:42→19:46)
--- NOTE | 2018-11-24 12:32 | History & Physical Report ---
Date of Service November 24, 2018 Assessment & Plan (1) Atrial fibrillation with RVR: Patient with AF with RVR, rate of 142, no history of prior. Blood pressure stable. Asymptomatic, however, she is showing some clinical and radiographic signs of failure to include weight gain, edema, JVD and pulmonary venous congestion. TSH and Troponin WNL. She has an echocardiogram on 06/23/09 which revealed normal LV function, Grade I diastolic dysfunction, elevated RV systolic pressure at 40-50mmHg and dilated IVC. Rate did not respond to Adenosine 6mg, 12mg administered in ER. Presently on Cardizem gtt. -Admit to PCU -Continue Cardizem gtt -Patient with moderately-high risk for CVA per [id number] therefore would benefit from anticoagulation. However, she has moderate risk for major bleeding by HAS-BLED score based on history of prior major bleeding and age > 65. (2 points - correlates with appx 2/100 patient years), high risk per ATRIA score (anemia, age >75 and prior hemmorhage). Will hold anticoagulation for now as I feel that the risk of a recurrent major bleed outweigh the benefits. -Cardiology consultation - assistance appreciated Present on Admission?: Yes (2) COPD (chronic obstructive pulmonary disease): Patient with severe O2 dependent COPD. Does not appear to be in acute exacerbation at this time. Some labored breathing noted most likely secondary to poorly controlled heart rate with some CHF -Continue home O2, 3L. Goal saturation 88-92% -Continue Ellipta -DuoNeb and Albuterol PRN -Continuous pulse oximetry Present on Admission?: Yes (3) Gastrointestinal bleeding: Patient with history of perforated duodenal ulcer resulting in massive GI bleed, hemorrhagic shock requiring intubation and ICU care in November 2017. Patient has recovered from this and is doing quite well. Denies melena or hematochezia -Continue Protonix 40 mg p.o. twice daily -Holding anticoagulation as above to to increased risk for bleeding Present on Admission?: Yes (4) CHF (congestive heart failure): Patient with grade 1 diastolic dysfunction. Evidence of CHF in setting of A. fib with RVR -Lasix 20 mg IV twice daily -Check daily weights -Monitor intake and output FENdiuresis as above. Monitor electrolytes and replete as needed. Heart healthy diet as tolerated ProphylaxisLovenox 30 mg daily. Continue Protonix 40 mg p.o. twice daily Codefull per discussion with patient Dispositionadmit to PCU Present on Admission?: Yes History of Present Illness Chief Complaint: Tachyarrhythmia, shortness of breath Primary Care Provider: Kevin Capone MD Ping Palmer is a pleasant 78-year-old female with history of severe oxygen dependent COPD (3 L home O2). She was seen by Dr. Sellers this morning in the office for routine follow-up during which she was found to have an irregularly irregular tachycardia at 139 bpm. An EKG was performed which suggested atrial fibrillation with rapid ventricular spots. She was subsequently transferred to [facility] for further work-up and treatment. Patient reports that her heart rate has been sustained at around 144 bpm for the last month. She frequently checks using a home pulse oximeter. She denies chest pain, palpitations, dizziness or presyncope. She reports some mild worsening of her shortness of breath specifically with exertion as well as a 16 pound weight gain since 05 Jul 2018. Patient has not been using her nebulizer at home for the last month secondary to increased heart rate. Her oxygen saturations at home have been between 95% and 98%. She also complains of a runny nose and a dry cough which seem to be baseline. No orthopnea. Patient always sleeps upright. Upon arrival she was found to be tachycardic with heart rate of 142 bpm. Blood pressure mildly elevated. No respiratory distress, adequate oxygenation on her baseline 3 L. EKG from the ER with narrow complex tachycardia at 144 bpm, no obvious P waves, fairly regular. Of note, patient with a prolonged and complicated hospital stay in June 2018 secondary to perforated gastric ulcer requiring ICU care. Patient had an episode of wide-complex tachyarrhythmia during that hospital stay which responded to adenosine. Presumably AVNRT with wide complex abherancy. She was seen by cardiology in consultation in June for atypical CP. Patient additionally denies fevers/chills. Denies headache, visual changes, abdominal pain, nausea, vomiting, diarrhea, constipation, dysuria, hematuria, melena/hematochezia, numbness/weakness/falls. ER course: Adenosine 6 mill grams IV, adenosine 12 mg IV, Cardizem drip, normal saline x500 mL Allergies Allergy/AdvReac Type Severity Reaction Status Date / Time bacitracin Allergy Mild UNSURE Verified 11/24/18 08:02 neomycin Allergy Mild UNSURE Verified 11/24/18 08:02 polymyxin B Allergy Mild UNSURE Verified 11/24/18 08:02 copper Allergy Unknown METAL? Verified 11/24/18 08:02 nickel Allergy Unknown METAL? Verified 11/24/18 08:02 silver Allergy Unknown METAL? Verified 11/24/18 08:02 strawberry Allergy Unknown . Verified 11/24/18 08:02 Home Medications Home Medications Medication Instructions Recorded Confirmed Type Trelegy Ellipta 1 inh INHALATION QAM 06/22/18 11/24/18 History ipratropium-albuterol 3 ml INHALATION Q4 PRN 06/22/18 11/24/18 History pantoprazole 40 mg tablet,delayed 40 mg PO BID #60 tab 10/12/18 11/24/18 Rx release Oxygen Home #1 ea 11/12/18 11/24/18 History furosemide 20 mg tablet 20 mg PO BID PRN #20 tab 11/12/18 11/24/18 History Past Med/Surg History Medical History Required emergent intubation Tachyarrhythmia No pertinent family history (Inactive) Surgical History H/O tubal ligation S/P cataract surgery Bilateral S/P IVC filter Family History Other Family history non-contributory Social History Preferred Language: Kazakh Communication Ability: Effective Visual Impairment: Limited Hearing Ability: Normal 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 Beliefs That Will Affect Care: None Current Living Situation: Family Current Living Situation Comment: lives with Lia gallego Other Information That Helps Us Care for You: No Feels Safe at Home: Yes Safety Concerns: Feels Safe At This Time Smoking Status: Former smoker Tobacco Type: cigarettes ; Do You Dip or Chew Tobacco: No ; Second Hand Exposure: No ; Hx Alcohol Use: Yes Alcohol type: beer Hx Substance Use: No Review of Systems Review of Systems: All systems reviewed & are unremarkable except as noted in HPI & below Physical Exam Physical Exam: General: Thin, frail elderly female resting comfortably, NAD, non-toxic in appearance, AA&O x 4 Skin: warm, dry, intact, no rashes or lesions HEENT: NC/AT, PERRL, EOMI, anicteric sclera, conjunctiva without injection, external ear normal to inspection and nontender, nares patent, moist mucus membranes, upper dentures in place, edentulous on lower jaw, no oropharyngeal lesions, neck supple, trachea midline, no LAD, no thyromegaly, + JVD to the ear lobe noted on the left with the bed approximately 45 degrees Heart: +S1/S2, tachycardic, fairly regular, no m/r/g Lungs: Diminished breath sounds bilaterally, equal air entry bilaterally, coarse rhonchi in the mid lung tabor, faint scattered end expiratory wheezing with prolonged expiratory phase Abd: +BS, soft, NT/ND, no masses/organomegaly/ascites Ext: warm, 2+ pulses in UE/LE bilaterally, no clubbing/cyanosis, 2+ pitting edema to the knees bilaterally Neuro: nonfocal, patient AA&O x 4, speech intact, no facial droop, moving all extremities on command with equal strength 5/5 Results & Data Vital Signs (Past 12 Hours) Vital Signs Temp Pulse Pulse Resp BP BP Pulse Ox 11/24/18 11:42 36.7 C 142 H 20 146/98 H 97 11/24/18 11:31 142 H 21 100 11/24/18 11:30 132 H 20 135/97 100 11/24/18 11:01 131 H 25 H 98 11/24/18 11:00 142 H 23 136/102 H 98 11/24/18 10:31 142 H 19 99 11/24/18 10:30 142 H 18 146/103 H 100 11/24/18 10:01 141 H 16 99 11/24/18 10:00 142 H 142 H 19 146/98 H 146/98 H 97 11/24/18 09:44 144 H 23 147/103 H 100 11/24/18 09:30 144 H 24 11/24/18 09:19 144 H 22 11/24/18 09:09 36.7 C 142 H 26 H 91 Laboratory Results Lab Results 11/24/18 11/24/18 11/24/18 Range/Units 09:28 09:28 09:28 WBC 5.60 (4.8-10.8) K/uL RBC 3.65 L (4.2-5.4) M/uL Hgb 10.6 L (12.0-16.0) g/dL Hct 35.1 L (37-47) % MCV 96.2 (80-100) fL MCH 29.0 (25-34) pg MCHC 30.2 L (32-36) g/dL RDW Std Deviation 47.0 H (36.4-46.3) fL RDW Coeff of Tio 13.4 (11.5-14.5) % Plt Count 169 (130-400) K/uL MPV 9.3 (7.4-10.4) fL Immature Gran % (Auto) 0.2 % Neut % (Auto) 76.0 % Lymph % (Auto) 12.1 % [place] % (Auto) 9.3 % Eos % (Auto) 2.0 % Baso % (Auto) 0.4 % Immature Gran # (Auto) 0.01 (0.00-0.02) K/uL Neut # (Auto) 4.26 (1.4-6.5) K/uL Lymph # (Auto) 0.68 L (1.2-3.4) K/uL [place] # (Auto) 0.52 (0.11-0.59) K/uL Eos # (Auto) 0.11 (0-0.5) K/uL Baso # (Auto) 0.02 (0-0.2) K/uL PT 10.6 (9.0-12.0) Seconds INR 1.0 (0.9-1.1) APTT 27.2 (21.0-31.0) Seconds PTT Ratio 1.0 VBG pH (7.36-7.41) VBG pCO2 (38-50) mmHg VBG pO2 mmHg VBG HCO3 mmol/L VBG O2 Saturation % VBG Base Excess mEq/L Barometric Pressure mm/Hg Sodium 135 L (136-145) mmol/L Potassium 4.2 (3.5-5.1) mmol/L Chloride 93 L (98-107) mmol/L Carbon Dioxide 38 H (21-32) mmol/L Anion Gap 3.0 (3-11) BUN 19 H (7-18) mg/dl Creatinine 1.10 (0.6-1.2) mg/dl Est Cr Clr Drug Dosing Not Reportable Est GFR ( Amer) 55.7 Est GFR (Non-Af Amer) 48.1 BUN/Creatinine Ratio 17.2 (10-20) Glucose 102 H (70-99) mg/dl Calcium 9.1 (8.5-10.1) mg/dl Magnesium 2.1 (1.8-2.4) mg/dl Total Bilirubin 0.5 (0.2-1) mg/dl AST 12 L (15-37) U/L ALT 12 (12-78) U/L Alkaline Phosphatase 80 (45-117) U/L Troponin I < 0.015 (0-0.045) ng/ml Total Protein 7.1 (6.4-8.2) gm/dl Albumin 3.8 (3.4-5.0) gm/dl Globulin 3.3 (2.5-4.0) gm/dl Albumin/Globulin Ratio 1.2 (0.9-2) TSH 1.480 (0.300-4.500) uIu/ml 11/24/18 Range/Units 09:28 WBC (4.8-10.8) K/uL RBC (4.2-5.4) M/uL Hgb (12.0-16.0) g/dL Hct (37-47) % MCV (80-100) fL MCH (25-34) pg MCHC (32-36) g/dL RDW Std Deviation (36.4-46.3) fL RDW Coeff of Tio (11.5-14.5) % Plt Count (130-400) K/uL MPV (7.4-10.4) fL Immature Gran % (Auto) % Neut % (Auto) % Lymph % (Auto) % [place] % (Auto) % Eos % (Auto) % Baso % (Auto) % Immature Gran # (Auto) (0.00-0.02) K/uL Neut # (Auto) (1.4-6.5) K/uL Lymph # (Auto) (1.2-3.4) K/uL [place] # (Auto) (0.11-0.59) K/uL Eos # (Auto) (0-0.5) K/uL Baso # (Auto) (0-0.2) K/uL PT (9.0-12.0) Seconds INR (0.9-1.1) APTT (21.0-31.0) Seconds PTT Ratio VBG pH 7.33 L (7.36-7.41) VBG pCO2 54 H (38-50) mmHg VBG pO2 29 mmHg VBG HCO3 28 mmol/L VBG O2 Saturation < 60.0 % VBG Base Excess 0.9 mEq/L Barometric Pressure 739.4 mm/Hg Sodium (136-145) mmol/L Potassium (3.5-5.1) mmol/L Chloride (98-107) mmol/L Carbon Dioxide (21-32) mmol/L Anion Gap (3-11) BUN (7-18) mg/dl Creatinine (0.6-1.2) mg/dl Est Cr Clr Drug Dosing Est GFR ( Amer) Est GFR (Non-Af Amer) BUN/Creatinine Ratio (10-20) Glucose (70-99) mg/dl Calcium (8.5-10.1) mg/dl Magnesium (1.8-2.4) mg/dl Total Bilirubin (0.2-1) mg/dl AST (15-37) U/L ALT (12-78) U/L Alkaline Phosphatase (45-117) U/L Troponin I (0-0.045) ng/ml Total Protein (6.4-8.2) gm/dl Albumin (3.4-5.0) gm/dl Globulin (2.5-4.0) gm/dl Albumin/Globulin Ratio (0.9-2) TSH (0.300-4.500) uIu/ml Diagnostic Findings XR chest 1V portable CLINICAL HISTORY: Palpitations COMPARISON STUDY: 11/05/2018 FINDINGS: The heart is enlarged. There is elevation of interstitium consistent with congestive failure/fluid overload. There are small bilateral pleural effusions. There is no lobar consolidation. Old left-sided rib deformities are evident.[ IMPRESSION: Cardiomegaly and radiographic evidence of congestive failure with small bilateral pleural effusions Electronically signed by: Yusuf Adamson M.D. 11/24/2018 10:06 AM Dictated: 11/24/18 1005 Echocardiogram from 23 Jun 2018: Left ventricular systolic function is normal. Grade 1 diastolic dysfunction, (abnormal relaxation pattern). Right ventricular systolic pressure is elevated at 40 to 50 mmHg. The inferior vena cava is mildly dilated. Compared to study from 11/2017, the pulmonary pressures are similar Transcribed: 11/24/18 1005 ECG Additional Comments: The study shows atrial fibrillation 144 bpm, normal axis, QRS = 74, QTc = 458, T wave inversions present in inferior leads Code Status & VTE Plan Code Status Full code VTE Prophylaxis Plan VTE Prophylaxis will be ordered: Yes PG Care Time/CCT Total # of Minutes Spent Total Time Spent with Patient: Total time spent is greater than 50% in coordination of care (as documented) at patient's floor/unit and/or counseling patient: (1) COPD (chronic obstructive pulmonary disease) COPD type: unspecified COPD Qualified Code(s): J44.9 - Chronic obstructive pulmonary disease, unspecified (2) CHF (congestive heart failure) Heart failure type: diastolic Heart failure chronicity: unspecified Qualified Code(s): I50.30 - Unspecified diastolic (congestive) heart failure (3) Gastrointestinal bleeding GI bleed type/associated pathology: duodenal ulcer Qualified Code(s): K26.4 - Chronic or unspecified duodenal ulcer with hemorrhage
[2018-11-24] MEDS ORDERED: ADENOSINE IV SOLN 3 MG/ML 2 ML VIAL IV STA ×2 (12:34→12:50)
[2018-11-24] MEDS ORDERED: ADENOSINE IV SOLN 3 MG/ML 2 ML VIAL IV ONE ×2 (12:39→12:44)
[2018-11-24] MEDS ORDERED: ACETAMINOPHEN 325 MG TAB PO PRN (13:42)
[2018-11-24] MEDS ORDERED: DOCUSATE SODIUM 100 MG CAP PO PRN (13:42)
[2018-11-24] MEDS ORDERED: HEPARIN SODIUM/DEXTROSE 25,000 UNITS/500 ML BAG IV SCH (13:42)
[2018-11-24] MEDS ORDERED: ALBUTEROL 0.5% NEB SOLN 2.5 MG/0.5 ML VIAL NEB PRN (13:42)
[2018-11-24] MEDS ORDERED: ENOXAPARIN INJ 30 MG/0.3 ML SYR SQ SCH (14:00)
[2018-11-24 14:26] LABS: Phosphorus 3.2 mg/dl (2.5-4.9)
[2018-11-24] MEDS: FUROSEMIDE 20 MG in SYRINGE 0 ML IV SCH ×2 (14:36→17:42)
[2018-11-24] MEDS ORDERED: INFLUENZA ADMINISTRATION CHARGE ONE (15:00)
[2018-11-24] MEDS ORDERED: INFLUENZA VACCINE HIGH DOSE 65+ 0.5 ML SYR IM ONE (15:00)
--- NOTE | 2018-11-24 16:34 | Cardiology Consultation ---
Date of Consultation November 24, 2018 Assessment & Plan (1) Atrial fibrillation with RVR: The exact mechanism of her arrhythmia is unclear. There certainly some irregularity suggestive of atrial fibrillation. However, given her significant pulmonary disease and the sustained elevation in her heart rates during initial evaluation I think is a good possibility this represents underlying atrial flutter. Clearly this is been present now for several weeks. She likely has an element of pulmonary edema and possibly even reduced LV systolic function as result. She does seem to be responding to a diltiazem infusion which is less common with atrial flutter. I think we will start some oral diltiazem and monitor her progress. If she has reasonable rate control on diltiazem or additional agents perhaps a rate control strategy will be the best option for her. Additional options would include cardioversion or, if this is felt to be a atrial flutter, perhaps catheter based therapy. Although this is complicated by her prior gastrointestinal hemorrhage and her severe pulmonary disease. She would certainly be high risk for any procedure given her significant lung disease. I think she could be adequately anticoagulated and safely so. Her prior hemorrhage was related to a duodenal ulcer. She does not currently have symptoms of gastrointestinal bleeding. I would advocate starting heparin infusion while she is an inpatient monitoring her for any evidence of bleeding. If she can't take anticoagulation not only will she have reduce stroke risk overall but certainly reduce stroke risk if we choose to perform cardioversion or possibly even catheter based therapy. (2) CHF (congestive heart failure): She likely has an element of pulmonary edema based on her x-ray and persistently elevated rates. She has chronic dyspnea and is oxygen dependent. I would agree with an attempted diuresis. We will monitor her electrolytes and renal function closely. Perhaps when her heart rates are better we could consider repeat echocardiogram as well. 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 At that visit the patient was noted to be tachycardic and have an irregular heart rhythm. Patient stated that she had noticed elevated heart rates for several weeks. She was not symptomatic from the high heart rates and did not report symptoms of palpitations. She generally does have significant breathing difficulty and is very limited with respect to activity due to shortness of breath. She states that her breathing may be slightly worse recently. She was not overtly aware of worsening edema as she generally wears support hose and compression stockings. She did not report increasing abdominal girth. She has not had worsening dizziness or lightheadedness. She did not report symptoms of chest discomfort. She does have a pulse oximeter at home and uses quite frequently to check her oxygen level. She has noticed now for some time that her oxygen level is normal but her heart rate is notably elevated. Apparently she was refraining from beta agonists use due to worsening of her heart rates. She was sent to the emergency room from the pulmonology clinic after an EKG suggested atrial fibrillation. She was started on diltiazem infusion. She currently claims to be feeling well. She states she is not having breathing trouble. She has not been aware of palpitations. She has no symptoms of chest discomfort. Allergies Allergy/AdvReac Type Severity Reaction Status Date / Time bacitracin Allergy Mild UNSURE Verified 11/24/18 08:02 neomycin Allergy Mild UNSURE Verified 11/24/18 08:02 polymyxin B Allergy Mild UNSURE Verified 11/24/18 08:02 copper Allergy Unknown METAL? Verified 11/24/18 08:02 nickel Allergy Unknown METAL? Verified 11/24/18 08:02 silver Allergy Unknown METAL? Verified 11/24/18 08:02 strawberry Allergy Unknown . Verified 11/24/18 08:02 Home Medications Home Medications Medication Instructions Recorded Confirmed Type Trelegy Ellipta 1 inh INHALATION QAM 06/22/18 11/24/18 History ipratropium-albuterol 3 ml INHALATION Q4 PRN 06/22/18 11/24/18 History pantoprazole 40 mg tablet,delayed 40 mg PO BID #60 tab 10/12/18 11/24/18 Rx release Oxygen Home #1 ea 11/12/18 11/24/18 History furosemide 20 mg tablet 20 mg PO BID PRN #20 tab 11/12/18 11/24/18 History Patient History Medical History Required emergent intubation Tachyarrhythmia No pertinent family history (Inactive) Surgical History H/O tubal ligation S/P cataract surgery Bilateral S/P IVC filter Family History Other Family history non-contributory Social History Preferred Language: Sami Communication Ability: Effective Visual Impairment: Limited Hearing Ability: Normal Copyist Required: No Beliefs That Will Affect Care: None Current Living Situation: Family Current Living Situation Comment: lives with daughter Lia Fink Feels Safe at Home: Yes Smoking Status: Former smoker Tobacco Type: cigarettes ; Second Hand Exposure: No ; Hx Alcohol Use: Yes Alcohol type: beer Hx Substance Use: No Review of Systems Review of Systems: All systems reviewed & are unremarkable except as noted in HPI & below No recent constitutional symptoms such as fevers or chills. Occasional nonproductive cough. No orthopnea although she does sleep somewhat upright and has done this for many years. She commonly will awake at nighttime for other reasons but no breathing difficulty. No syncope. She has not report swelling in her lower extremities were increasing abdominal girth. No blood in the stool. No melena. Physical Exam Physical Exam: She is alert and oriented x3. Mood affect appear normal. She answered all questions appropriately. Using supplemental oxygen. HEENT: Sclerae are anicteric. Pupils are equal and reactive to light and accommodation. Extraocular movements were intact. Neuro: Cranial nerves intact Neck: Examination of the submandibular region did not reveal any significant lymphadenopathy. Carotids are palpable bilaterally and free of bruits on auscultation. Severe jugular venous distention. The thyroid was not enlarged. Lungs: Increased respiratory effort. Poor overall respiratory excursion. Mild expiratory wheezing. Cardiac: The rhythm was irregular. S1 and S2 were normal. There are no murmurs on examination. The PMI was not markedly displaced on palpation. Abdomen: The abdomen was soft and nontender. Extremities: Patient has bilateral radial pulses that are equal in intensity. There is no evidence cyanosis or clubbing. Mild lower extremity edema. Skin: There are no rashes noted on examination today. Results & Data Vital Signs (Past 12 Hours) Vital Signs Temp Pulse Pulse Resp BP BP Pulse Ox 11/24/18 15:24 36.5 C 80 23 127/67 94 11/24/18 13:35 36.4 C L 146 H 146 H 18 144/92 H 95 11/24/18 13:01 142 H 21 99 11/24/18 13:00 143 H 19 135/102 H 99 11/24/18 12:31 142 H 20 100 11/24/18 12:30 142 H 21 139/97 99 11/24/18 12:01 121 H 21 79 L 11/24/18 12:00 144 H 22 143/99 H 93 11/24/18 11:42 36.7 C 142 H 20 146/98 H 97 11/24/18 11:31 142 H 21 100 11/24/18 11:30 132 H 20 135/97 100 11/24/18 11:01 131 H 25 H 98 11/24/18 11:00 142 H 23 136/102 H 98 11/24/18 10:31 142 H 19 99 11/24/18 10:30 142 H 18 146/103 H 100 11/24/18 10:01 141 H 16 99 11/24/18 10:00 142 H 142 H 19 146/98 H 146/98 H 97 11/24/18 09:44 144 H 23 147/103 H 100 11/24/18 09:30 144 H 24 11/24/18 09:19 144 H 22 11/24/18 09:09 36.7 C 142 H 26 H 91 Laboratory Results Abnormal Lab Results 11/24/18 11/24/18 11/24/18 09:28 09:28 09:28 WBC 5.60 RBC 3.65 L Hgb 10.6 L Hct 35.1 L MCV 96.2 MCH 29.0 MCHC 30.2 L RDW Std Deviation 47.0 H RDW Coeff of Tio 13.4 Plt Count 169 MPV 9.3 Immature Gran % (Auto) 0.2 Neut % (Auto) 76.0 Lymph % (Auto) 12.1 [place] % (Auto) 9.3 Eos % (Auto) 2.0 Baso % (Auto) 0.4 Immature Gran # (Auto) 0.01 Neut # (Auto) 4.26 Lymph # (Auto) 0.68 L [place] # (Auto) 0.52 Eos # (Auto) 0.11 Baso # (Auto) 0.02 PT 10.6 INR 1.0 APTT 27.2 PTT Ratio 1.0 VBG pH VBG pCO2 VBG pO2 VBG HCO3 VBG O2 Saturation VBG Base Excess Barometric Pressure Sodium 135 L Potassium 4.2 Chloride 93 L Carbon Dioxide 38 H Anion Gap 3.0 BUN 19 H Creatinine 1.10 Est Cr Clr Drug Dosing Not Reportable Est GFR ( Amer) 55.7 Est GFR (Non-Af Amer) 48.1 BUN/Creatinine Ratio 17.2 Glucose 102 H Calcium 9.1 Phosphorus Magnesium 2.1 Total Bilirubin 0.5 AST 12 L ALT 12 Alkaline Phosphatase 80 Troponin I < 0.015 NT-Pro-B Natriuret Pep Total Protein 7.1 Albumin 3.8 Globulin 3.3 Albumin/Globulin Ratio 1.2 TSH 1.480 11/24/18 11/24/18 09:28 09:28 WBC RBC Hgb Hct MCV MCH MCHC RDW Std Deviation RDW Coeff of Tio Plt Count MPV Immature Gran % (Auto) Neut % (Auto) Lymph % (Auto) [place] % (Auto) Eos % (Auto) Baso % (Auto) Immature Gran # (Auto) Neut # (Auto) Lymph # (Auto) [place] # (Auto) Eos # (Auto) Baso # (Auto) PT INR APTT PTT Ratio VBG pH 7.33 L VBG pCO2 54 H VBG pO2 29 VBG HCO3 28 VBG O2 Saturation < 60.0 VBG Base Excess 0.9 Barometric Pressure 739.4 Sodium Potassium Chloride Carbon Dioxide Anion Gap BUN Creatinine Est Cr Clr Drug Dosing Est GFR ( Amer) Est GFR (Non-Af Amer) BUN/Creatinine Ratio Glucose Calcium Phosphorus 3.2 Magnesium Total Bilirubin AST ALT Alkaline Phosphatase Troponin I NT-Pro-B Natriuret Pep 7293 H Total Protein Albumin Globulin Albumin/Globulin Ratio TSH Diagnostic Findings Chest x-ray obtained today suggested pulmonary edema. Echocardiogram obtained 09/2018 demonstrated preserved LV systolic function with pulmonary hypertension ECG Additional Comments: Initial EKG suggestive of atrial fibrillation and high ventricular rates with nonspecific ST and T-wave changes PG Care Time/CCT Total # of Minutes Spent Total Time Spent with Patient: Total time spent is greater than 50% in coordination of care (as documented) at patient's floor/unit and/or counseling patient: (1) CHF (congestive heart failure) Heart failure type: diastolic Heart failure chronicity: unspecified Qualified Code(s): I50.30 - Unspecified diastolic (congestive) heart failure
[2018-11-24] MEDS ORDERED: Heparin IV Standard *NO* Bolus IV ONE (16:41)
[2018-11-24] MEDS: HEPARIN SODIUM/DEXTROSE 25,000 UNITS/500 ML BAG IV SCH (18:16)
[2018-11-24] MEDS: FLUTICASONE/SALMETEROL 100/50 (ADVAIR) 14 PUFF/1 INHALER INH SCH (20:39)
[2018-11-24] MEDS: dilTIAZem HCL 30 MG TAB PO SCH (20:48)
[2018-11-24] MEDS: PANTOprazole 40 MG TAB PO SCH (21:40)
[2018-11-25 00:55] LABS: Partial Thromboplastin Ratio 2.6
[2018-11-25 01:11] LABS: Partial Thromboplastin Time 69.6 Seconds (21.0-31.0)
[2018-11-25 07:32] LABS: Basophils # (auto) 0.03 K/uL (0-0.2); Basophils % (auto) 0.6 %; Eosinophils # (auto) 0.16 K/uL (0-0.5); Eosinophils % (auto) 3.2 %; Hematocrit (blood only) 34.7 % (37-47); Hemoglobin 10.8 g/dL (12.0-16.0); Immature Granulocytes # (auto) 0.01 K/uL (0.00-0.02); Immature Granulocytes % (auto) 0.2 %; Lymphocytes # (auto) 0.81 K/uL (1.2-3.4); Mean Corpuscular Hemoglobin 29.7 pg (25-34); Mean Corpuscular Hgb Conc 31.1 g/dL (32-36); Mean Corpuscular Volume 95.3 fL (80-100); Mean Platelet Volume 8.9 fL (7.4-10.4); Monocytes # (auto) 0.47 K/uL (0.11-0.59); Monocytes % (auto) 9.3 %; Neutrophils # (auto) 3.58 K/uL (1.4-6.5); Neutrophils % (auto) 70.7 %; Platelet Count 152 K/uL (130-400); RDW Coefficient of Variation 13.4 % (11.5-14.5); RDW Standard Deviation 46.7 fL (36.4-46.3); Red Blood Count 3.64 M/uL (4.2-5.4); White Blood Count 5.06 K/uL (4.8-10.8)
[2018-11-25 08:01] LABS: Partial Thromboplastin Time 55.5 Seconds (21.0-31.0)
[2018-11-25 08:11] LABS: BUN Creatinine Ratio 16.6 (10-20); Calcium 8.8 mg/dl (8.5-10.1); Creatinine Clr Calc Pharmacy 32.4 ml/min; Est GFR (African American) 51.2; Est GFR (Non-African American) 44.1; Potassium 3.9 mmol/L (3.5-5.1)
--- NOTE | 2018-11-25 08:47 | Family Medicine Progress Note ---
Date of Service November 25, 2018 Assessment & Plan (1) Atrial fibrillation with RVR: #Atrial flutter with RVR: Patient with AF with RVR, rate of 142, no history of prior. Blood pressure stable. Asymptomatic, however, she is showing some clinical and radiographic signs of failure to include weight gain, edema, JVD and pulmonary venous congestion. TSH and Troponin WNL. She has an echocardiogram on 06/23/09 which revealed normal LV function, Grade I diastolic dysfunction, elevated RV systolic pressure at 40-50mmHg and dilated IVC. Rate did not respond to Adenosine 6mg, 12mg administered in ER. Patient with moderately-high risk for CVA per [id number] therefore would benefit from anticoagulation. However, she has moderate risk for major bleeding by HAS-BLED score based on history of prior major bleeding and age > 65. (2 points - correlates with appx 2/100 patient years), high risk per ATRIA score (anemia, age >75 and prior hemmorhage). Presently on Cardizem gtt. attempted to wean Cardizem gtt on 11/24, overnight patient did well on oral medication however when she got up and went to the bathroom she experienced a flutter with rapid ventricular response and subsequently placed back on Cardizem gtt. -Continue Cardizem gtt plan to attempt transition tomorrow -Cardiology consulted following recommendations -More likely atrial flutter versus atrial fibrillation -Heparin gtt monitor for signs and symptoms of bleeding assuming she continues to do well can consider transitioning to an oral medication at discharge -Discussed management options with the patient including cardioversion versus diltiazem -Patient will consider if she elects to continue with cardioversion can be performed tomorrow -Per conversation with patient it sounds like she is interested in ablation will make n.p.o. after midnight #COPD (chronic obstructive pulmonary disease): Patient with severe O2 dependent COPD. Does not appear to be in acute exacerbation at this time. Some labored breathing noted most likely secondary to poorly controlled heart rate with some CHF -Continue home O2, 3L. Goal saturation 88-92% -Continue Ellipta -DuoNeb and Albuterol PRN -Continuous pulse oximetry #Gastrointestinal bleeding: Patient with history of perforated duodenal ulcer resulting in massive GI bleed, hemorrhagic shock requiring intubation and ICU care in November 2017. Patient has recovered from this and is doing quite well. Denies melena or hematochezia -Continue Protonix 40 mg p.o. twice daily -On heparin drip, monitor for signs and symptoms of bleeding -So far hemoglobin has been stable repeat scheduled for 1600 today #CHF (congestive heart failure): Patient with grade 1 diastolic dysfunction. Evidence of CHF in setting of A. fib with RVR -Lasix 20 mg IV twice daily -Check daily weights -Monitor intake and output FENa: Heart healthy diet monitor electrolytes and replete as indicated Code Status: Full code DVT PPX: Heparin Gtt PT/OT: TBD Dispo: PCU Brody Brandt MD PGY 2, [facility] This chart was completed utilizing [employer] voice recognition software. Grammatical errors, random word insertions, pronoun errors, and in complete sentences are an occasional consequence of the system. Any questions or concerns about the content, text, or information contained within the body of this dictation should be addressed directly to the physician for clarification. Supervising Physician Co-Signing Physician Notes Patient seen and examined independently of PGY-2 Dr. Brandt. Agree with history, exam findings, assessment and plan of care. In brief, Ms Fink is a 78 year old female with history of COPD (O2 dependent), GI bleed, HFpEF admitted with aflutter with RVR. She is comfortable at rest, but starts to feel quite short of breath even with minimal movement. Heart with an irregular rate. Pursed lip breathing. Lungs with poor air movement. Faint end expiratory wheezes. No pedal edema. 1. aflutter with RVR. Appreciate cardiology recommendations. Continue cardizem gtt. Cardioversion offered by cardiology. Patient thinks she would like to do this. Continue with heparin gtt. NPO at midnight. 2. pulmonary edema. Lasix 20mg IV BID. Monitor Cr and K, daily weights, I/O's. 3. COPD, O2 dependent. Continue home inhalers. 4. HFpEF. Decompensated in the setting of aflutter with RVR. Diuresis as above. 5. hx of GI bleed. monitor hgb. continue home PPI BID. Dispo: pending clinical improvement. Subjective Patient sitting upright in bed this morning in no acute distress. Patient reports doing well overnight, slept, tolerating her diet, voiding, stooling. Denies melena, dizzy weakness, headache, or other signs of anemia. Patient reports she has been feeling a little bit more fatigued over the past few weeks, and at home she is been checking her heart rates noted to be in the 140s. I explained her that this was likely secondary to atrial flutter, and that should that happen again in the future she should contact her primary care provider. Overall patient is in good spirits and doing well. No acute concerns are present all questions answered. Physical Exam Physical Exam: General: Elderly, frail, female sitting in bed with nasal cannula in place no acute distress HEENT: Normocephalic atraumatic Neck: Normal visual inspection, trachea midline, did not appreciate significant JVD Cardiac: Irregular rhythm, I did not appreciate significant murmurs, negative calf tenderness, 1+ pedal edema Respiratory: Diffuse wheezes throughout all lung tabor, symmetrical chest expansion, I did not appreciate significant rales GI: Soft, nontender, nondistended MSK: Moves all extremities Skin: No acute concerns Neuro: Alert and oriented, mentating well Psych: Calm, cooperative, appropriate affect Results & Data Vital Signs (Past 12 Hours) Vital Signs Temp Pulse Pulse Pulse Resp BP Pulse Ox 11/25/18 08:18 36.4 C L 83 26 H 107/70 95 11/25/18 06:41 36.6 C 132 H 30 H 146/88 H 96 11/25/18 02:45 36.7 C 137 H 20 118/85 97 11/25/18 02:35 85 11/25/18 00:00 81 11/24/18 23:24 36.4 C L 84 16 126/74 99 Laboratory Results 11/25/18 11/25/18 11/25/18 Range/Units 07:21 07:21 07:21 WBC 5.06 (4.8-10.8) K/uL RBC 3.64 L (4.2-5.4) M/uL Hgb 10.8 L (12.0-16.0) g/dL Hct 34.7 L (37-47) % MCV 95.3 (80-100) fL MCH 29.7 (25-34) pg MCHC 31.1 L (32-36) g/dL RDW Std Deviation 46.7 H (36.4-46.3) fL RDW Coeff of Tio 13.4 (11.5-14.5) % Plt Count 152 (130-400) K/uL MPV 8.9 (7.4-10.4) fL Immature Gran % (Auto) 0.2 % Neut % (Auto) 70.7 % Lymph % (Auto) 16.0 % Green % (Auto) 9.3 % Eos % (Auto) 3.2 % Baso % (Auto) 0.6 % Immature Gran # (Auto) 0.01 (0.00-0.02) K/uL Neut # (Auto) 3.58 (1.4-6.5) K/uL Lymph # (Auto) 0.81 L (1.2-3.4) K/uL Green # (Auto) 0.47 (0.11-0.59) K/uL Eos # (Auto) 0.16 (0-0.5) K/uL Baso # (Auto) 0.03 (0-0.2) K/uL PT (9.0-12.0) Seconds INR (0.9-1.1) APTT 55.5 H* (21.0-31.0) Seconds PTT Ratio 2.0 VBG pH (7.36-7.41) VBG pCO2 (38-50) mmHg VBG pO2 mmHg VBG HCO3 mmol/L VBG O2 Saturation % VBG Base Excess mEq/L Barometric Pressure mm/Hg Sodium 136 (136-145) mmol/L Potassium 3.9 (3.5-5.1) mmol/L Chloride 94 L (98-107) mmol/L Carbon Dioxide 38 H (21-32) mmol/L Anion Gap 3.0 (3-11) BUN 20 H (7-18) mg/dl Creatinine 1.18 (0.6-1.2) mg/dl Est Cr Clr Drug Dosing 32.4 Est GFR ( Amer) 51.2 Est GFR (Non-Af Amer) 44.1 BUN/Creatinine Ratio 16.6 (10-20) Glucose 115 H (70-99) mg/dl Calcium 8.8 (8.5-10.1) mg/dl Phosphorus (2.5-4.9) mg/dl Magnesium (1.8-2.4) mg/dl Total Bilirubin (0.2-1) mg/dl AST (15-37) U/L ALT (12-78) U/L Alkaline Phosphatase (45-117) U/L Troponin I (0-0.045) ng/ml NT-Pro-B Natriuret Pep (0-1800) pg/ml Total Protein (6.4-8.2) gm/dl Albumin (3.4-5.0) gm/dl Globulin (2.5-4.0) gm/dl Albumin/Globulin Ratio (0.9-2) TSH (0.300-4.500) uIu/ml 11/25/18 11/24/18 11/24/18 Range/Units 00:17 09:28 09:28 WBC (4.8-10.8) K/uL RBC (4.2-5.4) M/uL Hgb (12.0-16.0) g/dL Hct (37-47) % MCV (80-100) fL MCH (25-34) pg MCHC (32-36) g/dL RDW Std Deviation (36.4-46.3) fL RDW Coeff of Tio (11.5-14.5) % Plt Count (130-400) K/uL MPV (7.4-10.4) fL Immature Gran % (Auto) % Neut % (Auto) % Lymph % (Auto) % [place] % (Auto) % Eos % (Auto) % Baso % (Auto) % Immature Gran # (Auto) (0.00-0.02) K/uL Neut # (Auto) (1.4-6.5) K/uL Lymph # (Auto) (1.2-3.4) K/uL [place] # (Auto) (0.11-0.59) K/uL Eos # (Auto) (0-0.5) K/uL Baso # (Auto) (0-0.2) K/uL PT (9.0-12.0) Seconds INR (0.9-1.1) APTT 69.6 H* (21.0-31.0) Seconds PTT Ratio 2.6 VBG pH 7.33 L (7.36-7.41) VBG pCO2 54 H (38-50) mmHg VBG pO2 29 mmHg VBG HCO3 28 mmol/L VBG O2 Saturation < 60.0 % VBG Base Excess 0.9 mEq/L Barometric Pressure 739.4 mm/Hg Sodium (136-145) mmol/L Potassium (3.5-5.1) mmol/L Chloride (98-107) mmol/L Carbon Dioxide (21-32) mmol/L Anion Gap (3-11) BUN (7-18) mg/dl Creatinine (0.6-1.2) mg/dl Est Cr Clr Drug Dosing Est GFR ( Amer) Est GFR (Non-Af Amer) BUN/Creatinine Ratio (10-20) Glucose (70-99) mg/dl Calcium (8.5-10.1) mg/dl Phosphorus 3.2 (2.5-4.9) mg/dl Magnesium (1.8-2.4) mg/dl Total Bilirubin (0.2-1) mg/dl AST (15-37) U/L ALT (12-78) U/L Alkaline Phosphatase (45-117) U/L Troponin I (0-0.045) ng/ml NT-Pro-B Natriuret Pep 7293 H (0-1800) pg/ml Total Protein (6.4-8.2) gm/dl Albumin (3.4-5.0) gm/dl Globulin (2.5-4.0) gm/dl Albumin/Globulin Ratio (0.9-2) TSH (0.300-4.500) uIu/ml 11/24/18 11/24/18 11/24/18 Range/Units 09:28 09:28 09:28 WBC 5.60 (4.8-10.8) K/uL RBC 3.65 L (4.2-5.4) M/uL Hgb 10.6 L (12.0-16.0) g/dL Hct 35.1 L (37-47) % MCV 96.2 (80-100) fL MCH 29.0 (25-34) pg MCHC 30.2 L (32-36) g/dL RDW Std Deviation 47.0 H (36.4-46.3) fL RDW Coeff of Tio 13.4 (11.5-14.5) % Plt Count 169 (130-400) K/uL MPV 9.3 (7.4-10.4) fL Immature Gran % (Auto) 0.2 % Neut % (Auto) 76.0 % Lymph % (Auto) 12.1 % Green % (Auto) 9.3 % Eos % (Auto) 2.0 % Baso % (Auto) 0.4 % Immature Gran # (Auto) 0.01 (0.00-0.02) K/uL Neut # (Auto) 4.26 (1.4-6.5) K/uL Lymph # (Auto) 0.68 L (1.2-3.4) K/uL Green # (Auto) 0.52 (0.11-0.59) K/uL Eos # (Auto) 0.11 (0-0.5) K/uL Baso # (Auto) 0.02 (0-0.2) K/uL PT 10.6 (9.0-12.0) Seconds INR 1.0 (0.9-1.1) APTT 27.2 (21.0-31.0) Seconds PTT Ratio 1.0 VBG pH (7.36-7.41) VBG pCO2 (38-50) mmHg VBG pO2 mmHg VBG HCO3 mmol/L VBG O2 Saturation % VBG Base Excess mEq/L Barometric Pressure mm/Hg Sodium 135 L (136-145) mmol/L Potassium 4.2 (3.5-5.1) mmol/L Chloride 93 L (98-107) mmol/L Carbon Dioxide 38 H (21-32) mmol/L Anion Gap 3.0 (3-11) BUN 19 H (7-18) mg/dl Creatinine 1.10 (0.6-1.2) mg/dl Est Cr Clr Drug Dosing Not Reportable Est GFR ( Amer) 55.7 Est GFR (Non-Af Amer) 48.1 BUN/Creatinine Ratio 17.2 (10-20) Glucose 102 H (70-99) mg/dl Calcium 9.1 (8.5-10.1) mg/dl Phosphorus (2.5-4.9) mg/dl Magnesium 2.1 (1.8-2.4) mg/dl Total Bilirubin 0.5 (0.2-1) mg/dl AST 12 L (15-37) U/L ALT 12 (12-78) U/L Alkaline Phosphatase 80 (45-117) U/L Troponin I < 0.015 (0-0.045) ng/ml NT-Pro-B Natriuret Pep (0-1800) pg/ml Total Protein 7.1 (6.4-8.2) gm/dl Albumin 3.8 (3.4-5.0) gm/dl Globulin 3.3 (2.5-4.0) gm/dl Albumin/Globulin Ratio 1.2 (0.9-2) TSH 1.480 (0.300-4.500) uIu/ml Medications Administered Current Inpatient Medications Acetaminophen (Tylenol) 650 mg PO Q4H PRN PRN Reason: Pain or Fever Stop: 12/24/18 13:41 Albuterol (Duoneb) 3 ml INH Q4 PRN PRN Reason: Shortness Of Breath Or Wheezing Stop: 12/24/18 13:41 Albuterol (Ventolin 0.5% 2.5mg/0.5ml) 2.5 mg NEB Q2H PRN PRN Reason: SOB/Wheeze Stop: 12/24/18 13:41 Diltiazem HCl (Cardizem) 30 mg PO TID [facility] Stop: 12/24/18 20:59 Last Admin: 11/24/18 20:48 Dose: 30 mg Documented by: Docusate Sodium (Colace) 100 mg PO BID PRN PRN Reason: Constipation Stop: 12/24/18 13:41 Diltiazem HCl 125 mg/ Dextrose 125 mls @ 0 mls/hr IV .Q0M GURWINDER; Protocol Stop: 12/24/18 11:14 Last Titration: 11/25/18 06:43 Dose: 15 mg/hr, 15 mls/hr Documented by: Furosemide 20 mg/ Syringe 2 mls @ 4 mls/min IV BID17 GURWINDER Stop: 12/24/18 14:14 Last Admin: 11/24/18 17:42 Dose: 4 mls/min Documented by: Heparin Sodium/Dextrose (Heparin Sodium/Dextrose) 25,000 units in 500 mls @ 18 mls/hr IV .Q24H [facility]; Protocol Stop: 12/24/18 16:44 Last Titration: 11/25/18 07:35 Dose: 900 units/hr, 18 mls/hr Documented by: Pantoprazole Sodium (Protonix) 40 mg PO BID [facility] Stop: 12/24/18 20:59 Last Admin: 11/24/18 21:40 Dose: 40 mg Documented by: Fluticasone/Salmeterol (Advair Diskus 100/50) 1 puffs INH BID GURWINDER Stop: 12/24/18 20:59 Last Admin: 11/24/18 20:39 Dose: 1 puffs Documented by: Tiotropium [place] (Spiriva) 1 puffs INH DAILY GURWINDER Stop: 12/25/18 08:59 PG Care Time/CCT Total # of Minutes Spent Total Time Spent with Patient: Total time spent is greater than 50% in coordination of care (as documented) at patient's floor/unit and/or counseling patient: Resident Activity Tracking Resident Involvement: Resident Care Provided Care Provided: Adult Hospital Medicine
[2018-11-25] MEDS: dilTIAZem HCL 30 MG TAB PO SCH ×3 (09:36→20:44)
[2018-11-25] MEDS: PANTOprazole 40 MG TAB PO SCH ×2 (09:36→20:43)
[2018-11-25] MEDS: FUROSEMIDE 20 MG in SYRINGE 0 ML IV SCH ×2 (09:37→18:15)
[2018-11-25] MEDS: TIOTROPIUM BROMIDE 5 PUFF/90 MCG INH INH SCH (09:37)
[2018-11-25] MEDS: FLUTICASONE/SALMETEROL 100/50 (ADVAIR) 14 PUFF/1 INHALER INH SCH ×2 (09:38→20:43)
[2018-11-25] MEDS: dilTIAZem HCL 125 MG in DEXTROSE 5% 100 ML IV SCH ×2 (12:36→20:44)
--- NOTE | 2018-11-25 12:42 | Cardiology Progress Note ---
Date of Service November 25, 2018 Assessment & Plan (1) Atrial fibrillation with RVR: If he is more likely that she actually has an atrial flutter rather than atrial fibrillation. This is manifest by some organized activity on her EKG as well as the fairly by narrative variation in her heart rates. It generally is much more difficult to control atrial flutter than atrial fibrillation. Whether she will have adequate rate control on diltiazem is unclear. I did offer the option today of a cardioversion. Generally speaking I think this would be more efficacious in the short term and then continued attempts at rate control, but given her severely compromised pulmonary status there is some risk to an anesthetic and a ETHAN which would be necessary given the unknown duration of her atrial arrhythmia. She will consider her options. If she consents we will arrange for cardioversion tomorrow provided anesthesia feels this is reasonably safe. If she wants to continue with rate control efforts a little longer and we can intensify her oral diltiazem regimen. She seems to be doing well on heparin and I will continue this for the time being. In the absence of obvious bleeding on heparin we could consider switching her to an oral regimen prior to discharge. Subjective This afternoon the patient had no specific complaints. She continues to feel somewhat tired and has significant breathing difficulty. She did not report symptoms of chest discomfort. Review of Systems Review of Systems: Per HPI Physical Exam Physical Exam: She is alert and oriented x3. Mood affect appear normal. She answered all questions appropriately. Somewhat tachypneic. HEENT: Sclerae are anicteric. Pupils are equal and reactive to light and accommodation. Extraocular movements were intact. Neuro: Cranial nerves intact Lungs: Increased respiratory effort. Poor excursion overall. Some expiratory wheezing. Cardiac: Irregular rhythm. Extremities: Patient has bilateral radial pulses that are equal in intensity. There is no evidence cyanosis or clubbing. Skin: There are no rashes noted on examination today. Results & Data Vital Signs (Past 12 Hours) Vital Signs Temp Pulse Pulse Pulse Resp BP Pulse Ox 11/25/18 10:58 36.4 C L 82 22 120/83 96 11/25/18 08:18 36.4 C L 83 26 H 107/70 95 11/25/18 06:41 36.6 C 132 H 30 H 146/88 H 96 11/25/18 02:45 36.7 C 137 H 20 118/85 97 11/25/18 02:35 85 Laboratory Results Abnormal Lab Results 11/24/18 11/25/18 11/25/18 09:28 00:17 07:21 WBC 5.06 RBC 3.64 L Hgb 10.8 L Hct 34.7 L MCV 95.3 MCH 29.7 MCHC 31.1 L RDW Std Deviation 46.7 H RDW Coeff of Tio 13.4 Plt Count 152 MPV 8.9 Immature Gran % (Auto) 0.2 Neut % (Auto) 70.7 Lymph % (Auto) 16.0 [place] % (Auto) 9.3 Eos % (Auto) 3.2 Baso % (Auto) 0.6 Immature Gran # (Auto) 0.01 Neut # (Auto) 3.58 Lymph # (Auto) 0.81 L [place] # (Auto) 0.47 Eos # (Auto) 0.16 Baso # (Auto) 0.03 APTT 69.6 H* PTT Ratio 2.6 Sodium Potassium Chloride Carbon Dioxide Anion Gap BUN Creatinine Est Cr Clr Drug Dosing Est GFR ( Amer) Est GFR (Non-Af Amer) BUN/Creatinine Ratio Glucose Calcium Phosphorus 3.2 NT-Pro-B Natriuret Pep 7293 H 11/25/18 11/25/18 07:21 07:21 WBC RBC Hgb Hct MCV MCH MCHC RDW Std Deviation RDW Coeff of Tio Plt Count MPV Immature Gran % (Auto) Neut % (Auto) Lymph % (Auto) [place] % (Auto) Eos % (Auto) Baso % (Auto) Immature Gran # (Auto) Neut # (Auto) Lymph # (Auto) [place] # (Auto) Eos # (Auto) Baso # (Auto) APTT 55.5 H* PTT Ratio 2.0 Sodium 136 Potassium 3.9 Chloride 94 L Carbon Dioxide 38 H Anion Gap 3.0 BUN 20 H Creatinine 1.18 Est Cr Clr Drug Dosing 32.4 Est GFR ( Amer) 51.2 Est GFR (Non-Af Amer) 44.1 BUN/Creatinine Ratio 16.6 Glucose 115 H Calcium 8.8 Phosphorus NT-Pro-B Natriuret Pep PG Care Time/CCT Total # of Minutes Spent Total Time Spent with Patient: Total time spent is greater than 50% in coordination of care (as documented) at patient's floor/unit and/or counseling patient:
[2018-11-25] MEDS: ALBUT/IPRATROP 3MG/0.5MG NEB 3 ML VIAL INH PRN (13:38)
[2018-11-25 16:57] LABS: Hematocrit (blood only) 34.3 % (37-47); Hemoglobin 10.7 g/dL (12.0-16.0)
[2018-11-25] MEDS: HEPARIN SODIUM/DEXTROSE 25,000 UNITS/500 ML BAG IV SCH (18:15)
[2018-11-26] MEDS: dilTIAZem HCL 125 MG in DEXTROSE 5% 100 ML IV SCH (04:44)
[2018-11-26 06:49] LABS: Partial Thromboplastin Ratio 3.2
[2018-11-26 07:02] LABS: Partial Thromboplastin Time 85.7 Seconds (21.0-31.0)
[2018-11-26] MEDS ORDERED: PROPOFOL IV EMULSION 10 MG/ML 20 ML VIAL IV ONE (07:10)
--- NOTE | 2018-11-26 07:40 | Family Medicine Progress Note ---
Date of Service November 26, 2018 Assessment & Plan (1) Atrial fibrillation with RVR: #Atrial flutter with RVR: Patient with AF with RVR, rate of 142, no history of prior. Blood pressure stable. Asymptomatic, however, she is showing some clinical and radiographic signs of failure to include weight gain, edema, JVD and pulmonary venous congestion. TSH and Troponin WNL. She has an echocardiogram on 06/23/09 which revealed normal LV function, Grade I diastolic dysfunction, elevated RV systolic pressure at 40-50mmHg and dilated IVC. Rate did not respond to Adenosine 6mg, 12mg administered in ER. Patient with moderately-high risk for CVA per [id number] therefore would benefit from anticoagulation. However, she has moderate risk for major bleeding by HAS-BLED score based on history of prior major bleeding and age > 65. (2 points - correlates with appx 2/100 patient years), high risk per ATRIA score (anemia, age >75 and prior hemmorhage). Presently on Cardizem gtt. attempted to wean Cardizem gtt on 11/24, overnight patient did well on oral medication however when she got up and went to the bathroom she experienced a flutter with rapid ventricular response and subsequently placed back on Cardizem gtt. she had a successful cardioversion on the morning of November 26, and has maintained normal sinus rhythm since then. -Cardiology consulted following recommendations -More likely atrial flutter versus atrial fibrillation -Transitioned to oral Xarelto -Status post successful cardioversion -We will need close follow-up and likely outpatient ablation -Stable for discharge from a cardiac standpoint #COPD (chronic obstructive pulmonary disease): Patient with severe O2 dependent COPD. Does not appear to be in acute exacerbation at this time. Some labored breathing noted most likely secondary to poorly controlled heart rate with some CHF -Continue home O2, 3L. Goal saturation 88-92% -Physical at rest however with any exertion immediately desaturates -Continue Ellipta -DuoNeb and Albuterol PRN -Continuous pulse oximetry #Gastrointestinal bleeding: Patient with history of perforated duodenal ulcer resulting in massive GI bleed, hemorrhagic shock requiring intubation and ICU care in November 2017. Patient has recovered from this and is doing quite well. Denies melena or hematochezia -Continue Protonix 40 mg p.o. twice daily -On Xarelto caution for signs and symptoms of bleeding -Hemoglobin has remained stable throughout this admission #CHF (congestive heart failure): Patient with grade 1 diastolic dysfunction. Evidence of CHF in setting of A. fib with RVR -Lasix held today secondary to rising creatinine, resume home Lasix on discharge -Check daily weights -Monitor intake and output FENa: Heart healthy diet monitor electrolytes and replete as indicated Code Status: Full code DVT PPX: Xarelto PT/OT: Consulted recommend SNF patient is unwilling will be discharged with home health Dispo: Discharge tomorrow Brody Brandt MD PGY 2, FCM This chart was completed utilizing [employer] voice recognition software. Grammatical errors, random word insertions, pronoun errors, and in complete sentences are an occasional consequence of the system. Any questions or concerns about the content, text, or information contained within the body of this dictation should be addressed directly to the physician for clarification. Supervising Physician Co-Signing Physician Notes Attending attestation Pt seen and examined in concert with Dr. Brandt. In agreement with the documented findings as noted in the resident documentation with any exceptions or additions as noted here. Persistent shortness of breath which is improved from previous, exacerbated by ambulation or activity. On examination, S1/S2 nl RRR no MCG. Diffusely decreased breath sounds with scattered wheezing. Atrial flutter with RVR s/p cardioversion - sinus. d/c cardizem. Transition to rivaroxaban for AC. Pulmonary edema 2/2 AFlutter w/ RVR w/ HFpEF - continue IV lasix BID, monitor I/O/weights Deconditioning - physical and occupational therapy recommending inpatient rehabilitation which she is not enthusiastic about. Discussions pending. Else see resident documentation as noted. Subjective Patient sitting upright in bed in no acute distress status post cardioversion and ETHAN. Patient reports he is feeling significantly better, still having breathing difficulties and trouble with exertion. Patient refusing to go to SNF after hospitalization requesting discharge prior to 8 AM tomorrow secondary to having to attend a for family member. Patient has no acute concerns, all questions answered. Review of Systems Constitutional: + fatigue; no fever and no chills Respiratory: + cough, + dyspnea, + dyspnea on exertion and + wheezing Cardiovascular: no chest pain, no palpitations and no lightheadedness Gastrointestinal: no abdominal pain, no nausea and no vomiting Physical Exam Physical Exam: General: Elderly, frail, female sitting in bed with nasal cannula in place no acute distress HEENT: Normocephalic atraumatic Neck: Normal visual inspection, trachea midline, did not appreciate significant JVD Cardiac: Irregular rhythm, I did not appreciate significant murmurs, negative calf tenderness, 1+ pedal edema Respiratory: Diffuse wheezes throughout all lung tabor, symmetrical chest expansion, I did not appreciate significant rales GI: Soft, nontender, nondistended MSK: Moves all extremities Skin: No acute concerns Neuro: Alert and oriented, mentating well Psych: Calm, cooperative, appropriate affect Results & Data Vital Signs (Past 12 Hours) Vital Signs Temp Pulse Resp BP Pulse Ox 11/26/18 06:00 76 22 124/77 93 11/26/18 05:03 36.6 C 67 21 114/77 93 11/26/18 04:00 67 22 122/76 96 11/26/18 03:00 100 H 24 159/81 H 91 11/25/18 22:58 36.6 C 69 26 H 112/68 95 11/25/18 22:00 67 22 106/64 11/25/18 21:00 75 22 120/63 95 11/25/18 20:00 76 22 95 Laboratory Results 11/26/18 11/26/18 11/26/18 Range/Units 06:10 06:10 06:03 Hgb 10.5 L (12.0-16.0) g/dL Hct 34.1 L (37-47) % APTT 85.7 H* (21.0-31.0) Seconds PTT Ratio 3.2 Sodium 131 L (136-145) mmol/L Potassium 3.9 (3.5-5.1) mmol/L Chloride 89 L (98-107) mmol/L Carbon Dioxide 35 H (21-32) mmol/L Anion Gap 7.0 (3-11) BUN 21 H (7-18) mg/dl Creatinine 1.39 H (0.6-1.2) mg/dl Est Cr Clr Drug Dosing 27.5 ml/min Est GFR ( Amer) 42.0 Est GFR (Non-Af Amer) 36.2 BUN/Creatinine Ratio 15.2 (10-20) Glucose 126 H (70-99) mg/dl Calcium 8.9 (8.5-10.1) mg/dl 11/25/18 Range/Units 16:20 Hgb 10.7 L (12.0-16.0) g/dL Hct 34.3 L (37-47) % APTT (21.0-31.0) Seconds PTT Ratio Sodium (136-145) mmol/L Potassium (3.5-5.1) mmol/L Chloride (98-107) mmol/L Carbon Dioxide (21-32) mmol/L Anion Gap (3-11) BUN (7-18) mg/dl Creatinine (0.6-1.2) mg/dl Est Cr Clr Drug Dosing ml/min Est GFR ( Amer) Est GFR (Non-Af Amer) BUN/Creatinine Ratio (10-20) Glucose (70-99) mg/dl Calcium (8.5-10.1) mg/dl Medications Administered Current Inpatient Medications Acetaminophen (Tylenol) 650 mg PO Q4H PRN PRN Reason: Pain or Fever Stop: 12/24/18 13:41 Albuterol (Duoneb) 3 ml INH Q4 PRN PRN Reason: Shortness Of Breath Or Wheezing Stop: 12/24/18 13:41 Last Admin: 11/25/18 13:38 Dose: 3 ml Documented by: Albuterol (Ventolin 0.5% 2.5mg/0.5ml) 2.5 mg NEB Q2H PRN PRN Reason: SOB/Wheeze Stop: 12/24/18 13:41 Docusate Sodium (Colace) 100 mg PO BID PRN PRN Reason: Constipation Stop: 12/24/18 13:41 Furosemide 20 mg/ Syringe 2 mls @ 4 mls/min IV BID17 [facility] Stop: 12/24/18 14:14 Last Admin: 11/26/18 10:11 Dose: Not Given Documented by: Pantoprazole Sodium (Protonix) 40 mg PO BID [facility] Stop: 12/24/18 20:59 Last Admin: 11/26/18 10:10 Dose: 40 mg Documented by: Rivaroxaban (Xarelto) 15 mg PO DAILY@1700 [facility] Stop: 12/26/18 16:39 Fluticasone/Salmeterol (Advair Diskus 100/50) 1 puffs INH BID [facility] Stop: 12/24/18 20:59 Last Admin: 11/26/18 10:09 Dose: 1 puffs Documented by: Tiotropium [place] (Spiriva) 1 puffs INH DAILY [facility] Stop: 12/25/18 08:59 Last Admin: 11/26/18 10:10 Dose: 1 puffs Documented by: PG Care Time/CCT Total # of Minutes Spent Total Time Spent with Patient: Total time spent is greater than 50% in coordination of care (as documented) at patient's floor/unit and/or counseling patient: Resident Activity Tracking Resident Involvement: Resident Care Provided Care Provided: Adult Hospital Medicine
--- NOTE | 2018-11-26 07:40 | Anesthesiology Consultation ---
Date of Service November 26, 2018 Assessment & Plan (1) Encounter for pre-operative examination: Chart Review Chart Review: Acceptable Risk for Surgery Consults Requested none ASA ASA4 Proposed Anesthesia Anesthesia Type: MAC Risk / Benefits Reviewed With: PT / POA / Parent / Guardian, Accepts Plan and Informed Consent Obtained History Surgery Operation Date: 11/26/18 08:00 Proposed Procedures p Transesophageal Echo w/Anesthesia - Dionisio Mcneil MD s Cardioversion - Dionisio Mcneil MD Height/Weight Height: 5 ft Weight: 62.5 kg Allergies Allergy/AdvReac Type Severity Reaction Status Date / Time bacitracin Allergy Mild UNSURE Verified 11/24/18 08:02 neomycin Allergy Mild UNSURE Verified 11/24/18 08:02 polymyxin B Allergy Mild UNSURE Verified 11/24/18 08:02 copper Allergy Unknown METAL? Verified 11/24/18 08:02 nickel Allergy Unknown METAL? Verified 11/24/18 08:02 silver Allergy Unknown METAL? Verified 11/24/18 08:02 strawberry Allergy Unknown . Verified 11/24/18 08:02 Medications Home Medications Medication Instructions Recorded Confirmed Last Taken Trelegy Ellipta 1 inh INHALATION QAM 06/22/18 11/24/18 11/24/18 ipratropium-albuterol 3 ml INHALATION Q4 PRN 06/22/18 11/24/18 Unknown pantoprazole 40 mg tablet,delayed 40 mg PO BID #60 tab 10/12/18 11/24/18 11/23/18 release Oxygen Home #1 ea 11/12/18 11/24/18 Unknown furosemide 20 mg tablet 20 mg PO BID PRN #20 tab 11/12/18 11/24/18 Unknown Active Medications Generic Name Dose Route Start Last Admin Trade Name Freq PRN Reason Stop Dose Admin Albuterol 3 ml 11/24/18 13:42 11/25/18 13:38 Duoneb INH 12/24/18 13:41 3 ml Q4 PRN Administration Shortness Of Breath Or Wheezing Furosemide 20 mg/ Syringe 2 mls @ 4 mls/min 11/24/18 14:15 11/25/18 18:15 IV 12/24/18 14:14 4 mls/min BID17 [facility] Administration Heparin Sodium/Dextrose 25,000 units in 500 mls @ 18 mls/hr 11/24/18 16:45 11/25/18 19:28 Heparin Sodium/Dextrose IV 12/24/18 16:44 900 units/hr .Q24H [facility] 18 mls/hr Titration Protocol 900 UNITS/HR Pantoprazole Sodium 40 mg 11/24/18 21:00 11/25/18 20:43 Protonix PO 12/24/18 20:59 40 mg BID [facility] Administration Fluticasone/Salmeterol 1 puffs 11/24/18 21:00 11/25/18 20:43 Advair Diskus 100/50 INH 12/24/18 20:59 1 puffs BID [facility] Administration Tiotropium [place] 1 puffs 11/25/18 09:00 11/25/18 09:37 Spiriva INH 12/25/18 08:59 1 puffs DAILY [facility] Administration Past Medical History Medical History CHF (congestive heart failure) COPD (chronic obstructive pulmonary disease) (Chronic) Atrial fibrillation with RVR (Acute) History of pulmonary embolism History of peptic ulcer disease Pulmonary hypertension Required emergent intubation No pertinent family history (Inactive) Tachyarrhythmia Exercise / Class Metabolic Activity II 4-5 Yardwork/Stairs/Walk up hill Past Family History Family History Other Family history non-contributory Past Surgical History Surgical History H/O tubal ligation S/P cataract surgery Bilateral S/P IVC filter Past Anesthesia History No Hx of Anesthesia Complications and No Family Hx of Anesthesia Complications History of PONV No Hx of PONV and No Hx of Motion Sickness Social History Smoking Status: Former smoker tobacco type: cigarettes Do You Dip or Chew Tobacco: No Hx Alcohol Use: Yes Alcohol type: beer alcohol intake frequency: a few times a month Hx Substance Use: No Physical Exam Vital Signs Last Vital Signs Temp 97.9 F 11/26/18 05:03 Pulse 76 11/26/18 06:00 Resp 22 11/26/18 06:00 BP 124/77 11/26/18 06:00 Pulse Ox 93 11/26/18 06:00 ENMT Mouth: + edentulous Thyromental Distance: > or= 3.5 Finger Breadths Mallampati Class: II Neck normal visual inspection Respiratory normal respiratory effort Auscultation: + diminished lung sounds Cardiovascular Rate/Rhythm: + abnormal rate and + abnormal rhythm Testing Laboratory Results 11/25/18 16:20 PT 10.6 Seconds (9.0-12.0) 11/24/18 09:28 INR 1.0 (0.9-1.1) 11/24/18 09:28 APTT 85.7 Seconds (21.0-31.0) H* 11/26/18 06:03 Electrocardiogram Date: 11/24/18 Atrial fibrillation, rate 144 bpm Abnormal ECG When compared with ECG of 22-JUN-2018 01:06, Atrial fibrillation has replaced sinus rhythm Nonspecific T wave abnormality now evident in Inferior leads T wave inversion now evident in Anterior leads Confirmed by Elgin Mcneil ([id number]) on 11/24/2018 11:35:19 AM Chest X-Ray Date: 11/24/18 IMPRESSION: Cardiomegaly and radiographic evidence of congestive failure with small bilateral pleural effusions Echocardiogram Date: 06/23/18 EF: 60-65% LV Function: normal Other Findings: + diastolic dysfunction (grade 1) RVSP is elevated at 40-50mm Hg
[2018-11-26 08:25] LABS: BUN Creatinine Ratio 15.2 (10-20); Calcium 8.9 mg/dl (8.5-10.1); Creatinine Clr Calc Pharmacy 27.5 ml/min; Est GFR (Non-African American) 36.2; Potassium 3.9 mmol/L (3.5-5.1)
--- NOTE | 2018-11-26 08:28 | Cardioversion ---
Date of Service November 26, 2018 Electrical Cardioversion Rpt Electrical Cardioversion Report Procedure performed: Cardioversion Indication: Atrial flutter Staff environmental health and safety manager: Elgin Mcneil MD Procedure in detail: The patient was informed of the risks benefits and alternatives to the intended procedure. She understood such which proceed. He was taken to the cardiac catheterization suite holding area. A general anesthetic was administered by the Anesthesiology Service. Once appropriately anesthetized, the patient was cardioverted using 50 joules delivered in a biphasic fashion. This returned the patient to sinus rhythm. The patient tolerated procedure well, there were no immediate complications. Patient was neurologically intact subsequent to the procedure. Impression: Successful cardioversion from atrial flutter to normal sinus rhythm [facility] Cardiac Procedure Charge Cardiovascular Procedure 1: Cardiovascular: Cardioversion electric, ext
--- NOTE | 2018-11-26 09:03 | Anesthesiology Progress Note ---
Date of Service November 26, 2018 Anesthesia Post Procedure Vital Signs Vital Signs: Temp Pulse Pulse Resp BP Pulse Ox 11/26/18 06:00 76 22 124/77 93 11/26/18 05:03 97.9 F 67 21 114/77 93 11/26/18 04:00 67 22 122/76 96 11/26/18 03:00 100 H 24 159/81 H 91 11/25/18 22:58 97.9 F 69 26 H 112/68 95 11/25/18 22:00 67 22 106/64 11/25/18 21:00 75 22 120/63 95 11/25/18 20:00 76 22 95 11/25/18 19:03 98.1 F 73 24 121/65 96 11/25/18 17:19 97.9 F 70 18 114/73 97 11/25/18 16:00 85 11/25/18 13:40 70 20 96 11/25/18 10:58 97.5 F L 82 22 120/83 96 Transfer of Care Handoff Completed per policy Notes Mental Status: alert / awake / arousable and participated in evaluation Patient Amnestic to Procedure: Yes Nausea / Vomiting: adequately controlled Pain: adequately controlled Airway Patency, RR, SpO2: stable & adequate BP & HR: stable & adequate Hydration State: stable & adequate Anesthetic Complications: no major complications apparent and Pt Satisfied with anesthetic care
[2018-11-26] MEDS: FLUTICASONE/SALMETEROL 100/50 (ADVAIR) 14 PUFF/1 INHALER INH SCH ×2 (10:09→20:58)
[2018-11-26] MEDS: PANTOprazole 40 MG TAB PO SCH ×2 (10:10→20:58)
[2018-11-26] MEDS: TIOTROPIUM BROMIDE 5 PUFF/90 MCG INH INH SCH (10:10)
[2018-11-26] MEDS: FUROSEMIDE 20 MG in SYRINGE 0 ML IV SCH ×2 (10:11→17:31)
[2018-11-26 10:22] LABS: Hematocrit (blood only) 34.1 % (37-47); Hemoglobin 10.5 g/dL (12.0-16.0)
--- NOTE | 2018-11-26 10:22 | Cardiology Progress Note ---
Date of Service November 26, 2018 Assessment & Plan (1) Atrial fibrillation with RVR: She underwent ETHAN and cardioversion of what appeared to be in atrial flutter early this morning. Undoubtedly she will have more atrial flutter. She would likely benefit from catheter based therapy to eliminate her chances of recurrence. 1. With this prevent repeat hospitalizations but also of the need for ongoing anticoagulation in the long-term. At this point I would recommend initiation anticoagulation with 1 of the novel oral anticoagulants. I do not believe she requires diltiazem or other rate control agents at the time of discharge. These would likely not be efficacious and certainly would not prevent recurrences. Will schedule her for follow-up in our clinic to discuss catheter based therapy in the hopes of treating this permanently. Certainly from a cardiac standpoint she could be discharged today unless her pulmonary status is not back to baseline. She also may be somewhat debilitated and weak having been bed ridden for couple of days. I will sign off for now. I will follow up with her in the outpatient setting. If additional issues or questions arise during hospitalization please contact the medical physics professor die cutter diamond. Thank you Subjective This min the patient claims to be feeling about the same. She continues to be weak and short of breath. Review of Systems Review of Systems: Per HPI Physical Exam Physical Exam: She is alert and oriented x3. Mood affect appear normal. She answered all questions appropriately. HEENT: Sclerae are anicteric. Pupils are equal and reactive to light and accommodation. Extraocular movements were intact. Neuro: Cranial nerves intact Lungs: Increased respiratory effort. Poor excursion overall. No expiratory wheezing. Cardiac: The rhythm was irregular. S1 and S2 were normal. There are no murmurs on examination. The PMI was not markedly displaced on palpation. Abdomen: The abdomen was soft and nontender. Extremities: Patient has bilateral radial pulses that are equal in intensity. There is no evidence cyanosis or clubbing. There was no evidence of significant peripheral edema bilaterally. Skin: There are no rashes noted on examination today. Results & Data Vital Signs (Past 12 Hours) Vital Signs Temp Pulse Resp BP Pulse Ox 11/26/18 06:00 76 22 124/77 93 11/26/18 05:03 36.6 C 67 21 114/77 93 11/26/18 04:00 67 22 122/76 96 11/26/18 03:00 100 H 24 159/81 H 91 11/25/18 22:58 36.6 C 69 26 H 112/68 95 Laboratory Results Abnormal Lab Results 11/25/18 11/26/18 11/26/18 16:20 06:03 06:10 Hgb 10.7 L Hct 34.3 L APTT 85.7 H* PTT Ratio 3.2 Sodium 131 L Potassium 3.9 Chloride 89 L Carbon Dioxide 35 H Anion Gap 7.0 BUN 21 H Creatinine 1.39 H Est Cr Clr Drug Dosing 27.5 Est GFR ( Amer) 42.0 Est GFR (Non-Af Amer) 36.2 BUN/Creatinine Ratio 15.2 Glucose 126 H Calcium 8.9 PG Care Time/CCT Total # of Minutes Spent Total Time Spent with Patient: Total time spent is greater than 50% in coordination of care (as documented) at patient's floor/unit and/or counseling patient:
[2018-11-26] MEDS: RIVAROXABAN 15 MG TAB PO SCH (17:31)
[2018-11-27 06:01] LABS: Basophils # (auto) 0.02 K/uL (0-0.2); Basophils % (auto) 0.4 %; Eosinophils # (auto) 0.09 K/uL (0-0.5); Eosinophils % (auto) 1.9 %; Hematocrit (blood only) 32.9 % (37-47); Hemoglobin 10.2 g/dL (12.0-16.0); Lymphocytes # (auto) 0.56 K/uL (1.2-3.4); Lymphocytes % (auto) 11.6 %; Mean Corpuscular Hemoglobin 29.3 pg (25-34); Mean Corpuscular Volume 94.5 fL (80-100); Mean Platelet Volume 9.3 fL (7.4-10.4); Monocytes # (auto) 0.54 K/uL (0.11-0.59); Monocytes % (auto) 11.2 %; Neutrophils # (auto) 3.63 K/uL (1.4-6.5); Neutrophils % (auto) 74.9 %; Platelet Count 169 K/uL (130-400); RDW Coefficient of Variation 13.7 % (11.5-14.5); RDW Standard Deviation 47.1 fL (36.4-46.3); Red Blood Count 3.48 M/uL (4.2-5.4); White Blood Count 4.84 K/uL (4.8-10.8)
[2018-11-27 06:42] LABS: BUN Creatinine Ratio 14.6 (10-20); Calcium 8.5 mg/dl (8.5-10.1); Creatinine Clr Calc Pharmacy 34.9 ml/min; Est GFR (African American) 55.7; Est GFR (Non-African American) 48.1; Potassium 4.4 mmol/L (3.5-5.1)
[2018-11-27] MEDS: ALBUT/IPRATROP 3MG/0.5MG NEB 3 ML VIAL INH PRN (07:41)
--- NOTE | 2018-11-27 08:09 | XRay Report ---
XR chest 1V portable HISTORY: 78 years-old Female increased oxygen demand acute hypoxia COMPARISON: Chest radiograph 11/24/2018 TECHNIQUE: Portable AP view of the chest FINDINGS: Cardiac silhouette is enlarged, unchanged. Pulmonary vascular congestion with interstitial coarsening . Small pleural effusions with progressive bibasilar opacities. Healed remote left-sided rib fracture s. Degenerative changes of the shoulders and spine. IMPRESSION: 1. Cardiomegaly with mild pulmonary edema. 2. Increased size of the small pleural effusions with progressive bibasilar opacities suggestive of p robable atelectasis. The above report was generated using voice recognition software. It may contain grammatical, syntax o r spelling errors. Electronically signed by: Reji Whitaker M.D. 11/27/2018 8:08 AM
[2018-11-27] MEDS: TIOTROPIUM BROMIDE 5 PUFF/90 MCG INH INH SCH (08:55)
[2018-11-27] MEDS: FLUTICASONE/SALMETEROL 100/50 (ADVAIR) 14 PUFF/1 INHALER INH SCH ×2 (08:55→21:17)
[2018-11-27] MEDS: PANTOprazole 40 MG TAB PO SCH ×2 (08:56→21:17)
[2018-11-27] MEDS: FUROSEMIDE 20 MG in SYRINGE 0 ML IV SCH ×2 (08:56→18:11)
--- NOTE | 2018-11-27 09:30 | Anesthesiology Progress Note ---
Date of Service November 27, 2018 Anesthesia Post Procedure Vital Signs Vital Signs: Temp Pulse Resp BP BP Pulse Ox Pulse Ox 11/27/18 07:41 116 H 24 94 11/27/18 07:29 36.2 C L 124 H 24 163/82 H 11/27/18 04:42 36.3 C L 100 H 19 119/73 93 11/26/18 23:10 36.3 C L 99 H 22 139/84 95 11/26/18 19:49 36.8 C 101 H 18 157/89 H 92 11/26/18 15:26 36.7 C 91 H 18 158/80 H 90 11/26/18 11:20 90 11/26/18 11:07 36.3 C L 84 22 135/77 90 Pulse Ox 11/27/18 07:41 11/27/18 07:29 11/27/18 04:42 11/26/18 23:10 11/26/18 19:49 11/26/18 15:26 11/26/18 11:20 90 11/26/18 11:07 Notes Mental Status: alert / awake / arousable and participated in evaluation Patient Amnestic to Procedure: Yes Nausea / Vomiting: adequately controlled Pain: adequately controlled Airway Patency, RR, SpO2: stable & adequate BP & HR: stable & adequate Hydration State: stable & adequate Anesthetic Complications: no major complications apparent
--- NOTE | 2018-11-27 16:07 | Family Medicine Progress Note ---
Date of Service November 27, 2018 Assessment & Plan (1) Atrial fibrillation with RVR: 78yo F PMH severe COPD oxygen dependent 3L, h/o GI bleed, CHF presents with COPD exacerbation and new onset Afib RVR Atrial flutter with RVR: -No history of prior. Blood pressure stable. Asymptomatic, however, she is showing some clinical and radiographic signs of failure to include weight gain, edema, JVD and pulmonary venous congestion. -TSH and Troponin WNL. -Echo 06/23/18 which revealed normal LV fx, Grade I diastolic dysfx, elevated RV sys pres 40-50mmHg and dilated IVC. -Rate did not respond to Adenosine 6mg, 12mg administered in ER. -Started on xarelto -Cardioversion on November 26, and has maintained normal sinus rhythm since then with episodes of ?sinus tachy vs SVT -Cardiology consulted, appreciate recs -We will need close follow-up and likely outpatient ablation -Stable for discharge from a cardiac standpoint; may need to reconsult given high ventricular rates on 11/27 COPD (chronic obstructive pulmonary disease): Patient with severe O2 dependent COPD. Does not appear to be in acute exacerbation at this time. Some labored breathing noted most likely secondary to poorly controlled heart rate with some CHF -Continue home O2, 3L. Goal saturation 88-92% -Continue Ellipta -DuoNeb and Albuterol PRN -Continuous pulse oximetry Gastrointestinal bleeding: -H/O perforated duodenal ulcer and massive GI bleed, hemorrhagic shock requiring intubation and ICU care in November 2017. -Patient has recovered from this and is doing quite well. Denies melena or hematochezia -Continue Protonix 40 mg p.o. twice daily -On Xarelto caution for signs and symptoms of bleeding -Hemoglobin has remained stable throughout this admission CHF (congestive heart failure): -Patient with grade 1 diastolic dysfunction. Evidence of CHF in setting of A. fib with RVR -Lasix resumed 11/27 -Check daily weights, Monitor intake and output FENa: Heart healthy diet monitor electrolytes and replete as indicated Code Status: Full code DVT PPX: Xarelto PT/OT: Consulted recommend SNF patient is unwilling, will be discharged with home health Dispo: PCU Supervising Physician Co-Signing Physician Notes Attending attestation Pt seen and examined in concert with Dr. Angulo. In agreement with the documented findings as noted in the resident documentation with any exceptions or additions as noted here. Resting comfortably in chair without acute complaint. Persistent shortness of breath worsened with activity (ambulation to bathroom). On examination, S1/S2 nl, tachycardic, no MCG. Scattered wheezing with diffusely diminished breath sounds, stable/mildly improved from yesterday. Atrial flutter with RVR s/p cardioversion - sinus tachy on telemetry. Consider addition of betablocker in AM if HR continues to be mildly elevated. Continue rivaroxaban. Pulmonary edema 2/2 AFlutter w/ RVR w/ HFpEF - continue lasix BID, monitor I/O/weights. Monitor for fluid overload complicating chronic respiratory conditions Deconditioning - PT/OT recommending rehab. Need to d/w patient. Else see resident documentation as noted. Subjective Called to pt bedside this AM due to sensation of not being able to breathe, oxygen saturation in the 60s% on 3L NC. Patient given neb treatment, xray obtained. [place] considerably better after receiving neb treatment. Denies palpitations, lightheadedness at this time. Review of Systems Review of Systems: All systems reviewed & are unremarkable except as noted in HPI & below Respiratory: + dyspnea on exertion and + wheezing Cardiovascular: + dyspnea on exertion; no chest pain, no palpitations and no syncope Gastrointestinal: no abdominal pain Physical Exam Constitutional: well developed, well nourished and comfortable; no acute distress Eyes: PERRL, conjunctivae normal, anicteric sclerae ENMT: Ears: + hearing impairment Mouth: + edentulous Mallampati Class: II Neck: normal visual inspection Respiratory: normal respiratory effort Auscultation: + diminished lung sounds and + wheezes (end expiratory) Cardiovascular: Rate/Rhythm: regular rhythm and + tachycardic; + abnormal rate Gastrointestinal (Abdomen): normal bowel sounds, soft, nontender, no hepatosplenomegaly Skin: no rashes, warm and dry Neurologic: PERRL, EOMI, accommodation nl, no face palsy, no dysarthria Results & Data Vital Signs (Past 12 Hours) Vital Signs Temp Pulse Resp BP BP Pulse Ox 11/27/18 15:40 98.1 F 102 H 23 129/77 96 11/27/18 11:54 98.1 F 108 H 20 125/52 L 95 11/27/18 07:41 116 H 24 94 11/27/18 07:29 97.2 F L 124 H 24 163/82 H 11/27/18 04:42 97.3 F L 100 H 19 119/73 93 Laboratory Results 11/27/18 11/27/18 Range/Units 05:44 05:44 WBC 4.84 (4.8-10.8) K/uL RBC 3.48 L (4.2-5.4) M/uL Hgb 10.2 L (12.0-16.0) g/dL Hct 32.9 L (37-47) % MCV 94.5 (80-100) fL MCH 29.3 (25-34) pg MCHC 31.0 L (32-36) g/dL RDW Std Deviation 47.1 H (36.4-46.3) fL RDW Coeff of Tio 13.7 (11.5-14.5) % Plt Count 169 (130-400) K/uL MPV 9.3 (7.4-10.4) fL Immature Gran % (Auto) 0.0 % Neut % (Auto) 74.9 % Lymph % (Auto) 11.6 % [place] % (Auto) 11.2 % Eos % (Auto) 1.9 % Baso % (Auto) 0.4 % Immature Gran # (Auto) 0.00 (0.00-0.02) K/uL Neut # (Auto) 3.63 (1.4-6.5) K/uL Lymph # (Auto) 0.56 L (1.2-3.4) K/uL [place] # (Auto) 0.54 (0.11-0.59) K/uL Eos # (Auto) 0.09 (0-0.5) K/uL Baso # (Auto) 0.02 (0-0.2) K/uL Sodium 131 L (136-145) mmol/L Potassium 4.4 (3.5-5.1) mmol/L Chloride 90 L (98-107) mmol/L Carbon Dioxide 36 H (21-32) mmol/L Anion Gap 5.0 (3-11) BUN 16 (7-18) mg/dl Creatinine 1.10 (0.6-1.2) mg/dl Est Cr Clr Drug Dosing 34.9 ml/min Est GFR ( Amer) 55.7 Est GFR (Non-Af Amer) 48.1 BUN/Creatinine Ratio 14.6 (10-20) Glucose 90 (70-99) mg/dl Calcium 8.5 (8.5-10.1) mg/dl Specimen Hemolysis Medications Administered Current Inpatient Medications Acetaminophen (Tylenol) 650 mg PO Q4H PRN PRN Reason: Pain or Fever Stop: 12/24/18 13:41 Albuterol (Duoneb) 3 ml INH Q4 PRN PRN Reason: Shortness Of Breath Or Wheezing Stop: 12/24/18 13:41 Last Admin: 11/27/18 07:41 Dose: 3 ml Documented by: Albuterol (Ventolin 0.5% 2.5mg/0.5ml) 2.5 mg NEB Q2H PRN PRN Reason: SOB/Wheeze Stop: 12/24/18 13:41 Docusate Sodium (Colace) 100 mg PO BID PRN PRN Reason: Constipation Stop: 12/24/18 13:41 Furosemide 20 mg/ Syringe 2 mls @ 4 mls/min IV BID17 [facility] Stop: 12/24/18 14:14 Last Admin: 11/27/18 08:56 Dose: 4 mls/min Documented by: Pantoprazole Sodium (Protonix) 40 mg PO BID [facility] Stop: 12/24/18 20:59 Last Admin: 11/27/18 08:56 Dose: 40 mg Documented by: Rivaroxaban (Xarelto) 15 mg PO DAILY@1700 [facility] Stop: 12/26/18 16:39 Last Admin: 11/26/18 17:31 Dose: 15 mg Documented by: Fluticasone/Salmeterol (Advair Diskus 100/50) 1 puffs INH BID [facility] Stop: 12/24/18 20:59 Last Admin: 11/27/18 08:55 Dose: 1 puffs Documented by: Tiotropium [place] (Spiriva) 1 puffs INH DAILY [facility] Stop: 12/25/18 08:59 Last Admin: 11/27/18 08:55 Dose: 1 puffs Documented by: PG Care Time/CCT Total # of Minutes Spent Total Time Spent with Patient: Total time spent is greater than 50% in coordination of care (as documented) at patient's floor/unit and/or counseling patient: Resident Activity Tracking Resident Involvement: Resident Care Provided Care Provided: Adult Hospital Medicine
[2018-11-27] MEDS: RIVAROXABAN 15 MG TAB PO SCH (18:11)
[2018-11-28] MEDS ORDERED: dilTIAZem HCl 5 MG/ML 5 ML VIAL IV STA (00:37)
[2018-11-28] MEDS ORDERED: dilTIAZem HCl 5 MG/ML 5 ML VIAL IV ONE (00:45)
[2018-11-28] MEDS: dilTIAZem HCL 125 MG in DEXTROSE 5% 100 ML IV SCH ×3 (01:07→19:25)
[2018-11-28 06:18] LABS: BUN Creatinine Ratio 19.3 (10-20); Calcium 8.8 mg/dl (8.5-10.1); Creatinine Clr Calc Pharmacy 37.4 ml/min; Est GFR (Non-African American) 52.6; Potassium 4.2 mmol/L (3.5-5.1)
[2018-11-28] MEDS: FLUTICASONE/SALMETEROL 100/50 (ADVAIR) 14 PUFF/1 INHALER INH SCH ×2 (08:37→21:01)
[2018-11-28] MEDS: FUROSEMIDE 20 MG in SYRINGE 0 ML IV SCH ×2 (08:37→17:38)
[2018-11-28] MEDS: PANTOprazole 40 MG TAB PO SCH ×2 (08:38→21:01)
[2018-11-28] MEDS: TIOTROPIUM BROMIDE 5 PUFF/90 MCG INH INH SCH (08:38)
[2018-11-28] MEDS: LEVALBUTEROL HCL 1.25 MG/3 ML NEB NEB SCH ×2 (12:48→18:58)
--- NOTE | 2018-11-28 13:39 | Cardiology Progress Note ---
Date of Service November 28, 2018 Assessment & Plan (1) Atrial fibrillation with RVR: The patient did undergo successful ETHAN directed cardioversion last week. Unfortunately, she has again developed atrial fibrillation. She has been stable on Xarelto. Would initiate intravenous amiodarone to attempt cardioversion to sinus rhythm. Subjective The patient is resting comfortably in bedside chair without complaints of chest pain, dyspnea, or palpitations. Physical Exam Physical Exam: In general it is an elderly white female in no acute distress. HEENT exam is negative. Neck is supple room with full carotid upstrokes. No obvious bruits. Jugular venous pressure is flat at 90 degrees. No thyromegaly. Cardiovascular exam reveals an irregular regular rhythm with distant heart sounds. No obvious murmurs. Lungs notes diffuse rhonchi. Abdomen is soft. Extremities reveal intact radial artery pulses bilaterally. There is no peripheral edema. 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 last evening. PG Care Time/CCT Total # of Minutes Spent Total Time Spent with Patient: Total time spent is greater than 50% in coordination of care (as documented) at patient's floor/unit and/or counseling patient:
[2018-11-28] MEDS: RIVAROXABAN 15 MG TAB PO SCH (17:38)
--- NOTE | 2018-11-28 17:39 | Family Medicine Progress Note ---
Date of Service November 28, 2018 Assessment & Plan (1) Atrial fibrillation with RVR: 78yo F PMH severe COPD oxygen dependent 3L, h/o GI bleed, CHF presents with COPD exacerbation and new onset Afib RVR Atrial flutter with RVR: -No history of prior. Blood pressure stable. Asymptomatic, however, does show some clinical and radiographic signs of failure to include weight gain, edema, JVD and pulmonary venous congestion. -TSH and Troponin WNL. -Echo 06/23/18 revealed normal LV fx, Grade I diastolic dysfx, elevated RV sys pres 40-50mmHg and dilated IVC. -Rate did not respond to Adenosine 6mg, 12mg administered in ER. -Started on xarelto -Cardioversion on November 26, and had maintained normal sinus rhythm until overnight of 11/27/18, converting to afib with RVR of 200. -Started on cardizem drip on 11/28/18 -Cardiology consulted, appreciate recs -We will need close follow-up and likely outpatient ablation -Re-consulted given converting back to afib RVR. COPD (chronic obstructive pulmonary disease): Patient with severe O2 dependent COPD. Does not appear to be in acute exacerbation at this time. Some labored breathing noted most likely secondary to poorly controlled heart rate with some CHF -Continue home O2, 3L. Goal saturation 88-92% -Continue Ellipta -DuoNeb and Albuterol PRN -Continuous pulse oximetry Gastrointestinal bleeding: -H/O perforated duodenal ulcer and massive GI bleed, hemorrhagic shock requiring intubation and ICU care in November 2017. -Patient has recovered from this and is doing quite well. Denies melena or hematochezia -Continue Protonix 40 mg p.o. twice daily -On Xarelto, caution for signs and symptoms of bleeding -Hemoglobin has remained stable throughout this admission CHF (congestive heart failure): -Patient with grade 1 diastolic dysfunction. Evidence of CHF in setting of A. fib with RVR -Lasix resumed 11/27 -Check daily weights, Monitor intake and output closely FENa: Heart healthy Code Status: Full code DVT PPX: Xarelto PT/OT: Consulted, recommend SNF but patient is unwilling, will be discharged with home health Dispo: PCU Supervising Physician Co-Signing Physician Notes Attending attestation Pt seen and examined in concert with Dr. Angulo. In agreement with the documented findings as noted in the resident documentation with any exceptions or additions as noted here. Stable/improved shortness of breath still worsened with minimal activity. Converted to AF w/ RVR overnight, on diltiazem drip. On examination, S1/S2 nl, tachycardic, no MCG. Scattered wheezing with diffusely diminished breath sounds. Atrial flutter with RVR s/p cardioversion - Cardiology consultation - titrate diltiazem drip until rate control. Continue rivaroxaban. Pulmonary edema in the setting of AFlutter, then AFib w/ RVR w/ HFpEF - continue lasix BID, monitor I/O/weights. Monitor for fluid overload complicating chronic respiratory conditions Deconditioning - PT/OT recommending rehab. Continue discussion with patient, will need support on discharge. Else see resident documentation as noted. Subjective Pt feels well this morning. Denies palpitations, lightheadedness, or dyspnea at rest. Dyspnea on exertion when up walking to bathroom. Denied any symptoms overnight when she converted into afib RVR Review of Systems Review of Systems: All systems reviewed & are unremarkable except as noted in HPI & below Constitutional: + fatigue and + weakness; no fever, no chills and no body aches Respiratory: + dyspnea on exertion; no cough Cardiovascular: + dyspnea on exertion and + edema; no chest pain and no palpitations Gastrointestinal: no abdominal pain Physical Exam Constitutional: well developed, well nourished and comfortable; no acute distress Eyes: PERRL, conjunctivae normal, anicteric sclerae ENMT: Ears: + hearing impairment Mouth: + edentulous Neck: normal visual inspection Respiratory: normal respiratory effort, + uses accessory muscles and able to speak in complete sentences; no labored breathing and no nasal flaring Auscultation: + wheezes (insp/expiratory) Cardiovascular: Rate/Rhythm: regular rhythm and + tachycardic; + abnormal rate Gastrointestinal (Abdomen): normal bowel sounds, soft, nontender, no hepatosplenomegaly Skin: no rashes, warm and dry Neurologic: PERRL, EOMI, accommodation nl, no face palsy, no dysarthria Results & Data Vital Signs (Past 12 Hours) Vital Signs Temp Pulse Resp BP BP Pulse Ox 11/28/18 15:19 98.2 F 93 H 20 108/69 98 11/28/18 12:49 92 H 20 93 11/28/18 11:28 98.6 F 110 H 19 112/79 95 11/28/18 07:07 98.1 F 109 H 22 101/79 90 Laboratory Results 11/28/18 11/28/18 Range/Units 05:27 05:27 Sodium 134 L (136-145) mmol/L Potassium 4.2 (3.5-5.1) mmol/L Chloride 90 L (98-107) mmol/L Carbon Dioxide 41 H* (21-32) mmol/L Anion Gap 3.0 (3-11) BUN 20 H (7-18) mg/dl Creatinine 1.02 (0.6-1.2) mg/dl Est Cr Clr Drug Dosing 37.4 ml/min Est GFR ( Amer) 61.0 Est GFR (Non-Af Amer) 52.6 BUN/Creatinine Ratio 19.3 (10-20) Glucose 115 H (70-99) mg/dl Calcium 8.8 (8.5-10.1) mg/dl Magnesium 1.9 (1.8-2.4) mg/dl Medications Administered Current Inpatient Medications Acetaminophen (Tylenol) 650 mg PO Q4H PRN PRN Reason: Pain or Fever Stop: 12/24/18 13:41 Albuterol (Duoneb) 3 ml INH Q4 PRN PRN Reason: Shortness Of Breath Or Wheezing Stop: 12/24/18 13:41 Last Admin: 11/27/18 07:41 Dose: 3 ml Documented by: Albuterol (Ventolin 0.5% 2.5mg/0.5ml) 2.5 mg NEB Q2H PRN PRN Reason: SOB/Wheeze Stop: 12/24/18 13:41 Docusate Sodium (Colace) 100 mg PO BID PRN PRN Reason: Constipation Stop: 12/24/18 13:41 Furosemide 20 mg/ Syringe 2 mls @ 4 mls/min IV BID17 [facility] Stop: 12/24/18 14:14 Last Admin: 11/28/18 17:38 Dose: 4 mls/min Documented by: Diltiazem HCl 125 mg/ Dextrose 125 mls @ 15 mls/hr IV .Q8H20M [facility]; Protocol Stop: 12/28/18 00:44 Last Admin: 11/28/18 11:01 Dose: 15 mg/hr, 15 mls/hr Documented by: Levalbuterol HCl (Xopenex 1.25mg/3ml Neb) 1.25 mg NEB Q6R [facility] Stop: 12/28/18 12:59 Last Admin: 11/28/18 12:48 Dose: 1.25 mg Documented by: Pantoprazole Sodium (Protonix) 40 mg PO BID [facility] Stop: 12/24/18 20:59 Last Admin: 11/28/18 08:38 Dose: 40 mg Documented by: Rivaroxaban (Xarelto) 15 mg PO DAILY@1700 [facility] Stop: 12/26/18 16:39 Last Admin: 11/28/18 17:38 Dose: 15 mg Documented by: Fluticasone/Salmeterol (Advair Diskus 100/50) 1 puffs INH BID [facility] Stop: 12/24/18 20:59 Last Admin: 11/28/18 08:37 Dose: 1 puffs Documented by: Tiotropium [place] (Spiriva) 1 puffs INH DAILY [facility] Stop: 12/25/18 08:59 Last Admin: 11/28/18 08:38 Dose: 1 puffs Documented by: PG Care Time/CCT Total # of Minutes Spent Total Time Spent with Patient: Total time spent is greater than 50% in coordination of care (as documented) at patient's floor/unit and/or counseling patient: Resident Activity Tracking Resident Involvement: Resident Care Provided Care Provided: Adult Hospital Medicine
[2018-11-29] MEDS: LEVALBUTEROL HCL 1.25 MG/3 ML NEB NEB SCH ×4 (00:16→18:59)
[2018-11-29] MEDS: dilTIAZem HCL 125 MG in DEXTROSE 5% 100 ML IV SCH (02:56)
[2018-11-29 06:55] LABS: Est GFR (African American) 40.6; Potassium 3.8 mmol/L (3.5-5.1)
[2018-11-29 06:56] LABS: BUN Creatinine Ratio 22.5 (10-20); Calcium 8.5 mg/dl (8.5-10.1); Creatinine Clr Calc Pharmacy 26.6 ml/min
[2018-11-29] MEDS: FLUTICASONE/SALMETEROL 100/50 (ADVAIR) 14 PUFF/1 INHALER INH SCH ×2 (07:25→20:04)
[2018-11-29] MEDS: PANTOprazole 40 MG TAB PO SCH ×2 (07:25→20:05)
[2018-11-29] MEDS: FUROSEMIDE 20 MG in SYRINGE 0 ML IV SCH (08:10)
[2018-11-29] MEDS: TIOTROPIUM BROMIDE 5 PUFF/90 MCG INH INH SCH (08:10)
--- NOTE | 2018-11-29 08:28 | Family Medicine Progress Note ---
Date of Service November 29, 2018 Assessment & Plan (1) Atrial fibrillation with RVR: 78yo F PMH severe COPD oxygen dependent 3L, h/o GI bleed, CHF presents with COPD exacerbation and new onset Afib RVR Atrial flutter with RVR: No history of prior. Blood pressure stable. Asymptomatic, however, does show some clinical and radiographic signs of failure to include weight gain, edema, JVD and pulmonary venous congestion. TSH and Troponin WNL. Echo 06/23/18 revealed normal LV fx, Grade I diastolic dysfx, elevated RV sys pres 40-50mmHg and dilated IVC. Rate did not respond to Adenosine 6mg, 12mg administered in ER. Cardioversion on November 26, and had maintained normal sinus rhythm until overnight of 11/27/18, converting to afib with RVR of 200. -Started on xarelto -Restarted on cardizem drip on 11/28/18 -Cardiology consulted, appreciate recs -Appears to have A. fib and a flutter less enthusiastic about ablation -Continue diltiazem 30 mg tid -Consider digoxin if unable to control rates -Increased Lasix to 60 mg daily COPD (chronic obstructive pulmonary disease): Patient with severe O2 dependent COPD. Does not appear to be in acute exacerbation at this time. Some labored breathing noted most likely secondary to poorly controlled heart rate with some CHF. Patient is diffusely wheezy, however I am hesitant to order scheduled duo nebs as I am concerned it will make her rate more difficult to control. -Continue home O2, 3L. Goal saturation 88-92% -Continue Ellipta -DuoNeb and Albuterol PRN -Continuous pulse oximetry Gastrointestinal bleeding: H/O perforated duodenal ulcer and massive GI bleed, hemorrhagic shock requiring intubation and ICU care in November 2017. Patient has recovered from this and is doing quite well. Denies melena or hematochezia -Continue Protonix 40 mg p.o. twice daily -On Xarelto, caution for signs and symptoms of bleeding -Hemoglobin has remained stable throughout this admission CHF (congestive heart failure): -Patient with grade 1 diastolic dysfunction. Evidence of CHF in setting of A. fib with RVR -Increase Lasix to 60 mg daily per cardiology -Check daily weights, Monitor intake and output closely FENa: Heart healthy Code Status: Full code DVT PPX: Xarelto PT/OT: Consulted, recommend SNF but patient is unwilling, will be discharged with home health Dispo: U Brody Brandt MD PGY 2, FCM This chart was completed utilizing [employer] voice recognition software. Grammatical errors, random word insertions, pronoun errors, and in complete sentences are an occasional consequence of the system. Any questions or concerns about the content, text, or information contained within the body of this dictation should be addressed directly to the physician for clarification. Supervising Physician Co-Signing Physician Notes Patient seen and examined with Dr. Brandt. I agree with their exam findings, review of systems, assessment and plan. I have personally reviewed the lab work and imaging from today. patient sitting up in her chair, feels like her breathing is close to baseline, reviewed tele, HR still elevated at times on the Cardizem 30mg TID appreciate input from Dr. Mcneil exam: elderly female, NAD, lungs diminished but clear, normal effort, heart irreg irreg tachycardic no murmurs, abdomen soft, NT, ND Atrial fibrillation/flutter with RVR: still working on rate control, using Cardizem PO, failed cardioversion had considered ablation but less likely to be successful now that it is evident that she has atrial fibrillation anticoagulated Chronic hypoxia: stable on her 3-4L Weakness: she refuses to consider SNF rehab, will go home with home health once medically stable Subjective Patient sitting upright in her chair watching TV in no acute distress. She just recently participated in OT, and returned from the bathroom with significant desaturation. Patient reports feeling "fine "she has no acute concerns. Patient reports tolerating her diet, voiding, stooling, sleeping.we discussed how winded she was after she returned to the restroom, my concerns for ability to get around at home and maintain her ADLs. She is still refusing to attend the SNF prior to going home, requesting to be discharged directly home when able. Patient's rates have still been difficult to control, all questions answered no acute concerns. Physical Exam Physical Exam: General: Elderly female sitting up in no acute distress HEENT: Normal cephalic atraumatic Neck: Normal visual inspection Cardiac: Irregularly irregular rhythm, approximately 95 bpm, I did not appreciate any significant murmurs rubs or gallops, 1+ pedal edema, negative calf tenderness, Respiratory: Diffuse wheezes throughout all lung tabor, negative for egophony, negative for consolidation GI: Bowel sounds present MSK: Moves all extremities Skin: Warm and well-perfused Neuro: Alert and oriented x4 Psych: Calm, cooperative, appears in different to her medical treatment Results & Data Vital Signs (Past 12 Hours) Vital Signs Temp Pulse Pulse Resp BP Pulse Ox 11/29/18 08:06 36.6 C 102 H 21 108/65 90 11/29/18 07:03 79 20 84 L 11/29/18 03:32 37.0 C 92 H 18 107/67 91 11/29/18 00:18 95 H 18 88 L 11/29/18 00:00 100 H 11/28/18 23:32 36.7 C 93 H 21 112/74 92 Laboratory Results 11/29/18 Range/Units 05:52 Sodium 132 L (136-145) mmol/L Potassium 3.8 (3.5-5.1) mmol/L Chloride 88 L (98-107) mmol/L Carbon Dioxide 38 H (21-32) mmol/L Anion Gap 6.0 (3-11) BUN 32 H D (7-18) mg/dl Creatinine 1.43 H D (0.6-1.2) mg/dl Est Cr Clr Drug Dosing 26.6 ml/min Est GFR ( Amer) 40.6 Est GFR (Non-Af Amer) 35.0 BUN/Creatinine Ratio 22.5 H (10-20) Glucose 108 H (70-99) mg/dl Calcium 8.5 (8.5-10.1) mg/dl Medications Administered Current Inpatient Medications Acetaminophen (Tylenol) 650 mg PO Q4H PRN PRN Reason: Pain or Fever Stop: 12/24/18 13:41 Albuterol (Duoneb) 3 ml INH Q4 PRN PRN Reason: Shortness Of Breath Or Wheezing Stop: 12/24/18 13:41 Last Admin: 11/27/18 07:41 Dose: 3 ml Documented by: Albuterol (Ventolin 0.5% 2.5mg/0.5ml) 2.5 mg NEB Q2H PRN PRN Reason: SOB/Wheeze Stop: 12/24/18 13:41 Docusate Sodium (Colace) 100 mg PO BID PRN PRN Reason: Constipation Stop: 12/24/18 13:41 Furosemide 20 mg/ Syringe 2 mls @ 4 mls/min IV BID17 [facility] Stop: 12/24/18 14:14 Last Admin: 11/29/18 08:10 Dose: 4 mls/min Documented by: Diltiazem HCl 125 mg/ Dextrose 125 mls @ 15 mls/hr IV .Q8H20M [facility]; Protocol Stop: 12/28/18 00:44 Last Titration: 11/29/18 07:19 Dose: 15 mg/hr, 15 mls/hr Documented by: Levalbuterol HCl (Xopenex 1.25mg/3ml Neb) 1.25 mg NEB Q6R [facility] Stop: 12/28/18 12:59 Last Admin: 11/29/18 07:01 Dose: 1.25 mg Documented by: Pantoprazole Sodium (Protonix) 40 mg PO BID [facility] Stop: 12/24/18 20:59 Last Admin: 11/29/18 07:25 Dose: 40 mg Documented by: Rivaroxaban (Xarelto) 15 mg PO DAILY@1700 [facility] Stop: 12/26/18 16:39 Last Admin: 11/28/18 17:38 Dose: 15 mg Documented by: Fluticasone/Salmeterol (Advair Diskus 100/50) 1 puffs INH BID [facility] Stop: 12/24/18 20:59 Last Admin: 11/29/18 07:25 Dose: 1 puffs Documented by: Tiotropium [place] (Spiriva) 1 puffs INH DAILY [facility] Stop: 12/25/18 08:59 Last Admin: 11/29/18 08:10 Dose: 1 puffs Documented by: PG Care Time/CCT Total # of Minutes Spent Total Time Spent with Patient: Total time spent is greater than 50% in coordination of care (as documented) at patient's floor/unit and/or counseling patient: Resident Activity Tracking Resident Involvement: Resident Care Provided Care Provided: Adult Hospital Medicine
[2018-11-29 09:14] LABS: Basophils # (auto) 0.02 K/uL (0-0.2); Basophils % (auto) 0.2 %; Eosinophils # (auto) 0.04 K/uL (0-0.5); Eosinophils % (auto) 0.4 %; Hematocrit (blood only) 30.7 % (37-47); Hemoglobin 9.8 g/dL (12.0-16.0); Immature Granulocytes # (auto) 0.01 K/uL (0.00-0.02); Immature Granulocytes % (auto) 0.1 %; Lymphocytes % (auto) 9.8 %; Mean Corpuscular Hemoglobin 29.8 pg (25-34); Mean Corpuscular Hgb Conc 31.9 g/dL (32-36); Mean Corpuscular Volume 93.3 fL (80-100); Mean Platelet Volume 9.3 fL (7.4-10.4); Monocytes # (auto) 0.98 K/uL (0.11-0.59); Monocytes % (auto) 10.7 %; Neutrophils # (auto) 7.19 K/uL (1.4-6.5); Neutrophils % (auto) 78.8 %; Platelet Count 189 K/uL (130-400); RDW Coefficient of Variation 13.9 % (11.5-14.5); RDW Standard Deviation 47.6 fL (36.4-46.3); Red Blood Count 3.29 M/uL (4.2-5.4); White Blood Count 9.14 K/uL (4.8-10.8)
--- NOTE | 2018-11-29 10:31 | Cardiology Progress Note ---
Date of Service November 29, 2018 Assessment & Plan (1) Atrial fibrillation with RVR: The patient did undergo successful ETHAN directed cardioversion last week. Unfortunately, she has developed atrial fibrillation. Her prior rhythm peer to be atrial flutter at the rate control seemed more difficult. Hopefully we can achieve better rate control when she is in atrial fibrillation. I think re- initiation of diltiazem would be a good idea. She will continue on her anticoagulation. We could add digoxin as well as her rate control becomes problematic. Given the fact she appears to have both atrial flutter and fibrillation my enthusiasm for an ablation is limited. She may have an element of pulmonary vascular congestion. Overall her breathing seems to be better. However, he has not affected a good diuresis during this hospitalization. I did adjust her diuretic dose. Subjective This morning patient claims to be feeling well. She states that her breathing is back to baseline. She has done minimal activity around her room but did not report significant worsening of her breathing. No chest pain. No sense of palpitation. Review of Systems Review of Systems: Per HPI Physical Exam Physical Exam: She is alert and oriented x3. Mood affect appear normal. She answered all questions appropriately. HEENT: Sclerae are anicteric. Pupils are equal and reactive to light and accommodation. Extraocular movements were intact. Neuro: Cranial nerves intact Lungs: Reduced breath sounds bilaterally. Rhonchorous breath sounds on left base. Expiratory wheezing noted. Increased work of breathing. Cardiac: The rhythm was irregular. S1 and S2 were normal. There are no murmurs on examination. The PMI was not markedly displaced on palpation. Extremities: Patient has bilateral radial pulses that are equal in intensity. There is no evidence cyanosis or clubbing. There was no evidence of significant peripheral edema bilaterally. Skin: There are no rashes noted on examination today. Results & Data Vital Signs (Past 12 Hours) Vital Signs Temp Pulse Pulse Resp BP Pulse Ox 11/29/18 08:06 36.6 C 102 H 21 108/65 90 11/29/18 07:03 79 20 84 L 11/29/18 03:32 37.0 C 92 H 18 107/67 91 11/29/18 00:18 95 H 18 88 L 11/29/18 00:00 100 H 11/28/18 23:32 36.7 C 93 H 21 112/74 92 Laboratory Results Abnormal Lab Results 11/29/18 11/29/18 05:52 05:55 WBC 9.14 RBC 3.29 L Hgb 9.8 L Hct 30.7 L MCV 93.3 MCH 29.8 MCHC 31.9 L RDW Std Deviation 47.6 H RDW Coeff of Tio 13.9 Plt Count 189 MPV 9.3 Immature Gran % (Auto) 0.1 Neut % (Auto) 78.8 Lymph % (Auto) 9.8 [place] % (Auto) 10.7 Eos % (Auto) 0.4 Baso % (Auto) 0.2 Immature Gran # (Auto) 0.01 Neut # (Auto) 7.19 H Lymph # (Auto) 0.90 L [place] # (Auto) 0.98 H Eos # (Auto) 0.04 Baso # (Auto) 0.02 Sodium 132 L Potassium 3.8 Chloride 88 L Carbon Dioxide 38 H Anion Gap 6.0 BUN 32 H D Creatinine 1.43 H D Est Cr Clr Drug Dosing 26.6 Est GFR ( Amer) 40.6 Est GFR (Non-Af Amer) 35.0 BUN/Creatinine Ratio 22.5 H Glucose 108 H Calcium 8.5 PG Care Time/CCT Total # of Minutes Spent Total Time Spent with Patient: Total time spent is greater than 50% in coordination of care (as documented) at patient's floor/unit and/or counseling patient:
[2018-11-29] MEDS: dilTIAZem HCL 30 MG TAB PO SCH ×3 (11:42→20:04)
[2018-11-29] MEDS: RIVAROXABAN 15 MG TAB PO SCH (16:54)
[2018-11-30] MEDS: LEVALBUTEROL HCL 1.25 MG/3 ML NEB NEB SCH ×4 (00:50→19:32)
[2018-11-30 07:27] LABS: Creatinine Clr Calc Pharmacy 27.1 ml/min; Est GFR (African American) 41.3; Est GFR (Non-African American) 35.6
[2018-11-30 08:07] LABS: BUN Creatinine Ratio 26.7 (10-20); Calcium 8.9 mg/dl (8.5-10.1); Creatinine Clr Calc Pharmacy 28.1 ml/min; Est GFR (African American) 43.1; Est GFR (Non-African American) 37.2
[2018-11-30] MEDS ORDERED: FUROSEMIDE 60 MG in SYRINGE 0 ML IV SCH (09:00)
[2018-11-30] MEDS: FLUTICASONE/SALMETEROL 100/50 (ADVAIR) 14 PUFF/1 INHALER INH SCH ×2 (09:13→20:26)
[2018-11-30] MEDS: dilTIAZem HCL 30 MG TAB PO SCH ×3 (09:14→20:26)
[2018-11-30] MEDS: TIOTROPIUM BROMIDE 5 PUFF/90 MCG INH INH SCH (09:14)
[2018-11-30] MEDS: PANTOprazole 40 MG TAB PO SCH ×2 (09:14→20:26)
--- NOTE | 2018-11-30 09:31 | Cardiology Progress Note ---
Date of Service November 30, 2018 Assessment & Plan (1) Atrial fibrillation with RVR: I think her overall heart rates are better, but still elevated at times. Her blood pressure seems adequate to accommodate a higher dose of diltiazem which I will order today. Continue anticoagulation. Subjective Swim patient claims to be feeling well. She states she is not quite back to her baseline but she is improving. She has an element of dyspnea but this is also improved from admission. No chest pain. No sense of palpitation. Review of Systems Review of Systems: Per HPI Physical Exam Physical Exam: She is alert and oriented x3. Mood affect appear normal. She answered all questions appropriately. HEENT: Sclerae are anicteric. Pupils are equal and reactive to light and accommodation. Extraocular movements were intact. Neuro: Cranial nerves intact Lungs: Reduced breath sounds bilaterally. Rhonchorous breath sounds on left base. Expiratory wheezing noted. Increased work of breathing. Cardiac: The rhythm was irregular. S1 and S2 were normal. There are no murmurs on examination. The PMI was not markedly displaced on palpation. Extremities: Patient has bilateral radial pulses that are equal in intensity. There is no evidence cyanosis or clubbing. There was no evidence of significant peripheral edema bilaterally. Skin: There are no rashes noted on examination today. Results & Data Vital Signs (Past 12 Hours) Vital Signs Temp Pulse Pulse Resp BP Pulse Ox 11/30/18 07:44 88 20 94 11/30/18 06:21 36.4 C L 109 H 21 129/83 91 11/30/18 03:27 36.6 C 92 H 19 103/68 95 11/30/18 02:55 96 H 11/30/18 00:52 95 H 18 96 11/29/18 23:17 36.5 C 95 H 18 115/71 96 Laboratory Results Abnormal Lab Results 11/30/18 11/30/18 06:43 06:43 Sodium 131 L Potassium 4.0 Chloride 89 L Carbon Dioxide 39 H Anion Gap 3.0 BUN 36 H Creatinine 1.41 H 1.36 H Est Cr Clr Drug Dosing 27.1 28.1 Est GFR ( Amer) 41.3 43.1 Est GFR (Non-Af Amer) 35.6 37.2 BUN/Creatinine Ratio 26.7 H Glucose 109 H Calcium 8.9 PG Care Time/CCT Total # of Minutes Spent Total Time Spent with Patient: Total time spent is greater than 50% in coordination of care (as documented) at patient's floor/unit and/or counseling patient:
[2018-11-30] MEDS ORDERED: ALBUT/IPRATROP 3MG/0.5MG NEB 3 ML VIAL INH PRN (11:45)
--- NOTE | 2018-11-30 11:46 | Family Medicine Progress Note ---
Date of Service November 30, 2018 Assessment & Plan (1) Atrial fibrillation with RVR: 78yo F PMH severe COPD oxygen dependent 3L, h/o GI bleed, CHF presents with COPD exacerbation and new onset Afib RVR Atrial flutter with RVR: No history of prior. Blood pressure stable. Asymptomatic, however, does show some clinical and radiographic signs of failure to include weight gain, edema, JVD and pulmonary venous congestion. TSH and Troponin WNL. Echo 06/23/18 revealed normal LV fx, Grade I diastolic dysfx, elevated RV sys pres 40-50mmHg and dilated IVC. Rate did not respond to Adenosine 6mg, 12mg administered in ER. Cardioversion on November 26, and had maintained normal sinus rhythm until overnight of 11/27/18, converting to afib with RVR of 200. Now intermittently in and out of atrial fibrillation versus flutter. Focuses on rate control. -Started on xarelto -Cardiology consulted, appreciate recs -Appears to have A. fib and a flutter less enthusiastic about ablation -Increase diltiazem 60 mg tid -Consider digoxin if unable to control rates -DC'd Lasix as patient reports feeling dehydrated and is not producing great output, furthermore she reports her pedal edema is her baseline COPD (chronic obstructive pulmonary disease): Patient with severe O2 dependent COPD. Does not appear to be in acute exacerbation at this time. Some labored breathing noted most likely secondary to poorly controlled heart rate with some CHF. Patient is diffusely wheezy, however I am hesitant to order scheduled duo nebs as I am concerned it will make her rate more difficult to control. -Continue home O2, 3L. Goal saturation 88-92% -Continue Ellipta -DuoNeb and Albuterol PRN -Continuous pulse oximetry Gastrointestinal bleeding: H/O perforated duodenal ulcer and massive GI bleed, hemorrhagic shock requiring intubation and ICU care in November 2017. Patient has recovered from this and is doing quite well. Denies melena or hematochezia -Continue Protonix 40 mg p.o. twice daily -On Xarelto, caution for signs and symptoms of bleeding -Hemoglobin has remained stable throughout this admission, no signs or symptoms of bleeding CHF (congestive heart failure): -Patient with grade 1 diastolic dysfunction. Evidence of CHF in setting of A. fib with RVR -Check daily weights, Monitor intake and output closely FENa: Heart healthy Code Status: Full code DVT PPX: Xarelto PT/OT: Consulted, recommend SNF but patient is unwilling, will be discharged with home health Dispo: PCU Brody Brandt MD PGY 2, FCM This chart was completed utilizing [employer] voice recognition software. Grammatical errors, random word insertions, pronoun errors, and in complete sentences are an occasional consequence of the system. Any questions or concerns about the content, text, or information contained within the body of this dictation should be addressed directly to the physician for clarification. Supervising Physician Co-Signing Physician Notes Patient seen and examined with Dr. Brandt. I agree with their exam findings, review of systems, assessment and plan. I have personally reviewed the lab work and imaging from today. patient feels well, eating breakfast and lunch, no nausea breathing at baseline, she was able to walk to the end of the [place] and back today she is not really responding to Lasix 60mg IV, in fact she feels "dry" discussed plan with Dr. Mcneil exam: elderly female, NAD, lungs diminished but clear, normal effort, heart irreg irreg tachycardic no murmurs, abdomen soft, NT, ND Atrial fibrillation/flutter with RVR: still working on rate control, using Card izem PO, increased to 60mg TID had considered ablation but less likely to be successful now that it is evident that she has atrial fibrillation anticoagulated considering cardioversion if needed Chronic hypoxia: stable on her 3-4L Weakness: she refuses to consider SNF rehab, will go home with home health once medically stable Subjective Patient sitting upright in her chair this morning eating breakfast in no acute distress. Patient reports no acute events overnight. Patient reports her breathing is back to baseline. Through conversation with the patient she does endorse that she has a history of taking Lasix but it is PRN and twice daily as needed for pedal edema. She reports that her current pedal edema is baseline, and she would not take Lasix for this. In fact she reports that she feels slightly dehydrated. Otherwise patient is voiding, stooling, tolerating her diet although not the best intake, and sleeping well. No acute concerns are present, all questions answered. Patient still refusing SNF. Physical Exam Physical Exam: General: Elderly female sitting up in no acute distress HEENT: Normal cephalic atraumatic Neck: Normal visual inspection Cardiac: Irregularly irregular rhythm, approximately 100 bpm, I did not appreciate any significant murmurs rubs or gallops, neg pedal edema, negative calf tenderness, Respiratory: Diffuse wheezes throughout all lung tabor, negative for egophony, negative for consolidation GI: Bowel sounds present MSK: Moves all extremities Skin: Warm and well-perfused Neuro: Alert and oriented x4 Psych: Calm, cooperative, appears in different to her medical treatment Results & Data Vital Signs (Past 12 Hours) Vital Signs Temp Pulse Pulse Resp BP Pulse Ox 11/30/18 07:44 88 20 94 11/30/18 06:21 36.4 C L 109 H 21 129/83 91 11/30/18 03:27 36.6 C 92 H 19 103/68 95 11/30/18 02:55 96 H 11/30/18 00:52 95 H 18 96 Laboratory Results 11/30/18 11/30/18 Range/Units 06:43 06:43 Sodium 131 L (136-145) mmol/L Potassium 4.0 (3.5-5.1) mmol/L Chloride 89 L (98-107) mmol/L Carbon Dioxide 39 H (21-32) mmol/L Anion Gap 3.0 (3-11) BUN 36 H (7-18) mg/dl Creatinine 1.36 H 1.41 H (0.6-1.2) mg/dl Est Cr Clr Drug Dosing 28.1 27.1 ml/min Est GFR ( Amer) 43.1 41.3 Est GFR (Non-Af Amer) 37.2 35.6 BUN/Creatinine Ratio 26.7 H (10-20) Glucose 109 H (70-99) mg/dl Calcium 8.9 (8.5-10.1) mg/dl Medications Administered Current Inpatient Medications Acetaminophen (Tylenol) 650 mg PO Q4H PRN PRN Reason: Pain or Fever Stop: 12/24/18 13:41 Albuterol (Duoneb) 3 ml INH Q4 PRN PRN Reason: Shortness Of Breath Or Wheezing Stop: 12/24/18 13:41 Last Admin: 11/27/18 07:41 Dose: 3 ml Documented by: Albuterol (Ventolin 0.5% 2.5mg/0.5ml) 2.5 mg NEB Q2H PRN PRN Reason: SOB/Wheeze Stop: 12/24/18 13:41 Diltiazem HCl (Cardizem) 60 mg PO TID [facility] Stop: 12/30/18 13:59 Docusate Sodium (Colace) 100 mg PO BID PRN PRN Reason: Constipation Stop: 12/24/18 13:41 Furosemide 60 mg/ Syringe 6 mls @ 4 mls/min IV DAILY [facility] Stop: 12/30/18 08:59 Last Admin: 11/30/18 11:25 Dose: 4 mls/min Documented by: Levalbuterol HCl (Xopenex 1.25mg/3ml Neb) 1.25 mg NEB Q6R [facility] Stop: 12/28/18 12:59 Last Admin: 11/30/18 07:27 Dose: 1.25 mg Documented by: Pantoprazole Sodium (Protonix) 40 mg PO BID [facility] Stop: 12/24/18 20:59 Last Admin: 11/30/18 09:14 Dose: 40 mg Documented by: Rivaroxaban (Xarelto) 15 mg PO DAILY@1700 [facility] Stop: 12/26/18 16:39 Last Admin: 11/29/18 16:54 Dose: 15 mg Documented by: Fluticasone/Salmeterol (Advair Diskus 100/50) 1 puffs INH BID [facility] Stop: 12/24/18 20:59 Last Admin: 11/30/18 09:13 Dose: 1 puffs Documented by: Tiotropium [place] (Spiriva) 1 puffs INH DAILY [facility] Stop: 12/25/18 08:59 Last Admin: 11/30/18 09:14 Dose: 1 puffs Documented by: PG Care Time/CCT Total # of Minutes Spent Total Time Spent with Patient: Total time spent is greater than 50% in coordination of care (as documented) at patient's floor/unit and/or counseling patient: Resident Activity Tracking Resident Involvement: Resident Care Provided Care Provided: Adult Hospital Medicine
[2018-11-30] MEDS: RIVAROXABAN 15 MG TAB PO SCH (16:02)
[2018-11-30] MEDS ORDERED: ALBUT/IPRATROP 3MG/0.5MG NEB 3 ML VIAL INH SCH (17:00)
[2018-12-01] MEDS: LEVALBUTEROL HCL 1.25 MG/3 ML NEB NEB SCH ×2 (01:02→07:14)
[2018-12-01 06:54] LABS: Basophils # (auto) 0.02 K/uL (0-0.2); Basophils % (auto) 0.4 %; Eosinophils # (auto) 0.18 K/uL (0-0.5); Eosinophils % (auto) 3.4 %; Hematocrit (blood only) 30.9 % (37-47); Hemoglobin 9.6 g/dL (12.0-16.0); Immature Granulocytes # (auto) 0.01 K/uL (0.00-0.02); Immature Granulocytes % (auto) 0.2 %; Lymphocytes # (auto) 0.78 K/uL (1.2-3.4); Lymphocytes % (auto) 14.6 %; Mean Corpuscular Hemoglobin 29.1 pg (25-34); Mean Corpuscular Hgb Conc 31.1 g/dL (32-36); Mean Corpuscular Volume 93.6 fL (80-100); Mean Platelet Volume 8.8 fL (7.4-10.4); Monocytes # (auto) 0.62 K/uL (0.11-0.59); Monocytes % (auto) 11.6 %; Neutrophils # (auto) 3.73 K/uL (1.4-6.5); Neutrophils % (auto) 69.8 %; Platelet Count 197 K/uL (130-400); RDW Coefficient of Variation 13.7 % (11.5-14.5); RDW Standard Deviation 46.7 fL (36.4-46.3); White Blood Count 5.34 K/uL (4.8-10.8)
[2018-12-01 07:25] LABS: BUN Creatinine Ratio 27.7 (10-20); Calcium 8.7 mg/dl (8.5-10.1); Creatinine Clr Calc Pharmacy 25.3 ml/min; Est GFR (African American) 38.6; Est GFR (Non-African American) 33.3; Potassium 4.2 mmol/L (3.5-5.1)
[2018-12-01] MEDS ORDERED: LEVALBUTEROL HCL 1.25 MG/3 ML NEB NEB PRN (08:38)
--- NOTE | 2018-12-01 08:38 | Family Medicine Progress Note ---
Date of Service December 01, 2018 Assessment & Plan (1) Atrial fibrillation with RVR: 78yo F PMH severe COPD oxygen dependent 3L, h/o GI bleed, CHF presents with COPD exacerbation and new onset Afib RVR Atrial flutter with RVR: No history of prior. Blood pressure stable. Asymptomatic, however, does show some clinical and radiographic signs of failure to include weight gain, edema, JVD and pulmonary venous congestion. TSH and Troponin WNL. Echo 06/23/18 revealed normal LV fx, Grade I diastolic dysfx, elevated RV sys pres 40-50mmHg and dilated IVC. Rate did not respond to Adenosine 6mg, 12mg administered in ER. Cardioversion on November 26, and had maintained normal sinus rhythm until overnight of 11/27/18, converting to afib with RVR of 200. Now intermittently in and out of atrial fibrillation versus flutter. Focuses on rate control. -Started on xarelto -Cardiology consulted, appreciate recs -Appears to have A. fib and a flutter less enthusiastic about ablation -Increase diltiazem to maximum dose to control rates -Kidneys consider the addition of low-dose beta-jenifer atenolol versus metoprolol -Consider amiodarone -Consider digoxin if unable to control rates -If unable to obtain adequate rate control, -DC'd Lasix as patient reports feeling dehydrated and is not producing great output, furthermore she reports her pedal edema is her baseline COPD (chronic obstructive pulmonary disease): Patient with severe O2 dependent COPD. Does not appear to be in acute exacerbation at this time. Some labored breathing noted most likely secondary to poorly controlled heart rate with some CHF. Patient doing significant better status post initiation of scheduled duo nebs. Respiratory exam continues to improve -Continue home O2, 3L. Goal saturation 88-92% -Continue Ellipta -Continue Spiriva -DuoNeb and Albuterol PRN -Continuous pulse oximetry Gastrointestinal bleeding: H/O perforated duodenal ulcer and massive GI bleed, hemorrhagic shock requiring intubation and ICU care in November 2017. Patient has recovered from this and is doing quite well. Denies melena or hematochezia -Continue Protonix 40 mg p.o. twice daily -On Xarelto, caution for signs and symptoms of bleeding -Hemoglobin has remained stable throughout this admission, no signs or symptoms of bleeding CHF (congestive heart failure): -Patient with grade 1 diastolic dysfunction. Evidence of CHF in setting of A. fib with RVR -Check daily weights, Monitor intake and output closely FENa: Heart healthy Code Status: Full code DVT PPX: Xarelto PT/OT: Consulted, recommend SNF but patient is unwilling, will be discharged with home health Dispo: PCU Brody Brandt MD PGY 2, FCM This chart was completed utilizing [employer] dictation voice recognition software. Grammatical errors, random word insertions, pronoun errors, and in complete sentences are an occasional consequence of the system. Any questions or concerns about the content, text, or information contained within the body of this dictation should be addressed directly to the physician for clarification. Supervising Physician Co-Signing Physician Notes Patient seen and examined with Dr. Brandt. I agree with their exam findings, review of systems, assessment and plan. I have personally reviewed the lab work and imaging from today. patient is stable, sitting in chair her legs are no longer edematous HR in the 90-110 range, on Cardizem 180mg, will increase to 240mg exam: elderly female, NAD, lungs diminished but clear, normal effort, heart irreg irreg tachycardic no murmurs, abdomen soft, NT, ND Atrial fibrillation/flutter with RVR: still working on rate control, using Cardizem PO 180mg daily, increase to 240mg tomorrow had considered ablation but less likely to be successful now that it is evident that she has atrial fibrillation anticoagulated considering cardioversion if needed Acute and Chronic hypoxic respiratory failure: stable on her 3-4L, acute component resolved with better HR control no increased work of breathing Weakness: she refuses to consider SNF rehab, will go home with home health once medically stable Chronic diastolic heart failure: some consideration for acute component but she did not diurese on increased Lasix at 60mg IV in fact, her Cr went up, felt dry, so likely her CHF is well compensated Subjective Patient sitting up in her chest morning in no acute distress. Reports doing subjectively better. No acute events overnight, patient notices improvement of her breathing status post initiation of DuoNeb's. patient reports voiding, s tooling, tolerating her diet, sleeping. No acute concerns at present, all questions answered. Still need to achieve better rate control prior to discharge. Physical Exam Physical Exam: General: Elderly female sitting up in no acute distress HEENT: Normal cephalic atraumatic Neck: Normal visual inspection Cardiac: Irregularly irregular rhythm, approximately 100 bpm, I did not appreciate any significant murmurs rubs or gallops, neg pedal edema, negative calf tenderness, Respiratory: Significant improvement in respiratory exam, intermittent wheezes and bibasilar tabor, negative for egophony, negative for consolidation GI: Bowel sounds present MSK: Moves all extremities Skin: Warm and well-perfused Neuro: Alert and oriented x4 Psych: Calm, cooperative, appears in different to her medical treatment Results & Data Vital Signs (Past 12 Hours) Vital Signs Temp Pulse Resp BP BP Pulse Ox 12/01/18 07:14 83 22 95 12/01/18 03:46 36.7 C 80 16 116/73 95 12/01/18 01:03 77 18 96 11/30/18 23:27 36.8 C 78 20 108/64 96 Laboratory Results 12/01/18 12/01/18 Range/Units 06:37 06:37 WBC 5.34 (4.8-10.8) K/uL RBC 3.30 L (4.2-5.4) M/uL Hgb 9.6 L (12.0-16.0) g/dL Hct 30.9 L (37-47) % MCV 93.6 (80-100) fL MCH 29.1 (25-34) pg MCHC 31.1 L (32-36) g/dL RDW Std Deviation 46.7 H (36.4-46.3) fL RDW Coeff of Tio 13.7 (11.5-14.5) % Plt Count 197 (130-400) K/uL MPV 8.8 (7.4-10.4) fL Immature Gran % (Auto) 0.2 % Neut % (Auto) 69.8 % Lymph % (Auto) 14.6 % [place] % (Auto) 11.6 % Eos % (Auto) 3.4 % Baso % (Auto) 0.4 % Immature Gran # (Auto) 0.01 (0.00-0.02) K/uL Neut # (Auto) 3.73 (1.4-6.5) K/uL Lymph # (Auto) 0.78 L (1.2-3.4) K/uL [place] # (Auto) 0.62 H (0.11-0.59) K/uL Eos # (Auto) 0.18 (0-0.5) K/uL Baso # (Auto) 0.02 (0-0.2) K/uL Sodium 133 L (136-145) mmol/L Potassium 4.2 (3.5-5.1) mmol/L Chloride 89 L (98-107) mmol/L Carbon Dioxide 40 H (21-32) mmol/L Anion Gap 3.0 (3-11) BUN 41 H (7-18) mg/dl Creatinine 1.49 H (0.6-1.2) mg/dl Est Cr Clr Drug Dosing 25.3 ml/min Est GFR ( Amer) 38.6 Est GFR (Non-Af Amer) 33.3 BUN/Creatinine Ratio 27.7 H (10-20) Glucose 97 (70-99) mg/dl Calcium 8.7 (8.5-10.1) mg/dl Medications Administered Current Inpatient Medications Acetaminophen (Tylenol) 650 mg PO Q4H PRN PRN Reason: Pain or Fever Stop: 12/24/18 13:41 Albuterol (Ventolin 0.5% 2.5mg/0.5ml) 2.5 mg NEB Q2H PRN PRN Reason: SOB/Wheeze Stop: 12/24/18 13:41 Albuterol (Duoneb) 3 ml INH Q4H PRN PRN Reason: Wheezing Stop: 12/30/18 11:43 Diltiazem HCl (Cardizem) 60 mg PO TID [facility] Stop: 12/30/18 13:59 Last Admin: 11/30/18 20:26 Dose: 60 mg Documented by: Docusate Sodium (Colace) 100 mg PO BID PRN PRN Reason: Constipation Stop: 12/24/18 13:41 Levalbuterol HCl (Xopenex 1.25mg/3ml Neb) 1.25 mg NEB Q6R [facility] Stop: 12/28/18 12:59 Last Admin: 12/01/18 07:14 Dose: 1.25 mg Documented by: Pantoprazole Sodium (Protonix) 40 mg PO BID [facility] Stop: 12/24/18 20:59 Last Admin: 11/30/18 20:26 Dose: 40 mg Documented by: Rivaroxaban (Xarelto) 15 mg PO DAILY@1700 [facility] Stop: 12/26/18 16:39 Last Admin: 11/30/18 16:02 Dose: 15 mg Documented by: Fluticasone/Salmeterol (Advair Diskus 100/50) 1 puffs INH BID [facility] Stop: 12/24/18 20:59 Last Admin: 11/30/18 20:26 Dose: 1 puffs Documented by: Tiotropium [place] (Spiriva) 1 puffs INH DAILY [facility] Stop: 12/25/18 08:59 Last Admin: 11/30/18 09:14 Dose: 1 puffs Documented by: PG Care Time/CCT Total # of Minutes Spent Total Time Spent with Patient: Total time spent is greater than 50% in coordination of care (as documented) at patient's floor/unit and/or counseling patient: Resident Activity Tracking Resident Involvement: Resident Care Provided Care Provided: Adult Hospital Medicine
[2018-12-01] MEDS: FLUTICASONE/SALMETEROL 100/50 (ADVAIR) 14 PUFF/1 INHALER INH SCH ×2 (08:47→20:42)
[2018-12-01] MEDS: TIOTROPIUM BROMIDE 5 PUFF/90 MCG INH INH SCH (08:48)
[2018-12-01] MEDS: PANTOprazole 40 MG TAB PO SCH ×2 (08:48→20:42)
[2018-12-01] MEDS ORDERED: dilTIAZem HCL 180 MG CAPCR PO SCH (09:00)
[2018-12-01] MEDS ORDERED: ALBUT/IPRATROP 3MG/0.5MG NEB 3 ML VIAL INH SCH (09:00)
[2018-12-01] MEDS: ALBUT/IPRATROP 3MG/0.5MG NEB 3 ML VIAL INH SCH ×2 (09:32→19:04)
--- NOTE | 2018-12-01 12:10 | Cardiology Progress Note ---
Date of Service December 01, 2018 Assessment & Plan (1) Atrial fibrillation with RVR: She continues to have elevated heart rates. I would agree with increasing her diltiazem to the maximum dose over time to control her rates. If she continues to have elevated rates on high-dose diltiazem, adding digoxin may be beneficial. She appears to be fairly sedentary in this may have more fact that on someone who is active. Alternatively, the addition of low-dose beta-jenifer may be beneficial. I would choose either atenolol or metoprolol as they are more cardioselective. Lastly, amiodarone could be employed both for rate control and for rhythm control moving forward. If after several days of aggressive attempts at rate control she continues to have elevated heart rates even on amiodarone we could consider repeat cardioversion in the hopes of maintaining sinus rhythm for a longer period. He should continue on her Xarelto. Subjective Summary the patient claims to be feeling well. She reported ambulating down the hallway of the [facility] yesterday and feeling well. She denied symptoms of dizziness associated with that activity. Her breathing of course was not normal but she overall felt well. She generally does not ambulate that distance. She did describe feeling weak. Review of Systems Review of Systems: Per HPI Physical Exam Physical Exam: She is alert and oriented x3. Mood affect appear normal. She answered all questions appropriately. HEENT: Sclerae are anicteric. Pupils are equal and reactive to light and accommodation. Extraocular movements were intact. Neuro: Cranial nerves intact Lungs: Reduced breath sounds bilaterally. Rhonchorous breath sounds on left base. Expiratory wheezing noted. Increased work of breathing. Cardiac: The rhythm was irregular. S1 and S2 were normal. There are no murmurs on examination. The PMI was not markedly displaced on palpation. Extremities: Patient has bilateral radial pulses that are equal in intensity. There is no evidence cyanosis or clubbing. There was no evidence of significant peripheral edema bilaterally. Skin: There are no rashes noted on examination today. Results & Data Vital Signs (Past 12 Hours) Vital Signs Temp Pulse Resp BP Pulse Ox 12/01/18 09:48 95 12/01/18 08:38 36.7 C 112 H 18 137/59 L 98 12/01/18 07:14 83 22 95 12/01/18 03:46 36.7 C 80 16 116/73 95 12/01/18 01:03 77 18 96 PG Care Time/CCT Total # of Minutes Spent Total Time Spent with Patient: Total time spent is greater than 50% in coordination of care (as documented) at patient's floor/unit and/or counseling patient:
[2018-12-01] MEDS: RIVAROXABAN 15 MG TAB PO SCH (17:56)
[2018-12-02] MEDS: ALBUT/IPRATROP 3MG/0.5MG NEB 3 ML VIAL INH SCH ×2 (07:00→19:56)
[2018-12-02 07:04] LABS: BUN Creatinine Ratio 30.9 (10-20); Calcium 8.5 mg/dl (8.5-10.1); Creatinine Clr Calc Pharmacy 31.4 ml/min; Est GFR (African American) 49.6; Est GFR (Non-African American) 42.8; Potassium 4.6 mmol/L (3.5-5.1)
[2018-12-02] MEDS: dilTIAZem HCL 240 MG CAPCR PO SCH (08:10)
[2018-12-02] MEDS: FLUTICASONE/SALMETEROL 100/50 (ADVAIR) 14 PUFF/1 INHALER INH SCH ×2 (08:10→20:58)
[2018-12-02] MEDS: PANTOprazole 40 MG TAB PO SCH ×2 (08:11→20:58)
[2018-12-02] MEDS: TIOTROPIUM BROMIDE 5 PUFF/90 MCG INH INH SCH (08:11)
--- NOTE | 2018-12-02 08:29 | Family Medicine Progress Note ---
Date of Service December 02, 2018 Assessment & Plan (1) Atrial fibrillation with RVR: 78yo F PMH severe COPD oxygen dependent 3L, h/o GI bleed, CHF presents with COPD exacerbation and new onset Afib RVR #Atrial flutter with RVR: No history of prior. Blood pressure stable. Asymptomatic, however, does show some clinical and radiographic signs of failure to include weight gain, edema, JVD and pulmonary venous congestion. TSH and Troponin WNL. Echo 06/23/18 revealed normal LV fx, Grade I diastolic dysfx, elevated RV sys pres 40-50mmHg and dilated IVC. Rate did not respond to Adenosine 6mg, 12mg administered in ER. Cardioversion on November 26, and had maintained normal sinus rhythm until overnight of 11/27/18, converting to afib with RVR of 200. Now intermittently in and out of atrial fibrillation versus flutter. Focuses on rate control. -continue xarelto -Increased Dilt 240mg qday, pulses still elevated, bp decreased -Cardiology consulted, appreciate recs -Appears to have A. fib and a flutter less enthusiastic about ablation -Increase diltiazem to maximum dose to control rates -can consider the addition of low-dose beta-jenifer atenolol versus metoprolol -Consider amiodarone -Consider digoxin if unable to control rates -If unable to obtain adequate rate control, consider cardioversion -DC'd Lasix as patient reports feeling dehydrated and is not producing great output, furthermore she reports her pedal edema is her baseline #COPD (chronic obstructive pulmonary disease): Patient with severe O2 dependent COPD. Does not appear to be in acute exacerbation at this time. Some labored breathing noted most likely secondary to poorly controlled heart rate with some CHF. Patient doing significant better status post initiation of scheduled duo nebs. Respiratory exam continues to improve. -Continue home O2, 3L. Goal saturation 88-92% -Continue Ellipta -Continue Spiriva -DuoNeb and Albuterol PRN -Continuous pulse oximetry #Gastrointestinal bleeding: H/O perforated duodenal ulcer and massive GI bleed, hemorrhagic shock requiring intubation and ICU care in November 2017. Patient has recovered from this and is doing quite well. Denies melena or hematochezia -Continue Protonix 40 mg p.o. twice daily -On Xarelto, caution for signs and symptoms of bleeding -Hemoglobin has remained stable throughout this admission, no signs or symptoms of bleeding #CHF (congestive heart failure): -Patient with grade 1 diastolic dysfunction. Evidence of CHF in setting of A. fib with RVR -Check daily weights, Monitor intake and output closely #Constipation Endorsing constipation secondary to initiation of diltiazem. -MiraLAX 1 packet daily scheduled -Colace twice daily scheduled FENa: Heart healthy Code Status: Full code DVT PPX: Xarelto PT/OT: Consulted, recommend SNF but patient is unwilling, will be discharged with home health Dispo: PCU d/c home with home health when cleared by cardiology Brody Brandt MD PGY 2, FCM This chart was completed utilizing [employer] voice recognition software. Grammatical errors, random word insertions, pronoun errors, and in complete sentences are an occasional consequence of the system. Any questions or concerns about the content, text, or information contained within the body of this dictation should be addressed directly to the physician for clarification. Supervising Physician Co-Signing Physician Notes Patient seen and examined with Dr. Brandt. I agree with their exam findings, review of systems, assessment and plan. I have personally reviewed the lab work and imaging from today. patient exactly the same as yesterday, breathing is at baseline no chest pain no palpitations HR is 90-110 range eating well exam: elderly female, NAD, lungs diminished but clear, normal effort, heart irreg irreg tachycardic no murmurs, abdomen soft, NT, ND Atrial fibrillation/flutter with RVR: continue Cardizem 240mg daily, rates 90- 110 range on monitor had considered ablation but less likely to be successful now that it is evident that she has atrial fibrillation anticoagulated considering cardioversion if needed still waiting to see if cardiology wants to add Amiodarone, but could lead to worsening lung disease, short term use would be best Acute and Chronic hypoxic respiratory failure: stable on her 3-4L, acute component resolved with better HR control no increased work of breathing Weakness: she refuses to consider SNF rehab, will go home with home health once medically stable Chronic diastolic heart failure: some consideration for acute component but she did not diurese on increased Lasix at 60mg IV in fact, her Cr went up, felt dry, so likely her CHF is well compensated Subjective Patient sitting up in her chair this morning more sleepy than usual doing well. Patient reports constipation has started recently secondary to initiation of verapamil, she still voiding on her own, tolerating her diet, sleeping. No ac miguel angel events overnight. Heart rate still difficult to control, all questions answered, no acute concerns. Physical Exam Physical Exam: General: Elderly female sitting up in no acute distress HEENT: Normal cephalic atraumatic Neck: Normal visual inspection Cardiac: Irregularly irregular rhythm, approximately 100 bpm, I did not appreciate any significant murmurs rubs or gallops, neg pedal edema, negative calf tenderness, Respiratory: Significant improvement in respiratory exam, intermittent wheezes and bibasilar, bibasilar rhonchi versus crackles, negative for egophony, negative for consolidation GI: Bowel sounds present MSK: Moves all extremities Skin: Warm and well-perfused Neuro: Alert and oriented x4 Psych: Calm, cooperative, appears in different to her medical treatment Results & Data Vital Signs (Past 12 Hours) Vital Signs Temp Pulse Resp BP BP Pulse Ox 12/02/18 07:20 36.4 C L 111 H 18 106/65 96 12/02/18 07:00 86 18 98 12/02/18 02:45 37.0 C 101 H 24 125/70 97 12/01/18 23:26 36.7 C 117 H 26 H 113/64 97 Laboratory Results 12/02/18 Range/Units 05:54 Sodium 132 L (136-145) mmol/L Potassium 4.6 (3.5-5.1) mmol/L Chloride 92 L (98-107) mmol/L Carbon Dioxide 37 H (21-32) mmol/L Anion Gap 3.0 (3-11) BUN 37 H (7-18) mg/dl Creatinine 1.21 H (0.6-1.2) mg/dl Est Cr Clr Drug Dosing 31.4 ml/min Est GFR ( Amer) 49.6 Est GFR (Non-Af Amer) 42.8 BUN/Creatinine Ratio 30.9 H (10-20) Glucose 96 (70-99) mg/dl Calcium 8.5 (8.5-10.1) mg/dl Medications Administered Current Inpatient Medications Acetaminophen (Tylenol) 650 mg PO Q4H PRN PRN Reason: Pain or Fever Stop: 12/24/18 13:41 Albuterol (Ventolin 0.5% 2.5mg/0.5ml) 2.5 mg NEB Q2H PRN PRN Reason: SOB/Wheeze Stop: 12/24/18 13:41 Albuterol (Duoneb) 3 ml INH BIDR [facility] Stop: 12/31/18 08:59 Last Admin: 12/02/18 07:00 Dose: 3 ml Documented by: Diltiazem HCl (Cardizem) 60 mg PO TID [facility] Stop: 12/30/18 13:59 Last Admin: 11/30/18 20:26 Dose: 60 mg Documented by: Diltiazem HCl (Cardizem Cd) 240 mg PO QAM [facility] Stop: 01/01/19 08:59 Last Admin: 12/02/18 08:10 Dose: 240 mg Documented by: Docusate Sodium (Colace) 100 mg PO BID PRN PRN Reason: Constipation Stop: 12/24/18 13:41 Levalbuterol HCl (Xopenex 1.25mg/3ml Neb) 1.25 mg NEB Q6R PRN PRN Reason: Wheezing Stop: 12/28/18 12:59 Pantoprazole Sodium (Protonix) 40 mg PO BID [facility] Stop: 12/24/18 20:59 Last Admin: 12/02/18 08:11 Dose: 40 mg Documented by: Rivaroxaban (Xarelto) 15 mg PO DAILY@1700 [facility] Stop: 12/26/18 16:39 Last Admin: 12/01/18 17:56 Dose: 15 mg Documented by: Fluticasone/Salmeterol (Advair Diskus 100/50) 1 puffs INH BID [facility] Stop: 12/24/18 20:59 Last Admin: 12/02/18 08:10 Dose: 1 puffs Documented by: Tiotropium [place] (Spiriva) 1 puffs INH DAILY [facility] Stop: 12/25/18 08:59 Last Admin: 12/02/18 08:11 Dose: 1 puffs Documented by: PG Care Time/CCT Total # of Minutes Spent Total Time Spent with Patient: Total time spent is greater than 50% in coordination of care (as documented) at patient's floor/unit and/or counseling patient: Resident Activity Tracking Resident Involvement: Resident Care Provided Care Provided: Adult Hospital Medicine
[2018-12-02] MEDS ORDERED: dilTIAZem HCL 180 MG CAPCR PO SCH (09:00)
[2018-12-02] MEDS: POLYETHYLENE (MIRALAX) 17 GM PACK PO SCH (11:30)
[2018-12-02] MEDS: DOCUSATE SODIUM 100 MG CAP PO SCH ×2 (11:30→20:58)
[2018-12-02] MEDS: RIVAROXABAN 15 MG TAB PO SCH (17:17)
[2018-12-03 06:47] LABS: Creatinine Clr Calc Pharmacy 34.4 ml/min; Est GFR (African American) 55.1; Est GFR (Non-African American) 47.5
[2018-12-03] MEDS: PANTOprazole 40 MG TAB PO SCH ×2 (08:10→19:58)
[2018-12-03] MEDS: dilTIAZem HCL 240 MG CAPCR PO SCH (08:10)
[2018-12-03] MEDS: POLYETHYLENE (MIRALAX) 17 GM PACK PO SCH (08:11)
[2018-12-03] MEDS: DOCUSATE SODIUM 100 MG CAP PO SCH ×2 (08:11→19:57)
[2018-12-03] MEDS: FLUTICASONE/SALMETEROL 100/50 (ADVAIR) 14 PUFF/1 INHALER INH SCH ×2 (08:11→19:57)
[2018-12-03] MEDS: TIOTROPIUM BROMIDE 5 PUFF/90 MCG INH INH SCH (08:11)
--- NOTE | 2018-12-03 10:22 | Family Medicine Progress Note ---
Date of Service December 03, 2018 Assessment & Plan (1) Atrial fibrillation with RVR: 78yo F PMH severe COPD oxygen dependent 3L, h/o GI bleed, CHF presents with COPD exacerbation and new onset Afib RVR #Nosebleed well on anticoagulation Patient reports having a nosebleed overnight, likely secondary to oxygen via nasal cannula. Unfortunately she is on anticoagulation therapy was difficult to control. Unclear how much blood she lost during the bleed. To control the nosebleed a clip was placed on her nose and hemostasis was eventually obtained. Since this event patient reports she is having difficulty breathing through that nostril. This is interfering with her nasal cannula and she is having difficulty oxygenating leading to increased work of breathing. OT notes this on their exam as well. So we will monitor overnight, and hopefully discharge tomorrow assuming she is able to maintain adequate saturation without increased work of breathing -CBC ordered follow-up hemoglobin -No signs or symptoms of anemia -On humidified O2 -Monitor for signs and symptoms of increased work of breathing or developing infection #Atrial flutter with RVR: No history of prior. Blood pressure stable. Asymptomatic, however, does show some clinical and radiographic signs of failure to include weight gain, edema, JVD and pulmonary venous congestion. TSH and Troponin WNL. Echo 06/23/18 revealed normal LV fx, Grade I diastolic dysfx, elevated RV sys pres 40-50mmHg and dilated IVC. Rate did not respond to Adenosine 6mg, 12mg administered in ER. Cardioversion on November 26, and had maintained normal sinus rhythm until overnight of 11/27/18, converting to afib with RVR of 200. Now intermittently in and out of atrial fibrillation versus flutter. Focuses on rate control. -continue xarelto -Continue Dilt 240mg qday, pulses still elevated, bp decreased -Cardiology consulted, appreciate recs -Appears to have A. fib and a flutter less enthusiastic about ablation -Okay for discharge on diltiazem with close cardiology follow-up -DC'd Lasix as patient reports feeling dehydrated and is not producing great output, furthermore she reports her pedal edema is her baseline #COPD (chronic obstructive pulmonary disease): Patient with severe O2 dependent COPD. Does not appear to be in acute exacerbation at this time. Some labored breathing noted most likely secondary to poorly controlled heart rate with some CHF. Patient doing significant better status post initiation of scheduled duo nebs. Respiratory exam continues to improve. -Continue home O2, 3L. Goal saturation 88-92% -Continue Ellipta -Continue Spiriva -DuoNeb and Albuterol PRN -Continuous pulse oximetry #Gastrointestinal bleeding: H/O perforated duodenal ulcer and massive GI bleed, hemorrhagic shock requiring intubation and ICU care in November 2017. Patient has recovered from this and is doing quite well. Denies melena or hematochezia -Continue Protonix 40 mg p.o. twice daily -On Xarelto, caution for signs and symptoms of bleeding -Hemoglobin has remained stable throughout this admission, no signs or symptoms of bleeding #CHF (congestive heart failure): -Patient with grade 1 diastolic dysfunction. Evidence of CHF in setting of A. fib with RVR -Check daily weights, Monitor intake and output closely #Constipation Endorsing constipation secondary to initiation of diltiazem. -MiraLAX 1 packet daily scheduled -Colace twice daily scheduled FENa: Heart healthy Code Status: Full code DVT PPX: Xarelto PT/OT: Consulted, recommend SNF but patient is unwilling, will be discharged with home health Dispo: PCU anticipate discharge tomorrow Brody Brandt MD PGY 2, FCM This chart was completed utilizing [employer] dictation voice recognition software. Grammatical errors, random word insertions, pronoun errors, and in complete s entences are an occasional consequence of the system. Any questions or concerns about the content, text, or information contained within the body of this dictation should be addressed directly to the physician for clarification. Supervising Physician Co-Signing Physician Notes Patient seen and examined with Dr. Brandt. I agree with their exam findings, review of systems, assessment and plan. I have personally reviewed the lab work and imaging from today. patient continues to have good HR control on Diltiazem d/w Dr. Mcneil today, no need to add any thing at this point patient had some epistaxis last night for 15 minutes, Hb actually up no change in her breathing or appetite she agrees that she would be ready for discharge tomorrow exam: elderly female, NAD, lungs diminished but clear, normal effort, heart irreg irreg tachycardic no murmurs, abdomen soft, NT, ND Atrial fibrillation/flutter with RVR: continue Cardizem 240mg daily, rates 90- 110 range on monitor had considered ablation but less likely to be successful now that it is evident that she has atrial fibrillation anticoagulated on NOAC per Dr. Mcneil, can go home if rates remain reasonably controlled, follow up in office to consider cardioversion Acute and Chronic hypoxic respiratory failure: stable on her 3-4L, acute component resolved with better HR control no increased work of breathing Weakness: she refuses to consider SNF rehab, will go home with home health once medically stable Chronic diastolic heart failure: some consideration for acute component but she did not diurese on increased Lasix at 60mg IV in fact, her Cr went up, felt dry, so likely her CHF is well compensated Epistaxis: likely due to oxygen and dry nose, will have saline nasal spray at the bedside Subjective Patient sitting up in her chair this morning in no acute distress. For the first time since admission the patient reported feeling okay instead of good. Patient reports nosebleed overnight that was difficult to control eventually requiring a nose clip to place on her nose. After achieving adequate hemostasis the clip was removed however the patient has had difficulty breathing through her nose. This is interfered with the oxygen delivery via the nasal cannula, and she intermittently has to wear a facemask although she does not like wearing a facemask. She does report that she has had difficulty maintaining oxygen saturation since this event. During her meeting with occupational therapy today she did have increasing difficulty performing routine tasks, and is not sure taking a shower wash at this morning secondary to increasing oxygen requirements. These likely represent changes secondary to her nosebleed last night as opposed to infection. We will continue to monitor. All questions are, no acute concerns Physical Exam Physical Exam: General: Elderly female sitting up in no acute distress HEENT: Normal cephalic atraumatic Neck: Normal visual inspection Cardiac: Irregularly irregular rhythm, approximately 90 bpm, I did not appreciate any significant murmurs rubs or gallops, neg pedal edema, negative calf tenderness, Respiratory: Significant improvement in respiratory exam, intermittent wheezes and bibasilar, rhonchi, negative for egophony, negative for consolidation. She is having increased work of breathing today GI: Bowel sounds present MSK: Moves all extremities Skin: Warm and well-perfused Neuro: Alert and oriented x4 Psych: Calm, cooperative, appears in different to her medical treatment Results & Data Vital Signs (Past 12 Hours) Vital Signs Temp Pulse Resp BP BP Pulse Ox 10/18/19 07:34 36.4 C L 101 H 20 123/83 90 12/03/18 03:26 36.4 C L 119 H 26 H 132/74 92 12/03/18 00:26 36.3 C L 110 H 22 113/75 96 PG Care Time/CCT Total # of Minutes Spent Total Time Spent with Patient: Total time spent is greater than 50% in coordination of care (as documented) at patient's floor/unit and/or counseling patient: Resident Activity Tracking Resident Involvement: Resident Care Provided Care Provided: Adult Hospital Medicine
[2018-12-03 10:49] LABS: Basophils # (auto) 0.02 K/uL (0-0.2); Basophils % (auto) 0.4 %; Eosinophils # (auto) 0.28 K/uL (0-0.5); Eosinophils % (auto) 4.9 %; Hematocrit (blood only) 32.5 % (37-47); Hemoglobin 10.1 g/dL (12.0-16.0); Immature Granulocytes # (auto) 0.01 K/uL (0.00-0.02); Immature Granulocytes % (auto) 0.2 %; Lymphocytes # (auto) 0.74 K/uL (1.2-3.4); Lymphocytes % (auto) 13.1 %; Mean Corpuscular Hgb Conc 31.1 g/dL (32-36); Mean Corpuscular Volume 93.4 fL (80-100); Mean Platelet Volume 9.2 fL (7.4-10.4); Monocytes # (auto) 0.73 K/uL (0.11-0.59); Monocytes % (auto) 12.9 %; Neutrophils # (auto) 3.89 K/uL (1.4-6.5); Neutrophils % (auto) 68.5 %; Platelet Count 232 K/uL (130-400); RDW Coefficient of Variation 13.4 % (11.5-14.5); RDW Standard Deviation 45.7 fL (36.4-46.3); Red Blood Count 3.48 M/uL (4.2-5.4); White Blood Count 5.67 K/uL (4.8-10.8)
[2018-12-03] MEDS ORDERED: SODIUM CHLORIDE 0.65% NA SOLN 45 ML (OCEAN) PRN (11:25)
[2018-12-03] MEDS: ALBUT/IPRATROP 3MG/0.5MG NEB 3 ML VIAL INH SCH ×2 (13:31→19:23)
--- NOTE | 2018-12-03 13:50 | Discharge Summary ---
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 She was seen by Dr. Sellers this morning in the office for routine follow-up during which she was found to have an irregularly irregular tachycardia at 139 bpm. An EKG was performed which suggested atrial fibrillation with rapid ventricular spots. She was subsequently transferred to [facility] ER for further work-up and treatment. Patient reports that her heart rate has been sustained at around 144 bpm for the last month. She frequently checks using a home pulse oximeter. She denies chest pain, palpitations, dizziness or presyncope. She reports some mild worsening of her shortness of breath specifically with exertion as well as a 16 pound weight gain since 05 Jul 2018. Patient has not been using her nebulizer at home for the last month secondary to increased heart rate. Her oxygen saturations at home have been between 95% and 98%. She also complains of a runny nose and a dry cough which seem to be baseline. No orthopnea. Patient always sleeps upright. Upon arrival she was found to be tachycardic with heart rate of 142 bpm. Blood pressure mildly elevated. No respiratory distress, adequate oxygenation on her baseline 3 L. EKG from the ER with narrow complex tachycardia at 144 bpm, no obvious P waves, fairly regular. Of note, patient with a prolonged and complicated hospital stay in June 2018 secondary to perforated gastric ulcer requiring ICU care. Patient had an episode of wide-complex tachyarrhythmia during that hospital stay which responded to adenosine. Presumably AVNRT with wide complex abherancy. She was seen by cardiology in consultation in June for atypical CP. Patient additionally denies fevers/chills. Denies headache, visual changes, abdominal pain, nausea, vomiting, diarrhea, constipation, dysuria, hematuria, melena/hematochezia, numbness/weakness/falls. ER course: Adenosine 6 mill grams IV, adenosine 12 mg IV, Cardizem drip, normal saline x500 mL Admission Exam Per Admitting Provider General: Thin, frail elderly female resting comfortably, NAD, non-toxic in a ppearance, AA&O x 4 Skin: warm, dry, intact, no rashes or lesions HEENT: NC/AT, PERRL, EOMI, anicteric sclera, conjunctiva without injection, external ear normal to inspection and nontender, nares patent, moist mucus membranes, upper dentures in place, edentulous on lower jaw, no oropharyngeal lesions, neck supple, trachea midline, no LAD, no thyromegaly, + JVD to the ear lobe noted on the left with the bed approximately 45 degrees Heart: +S1/S2, tachycardic, fairly regular, no m/r/g Lungs: Diminished breath sounds bilaterally, equal air entry bilaterally, coarse rhonchi in the mid lung tabor, faint scattered end expiratory wheezing with prolonged expiratory phase Abd: +BS, soft, NT/ND, no masses/organomegaly/ascites Ext: warm, 2+ pulses in UE/LE bilaterally, no clubbing/cyanosis, 2+ pitting edema to the knees bilaterally Neuro: nonfocal, patient AA&O x 4, speech intact, no facial droop, moving all extremities on command with equal strength 5/5 Principal Diagnosis A flutter with rapid ventricular rate, COPD, CHF Discharge Exam General: Elderly female sitting up in no acute distress HEENT: Normal cephalic atraumatic Neck: Normal visual inspection Cardiac: Irregularly irregular rhythm, approximately 90 bpm, I did not appreciate any significant murmurs rubs or gallops, neg pedal edema, negative calf tenderness, Respiratory: Significant improvement in respiratory exam, intermittent wheezes and bibasilar rhonchi that clear with coughing, negative for egophony, negative for consolidation. GI: Bowel sounds present MSK: Moves all extremities Skin: Warm and well-perfused Neuro: Alert and oriented x4 Psych: Calm, cooperative, appears in different to her medical treatment Discharge Data Allergies Allergy/AdvReac Type Severity Reaction Status Date / Time bacitracin Allergy Mild UNSURE Verified 11/24/18 08:02 neomycin Allergy Mild UNSURE Verified 11/24/18 08:02 polymyxin B Allergy Mild UNSURE Verified 11/24/18 08:02 copper Allergy Unknown METAL? Verified 11/24/18 08:02 nickel Allergy Unknown METAL? Verified 11/24/18 08:02 silver Allergy Unknown METAL? Verified 11/24/18 08:02 strawberry Allergy Unknown . Verified 11/24/18 08:02 Consultations 11/24/18 11:51 ED Decision to Admit Stat 11/24/18 13:42 Consult Cardiology Routine 11/26/18 14:11 Consult Case Management - Discharge Planning Routine 11/28/18 06:53 Consult Cardiology Routine Procedures Performed Operation Date: 11/26/18 08:00 Actual Procedures p Echo Transesophageal - Dionisio Mcneil MD s Cardioversion - Dionisio Mcneil MD Hospital Course (1) Atrial fibrillation with RVR: 78yo F PMH severe COPD oxygen dependent 3L, h/o GI bleed, CHF presents with COPD exacerbation and new onset Afib RVR #Atrial flutter with RVR: No history of prior. Blood pressure stable. Asymptomatic, however, does show some clinical and radiographic signs of failure to include weight gain, edema, JVD and pulmonary venous congestion. TSH and Troponin WNL. Echo 06/23/18 revealed normal LV fx, Grade I diastolic dysfx, elevated RV sys pres 40-50mmHg and dilated IVC. Rate did not respond to Adenosine 6mg, 12mg administered in ER. Cardioversion on November 26, and had maintained normal sinus rhythm until overnight of 11/27/18, converting to afib with RVR of 200. Now intermittently in and out of atrial fibrillation versus flutter. Focuse on rate control. Patient's rates were extremely difficult to control throughout the admission. Eventually we were able to obtain reasonable control through short acting diltiazem subsequently converted to long-acting diltiazem 160 mg daily. Adequate rate control was not achieved at this level so it was increased to 240 mg daily and reasonable rate control was achieved. Patient's blood pressure have been a little bit decreased since the initiation of diltiazem, hanging out in the 110s over 70s, counseled patient on concerning signs and symptoms and advised her to keep her fluid intake up. Also the patient was hospitalized she was started on Xarelto for anticoagulation she should continue this as an outpatient. Cardiology is comfortable discharging her with her current cardiac medication regimen with close follow-up. We will discharge the patient on diltiazem 240 mg p.o. every morning Xarelto 50 mg p.o. daily at 5:00 PM, Lasix will still remain PRN. -To achieve rate control was started on digoxin -Received loading dose 250 mcg on 12/04 -Continue 125 mcg daily for rate control #COPD (chronic obstructive pulmonary disease): Patient with severe O2 dependent COPD. Does not appear to be in acute exacerbation at this time. Some labored breathing noted most likely secondary to poorly controlled heart rate with some contribution of CHF. While hospitalized she was maintained on continuous pulse oximetry and did well on 3 to 4 L of O2. Patient doing significant better status post initiation of scheduled duo nebs. Respiratory exam continued to improve throughout hospitalization. On discharge we will continue Spiriva, Ellipta, and recommend the patient continue scheduled duo nebs twice daily. -Continue home O2, 3L. Goal saturation 88-92% -Continue Ellipta -Continue Spiriva -DuoNeb and Albuterol PRN -Continuous pulse oximetry #Nosebleed well on anticoagulation Patient reports having a nosebleed overnight, likely secondary to oxygen via nasal cannula. Unfortunately she is on anticoagulation therapy was difficult to control. Unclear how much blood she lost during the bleed. To control the nosebleed a clip was placed on her nose and hemostasis was eventually obtained. Since this event patient reports she is having difficulty breathing through that nostril. This is interfering with her nasal cannula and she is having di fficulty oxygenating leading to increased work of breathing. OT notes this on their exam as well. So we will monitor overnight, and hopefully discharge tomorrow assuming she is able to maintain adequate saturation without increased work of breathing. Follow-up CBC demonstrated hemoglobin within normal limits and patient was asymptomatic and signs and symptoms of anemia. Recommend continuation of humidified oxygen. #Gastrointestinal bleeding: H/O perforated duodenal ulcer and massive GI bleed, hemorrhagic shock requiring intubation and ICU care in November 2017. Patient has recovered from this and is doing quite well. Denies melena or hematochezia -Continue Protonix 40 mg p.o. twice daily -On Xarelto, caution for signs and symptoms of bleeding -Hemoglobin has remained stable throughout this admission, no signs or symptoms of bleeding #CHF (congestive heart failure): -Patient with grade 1 diastolic dysfunction. Evidence of CHF in setting of A. fib with RVR -Check daily weights, Monitor intake and output closely -Continue PRN Lasix as an outpatient #Constipation Endorsing constipation secondary to initiation of diltiazem. We recommend the patient continue MiraLAX daily as an outpatient, she may use it twice daily as needed and add Colace as needed. -MiraLAX 1 packet daily scheduled FENa: Heart healthy Code Status: Full code DVT PPX: Xarelto PT/OT: Consulted, recommend SNF but patient is unwilling, will be discharged with home health Dispo: Discharge home with home health Brody Brandt MD PGY 2, FCM This chart was completed utilizing [employer] voice recognition software. Grammatical errors, random word insertions, pronoun errors, and in complete sentences are an occasional consequence of the system. Any questions or concerns about the content, text, or information contained within the body of this dictation should be addressed directly to the physician for clarification. Total Time Total Time Spent Total Time Spent (In Minutes): >30 MIN Discharge Plan Discharge Items Patient Disposition: Home - Home Health Services Reason For Visit: AFIB Discharge Diagnosis: A. fib and severe COPD Activity: Per Instructions section Non-emergency contact: Primary Care Provider Call non-emergency contact if: your symptoms worsen, your pain is worsening and your temperature is above 101 Follow-up/Referrals: Jose Carlos Hobson MD [Physician] - 01/10/19 3:30 pm (Please, follow up at the [facility] Cardiology Office with Dr. Hobson on ThursdayJanuary 10 at 3:30 pm. *If you need to change this appointment, call the office at [phone].) Kevin Capone III, MD [Primary Care Provider] - 12/07/18 11:00 am (Please, follow up at Dr. Capone's office with Shraddha Kwon Pa-C on ThursdayDecember 07 at 11:00 am. *If you need to change this appointment, call the office at [phone].) Diet: Heart Healthy Addtl Attending Provider Instructions: Care instructions: You were admitted to [facility] for treatment of atrial flutter. A cardioversion was performed successfully eliminating your atrial flutter temporarily. It is important that you follow-up with Dr. Mcneil or one of his colleagues as an outpatient to discuss ablation versus further medical management. Additionally we recommend that you use a humidifier (bubbler) with your oxygen to help prevent nosebleeds in the future. While hospitalized, some medications were added to your daily regimen. -Digoxin 125mcg daily; please start taking this TODAY (Thursday), early evening or with night time meds -Diltiazem 240 mg to be taken daily Xarelto 15 mg to be taken daily at 5:00 PM -As discussed during her hospitalization, Xarelto increases her likelihood of bleeding as it is a blood thinner. Should you experience a cut that does not stop bleeding please apply pressure continuously for 15 minutes, if the cut still remains active please contact your primary care provider for further instructions or proceed directly to the emergency department for further evaluation. -DuoNeb scheduled twice daily. Recommend the patient continues DuoNeb scheduled twice daily as an outpatient, her respiratory exam significantly improved after the initiation of this. Will defer further management to outpatient utility helicopter repairer Dr. Sellers. A discharge summary will be sent to your primary care physician to ensure continuity of care. Please bring this discharge summary with you to your next office appointment so that your provider can review it at that time. Follow-up appointments: - Keep all your follow-up appointments as already scheduled. If you cannot make an appointment, notify your provider. - Continue with your home health appointments as well Medications: - Your medication list has been reviewed and reconciled upon discharge to ensure accuracy and continuity of care. - You are provided with a list of all your current medications at this time. Please review this list closely and make note of any changes. - Please take all of your medications exactly as prescribed. - Tell your primary care provider if you cannot afford your medications. - Call your primary care provider if you are having any side effects or any other problems. - Call your primary care provider before taking any over the counter medications or supplements, including herbals and vitamins, because some of these may interact with your current medications and/or make your symptoms worse. Symptoms: Please call your primary care provider for symptoms including, but not limited to: fevers (temperatures greater than 100.4), chills, intractable nausea or vomiting, diarrhea, rash, shortness of breath, bleeding, pain, or if you experience any worsening of the symptoms that brought you to the hospital. For EMERGENCY and VERY SERIOUS health-related issues, such as chest pain, shortness of breath, or sudden onset of the symptoms that brought you to the hospital, you may need to call 911 or go directly to the Emergency Room It has been our privilege to take care of you during your hospital stay. And Above All Else Feel Better! Pending Studies at Discharge: No Stand-Alone Forms: [facility] [employer] Medications and DC Order Prescriptions: New Spiriva with HandiHaler 18 mcg Capsule, W/Inhalation Device 1 puff inhalation DAILY 30 Days Qty: 30 RF: 0 Xarelto 15 mg Tablet 15 mg PO DAILY@1700 30 Days Qty: 30 RF: 3 ipratropium-albuterol 0.5 mg-3 mg(2.5 mg base)/3 mL Solution For Nebulization 3 ml inhalation BIDR 30 Days Qty: 90 RF: 3 polyethylene glycol 3350 [Miralax] 17 gram Powder In Packet 17 g PO DAILY 30 Days Qty: 30 RF: 0 sodium chloride [Saline Mist] 0.65 % Aerosol,Big Pool 3 sprays NA Q1H PRN (Reason: nasal dryness) Qty: 60 RF: 0 diltiazem HCl 240 mg Capsule,Extended Release 24hr 240 mg PO QAM 30 Days Qty: 30 RF: 0 digoxin 125 mcg (0.125 mg) tablet 125 mcg PO DAILY 30 Days Qty: 30 RF: 0 Continued pantoprazole [Protonix] 40 mg tablet,delayed release (DR/EC) 40 mg PO BID Qty: 60 RF: 5 furosemide [Lasix] 20 mg tablet 20 mg PO BID PRN (Reason: Unknown) Qty: 20 RF: 0 Oxygen Home Liters Per Minute .ROUTE .MEDSUPPLY Qty: 1 RF: 0 Trelegy Ellipta 100-62.5-25 mcg Blister With Device 1 inh INHALATION QAM RF: 0 ipratropium-albuterol 0.5 mg-3 mg(2.5 mg base)/3 mL solution for nebulization 3 ml Inhalation Q4 PRN (Reason: Shortness Of Breath Or Wheezing) RF: 0 Discharge Orders: Discharge Order (Routine); Ordered 12/05/18 Ordered By: Lindsey Kaye/Other Patient Handouts: Ipratropium [place] Albuterol Sulfate Inhaler, Rivaroxaban Oral tablet Rivaroxaban Oral tablet, Tiotropium Inhalation powder capsule, Diltiazem Maleate Oral tablet extended-release, AFL/Afib, Digoxin, Cardioversion Electrical Admission Data Admit Date/Time: 11/24/18 12:22 Attending Provider: Denis Gagnon Admit Provider: Romina Brandt Primary Care Provider: Kevin Capone III Other Providers: Romina Brandt ; Dionisio Mcneil ; [place] ; Jose Carlos Hobson Other Interventions: Discharge Summary Assessment (RN) Last Done: 12/05/18 11:30 DC Date/Time DO NOT enter until pt leaves facility: 12/05/18 13:10 Supervising Physician Co-Signing Physician Notes Patient seen and examined with Dr. Angulo. I agree with their exam findings, review of systems, assessment and plan. I have personally reviewed the lab work and imaging from today. patient doing well, breathing stable, no chest pain, no palpitations no further bleeding from her nose, she is keeping it moist with saline spray updated daughter at the bedside, discussed discharge plan with Cardizem and Digoxin exam: elderly female, NAD, lungs diminished but clear, normal effort, heart irreg irreg no murmurs, abdomen soft, NT, ND Atrial fibrillation/flutter with RVR: continue Cardizem 240mg daily, rates elevated on 12/04 treated with Digoxin 250mcg IV, will give 125mcg today and then 125mcg daily should follow up with Dr. Capone, need to follow digoxin level had considered ablation but less likely to be successful now that it is evident that she has atrial fibrillation anticoagulated on NOAC per Dr. Mcneil, can go home once rates are controlled, follow up in office to consider cardioversion Acute and Chronic hypoxic respiratory failure: stable on her 3-4L, acute component resolved with better HR control no increased work of breathing Weakness: she refuses to consider SNF rehab, will go home with home health today, her family helps her at home as well Chronic diastolic heart failure: some consideration for acute component but she did not diurese on increased Lasix at 60mg IV in fact, her Cr went up, felt dry, so likely her CHF is well compensated she can continue to use Lasix as needed at home Epistaxis: likely due to oxygen and dry nose, will have saline nasal spray at the bedside no bleeding for two days continue saline spray on discharge, she confirms that oxygen is humidified at home Resident Activity Tracking Resident Involvement: Resident Care Provided Care Provided: Adult Hospital Medicine
[2018-12-03] MEDS: RIVAROXABAN 15 MG TAB PO SCH (17:30)
[2018-12-04] MEDS: ALBUT/IPRATROP 3MG/0.5MG NEB 3 ML VIAL INH SCH ×2 (07:00→19:14)
[2018-12-04 07:28] LABS: Basophils # (auto) 0.03 K/uL (0-0.2); Basophils % (auto) 0.5 %; Eosinophils # (auto) 0.16 K/uL (0-0.5); Eosinophils % (auto) 2.7 %; Hematocrit (blood only) 34.9 % (37-47); Hemoglobin 10.8 g/dL (12.0-16.0); Immature Granulocytes # (auto) 0.01 K/uL (0.00-0.02); Immature Granulocytes % (auto) 0.2 %; Lymphocytes # (auto) 0.82 K/uL (1.2-3.4); Lymphocytes % (auto) 13.9 %; Mean Corpuscular Hemoglobin 28.8 pg (25-34); Mean Corpuscular Hgb Conc 30.9 g/dL (32-36); Mean Corpuscular Volume 93.1 fL (80-100); Mean Platelet Volume 9.3 fL (7.4-10.4); Monocytes # (auto) 0.69 K/uL (0.11-0.59); Monocytes % (auto) 11.7 %; Platelet Count 220 K/uL (130-400); RDW Coefficient of Variation 13.5 % (11.5-14.5); RDW Standard Deviation 46.1 fL (36.4-46.3); Red Blood Count 3.75 M/uL (4.2-5.4); White Blood Count 5.91 K/uL (4.8-10.8)
[2018-12-04 07:55] LABS: BUN Creatinine Ratio 30.3 (10-20); Calcium 8.8 mg/dl (8.5-10.1); Creatinine Clr Calc Pharmacy 38.3 ml/min; Est GFR (African American) 62.5; Est GFR (Non-African American) 53.9; Potassium 4.5 mmol/L (3.5-5.1)
[2018-12-04] MEDS: FLUTICASONE/SALMETEROL 100/50 (ADVAIR) 14 PUFF/1 INHALER INH SCH ×2 (08:38→20:44)
[2018-12-04] MEDS: dilTIAZem HCL 240 MG CAPCR PO SCH (08:39)
[2018-12-04] MEDS: PANTOprazole 40 MG TAB PO SCH ×2 (08:39→20:44)
[2018-12-04] MEDS: POLYETHYLENE (MIRALAX) 17 GM PACK PO SCH (08:40)
[2018-12-04] MEDS: DOCUSATE SODIUM 100 MG CAP PO SCH ×2 (08:40→20:44)
[2018-12-04] MEDS: TIOTROPIUM BROMIDE 5 PUFF/90 MCG INH INH SCH (08:43)
[2018-12-04] MEDS ORDERED: DIGOXIN 250 MCG in SYRINGE 9 ML IV ONE (11:00)
--- NOTE | 2018-12-04 11:49 | Family Medicine Progress Note ---
Date of Service December 04, 2018 Assessment & Plan (1) Atrial fibrillation with RVR: 78yo F PMH severe COPD oxygen dependent 3L, h/o GI bleed, CHF presents with COPD exacerbation and new onset Afib RVR #Atrial flutter with RVR: No history of prior. Blood pressure stable. Asymptomatic, however, does show some clinical and radiographic signs of failure to include weight gain, edema, JVD and pulmonary venous congestion. TSH and Troponin WNL. Echo 06/23/18 revealed normal LV fx, Grade I diastolic dysfx, elevated RV sys pres 40-50mmHg and dilated IVC. Rate did not respond to Adenosine 6mg, 12mg administered in ER. Cardioversion on November 26, and had maintained normal sinus rhythm until overnight of 11/27/18, converting to afib with RVR of 200. Now intermittently in and out of atrial fibrillation versus flutter. Focuse on rate control. Patient's rates were extremely difficult to control throughout the admission. Eventually we were able to obtain reasonable control through short acting diltiazem subsequently converted to long-acting diltiazem 160 mg daily. Adequate rate control was not achieved at this level so it was increased to 240 mg daily and reasonable rate control was achieved. Patient's blood pressure have been a little bit decreased since the initiation of diltiazem, hanging out in the 110s over 70s, counseled patient on concerning signs and symptoms and advised her to keep her fluid intake up. Also the patient was hospitalized she was started on Xarelto for anticoagulation she should continue this as an outpatient. Cardiology is comfortable discharging her with her current cardiac medication regimen with close follow-up. We will discharge the patient on diltiazem 240 mg p.o. every morning Xarelto 50 mg p.o. daily at 5:00 PM, Lasix will still remain PRN. Overnight of December 03 patient had experienced tachycardia and continuing into the next morning. Per Dr. Fajardo's recommendation we will initiate digoxin therapy and monitor. -Continue diltiazem 240 mg daily -One-time dose of digoxin 250 mcg given -Continue digoxin 125 mcg daily -Monitor heart rates #COPD (chronic obstructive pulmonary disease): Patient with severe O2 dependent COPD. Does not appear to be in acute exacerbation at this time. Some labored breathing noted most likely secondary to poorly controlled heart rate with some contribution of CHF. While hospitalized she was maintained on continuous pulse oximetry and did well on 3 to 4 L of O2. Patient doing significant better status post initiation of scheduled duo nebs. Respiratory exam continued to improve throughout hospitalization. On discharge we will continue Spiriva, Ellipta, and recommend the patient continue scheduled duo nebs twice daily. -Continue home O2, 3L. Goal saturation 88-92% -Continue Ellipta -Continue Spiriva -DuoNeb and Albuterol PRN -Continuous pulse oximetry #Nosebleed well on anticoagulation Patient reports having a nosebleed overnight, likely secondary to oxygen via nasal cannula. Unfortunately she is on anticoagulation therapy was difficult to control. Unclear how much blood she lost during the bleed. To control the nosebleed a clip was placed on her nose and hemostasis was eventually obtained. Since this event patient reports she is having difficulty breathing through that nostril. This is interfering with her nasal cannula and she is having difficulty oxygenating leading to increased work of breathing. OT notes this on their exam as well. So we will monitor overnight, and hopefully discharge tomorrow assuming she is able to maintain adequate saturation without increased work of breathing. Follow-up CBC demonstrated hemoglobin within normal limits and patient was asymptomatic and signs and symptoms of anemia. Recommend continuation of humidified oxygen. #Gastrointestinal bleeding: H/O perforated duodenal ulcer and massive GI bleed, hemorrhagic shock requiring intubation and ICU care in November 2017. Patient has recovered from this and is doing quite well. Denies melena or hematochezia -Continue Protonix 40 mg p.o. twice daily -On Xarelto, caution for signs and symptoms of bleeding -Hemoglobin has remained stable throughout this admission, no signs or symptoms of bleeding #CHF (congestive heart failure): -Patient with grade 1 diastolic dysfunction. Evidence of CHF in setting of A. fib with RVR -Check daily weights, Monitor intake and output closely -Continue PRN Lasix as an outpatient #Constipation Endorsing constipation secondary to initiation of diltiazem. We recommend the patient continue MiraLAX daily as an outpatient, she may use it twice daily as needed and add Colace as needed. -MiraLAX 1 packet daily scheduled FENa: Heart healthy Code Status: Full code DVT PPX: Xarelto PT/OT: Consulted, recommend SNF but patient is unwilling, will be discharged with home health Dispo: Discharge home with home health Brody Brandt MD PGY 2, FCM This chart was completed utilizing [employer] voice recognition software. Grammatical errors, random word insertions, pronoun errors, and in complete sentences are an occasional consequence of the system. Any questions or concerns about the content, text, or information contained within the body of this dictation should be addressed directly to the physician for clarification. Supervising Physician Co-Signing Physician Notes Patient seen and examined with Dr. Brandt. I agree with their exam findings, review of systems, assessment and plan. I have personally reviewed the lab work and imaging from today. patient feeling fine, a little light headed when moving around today reviewed monitor, HR up into the 130-140's at times when patient was just sitting down, no distress discussed with patient and her daughter, unstable for discharge at this time will add some Digoxin 250mcg IV, look for improvement hopeful for d/c to home tomorrow no further nose bleeding exam: elderly female, NAD, lungs diminished but clear, normal effort, heart irreg irreg tachycardic no murmurs, abdomen soft, NT, ND Atrial fibrillation/flutter with RVR: continue Cardizem 240mg daily, rates elevated today from 120-140 while seated will give Digoxin 250mcg IV today, start on 125mcg daily tomorrow had considered ablation but less likely to be successful now that it is evident that she has atrial fibrillation anticoagulated on NOAC per Dr. Mcneil, can go home once rates are controlled, follow up in office to consider cardioversion Acute and Chronic hypoxic respiratory failure: stable on her 3-4L, acute component resolved with better HR control no increased work of breathing Weakness: she refuses to consider SNF rehab, will go home with home health once medically stable Chronic diastolic heart failure: some consideration for acute component but she did not diurese on increased Lasix at 60mg IV in fact, her Cr went up, felt dry, so likely her CHF is well compensated Epistaxis: likely due to oxygen and dry nose, will have saline nasal spray at the bedside no bleeding today try for discharge tomorrow Subjective Patient sitting upright in her chair this morning in no acute distress. Patient reports no acute events overnight. Patient reports her breathing is improved from yesterday, and that she is able to move air through nasal passageways. Patient does have some concerns regarding anticoagulation, she is concerned that if the clot breaks off in her nose she will continue to bleed. I spent approximately 10 minutes counseling her on bleeding on anticoagulation, placing pressure on the area for 15 minutes, and if it does not stop bleeding she should contact her PCP or present to the emergency department. Patient verbalized understanding. The plan was to discharge the patient today however she has been experiencing tachycardia. All questions answered no acute concerns. Physical Exam Physical Exam: General: Elderly female sitting up in no acute distress HEENT: Normal cephalic atraumatic Neck: Normal visual inspection Cardiac: Irregularly irregular rhythm, approximately 120 bpm, I did not appreciate any significant murmurs rubs or gallops, neg pedal edema, negative calf tenderness, Respiratory: Significant improvement in respiratory exam, intermittent wheezes and bibasilar, rhonchi, negative for egophony, negative for consolidation. GI: Bowel sounds present MSK: Moves all extremities Skin: Warm and well-perfused Neuro: Alert and oriented x4 Psych: Calm, cooperative, appears in different to her medical treatment Results & Data Vital Signs (Past 12 Hours) Vital Signs Temp Pulse Pulse Resp BP Pulse Ox 12/04/18 11:39 36.5 C 124 H 20 132/94 93 12/04/18 07:33 36.3 C L 92 H 18 126/82 92 12/04/18 07:20 109 H 12/04/18 07:00 76 18 96 12/04/18 03:23 36.4 C L 124 H 24 119/68 91 12/04/18 02:31 72 18 92 Laboratory Results 12/04/18 12/04/18 12/03/18 Range/Units 07:04 07:04 05:47 WBC 5.91 (4.8-10.8) K/uL RBC 3.75 L (4.2-5.4) M/uL Hgb 10.8 L (12.0-16.0) g/dL Hct 34.9 L (37-47) % MCV 93.1 (80-100) fL MCH 28.8 (25-34) pg MCHC 30.9 L (32-36) g/dL RDW Std Deviation 46.1 (36.4-46.3) fL RDW Coeff of Tio 13.5 (11.5-14.5) % Plt Count 220 (130-400) K/uL MPV 9.3 (7.4-10.4) fL Immature Gran % (Auto) 0.2 % Neut % (Auto) 71.0 % Lymph % (Auto) 13.9 % [place] % (Auto) 11.7 % Eos % (Auto) 2.7 % Baso % (Auto) 0.5 % Immature Gran # (Auto) 0.01 (0.00-0.02) K/uL Neut # (Auto) 4.20 (1.4-6.5) K/uL Lymph # (Auto) 0.82 L (1.2-3.4) K/uL [place] # (Auto) 0.69 H (0.11-0.59) K/uL Eos # (Auto) 0.16 (0-0.5) K/uL Baso # (Auto) 0.03 (0-0.2) K/uL Sodium 130 L (136-145) mmol/L Potassium 4.5 (3.5-5.1) mmol/L Chloride 91 L (98-107) mmol/L Carbon Dioxide 33 H (21-32) mmol/L Anion Gap 5.0 (3-11) BUN 30 H (7-18) mg/dl Creatinine 1.00 (0.6-1.2) mg/dl Est Cr Clr Drug Dosing 38.3 ml/min Est GFR ( Amer) 62.5 Est GFR (Non-Af Amer) 53.9 BUN/Creatinine Ratio 30.3 H (10-20) Glucose 113 H (70-99) mg/dl Calcium 8.8 (8.5-10.1) mg/dl Magnesium 2.3 (1.8-2.4) mg/dl Medications Administered Current Inpatient Medications Acetaminophen (Tylenol) 650 mg PO Q4H PRN PRN Reason: Pain or Fever Stop: 12/24/18 13:41 Albuterol (Ventolin 0.5% 2.5mg/0.5ml) 2.5 mg NEB Q2H PRN PRN Reason: SOB/Wheeze Stop: 12/24/18 13:41 Last Admin: 12/02/18 13:24 Dose: 2.5 mg Documented by: Albuterol (Duoneb) 3 ml INH BIDR GURWINDER Stop: 12/31/18 08:59 Last Admin: 12/04/18 07:00 Dose: 3 ml Documented by: Diltiazem HCl (Cardizem Cd) 240 mg PO QAM GURWINDER Stop: 01/01/19 08:59 Last Admin: 12/04/18 08:39 Dose: 240 mg Documented by: Docusate Sodium (Colace) 100 mg PO BID PRN PRN Reason: Constipation Stop: 12/24/18 13:41 Docusate Sodium (Colace) 100 mg PO BID GURWINDER Stop: 01/01/19 10:44 Last Admin: 12/04/18 08:40 Dose: 100 mg Documented by: Levalbuterol HCl (Xopenex 1.25mg/3ml Neb) 1.25 mg NEB Q6R PRN PRN Reason: Wheezing Stop: 12/28/18 12:59 Last Admin: 12/04/18 02:30 Dose: 1.25 mg Documented by: Pantoprazole Sodium (Protonix) 40 mg PO BID GURWINDER Stop: 12/24/18 20:59 Last Admin: 12/04/18 08:39 Dose: 40 mg Documented by: Polyethylene Glycol (Miralax Powder Packet) 17 gm PO DAILY GURWINDER Stop: 01/01/19 10:44 Last Admin: 12/04/18 08:40 Dose: Not Given Documented by: Rivaroxaban (Xarelto) 15 mg PO DAILY@1700 [facility] Stop: 12/26/18 16:39 Last Admin: 12/03/18 17:30 Dose: 15 mg Documented by: Fluticasone/Salmeterol (Advair Diskus 100/50) 1 puffs INH BID GURWINDER Stop: 12/24/18 20:59 Last Admin: 12/04/18 08:38 Dose: 1 puffs Documented by: Sodium Chloride ([place]entry Nasal) 4 sprays NA Q1H PRN PRN Reason: Dryness Stop: 01/02/19 11:24 Tiotropium [place] (Spiriva) 1 puffs INH DAILY GURWINDER Stop: 12/25/18 08:59 Last Admin: 12/04/18 08:43 Dose: Not Given Documented by: PG Care Time/CCT Total # of Minutes Spent Total Time Spent with Patient: Total time spent is greater than 50% in coordination of care (as documented) at patient's floor/unit and/or counseling patient: Resident Activity Tracking Resident Involvement: Resident Care Provided Care Provided: Adult Hospital Medicine
[2018-12-04] MEDS: RIVAROXABAN 15 MG TAB PO SCH (17:26)
[2018-12-05] MEDS: ALBUT/IPRATROP 3MG/0.5MG NEB 3 ML VIAL INH SCH (07:18)
[2018-12-05] MEDS ORDERED: DIGOXIN 125 MCG in SYRINGE 9.5 ML IV ONE (08:00)
[2018-12-05 08:02] LABS: BUN Creatinine Ratio 28.7 (10-20); Calcium 8.6 mg/dl (8.5-10.1); Creatinine Clr Calc Pharmacy 36.7 ml/min; Est GFR (African American) 59.6; Est GFR (Non-African American) 51.4; Potassium 4.6 mmol/L (3.5-5.1)
[2018-12-05] MEDS: FLUTICASONE/SALMETEROL 100/50 (ADVAIR) 14 PUFF/1 INHALER INH SCH (08:52)
[2018-12-05] MEDS: DOCUSATE SODIUM 100 MG CAP PO SCH (08:53)
[2018-12-05] MEDS: PANTOprazole 40 MG TAB PO SCH (08:53)
[2018-12-05] MEDS: POLYETHYLENE (MIRALAX) 17 GM PACK PO SCH (08:53)
[2018-12-05] MEDS: dilTIAZem HCL 240 MG CAPCR PO SCH (08:53)
[2018-12-05] MEDS: TIOTROPIUM BROMIDE 5 PUFF/90 MCG INH INH SCH (08:54)
== END 2018-12-05 13:10 | disposition home health service (06) | DRG 308 ==
LOC: ED 08:57 → SUATTDRO 12:22 → 2S 12:22

== ENCOUNTER 2019-07-10 15:23 | Inpatient (IN) ==
[2019-07-10 16:18] LABS: Basophils # (auto) 0.04 K/uL (0-0.2); Basophils % (auto) 0.4 %; Eosinophils # (auto) 0.32 K/uL (0-0.5); Eosinophils % (auto) 2.9 %; Hematocrit (blood only) 30.7 % (37-47); Hemoglobin 9.8 g/dL (12.0-16.0); Immature Granulocytes # (auto) 0.05 K/uL (0.00-0.02); Immature Granulocytes % (auto) 0.5 %; Lymphocytes # (auto) 1.11 K/uL (1.2-3.4); Lymphocytes % (auto) 10.2 %; Mean Corpuscular Hemoglobin 29.2 pg (25-34); Mean Corpuscular Hgb Conc 31.9 g/dL (32-36); Mean Corpuscular Volume 91.4 fL (80-100); Mean Platelet Volume 8.2 fL (7.4-10.4); Monocytes # (auto) 0.59 K/uL (0.11-0.59); Monocytes % (auto) 5.4 %; Neutrophils # (auto) 8.76 K/uL (1.4-6.5); Neutrophils % (auto) 80.6 %; Platelet Count 234 K/uL (130-400); RDW Coefficient of Variation 14.5 % (11.5-14.5); RDW Standard Deviation 48.5 fL (36.4-46.3); Red Blood Count 3.36 M/uL (4.2-5.4); White Blood Count 10.87 K/uL (4.8-10.8)
--- NOTE | 2019-07-10 16:24 | XRay Report ---
XR chest 1V portable CLINICAL HISTORY: weakness COMPARISON STUDY: Chest CT May 19, 2018. Chest radiograph and left rib series June 16, 2019. FINDINGS: There is no pneumothorax or pleural effusion. Note is made of a 6.1 cm left perihilar opaci ty. Linear left basilar opacity favors atelectasis or scarring. Cardiomegaly is unchanged. There is n o evidence for pulmonary edema. Incidental note is made of multiple old left rib fractures and an IVC filter. IMPRESSION: 6.1 cm left perihilar opacity. Pneumonia is favored however a mass could appear similar. Radiographic follow up to ensure resolution is recommended. ACT 112: Negative or not required by law. Electronically signed by: Nathan Simpson M.D. 07/10/2019 4:22 PM
[2019-07-10 16:35] LABS: Alanine Aminotransferase 9 U/L (12-78); Albumin Level 3.1 gm/dl (3.4-5.0); Aspartate Aminotransferase 8 U/L (15-37); BUN Creatinine Ratio 13.2 (10-20); Blood Urea Nitrogen 18 mg/dl (7-18); Calcium 8.3 mg/dl (8.5-10.1); Carbon Dioxide 29 mmol/L (21-32); Chloride 98 mmol/L (98-107); Est GFR (African American) 42.8; Est GFR (Non-African American) 36.9; Glucose 106 mg/dl (70-99); Magnesium 2.2 mg/dl (1.8-2.4); Potassium 4.1 mmol/L (3.5-5.1); Sodium 132 mmol/L (136-145)
[2019-07-10 16:47] LABS: Albumin Globulin Ratio 0.8 (0.9-2); Alkaline Phosphatase 105 U/L (45-117); Bilirubin,Total 0.5 mg/dl (0.2-1); Globulin 3.7 gm/dl (2.5-4.0); NT Pro B Type Natriuretic Pept 2461 pg/ml (0-1800); Total Protein 6.8 gm/dl (6.4-8.2); Troponin I < 0.015 ng/ml (0-0.045)
[2019-07-10 17:41] LABS: Appearance Urine Clear (Clear); Bacteria Urine Automated Negative (Negative); Bilirubin Urine Negative (Negative); Blood Urine Negative (Negative); Cast Urine Automated 0 /lpf (0-5); Color Urine Yellow; Epithelial Cell Urine Auto >30 /lpf (0-5); Glucose Urine UA Negative (Negative); Ketones Urine Negative (Negative); Leukocyte Esterase Urine Trace (Negative); Nitrite Urine Negative (Negative); Protein Urine Negative (Negative); RBC Urine Automated 0-4 /hpf (0-4); Specific Gravity Urine 1.011 (1.000-1.030); Urobilinogen Urine Negative (Negative); pH Urine 6.5 (4.5-7.5)
[2019-07-10] MEDS ORDERED: OPTIRAY 320 125ml IV PRN (19:15)
--- NOTE | 2019-07-10 19:50 | CT Scan Report ---
CT ANGIOGRAPHY OF THE CHEST, PULMONARY EMBOLUS PROTOCOL CLINICAL HISTORY: Abnormal chest xray, pleuritic left CP. COMPARISON STUDY: Chest CT May 19, 2018. Chest radiograph performed earlier today. TECHNIQUE: Following IV administration of 119 mL of Optiray-320, helical axial images of the chest we re obtained utilizing the pulmonary embolus protocol. Maximal intensity projections and sagittal and coronal reformats were viewed on an independent 3D workstation. IV contrast was administered withou t complication. Automated exposure control was utilized for the study. A dose lowering technique wa s utilized adhering to the principles of ALARA. CT DOSE: 425.06 mGy.cm FINDINGS: No pulmonary emboli are identified. There is no evidence for thoracic aortic dissection. T he heart is mildly enlarged. No pericardial effusion is noted. There is trace pericardial fluid. No e nlarged axillary, mediastinal or hilar lymph nodes are present. There are several thyroid nodules. Mo derate emphysema is noted. There has been interval development of an 8 x 5.1 x 4.3 cm mass within the superior segment of the left lower lobe since CT of May 19, 2018. This likely invades into the extr apleural fat and extends to the posterior left ninth rib. There may be subtle rib erosion. In additio n, there is a small loculated left pleural effusion. Additional subpleural opacities favor scarring o r atelectasis. There is no pneumothorax. Old bilateral rib fractures are noted. An indeterminate 4 mm left lower lobe nodule on image 64 of 253 is noted. Upper abdomen is unremarkable. IMPRESSION: 1. No pulmonary emboli identified. 2. Interval development of an 8 x 5.1 x 4.3 cm mass within the superior segment of the left lower lob e since CT of May 19, 2018. This invades the extrapleural fat and extends to the posterior left nint h rib. Possible subtle rib erosion. These findings strongly favor a neoplastic process such as bronch ogenic carcinoma. An atypical infectious process could have this appearance but is considered much le ss likely. Pulmonary consultation is recommended. 3. Small loculated left pleural effusion. 4. Indeterminate 4 mm left lower lobe pulmonary nodule. 5. Emphysema. ACT 112: Negative or not required by law. Electronically signed by: Nathan Simpson M.D. 07/10/2019 7:49 PM
[2019-07-10] MEDS ORDERED: CEFEPIME 2,000 MG/20 ML VIAL IV STA (20:12)
[2019-07-10] MEDS ORDERED: MoRPHine SULFATE 2 MG/ML CARP IV STA (20:14)
--- NOTE | 2019-07-10 21:00 | Emergency Department Note ---
Impression & Plan Left-sided chest pain, Flank Pain, Mass of left lung, Leukocytosis ED Provider Note NAME: CARLITO FINK AGE: 79 SEX: F ARRIVES VIA: Walk-In INFORMANT: [Patient] ED PROVIDER(S): Judd Duffy MD CHIEF COMPLAINT: Left flank and chest pain PLAN: Disposition: Admitted Condition: [Good] MEDICAL DECISION MAKING: Patient presented to the ER with left flank, chest discomfort that was pleuritic in nature. Her family was concerned that she was somewhat confused as well. Patient states he had some difficulty remembering if she took her medications. Chest x-ray was concerning for an abnormality in the left lung field. She had a slight leukocytosis on CBC. Chemistries otherwise were unremarkable. Her ECG did not show any acute ischemic change. Troponin negative. Patient underwent CT imaging of the chest which revealed significant abnormality concerning for a lung mass versus an atypical infectious etiology. Patient had blood cultures performed and was given IV cefepime. A consultation was made with internal medicine. The patient did note some discomfort after initially declining analgesia and was given 2 mg of IV morphine. Further management and consultation will be necessary to delineate this abnormality seen on CT imaging as it was not present in May 2018. Given her history of smoking cancer is very concerning. I did relay this to the patient. Triage Nursing notes reviewed and agree them. Vital Signs: reviewed and remarkable for hypertension. Differential diagnosis: Pneumonia, kidney stone, cardiac ischemia, aortic dissection, pulmonary embolism, pneumothorax, pericarditis, myocarditis, esophageal rupture, GERD, cholecystitis, pancreatitis, musculoskeletal, as well as other pathologies. ER treatment provided: Supplemental oxygen IV cefepime Morphine Diagnostics interpreted by me: ECG: Rate: 54 Rhythm: Sinus bradycardia [place]: Normal QRS: Normal ST segements: Nonspecific ST. No elevation or depression. Other: LVH present. First-degree AV block. No PVCs. Cardiac Monitoring: Cardiac monitoring ordered by me: The patient was placed on continuous cardiac monitoring and observed. It revealed a sinus bradycardic rhythm at 59 beats per minute without ectopy or evidence of dysrhythmia. Laboratory studies: [See below] a mild leukocytosis on CBC. Chemistry panel, LFTs, and troponin negative. Blood cultures pending. Imaging studies: Abnormal mass in the chest and the left side on chest x-ray. CT imaging reveals a atypical mass in the left lung concerning for cancer or atypical infectious etiology. I refer you to the EMR for further details. Consultation(s): [facility] hospitalist service, Dr. Garrett Jules. HPI: 79/F arrives for evaluation of left flank pain and confusion. Patient symptoms have been escalating over the last several days. She was previously se en by her primary office and there was concerns about possible pneumonia. She was placed on antibiotics however then they were discontinued. She has pleuritic pain on the left side. She feels worse with a deep breath. She describes it as sharp. She feels generally weak. The patient took a nap today and had some confusion about her medications. Family thought that she was on her self. She was directed to the ER for further evaluation. She is chronically on oxygen and notes a long history of smoking but has quit 2 years ago. Pt denies LOC, headache, fevers, chills, diaphoresis, visual changes, neck pain, breathing difficulties, nausea, vomiting, abdominal pain, back pain, melena, hem atochezia, urinary symptoms, numbness, lymphadenopathy, rash, or other complaints. ROS: See above HPI for pertinent positives & negatives. A total of [10] systems reviewed and were otherwise negative. PAST MEDICAL HISTORY:[See Below] COPD PAST SURGICAL HISTORY:[See Below] FAMILY HISTORY:[See Below] SOCIAL HISTORY:[See Below] lives with family HOME MEDICATIONS:[See Below] ALLERGIES:[See Below] VITALS:[See Below] PHYSICAL EXAMINATION: GENERAL: Awake, alert, well-appearing, in no distress HENT: Normocephalic, atraumatic. Oropharynx unremarkable. EYES: Normal conjunctiva. Sclera non-icteric. NECK: Inspection normal. Non-tender. Supple. No nuchal rigidity. FROM. No masses. RESPIRATORY: Diminished breath sounds on the left side. Few scattered right- sided wheezes. No rales. Normal respiratory effort. CARDIAC: Bradycardic rate. Normal rhythm. No murmurs. No rubs. Extremities warm and well perfused. Pulses equal. No JVD. GI: Soft, non-distended. No tenderness to palpation. No rebound or guarding. No masses. RECTAL: Deferred. MUSCULOSKELETAL: Atraumatic. Chest examination reveals no tenderness. The back is symmetrical on inspection without obvious abnormality. There is no CVA tenderness to palpation. No joint edema. LOWER EXTREMITIES: Calves are equal size bilaterally and non-tender. No edema. No discoloration. NEURO: Normal sensorium. No sensory or motor deficits noted. SKIN: No rash or jaundice noted. ED COURSE: [Critical Care:] [None] Judd Duffy MD Past Med/Surg History Medical History (Updated 07/10/19 @ 20:51 by Judd Duffy MD) Acute and chronic respiratory failure ANETA (acute kidney injury) Atrial fibrillation with RVR (Acute) CHF (congestive heart failure) COPD (chronic obstructive pulmonary disease) (Chronic) DVT (deep venous thrombosis) (11/2017) Eczema (Inactive) Encephalopathy acute Gastrointestinal bleeding (Resolved) History of peptic ulcer disease History of pulmonary embolism (11/2017) Hypovolemic shock Intra-abdominal free air of unknown etiology (Inactive) Lactic acid acidosis Left lower lobe pneumonia (Inactive) No pertinent family history (Inactive) Perforated duodenal ulcer with hemorrhage (11/2017) Pulmonary emboli (11/2017) Pulmonary hypertension Required emergent intubation Respiratory failure with hypoxia and hypercapnia (Inactive) Tachyarrhythmia Thyroid nodule (Inactive 11/21/12) Venous stasis dermatitis Surgical History (Updated 05/26/19 @ 16:55 by Kevin Capone III, MD) H/O tubal ligation S/P cataract surgery Bilateral S/P IVC filter S/P tooth extraction Family History (Updated 05/25/19 @ 12:16 by Tomeka Tapia) Mother Diabetes Brother Diabetes Other Cancer Family history non-contributory Social History (Updated 01/12/19 @ 13:47 by Tomeka Tapia) Preferred Language: Armenian Communication Ability: Effective Visual Impairment: Limited Hearing Ability: Normal Sleep Lab Technologist Required: No Beliefs That Will Affect Care: None Current Living Situation: Family Current Living Situation Comment: lives with daughter Lia Fink Feels Safe at Home: Yes Smoking Status: Never smoker Tobacco Type: cigarettes ; Age Started Using Tob acco: 21 ; Age Quit Using Tobacco: 77 ; packs per day: 0.5 ; Cigarettes Per Day: 10 ; Number of Years Since Quit: 1 ; Second Hand Exposure: No ; Hx Alcohol Use: Yes Alcohol type: beer Hx Substance Use: No Allergies Allergies Allergy/AdvReac Type Severity Reaction Status Date / Time bacitracin Allergy Mild UNSURE Verified 07/10/19 16:40 neomycin Allergy Mild UNSURE Verified 07/10/19 16:40 polymyxin B Allergy Mild UNSURE Verified 07/10/19 16:40 copper Allergy Unknown METAL? Verified 07/10/19 16:40 nickel Allergy Unknown METAL? Verified 07/10/19 16:40 silver Allergy Unknown METAL? Verified 07/10/19 16:40 strawberry Allergy Unknown . Verified 07/10/19 16:40 doxycycline AdvReac Intermediate vomiting Verified 07/10/19 16:40 Home Meds Home Medications Medication Instructions Recorded Confirmed Oxygen Home #1 ea 11/12/18 06/16/19 pantoprazole 40 mg tablet,delayed 40 mg PO DAILY tab 04/15/19 07/10/19 release [id number] 1 ea INHALATION DAILY 07/10/19 07/10/19 [Trelegy Ellipta] rivaroxaban [Xarelto] 15 mg PO DAILY 07/10/19 07/10/19 Previous Rx's Medication Instructions Recorded furosemide 20 mg tablet See Rx Instructions PO DAILY PRN 01/28/19 #20 tab zolpidem 5 mg tablet 5 mg PO HS PRN #30 tab 06/09/19 levalbuterol HCl 0.63 mg/3 mL 0.63 mg INH QID PRN #360 ml 06/13/19 solution for nebulization acetaminophen 300 mg-codeine 30 mg See Rx Instructions PO TID PRN #30 06/28/19 tablet tab digoxin 125 mcg (0.125 mg) tablet 125 mcg PO DAILY #90 tab 07/01/19 diltiazem HCl 240 mg 240 mg PO QAM #90 cap 07/01/19 capsule,extended release 24 hr Results & Data (ED) Vital Signs Vital Signs - 24 hr 07/10/19 15:26 07/10/19 15:56 07/10/19 16:27 Temperature 37.4 C Temperature Source Oral Pulse Rate 67 56 L Pulse Rate from SpO2 Sensor 57 L Respiratory Rate 16 17 Respiratory Effort / Characteristics Non-Labored Blood Pressure 160/84 H 163/70 H Blood Pressure Mean 109 100 Pulse Oximetry 96 100 Oxygen Delivery Method Nasal Cannula Room Air Nasal Cannula Oxygen Flow Rate 3 2 Sepsis Recent Fever Within 48 Hours No Sepsis New/Unexplained Change in Mental Status No Sepsis Action Taken by Nursing No Action Required 07/10/19 16:30 07/10/19 17:30 05/24/20 18:01 Temperature Temperature Source Pulse Rate 58 L 55 L 54 L Pulse Rate from SpO2 Sensor 58 L 55 L 53 L Respiratory Rate 23 24 21 Respiratory Effort / Characteristics Blood Pressure 159/79 H 169/74 H 149/65 H Blood Pressure Mean 106 131 70 Pulse Oximetry 100 100 100 Oxygen Delivery Method Nasal Cannula Nasal Cannula Nasal Cannula Oxygen Flow Rate 2 2 2 Sepsis Recent Fever Within 48 Hours Sepsis New/Unexplained Change in Mental Status Sepsis Action Taken by Nursing 07/10/19 18:30 07/10/19 19:01 07/10/19 19:30 Temperature Temperature Source Pulse Rate 55 L 60 63 Pulse Rate from SpO2 Sensor 55 L 59 L 63 Respiratory Rate 26 H 26 H 24 Respiratory Effort / Characteristics Blood Pressure 166/72 H 164/72 H 161/66 H Blood Pressure Mean 112 118 104 Pulse Oximetry 100 100 100 Oxygen Delivery Method Nasal Cannula Nasal Cannula Nasal Cannula Oxygen Flow Rate 2 2 2 Sepsis Recent Fever Within 48 Hours Sepsis New/Unexplained Change in Mental Status Sepsis Action Taken by Nursing Laboratory Data Result diagrams: 07/10/19 16:06 07/10/19 16:06 Lab Results 07/10/19 07/10/19 07/10/19 Range/Units 16:06 16:06 17:20 WBC 10.87 H (4.8-10.8) K/uL RBC 3.36 L (4.2-5.4) M/uL Hgb 9.8 L (12.0-16.0) g/dL Hct 30.7 L (37-47) % MCV 91.4 (80-100) fL MCH 29.2 (25-34) pg MCHC 31.9 L (32-36) g/dL RDW Std Deviation 48.5 H (36.4-46.3) fL RDW Coeff of [place] 14.5 (11.5-14.5) % Plt Count 234 (130-400) K/uL MPV 8.2 (7.4-10.4) fL Immature Gran % (Auto) 0.5 % Neut % (Auto) 80.6 % Lymph % (Auto) 10.2 % [place] % (Auto) 5.4 % Eos % (Auto) 2.9 % Baso % (Auto) 0.4 % Immature Gran # (Auto) 0.05 H (0.00-0.02) K/uL Neut # (Auto) 8.76 H (1.4-6.5) K/uL Lymph # (Auto) 1.11 L (1.2-3.4) K/uL [place] # (Auto) 0.59 (0.11-0.59) K/uL Eos # (Auto) 0.32 (0-0.5) K/uL Baso # (Auto) 0.04 (0-0.2) K/uL Sodium 132 L (136-145) mmol/L Potassium 4.1 (3.5-5.1) mmol/L Chloride 98 (98-107) mmol/L Carbon Dioxide 29 (21-32) mmol/L Anion Gap 5.0 (3-11) BUN 18 (7-18) mg/dl Creatinine 1.36 H (0.6-1.2) mg/dl Est Cr Clr Drug Dosing Not Reportable Est GFR ( Amer) 42.8 Est GFR (Non-Af Amer) 36.9 BUN/Creatinine Ratio 13.2 (10-20) Glucose 106 H (70-99) mg/dl Calcium 8.3 L (8.5-10.1) mg/dl Magnesium 2.2 (1.8-2.4) mg/dl Total Bilirubin 0.5 (0.2-1) mg/dl AST 8 L (15-37) U/L ALT 9 L (12-78) U/L Alkaline Phosphatase 105 (45-117) U/L Troponin I < 0.015 (0-0.045) ng/ml NT-Pro-B Natriuret Pep 2461 H (0-1800) pg/ml Total Protein 6.8 (6.4-8.2) gm/dl Albumin 3.1 L (3.4-5.0) gm/dl Globulin 3.7 (2.5-4.0) gm/dl Albumin/Globulin Ratio 0.8 L (0.9-2) TSH 1.090 (0.300-4.500) uIu/ml Urine Color Yellow Urine Appearance Clear (Clear) Urine pH 6.5 (4.5-7.5) Ur Specific [place] 1.011 (1.000-1.030) Urine Protein Negative (Negative) Urine Glucose (UA) Negative (Negative) Urine Ketones Negative (Negative) Urine Blood Negative (Negative) Urine Nitrite Negative (Negative) Urine Bilirubin Negative (Negative) Urine Urobilinogen Negative (Negative) Ur Leukocyte Esterase Trace H (Negative) Urine WBC (Auto) 1-5 (0-5) /hpf Urine RBC (Auto) 0-4 (0-4) /hpf U Hyaline Cast (Auto) 0 (0-5) /lpf U Epithel Cells (Auto) >30 H (0-5) /lpf Urine Bacteria (Auto) Negative (Negative) Administered Medications Ioversol (Optiray 320 125ml) 120 ml IV ONCE PRN PRN Reason: Interaction Checking Stop: 07/14/19 19:14 Last Admin: 07/10/19 19:16 Dose: 120 ml Documented by: [id number] Discontinued Medications Cefepime HCl (Maxipime) 2,000 mg in 20 mls @ 5 mls/min IV NOW STA; Protocol Stop: 07/10/19 20:15 Last Admin: 07/10/19 20:49 Dose: 5 mls/min Documented by: [id number] Morphine Sulfate (Morphine Sulfate) 2 mg IV NOW STA Stop: 07/10/19 20:15 Last Admin: 07/10/19 20:25 Dose: 2 mg Documented by: [id number] Discharge Plan Visit Data Chief Complaint: Flank Pain Stated Complaint: SIDE AND BACK PAIN,VOMITING ED Provider: Judd Duffy Discharge Problem: Left-sided chest pain, Flank Pain, Mass of left lung, Leukocytosis Forms Stand Alone Forms: [facility] Prescriptions Prescriptions: No Action furosemide [Lasix] 20 mg tablet See Rx Instructions PO DAILY PRN (Reason: Unknown) Qty: 20 RF: 2 zolpidem 5 mg tablet 5 mg PO HS PRN (Reason: insomnia) Qty: 30 RF: 1 levalbuterol HCl 0.63 mg/3 mL solution for nebulization 0.63 mg INH QID PRN (Reason: shortness of breath or wheezing) Qty: 360 RF: 11 acetaminophen-codeine [Tylenol-Codeine #3] 300-30 mg tablet See Rx Instructions PO TID PRN (Reason: pain) Qty: 30 RF: 0 digoxin 125 mcg (0.125 mg) tablet 125 mcg PO DAILY Qty: 90 RF: 3 diltiazem HCl 240 mg capsule,extended release 24hr 240 mg PO QAM Qty: 90 RF: 3 (DME) Oxygen Home Liters Per Minute See Dose Instructions .ROUTE .MEDSUPPLY Qty: 1 RF: 0 pantoprazole [Protonix] 40 mg tablet,delayed release (DR/EC) 40 mg PO DAILY RF: 0 Xarelto 15 mg tablet 15 mg PO DAILY RF: 0 Trelegy Ellipta 100-62.5-25 mcg blister with device 1 ea INHALATION DAILY RF: 0
--- NOTE | 2019-07-10 22:21 | History & Physical Report ---
Date of Service July 10, 2019 Assessment & Plan (1) Left-sided chest pain: Patient is a 79 year old female with past medical history of COPD, Afib with RVR, AV emma reentry tachycardia, CKD Stage III, chronic diastolic CHF who presented initially with chief complaint of L sided flank pain found to have a presumed 8x5.1x4.3cm mass in the superior segment of the L lower lung with invasion of the 9th rib. ED Course: 2g Cefepime, 2mg IV morphine Left Sided Chest/Flank Pain -Likely secondary to invasion of 9th rib on L by L lung mass. -Renal calculi less likely due to relatively negative UA. -CXR and CT show prior rib fractures but no current -Tylenol PRN pain -Heat pack PRN pain Mass of L Lung -Chest XR showed a 6.1 cm perihilar opacity -Chest CT describes an 8 x 5.1 x 4.3 cm lesion in the superior segment of the left lower lobe, ?mass vs atypical infection. -Also noted a 4mm pulmonary nodule in the LLL -Prior scan from 05/19/2018 does not note a similar lesion. -Due to patients significant prior smoking history, current L sided pain, expect a neoplastic lesion. -Pulmonology consulted for anticipated biopsy -Patient will likely require further scanning of abdomen etc for any metastatic lesions. Will hold on scans at this time. Leukocytosis -Elevated WBC of 10.87. -?Post-obstructive PNA -Patient received 2g cefepime in the ED -Will hold on further abx at this time as patient remains afebrile and denies respiratory symptoms. COPD -Continue home inhalers Trelegy and Levalbuterol PRN -Continue home O2 of 3L NC ANETA on CKD stage III -Cr elevated at 1.36, prior baseline appears around 1-1.2 -Patient appears dry on exam, expect prerenal -Will give gentle hydration with NSS 80ml/hr x500mL -Holding patients lasix Chronic Diastolic CHF -Strict I/O's -Holding home lasix Afib w/ RVR -Continue home Digoxin and Diltiazem -Holding Xarelto currently as patient will likely require lung biopsy for the presumed mass -Home Pantoprazole for prophylaxis -Admit to telemetry Dispo: Telemetry FEN: NPO After midnight, NSS 80ml/hr DVT: Holding Xarelto Code: Full (2) Mass of left lung: (3) COPD (chronic obstructive pulmonary disease): (4) CKD (chronic kidney disease), stage III: (5) ANETA (acute kidney injury): (6) Chronic diastolic CHF (congestive heart failure): (7) Atrial fibrillation with RVR: (8) Leukocytosis: History of Present Illness Chief Complaint: Left Flank Pain Primary Care Provider: Kevin Capone MD Patient is a 79 year old female with past medical history of COPD, Afib with RVR, AV emma reentry tachycardia, CKD Stage III, chronic diastolic CHF who presented initially with chief complaint of L sided flank pain. Patient notes that this pain has been ongoing since the 20 of June. She states that at the time it felt similar to her prior rib fractures and felt no need to mention it. She states she had a TeleHealth visit on the with someone from her PCP's office and that she had an XR at that time and was given antibiotics and "something for pain." She notes later that as the antibiotics were ineffective, she was told she had a viral pneumonia and was given Tylenol w/ Codeine for her pain. Earlier this afternoon around 2:30PM, she states that her daughter thought she was more confused than usual, and with her continued L flank/back pain she felt it was necessary to bring her to the ED. Currently patient states that she is still having some L flank/back pain, but that it has gotten slightly better since receiving morphine. She states the pain is still a 6/10 sharp, constant pain that does note radiate. She denies any SOB, increased difficulty breathing, nausea, vomiting, diarrhea, abdominal pain, fatigue, dysuria, hematuria. She does note a longstanding smoking history of roughly 1/2PPD x56 years, to which she quit on Dec 07, 2017. Allergies Allergy/AdvReac Type Severity Reaction Status Date / Time bacitracin Allergy Mild UNSURE Verified 07/10/19 16:40 neomycin Allergy Mild UNSURE Verified 07/10/19 16:40 polymyxin B Allergy Mild UNSURE Verified 07/10/19 16:40 copper Allergy Unknown METAL? Verified 07/10/19 16:40 nickel Allergy Unknown METAL? Verified 07/10/19 16:40 silver Allergy Unknown METAL? Verified 07/10/19 16:40 strawberry Allergy Unknown . Verified 07/10/19 16:40 doxycycline AdvReac Intermediate vomiting Verified 07/10/19 16:40 Home Medications Home Medications Medication Instructions Recorded Confirmed Type Oxygen Home #1 ea 11/12/18 06/16/19 History furosemide 20 mg tablet See Rx Instructions PO DAILY PRN 01/28/19 07/10/19 Rx #20 tab pantoprazole 40 mg tablet,delayed 40 mg PO DAILY tab 04/15/19 07/10/19 History release zolpidem 5 mg tablet 5 mg PO HS PRN #30 tab 06/09/19 07/10/19 Rx levalbuterol HCl 0.63 mg/3 mL 0.63 mg INH QID PRN #360 ml 06/13/19 07/10/19 Rx solution for nebulization acetaminophen 300 mg-codeine 30 mg See Rx Instructions PO TID PRN #30 06/28/19 07/10/19 Rx tablet tab digoxin 125 mcg (0.125 mg) tablet 125 mcg PO DAILY #90 tab 07/01/19 07/10/19 Rx diltiazem HCl 240 mg 240 mg PO QAM #90 cap 07/01/19 07/10/19 Rx capsule,extended release 24 hr qywetwwuuvl-[id number]-slmbkylf 1 ea INHALATION DAILY 07/10/19 07/10/19 History [Trelegy Ellipta] rivaroxaban [Xarelto] 15 mg PO DAILY 07/10/19 07/10/19 History Past Med/Surg History Medical History (Updated 07/11/19 @ 13:56 by Evert Lopez MD) Acute and chronic respiratory failure ANETA (acute kidney injury) Atrial fibrillation with RVR (Acute) CHF (congestive heart failure) Chronic hypercapnic respiratory failure Chronic hypoxemic respiratory failure COPD (chronic obstructive pulmonary disease) (Chronic) DVT (deep venous thrombosis) (11/2017) Eczema (Inactive) Encephalopathy acute Gastrointestinal bleeding (Resolved) History of peptic ulcer disease History of pulmonary embolism (11/2017) Hypovolemic shock Intra-abdominal free air of unknown etiology (Inactive) Lactic acid acidosis Left lower lobe pneumonia (Inactive) Mass of lower lobe of left lung Moderate protein-energy malnutrition No pertinent family history (Inactive) Perforated duodenal ulcer with hemorrhage (11/2017) Pulmonary emboli (11/2017) Pulmonary hypertension Required emergent intubation Respiratory failure with hypoxia and hypercapnia (Inactive) Tachyarrhythmia Thyroid nodule (Inactive 11/21/12) Venous stasis dermatitis Surgical History H/O tubal ligation S/P cataract surgery Bilateral S/P IVC filter S/P tooth extraction Family History Mother Diabetes Brother Diabetes Other Cancer Family history non-contributory Social History Preferred Language: Azeri Communication Ability: Effective Visual Impairment: Limited Hearing Ability: Normal Concrete Buster Operator Required: No Beliefs That Will Affect Care: None Current Living Situation: Family Current Living Situation Comment: lives with daughter Lia Fink Other Information That Helps Us Care for You: No Feels Safe at Home: Yes Safety Concerns: Feels Safe At This Time Smoking Status: Former smoker Tobacco Type: cigarettes ; Age Started Using T obacco: 21 ; Age Quit Using Tobacco: 77 ; packs per day: 0.5 ; Cigarettes Per Day: 10 ; Number of Years Since Quit: 1 ; Second Hand Exposure: No ; Tobacco Cessation Education Requested by Patient: No Hx Alcohol Use: Yes Alcohol type: beer Hx Substance Use: No Review of Systems Constitutional: no fever, no chills, no sweats and no fatigue Eyes: no worsening vision Ear, Nose, Mouth, Throat: no tinnitus, no dizziness and no sore throat Respiratory: + cough (notes occasional cough, has not worsened ) and + wheezing; no dyspnea, no hemoptysis and no pain on inspiration Cardiovascular: + edema (LE edema ); no chest pain, no chest pain at rest, no dyspnea, no palpitations, no lightheadedness and no calf pain Gastrointestinal: + constipation; no abdominal pain, no nausea, no vomiting and no diarrhea/loose stools Genitourinary: + flank pain; no dysuria, no urinary frequency and no hematuria Musculoskeletal: + back pain (L sided mid-low back ) Integumentary: no rash Neurologic: + confusion (per daughter, patient denies ); no falls Physical Exam Constitutional: + thin, cooperative and comfortable; no acute distress, not in distress and not combative Eyes: PERRL, conjunctivae normal, anicteric sclerae normal visual tabor by confrontation ENMT: external ear and nose normal, oropharynx normal Neck: normal visual inspection Respiratory: normal respiratory effort and able to speak in complete sentences; no respiratory distress, no labored breathing and no cough Auscultation: + diminished lung sounds (slightly diminished in the L lower lung field ) and + wheezes (Audible throughout all lung tabor); no crackles Cardiovascular: Rate/Rhythm: regular rate and regular rhythm Heart Sounds: normal S1 and normal S2; no murmur Vessels: no JVD Extremities: + edema (+1); no calf tenderness Gastrointestinal (Abdomen): normal bowel sounds, soft, nontender, no hepatosplenomegaly Musculoskeletal: no cyanosis or clubbing, extremities motor strength 5/5 Head/Neck/Chest: + localized rib tenderness (Tenderness noted near the rib angle of ribs 8-9 on the L ) Neurologic: PERRL, EOMI, accommodation nl, no face palsy, no dysarthria awake; not confused and not obtunded Psychiatric: A+Ox3, euthymic affect Results & Data Results & Data ([facility]) Vital Signs (Past 12 Hours) Vital Signs Temp Pulse Resp BP Pulse Ox 07/10/19 21:30 69 18 139/71 98 07/10/19 21:00 60 26 H 147/65 H 98 07/10/19 20:30 60 26 H 154/71 H 99 07/10/19 20:00 61 31 H 158/77 H 97 07/10/19 19:30 63 24 161/66 H 100 07/10/19 19:01 60 26 H 164/72 H 100 07/10/19 18:30 55 L 26 H 166/72 H 100 07/10/19 18:01 54 L 21 149/65 H 100 07/10/19 17:30 55 L 24 169/74 H 100 07/10/19 16:30 58 L 23 159/79 H 100 07/10/19 16:27 56 L 17 163/70 H 100 07/10/19 15:26 37.4 C 67 16 160/84 H 96 Supervising Physician Co-Signing Physician Notes Attending addendum: I have physically seen this patient, have supervised the medical residents activities, and agree with the H&P unless as otherwise noted. Assessment and Plan: Left lower lobe lung mass/left-sided chest pain and flank pain/COPD/tobacco use disorder- Admit to monitored bed. N.p.o. Consult pulmonology for possible bronchoscopy for likely neoplastic process Xopenex nebulizer 4 times daily as needed No sign of postobstructive process, but needs to be followed closely. A. fib with RVR/chronic diastolic CHF- Hold Xarelto for possible procedure. Serial cardiac enzymes. Continue digoxin, diltiazem with hold parameters. Hold furosemide. Remaining orders and notations as noted. PG Care Time/CCT Total # of Minutes Spent Total Time Spent with Patient: Total time spent is greater than 50% in coordination of care (as documented) at patient's floor/unit and/or counseling patient: Coding Level of Care Code 63762 Initial Inpt Care Lvl 3 Diagnoses Left-sided chest pain R07.9 Mass of left lung R91.8 COPD (chronic obstructive pulmonary disease) J44.9 COPD type: unspecified COPD CKD (chronic kidney disease), stage III N18.3 ANETA (acute kidney injury) N17.9 Chronic diastolic CHF (congestive heart failure) I50.32 Atrial fibrillation with RVR I48.91 Leukocytosis D72.829 Resident Activity Tracking Resident Involvement: Resident Care Provided Care Provided: Adult Hospital Medicine (1) COPD (chronic obstructive pulmonary disease) COPD type: unspecified COPD Qualified Code(s): J44.9 - Chronic obstructive pulmonary disease, unspecified
[2019-07-10] MEDS ORDERED: ACETAMINOPHEN 325 MG TAB PO PRN (23:54)
[2019-07-10] MEDS ORDERED: ZOLPIDEM TARTRATE 5 MG TAB PO PRN (23:54)
[2019-07-10] MEDS ORDERED: SODIUM CHLORIDE 0.9% 500 ML IV SCH (23:54)
[2019-07-11 06:19] LABS: Basophils # (auto) 0.04 K/uL (0-0.2); Basophils % (auto) 0.3 %; Eosinophils # (auto) 0.36 K/uL (0-0.5); Hematocrit (blood only) 29.5 % (37-47); Hemoglobin 9.4 g/dL (12.0-16.0); Immature Granulocytes # (auto) 0.04 K/uL (0.00-0.02); Immature Granulocytes % (auto) 0.3 %; Lymphocytes # (auto) 1.14 K/uL (1.2-3.4); Lymphocytes % (auto) 9.4 %; Mean Corpuscular Hemoglobin 29.2 pg (25-34); Mean Corpuscular Hgb Conc 31.9 g/dL (32-36); Mean Corpuscular Volume 91.6 fL (80-100); Mean Platelet Volume 8.3 fL (7.4-10.4); Monocytes # (auto) 0.83 K/uL (0.11-0.59); Monocytes % (auto) 6.8 %; Neutrophils # (auto) 9.78 K/uL (1.4-6.5); Neutrophils % (auto) 80.2 %; Platelet Count 249 K/uL (130-400); RDW Coefficient of Variation 14.6 % (11.5-14.5); RDW Standard Deviation 49.3 fL (36.4-46.3); Red Blood Count 3.22 M/uL (4.2-5.4); White Blood Count 12.19 K/uL (4.8-10.8)
[2019-07-11 07:07] LABS: BUN Creatinine Ratio 11.5 (10-20); Blood Urea Nitrogen 15 mg/dl (7-18); Calcium 8.3 mg/dl (8.5-10.1); Carbon Dioxide 28 mmol/L (21-32); Chloride 101 mmol/L (98-107); Est GFR (African American) 44.4; Est GFR (Non-African American) 38.3; Glucose 106 mg/dl (70-99); Potassium 4.2 mmol/L (3.5-5.1); Sodium 134 mmol/L (136-145)
[2019-07-11] MEDS: UMECLIDINIUM/VILANTEROL 62.5/25MCG 7 PUFFS/INHALER INH SCH (08:18)
[2019-07-11] MEDS: FLUTICASONE FUROATE 100MCG 14 PUFFS/INHALER INH SCH (08:18)
[2019-07-11] MEDS: PANTOprazole 40 MG TAB PO SCH (08:19)
[2019-07-11] MEDS: dilTIAZem HCL 240 MG CAPCR PO SCH (08:19)
[2019-07-11] MEDS: LEVALBUTEROL HCL 0.63 MG/3 ML NEB INH PRN ×2 (08:33→19:16)
--- NOTE | 2019-07-11 11:55 | Pulmonary Consultation ---
Date of Consultation July 11, 2019 Assessment & Plan (1) Mass of lower lobe of left lun-year-old female with a past medical history of combined chronic and hypercapnic respiratory failure, COPD, cor pulmonale, atrial fibrillation on Xarelto and CKD with a newly found 8 x 5.1 x 4.3 cm mass within the superior segment of the left lower lobe potentially infiltrating and eroding the adjacent rib. I do suspect this likely represents a malignant process. Recommend biopsy with real-time guidance of an ultrasound and FNA needle versus CT-guided biopsy. Will defer to radiology and ask for their assistance in the matter. The lesion is amenable to bronchoscopic biopsy, however, due to patient's significant comorbidities, I think he would be best and easiest to obtain a tissue sample transthoracically. PET scan should be obtained as well for full staging. This can be done as an outpatient. I do not think that she would be a good surgical candidate given her significant comorbidities, chronic hypoxemic respiratory failure and cor pulmonale. Once the tissue biopsy is obtained and histology is diagnosed, would recommend consulting our palliative care and oncology team. Recommend continuing ICS/lama/lama inhaler as you are currently doing. No obvious evidence of a COPD exacerbation at this time. She certainly is at risk for COPD exacerbation with sedation that may be used during the procedure. I would recommend minimizing sedation as much as possible. Pulmonary will continue to follow from the periphery. Please call us with questions. I did tell the patient that this likely represents a malignancy. She was visibly distraught. I did offer reassurance and counseling. She does understand. I did counseling aide the patient regarding her diagnosis and treatment plan and she expressed understanding. Greater than 50% of the time was spent [id number] with the patient counseling them on their diagnosis and treatment plan. This note was dictated using voice recognition software and may include grammatical errors, extra words, word substitutions and other inaccuracies due to errors in the voice recognition software and differences in speech patterns. (2) Atrial fibrillation with RVR: (3) Chronic hypoxemic respiratory failure: (4) Pulmonary hypertension: (5) Chronic hypercapnic respiratory failure: (6) Moderate protein-energy malnutrition: History of Present Illness Reason for Consultation: Left lower lobe mass Requesting Physician: Dr. Evert Lopez Attending Physician: Evert Lopez MD History of Present Illness 79-year-old female with a past medical history of severe COPD, chronic hypoxemic respiratory failure on 2 to 3 L of oxygen via nasal cannula, atrial fibrillation, diastolic heart failure and hypertension who presents to the hospital due to left-sided back pain and shortness of breath. Patient is well- known to Dr. powers who sees her as an outpatient in the pulmonary clinic. Patient notes that over the last 2 weeks she has been having left lower back pain and over the last day or so it has become very severe. She is also had some nausea and decreased appetite. She notes she lost about 5 pounds since the past month. She was told that she has pneumonia by her primary care doctor Dr. Capone per her account. She was actually seen by Felipa Shetty on 06/16/2019 who indicated that she had rib pain on the left and ordered an x-ray series. X- ray series at that point demonstrated no acute displaced rib fracture or pneumothorax. There were healed remote fractures of the posterior lateral left seventh, eighth and ninth rib. There is also hazy ill-defined left perihilar left lung base opacity which may reflect an atelectasis versus pneumonitis. Chest x-ray obtained yesterday demonstrated 6.1 cm left perihilar opacity. Subsequent CTA demonstrated interval development of an 8 x 5.1 x 4.3 cm mass within the superior segment of the left lower lobe. No obvious adenopathy was seen. There is invasion of the extrapleural fat that extend into the posterior left ninth rib seen. Possible rib erosion. Pulmonary was consulted to evaluate this left lower lobe mass. Patient notes that she was a smoker up until the year 2018. She smoked half a pack a day for 60 years or so. She lives with her daughter. She notes that she is only able to walk perhaps at best 50 to 100 feet. She does have to stop frequently due to shortness of breath. Her daughter helps her with most of her activities of daily living. She denies any increasing cough, hemoptysis, fevers or chills. On admission, laboratory values did not demonstrate any significant leukocytosis. Today there is a leukocytosis of 12,000. Sodium is 134. Creatinine is little elevated at 1.32. Calcium is 8.3. proBNP was elevated yesterday to 2461. Albumin was low at 3.1. Allergies Allergy/AdvReac Type Severity Reaction Status Date / Time bacitracin Allergy Mild UNSURE Verified 07/10/19 16:40 neomycin Allergy Mild UNSURE Verified 07/10/19 16:40 polymyxin B Allergy Mild UNSURE Verified 07/10/19 16:40 copper Allergy Unknown METAL? Verified 07/10/19 16:40 nickel Allergy Unknown METAL? Verified 07/10/19 16:40 silver Allergy Unknown METAL? Verified 07/10/19 16:40 strawberry Allergy Unknown . Verified 07/10/19 16:40 doxycycline AdvReac Intermediate vomiting Verified 07/10/19 16:40 Home Medications Home Medications Medication Instructions Recorded Confirmed Type Oxygen Home #1 ea 11/12/18 06/16/19 History furosemide 20 mg tablet See Rx Instructions PO DAILY PRN 01/28/19 07/10/19 Rx #20 tab pantoprazole 40 mg tablet,delayed 40 mg PO DAILY tab 04/15/19 07/10/19 History release zolpidem 5 mg tablet 5 mg PO HS PRN #30 tab 06/09/19 07/10/19 Rx levalbuterol HCl 0.63 mg/3 mL 0.63 mg INH QID PRN #360 ml 06/13/19 07/10/19 Rx solution for nebulization acetaminophen 300 mg-codeine 30 mg See Rx Instructions PO TID PRN #30 06/28/19 07/10/19 Rx tablet tab digoxin 125 mcg (0.125 mg) tablet 125 mcg PO DAILY #90 tab 07/01/19 07/10/19 Rx diltiazem HCl 240 mg 240 mg PO QAM #90 cap 07/01/19 07/10/19 Rx capsule,extended release 24 hr vuvhxxjzjoi-ccwnhcdlm-ylgcpygo 1 ea INHALATION DAILY 07/10/19 07/10/19 History [Trelegy Ellipta] rivaroxaban [Xarelto] 15 mg PO DAILY 07/10/19 07/10/19 History Patient History Medical History Acute and chronic respiratory failure ANETA (acute kidney injury) Atrial fibrillation with RVR (Acute) CHF (congestive heart failure) COPD (chronic obstructive pulmonary disease) (Chronic) DVT (deep venous thrombosis) (11/2017) Eczema (Inactive) Encephalopathy acute Gastrointestinal bleeding (Resolved) History of peptic ulcer disease History of pulmonary embolism (11/2017) Hypovolemic shock Intra-abdominal free air of unknown etiology (Inactive) Lactic acid acidosis Left lower lobe pneumonia (Inactive) No pertinent family history (Inactive) Perforated duodenal ulcer with hemorrhage (11/2017) Pulmonary emboli (11/2017) Pulmonary hypertension Required emergent intubation Respiratory failure with hypoxia and hypercapnia (Inactive) Tachyarrhythmia Thyroid nodule (Inactive 11/21/12) Venous stasis dermatitis Surgical History H/O tubal ligation S/P cataract surgery Bilateral S/P IVC filter S/P tooth extraction Family History Mother Diabetes Brother Diabetes Other Cancer Family history non-contributory Social History Preferred Language: [place] Communication Ability: Effective Visual Impairment: Limited Hearing Ability: Normal Antenna Specialist Required: No Beliefs That Will Affect Care: None Current Living Situation: Family Current Living Situation Comment: lives with daughter Lia Fink Other Information That Helps Us Care for You: No Feels Safe at Home: Yes Safety Concerns: Feels Safe At This Time Smoking Status: Former smoker Tobacco Type: cigarettes ; Age Started Using Tobacco: 21 ; Age Quit Using Tobacco: 77 ; packs per day: 0.5 ; Cigarettes Per Day: 10 ; Number of Years Since Quit: 1 ; Second Hand Exposure: No ; Tobacco Cessation Education Requested by Patient: No Hx Alcohol Use: Yes Alcohol type: beer Hx Substance Use: No Review of Systems Review of Systems: All systems reviewed & are unremarkable except as noted in HPI & below Physical Exam Constitutional: Thin and frail-appearing woman. Currently on oxygen. Laying in her hospital bed. No apparent distress. Eyes: PERRL, conjunctivae normal, anicteric sclerae ENMT: external ear and nose normal, oropharynx normal Neck: normal visual inspection Respiratory: No significant wheezing is noted. No tachypnea. Distant heart sounds and breath sounds. Cardiovascular: RRR, no murmur, no edema Gastrointestinal (Abdomen): normal bowel sounds, soft, nontender, no hepatosplenomegaly Musculoskeletal: no cyanosis or clubbing, extremities motor strength 5/5 Skin: no rashes, warm and dry Neurologic: PERRL, EOMI, accommodation nl, no face palsy, no dysarthria Psychiatric: A+Ox3, euthymic affect Results & Data Results & Data ([facility]) Vital Signs (Past 12 Hours) Vital Signs Temp Pulse Pulse Resp BP Pulse Ox 07/11/19 11:38 97.9 F 60 18 159/67 H 99 07/11/19 08:35 60 18 99 07/11/19 08:19 63 07/11/19 08:00 57 L 07/11/19 07:45 97.9 F 56 L 18 160/66 H 100 07/11/19 03:53 99.0 F 78 18 153/64 H 100 07/11/19 00:40 98.4 F 72 74 16 143/72 H 96 I did review the patient's pertinent laboratory data, chest imaging and previous notes. PG Care Time/CCT Total # of Minutes Spent Total Time Spent with Patient: Total time spent is greater than 50% in coordination of care (as documented) at patient's floor/unit and/or counseling patient: Coding Level of Care Code 27365 Initial Inpt Care Lvl 3 Diagnoses Mass of lower lobe of left lung R91.8 Atrial fibrillation with RVR I48.91 Chronic hypoxemic respiratory failure J96.11 Pulmonary hypertension I27.20 Chronic hypercapnic respiratory failure J96.12 Moderate protein-energy malnutrition E44.0 Time Spent (min) 70
--- NOTE | 2019-07-11 12:43 | Electrocardiogram Report ---
Test Reason : Blood Pressure : / mmHG Vent. Rate : 054 BPM Atrial Rate : 054 BPM P-R Int : 350 ms QRS Dur : 084 ms QT Int : 370 ms P-R-T Axes : 000 -07 020 degrees QTc Int : 350 ms Poor data quality, interpretation may be adversely affected Sinus bradycardia with 1st degree A-V block Left ventricular hypertrophy with repolarization abnormality ST and T wave changes consider lateral ischemia Abnormal ECG When compared with ECG of 29-NOV-2018 14:38, Sinus rhythm has replaced Atrial fibrillation Vent. rate has decreased BY 37 BPM QT has shortened Confirmed by Kumar Jacobs ([id number]) on 07/11/2019 12:43:06 PM Referred By: REFERRED SELF Confirmed By:Kumar Jacobs
--- NOTE | 2019-07-11 14:00 | Hospitalist Progress Note ---
Date of Service July 11, 2019 Assessment & Plan (1) Mass of lower lobe of left lung: Mass seen on CT chest on 07/09. Concern for neoplastic disease. - Seen by pulmonology - Plan for CT-guided biopsy on 07/12; need 48h wash-out of Xarelto - Pain control - Palliative care consult (2) Chronic hypoxemic respiratory failure: Likely due to COPD. Long-standing smoker. - Wean O2 as able. (3) ANETA (acute kidney injury): Baseline Cr is ~1.0, eGFR 50. - Cr was up to 1.3 on admission; possibly pre-renal from poor PO intake. - Will give gentle IV fluids and monitor (4) CKD (chronic kidney disease), stage III: At baseline, Cr ~1.0. - Plan as above (5) COPD (chronic obstructive pulmonary disease): Severe. On triple-therapy. No evidence of exacerbation at this time. - Appreciate pulmonology consult - Continue inhalers standing and PRN (6) Atrial fibrillation with RVR: Presently in sinus with a 1st degree block. - Continue digoxin - Hold Xarelto for biopsy (7) Hypertension: BP presently 160/70. - Continue calcium channel jenifer (8) Moderate protein-energy malnutrition: Likely due to COPD and possible cancer. - Encourage good PO intake - Protein supplement (9) DVT prophylaxis: Restart Xarelto when able Admission and Anticipated Discharge Date Admission Date: July 10, 2019 Subjective Breathing is at baseline. She has continued pain in the left rib area where the tumor is. This has been stable for her. Reports no fevers/chills, chest pain, shortness of breath, abdominal pain, nausea, or vomiting. Physical Exam Constitutional: WD/WN, vitals as above Eyes: EOM intact bilaterally; no conjunctival abnormality ENMT: external ear and nose normal, oropharynx normal Neck: trachea midline, no thyromegaly normal visual inspection Respiratory: normal respiratory effort, lungs clear to auscultation no respiratory distress Cardiovascular: RRR, no murmur, no edema Gastrointestinal (Abdomen): Inspection/Auscultation: abdomen normal to inspection; abdomen not distended Musculoskeletal: no cyanosis or clubbing, extremities motor strength 5/5 (Pain on the left back on the ribs.) Skin: no rashes, warm and dry Neurologic: moves all extremities and awake Psychiatric: Orientation: alert, oriented to person and cooperative Results & Data Results & Data ([facility]) Vital Signs (Past 12 Hours) Vital Signs Temp Pulse Pulse Resp BP Pulse Ox 07/11/19 11:38 36.6 C 60 18 159/67 H 99 07/11/19 08:35 60 18 99 07/11/19 08:19 63 07/11/19 08:00 57 L 07/11/19 07:45 36.6 C 56 L 18 160/66 H 100 07/11/19 03:53 37.2 C 78 18 153/64 H 100 PG Care Time/CCT Total # of Minutes Spent Total Time Spent with Patient: Total time spent is greater than 50% in coordination of care (as documented) at patient's floor/unit and/or counseling patient: Coding Level of Care Code 65933 Subseq Hosp Care Lvl 3 Diagnoses Mass of lower lobe of left lung R91.8 Chronic hypoxemic respiratory failure J96.11 ANETA (acute kidney injury) N17.9 CKD (chronic kidney disease), stage III N18.3 COPD (chronic obstructive pulmonary disease) J44.9 COPD type: unspecified COPD Atrial fibrillation with RVR I48.91 Hypertension I10 Moderate protein-energy malnutrition E44.0 DVT prophylaxis Z29.9 (1) COPD (chronic obstructive pulmonary disease) COPD type: unspecified COPD Qualified Code(s): J44.9 - Chronic obstructive pulmonary disease, unspecified
[2019-07-11] MEDS: TRAMADOL HCL 50 MG TABLET PO PRN (19:44)
[2019-07-11] MEDS: DIGOXIN 0.125 MG TAB PO SCH (21:02)
--- NOTE | 2019-07-11 23:55 | Billing Data ---
Date of Service July 11, 2019 Coding Level of Care Code 92453 Initial Inpt Care Lvl 3
[2019-07-12] MEDS: TRAMADOL HCL 50 MG TABLET PO PRN (00:17)
[2019-07-12 06:30] LABS: Basophils # (auto) 0.02 K/uL (0-0.2); Basophils % (auto) 0.2 %; Eosinophils # (auto) 0.31 K/uL (0-0.5); Eosinophils % (auto) 3.3 %; Hematocrit (blood only) 27.4 % (37-47); Hemoglobin 8.9 g/dL (12.0-16.0); Immature Granulocytes # (auto) 0.02 K/uL (0.00-0.02); Immature Granulocytes % (auto) 0.2 %; Lymphocytes # (auto) 0.76 K/uL (1.2-3.4); Lymphocytes % (auto) 8.1 %; Mean Corpuscular Hemoglobin 29.1 pg (25-34); Mean Corpuscular Hgb Conc 32.5 g/dL (32-36); Mean Corpuscular Volume 89.5 fL (80-100); Mean Platelet Volume 8.2 fL (7.4-10.4); Monocytes # (auto) 0.57 K/uL (0.11-0.59); Neutrophils # (auto) 7.76 K/uL (1.4-6.5); Neutrophils % (auto) 82.2 %; Platelet Count 244 K/uL (130-400); RDW Coefficient of Variation 14.7 % (11.5-14.5); RDW Standard Deviation 48.2 fL (36.4-46.3); Red Blood Count 3.06 M/uL (4.2-5.4); White Blood Count 9.44 K/uL (4.8-10.8)
[2019-07-12 06:53] LABS: BUN Creatinine Ratio 11.9 (10-20); Calcium 8.6 mg/dl (8.5-10.1); Creatinine Clr Calc Pharmacy 26.6 ml/min; Est GFR (African American) 48.3; Est GFR (Non-African American) 41.7; Potassium 3.9 mmol/L (3.5-5.1)
[2019-07-12] MEDS: LEVALBUTEROL HCL 0.63 MG/3 ML NEB INH PRN ×2 (07:06→18:51)
[2019-07-12 07:41] LABS: Partial Thromboplastin Ratio 1.1; Partial Thromboplastin Time 31.9 Seconds (21.0-31.0)
[2019-07-12] MEDS ORDERED: TRAMADOL HCL 50 MG TABLET PO PRN (08:47)
--- NOTE | 2019-07-12 10:20 | CT Scan Report ---
CT guided FNA 1st lesion CLINICAL HISTORY: LEFT LUNG BIOPSY COMPARISON STUDY: Chest CT scan dated 07/11/2019 FINDINGS: A timeout was performed. The risks the procedure were explained the patient and informed consent was obtained. The patient was prepped and draped in a sterile fashion. The skin was anesthetized 1% lidocaine. Under CT guidance, 2 fine-needle aspiration biopsy samples were obtained from the patient's left lowe r lobe pulmonary mass, utilizing a 22-gauge Adrienne needle. Initial pathologic review indicates satis factory material for diagnosis. There were no immediate complications. There was no postprocedure pneumothorax. The patient will be observed on the floor. IMPRESSION: 1. Successful CT guided left lung fine-needle aspiration biopsy. There were no immediate complication s. ACT 112: Negative or not required by law. Electronically signed by: Yusuf Adamson M.D. 07/12/2019 10:19 AM
[2019-07-12] MEDS: dilTIAZem HCL 240 MG CAPCR PO SCH (10:51)
[2019-07-12] MEDS: PANTOprazole 40 MG TAB PO SCH (10:51)
[2019-07-12] MEDS: POLYETHYLENE (MIRALAX) 17 GM PACK PO SCH (10:51)
[2019-07-12] MEDS: UMECLIDINIUM/VILANTEROL 62.5/25MCG 7 PUFFS/INHALER INH SCH (10:52)
[2019-07-12] MEDS: FLUTICASONE FUROATE 100MCG 14 PUFFS/INHALER INH SCH (10:52)
[2019-07-12] MEDS: TRAMADOL/ACETAMINOPHEN 37.5/325MG TAB PO PRN ×2 (10:53→20:56)
--- NOTE | 2019-07-12 12:03 | XRay Report ---
XR chest inspiration/expiratio HISTORY: 79 years-old Female Post Left Lung FNA. 12 noon status post left lung mass biopsy COMPARISON: Chest radiograph 07/10/2019, CT guided FNA 07/12/2019 TECHNIQUE: Inspiration and expiration PA views of the chest FINDINGS: Masslike opacity of the left midlung redemonstrated. Cardiomediastinal and hilar silhouettes are unch anged. Emphysema with chronic interstitial coarsening. Trace pleural effusions. Mild pleural thickeni ng of the lung apices. No postprocedural pneumothorax identified. Remote appearing left-sided rib fra ctures. Degenerative changes of the shoulders and spine. IVC filter. IMPRESSION: 1. No postprocedural pneumothorax identified. 2. Left lower lobe mass redemonstrated. 3. Emphysema. ACT 112: Negative or not required by law. The above report was generated using voice recognition software. It may contain grammatical, syntax o r spelling errors. Electronically signed by: Reji Whitaker M.D. 07/12/2019 12:02 PM
--- NOTE | 2019-07-12 13:40 | Hospitalist Progress Note ---
Date of Service July 12, 2019 Assessment & Plan (1) Mass of lower lobe of left lung: Mass seen on CT chest on 07/09. Concern for neoplastic disease. - Seen by pulmonology - CT-guided biopsy on 07/12 -> Will await pathology. - Asked to wait on MRI brain for now as she has trouble lying down. - Pain control with Ultracet seems to be working better. - Palliative care consulted (2) Chronic hypoxemic respiratory failure: Likely due to COPD. Long-standing smoker. - Wean O2 as able. (3) ANETA (acute kidney injury): Baseline Cr is ~1.0, eGFR 50. - Cr was up to 1.3 on admission; possibly pre-renal from poor PO intake. - Got gentle IV fluids on 07/10 -> Cr down to 1.2 today. (4) CKD (chronic kidney disease), stage III: At baseline, Cr ~1.0. - Plan as above (5) COPD (chronic obstructive pulmonary disease): Severe. On triple-therapy. No evidence of exacerbation at this time. - Appreciate pulmonology consult - Continue inhalers standing and PRN (6) Atrial fibrillation with RVR: Presently in sinus with a 1st degree block. - Continue digoxin - Hold Xarelto for biopsy -> Will restart with tomorrow's dose. (7) Hypertension: BP presently 145/80. - Continue calcium channel jenifer (8) Moderate protein-energy malnutrition: Likely due to COPD and possible cancer. - Encourage good PO intake - Protein supplement (9) DVT prophylaxis: Restart Xarelto tomorrow Admission and Anticipated Discharge Date Admission Date: July 10, 2019 Subjective Pain is stable today. No shortness of breath other than baseline. Otherwise, stable. Reports no fevers/chills, chest pain, abdominal pain, nausea, or vomiting. Physical Exam Constitutional: WD/WN, vitals as above Eyes: EOM intact bilaterally; no conjunctival abnormality ENMT: external ear and nose normal, oropharynx normal Neck: trachea midline, no thyromegaly normal visual inspection Respiratory: normal respiratory effort, lungs clear to auscultation no respiratory distress Cardiovascular: RRR, no murmur, no edema Gastrointestinal (Abdomen): Inspection/Auscultation: abdomen normal to inspection; abdomen not distended Musculoskeletal: no cyanosis or clubbing, extremities motor strength 5/5 (Pain on the left back on the ribs.) Skin: no rashes, warm and dry Neurologic: moves all extremities and awake Psychiatric: Orientation: alert, oriented to person and cooperative Results & Data Results & Data ([facility]) Vital Signs (Past 12 Hours) Vital Signs Temp Pulse Pulse Resp BP BP Pulse Ox 07/12/19 12:31 36.7 C 86 18 145/78 H 97 07/12/19 10:57 36.5 C 96 H 18 164/80 H 96 07/12/19 07:46 36.9 C 73 20 154/74 H 98 07/12/19 07:06 54 L 19 98 07/12/19 07:03 57 L 07/12/19 03:42 36.7 C 59 L 18 142/66 H 99 PG Care Time/CCT Total # of Minutes Spent Total Time Spent with Patient: Total time spent is greater than 50% in coordination of care (as documented) at patient's floor/unit and/or counseling patient: Coding Level of Care Code 62750 Subseq Hosp Care Lvl 2 Diagnoses Mass of lower lobe of left lung R91.8 Chronic hypoxemic respiratory failure J96.11 ANETA (acute kidney injury) N17.9 CKD (chronic kidney disease), stage III N18.3 COPD (chronic obstructive pulmonary disease) J44.9 COPD type: unspecified COPD Atrial fibrillation with RVR I48.91 Hypertension I10 Moderate protein-energy malnutrition E44.0 DVT prophylaxis Z29.9 (1) COPD (chronic obstructive pulmonary disease) COPD type: unspecified COPD Qualified Code(s): J44.9 - Chronic obstructive pulmonary disease, unspecified
[2019-07-12] MEDS: DIGOXIN 0.125 MG TAB PO SCH (20:55)
[2019-07-13] MEDS: TRAMADOL/ACETAMINOPHEN 37.5/325MG TAB PO PRN ×2 (05:25→15:56)
[2019-07-13] MEDS: LEVALBUTEROL HCL 0.63 MG/3 ML NEB INH PRN (07:17)
[2019-07-13] MEDS: dilTIAZem HCL 240 MG CAPCR PO SCH (08:15)
[2019-07-13] MEDS: UMECLIDINIUM/VILANTEROL 62.5/25MCG 7 PUFFS/INHALER INH SCH (08:15)
[2019-07-13] MEDS: FLUTICASONE FUROATE 100MCG 14 PUFFS/INHALER INH SCH (08:15)
[2019-07-13] MEDS: PANTOprazole 40 MG TAB PO SCH (08:15)
[2019-07-13] MEDS: POLYETHYLENE (MIRALAX) 17 GM PACK PO SCH (08:16)
[2019-07-13 08:17] LABS: Basophils # (auto) 0.04 K/uL (0-0.2); Basophils % (auto) 0.4 %; Eosinophils % (auto) 5.1 %; Hematocrit (blood only) 27.6 % (37-47); Immature Granulocytes # (auto) 0.02 K/uL (0.00-0.02); Immature Granulocytes % (auto) 0.2 %; Lymphocytes # (auto) 0.95 K/uL (1.2-3.4); Lymphocytes % (auto) 9.7 %; Mean Corpuscular Hemoglobin 29.7 pg (25-34); Mean Corpuscular Hgb Conc 32.6 g/dL (32-36); Mean Corpuscular Volume 91.1 fL (80-100); Monocytes # (auto) 0.66 K/uL (0.11-0.59); Monocytes % (auto) 6.7 %; Neutrophils # (auto) 7.64 K/uL (1.4-6.5); Neutrophils % (auto) 77.9 %; Platelet Count 233 K/uL (130-400); RDW Coefficient of Variation 14.7 % (11.5-14.5); RDW Standard Deviation 49.3 fL (36.4-46.3); Red Blood Count 3.03 M/uL (4.2-5.4); White Blood Count 9.81 K/uL (4.8-10.8)
[2019-07-13 08:49] LABS: BUN Creatinine Ratio 9.1 (10-20); Calcium 8.6 mg/dl (8.5-10.1); Creatinine Clr Calc Pharmacy 25.6 ml/min; Est GFR (Non-African American) 39.7
[2019-07-13 14:54] VITALS: BP 148/65; TEMP 97.9; O2SAT 96
[2019-07-13 15:57] VITALS: PULSE 63
[2019-07-13] MEDS: DIGOXIN 0.125 MG TAB PO SCH (15:57)
--- NOTE | 2019-07-13 17:03 | Discharge Summary ---
Date of Service July 13, 2019 Admission HPI Per Admitting Provider Patient is a 79 year old female with past medical history of COPD, Afib with RVR, AV emma reentry tachycardia, CKD Stage III, chronic diastolic CHF who presented initially with chief complaint of L sided flank pain. Patient notes that this pain has been ongoing since the 20 of June. She states that at the time it felt similar to her prior rib fractures and felt no need to mention it. She states she had a TeleHealth visit on the with someone from her PCP's office and that she had an XR at that time and was given antibiotics and "something for pain." She notes later that as the antibiotics were ineffective, she was told she had a viral pneumonia and was given Tylenol w/ Codeine for her pain. Earlier this afternoon around 2:30PM, she states that her daughter thought she was more confused than usual, and with her continued L flank/back pain she felt it was necessary to bring her to the ED. Currently patient states that she is still having some L flank/back pain, but that it has gotten slightly better since receiving morphine. She states the pain is still a 6/10 sharp, constant pain that does note radiate. She denies any SOB, increased difficulty breathing, nausea, vomiting, diarrhea, abdominal pain, fatigue, dysuria, hematuria. She does note a longstanding smoking history of roughly 1/2PPD x56 years, to which she quit on Dec 07, 2017. 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 Discharge Exam Constitutional WD/WN, vitals as above Eyes EOM intact bilaterally; no conjunctival abnormality ENMT external ear and nose normal, oropharynx normal Neck trachea midline, no thyromegaly normal visual inspection Respiratory normal respiratory effort, lungs clear to auscultation no respiratory distress Cardiovascular RRR, no murmur, no edema Gastrointestinal (Abdomen) Inspection/Auscultation: abdomen normal to inspection; abdomen not distended Musculoskeletal no cyanosis or clubbing, extremities motor strength 5/5 (Pain on the left back on the ribs.) Skin no rashes, warm and dry Neurologic moves all extremities and awake Psychiatric Orientation: alert, oriented to person and cooperative Discharge Data Allergies Allergy/AdvReac Type Severity Reaction Status Date / Time bacitracin Allergy Mild UNSURE Verified 07/10/19 16:40 neomycin Allergy Mild UNSURE Verified 07/10/19 16:40 polymyxin B Allergy Mild UNSURE Verified 07/10/19 16:40 copper Allergy Unknown METAL? Verified 07/10/19 16:40 nickel Allergy Unknown METAL? Verified 07/10/19 16:40 silver Allergy Unknown METAL? Verified 07/10/19 16:40 strawberry Allergy Unknown . Verified 07/10/19 16:40 doxycycline AdvReac Intermediate vomiting Verified 07/10/19 16:40 Consultations 07/10/19 20:09 ED Decision to Admit Stat 07/10/19 23:54 Consult Pulmonology Routine Ordered Studies 07/10/19 18:50 CT angio chest PE protocol Stat 07/12/19 CT guided FNA 1st lesion Routine CT limited or localized study Routine Hospital Course (1) Mass of lower lobe of left lung: Mass seen on CT chest on 07/09. Concern for neoplastic disease. - Seen by pulmonology - CT-guided biopsy on 07/12 -> Squamous cell cancer. Dr. Galicia send PDL-1 testing. To [facility] with [facility] next week. - Asked to wait on MRI brain for now as she has trouble lying down. - Pain control with Ultracet seemed to work well. - Consider outpatient palliative consult. (2) Chronic hypoxemic respiratory failure: Likely due to COPD. Long-standing smoker. - O2 stable at baseline 3L. (3) ANETA (acute kidney injury): Baseline Cr is ~1.0, eGFR 50. - Cr was up to 1.3 on admission; possibly pre-renal from poor PO intake. - Got gentle IV fluids on 07/10 -> Cr down to 1.2 on discharge. Recheck BMP in 1-2 weeks. (4) CKD (chronic kidney disease), stage III: At baseline, Cr ~1.0. - Plan as above (5) COPD (chronic obstructive pulmonary disease): Severe. On triple-therapy. No evidence of exacerbation at this time. - Appreciate pulmonology consult - Continue inhalers standing and PRN (6) Atrial fibrillation with RVR: Presently in sinus with a 1st degree block. - Continue digoxin - Held Xarelto for biopsy -> Restarted as normal afterward. (7) Hypertension: BP presently 145/80. - Continue calcium channel jenifer (8) Moderate protein-energy malnutrition: Likely due to COPD and cancer. - Encourage good PO intake - Protein supplement (9) DVT prophylaxis: Restarted Xarelto Total Time Total Time Spent Total Time Spent (In Minutes): 35 Discharge Plan Discharge Items Patient Disposition: Home - Self-Care Reason For Visit: L FLANK PAIN NEW LUNG MASS ON CT Discharge Diagnosis: Concern for lung cancer Activity: Resume your previous activity Non-emergency contact: Primary Care Provider, Oncologist and Cow Washer Call non-emergency contact if: your symptoms worsen and your temperature is above 101 Follow-up/Referrals: Kevin Capone III, MD [Primary Care Provider] - Janak Galicia DO [Physician] - (Please see Dr. Galicia or another provider at the [facility] to discuss options for treatment.) Cyrus Sellers DO [Physician] - (Please see Dr. Sellers this week if able to discuss biopsy results.) Diet: Heart Healthy Addtl Attending Provider Instructions: You came to the hospital with pain in the left ribs. I am so sorry to say that we found a mass at the left lung base. We took a sample of this area to see what is going on, but we are worried that it is cancer. Different cancers can be treated with different medications and treatments. We will have to wait to see if this is a cancer and what kind before we can offer options regarding treatment. Please follow up with Dr. Sellers and the [facility] to discuss options for treatment. Please use the Ultracet and lidocaine patches for your pain. We had it generally down to a 2-3/10 which seemed to be enough for you to move around and feel relatively comfortable. Please discuss with your doctors if your pain increases or gets to the point where you cannot do your activities of daily living. Pending Studies at Discharge: Yes Studies:: Biopsy results Stand-Alone Forms: [employer], Smoking Cessation Medications and DC Order Prescriptions: New tramadol-acetaminophen 37.5-325 mg Tablet 1 tab PO Q4H PRN (Reason: pain) Qty: 30 RF: 0 lidocaine 5 % adhesive patch,medicated 1 patch TOP DAILY Qty: 30 RF: 0 Continued furosemide [Lasix] 20 mg tablet See Rx Instructions PO DAILY PRN (Reason: Unknown) Qty: 20 RF: 2 zolpidem 5 mg tablet 5 mg PO HS PRN (Reason: insomnia) Qty: 30 RF: 1 levalbuterol HCl 0.63 mg/3 mL solution for nebulization 0.63 mg INH QID PRN (Reason: shortness of breath or wheezing) Qty: 360 RF: 11 acetaminophen-codeine [Tylenol-Codeine #3] 300-30 mg tablet See Rx Instructions PO TID PRN (Reason: pain) Qty: 30 RF: 0 digoxin 125 mcg (0.125 mg) tablet 125 mcg PO DAILY Qty: 90 RF: 3 diltiazem HCl 240 mg capsule,extended release 24hr 240 mg PO QAM Qty: 90 RF: 3 (DME) Oxygen Home Liters Per Minute See Dose Instructions .ROUTE .MEDSUPPLY Qty: 1 RF: 0 pantoprazole [Protonix] 40 mg tablet,delayed release (DR/EC) 40 mg PO DAILY RF: 0 Xarelto 15 mg tablet 15 mg PO DAILY RF: 0 Trelegy Ellipta 100-62.5-25 mcg blister with device 1 ea INHALATION DAILY RF: 0 Discharge Orders: Discharge Order (Routine); Ordered 07/13/19 Ordered By: Evert Lopez Admission Data Admit Date/Time: 07/10/19 22:51 Attending Provider: Evert Lopez Admit Provider: Kalin Dong Primary Care Provider: Kevin Capone III Other Providers: Jose Carlos Curtis ; Evert Lopez Other Interventions: Discharge Summary Assessment (RN) Last Done: 07/13/19 13:06 DC Date/Time DO NOT enter until pt leaves facility: 07/13/19 16:26 Coding Level of Care Code D/C Day Management >30 mins Diagnoses Mass of lower lobe of left lung R91.8 Chronic hypoxemic respiratory failure J96.11 ANETA (acute kidney injury) N17.9 CKD (chronic kidney disease), stage III N18.3 COPD (chronic obstructive pulmonary disease) J44.9 COPD type: unspecified COPD Atrial fibrillation with RVR I48.91 Hypertension I10 Moderate protein-energy malnutrition E44.0 DVT prophylaxis Z29.9
== END 2019-07-13 16:26 | disposition home or self-care (01) | DRG 181 ==
LOC: ED 15:23 → SUATTDRO 22:51 → 2N 22:51